=== PATIENT | female | born 1960 | race Caucasian/White ===

== ENCOUNTER → 2024-11-20 13:41 | Outpatient (BNVA) | payer OTHER, SELFPAY | PROVIDERS: Visit Provider Physician Assistant Medical | DX: S60.212A Contusion of left wrist, initial encounter (principal); S70.02XA Contusion of left hip, initial encounter; S39.012A Strain of muscle, fascia and tendon of lower back, initial encounter; W00.0XXA Fall on same level due to ice and snow, initial encounter | CPT/HCPCS: 29125; 72100; 73110; 73502; 99203 ==

== ENCOUNTER → 2024-11-27 08:38 | Outpatient (BNVA) | payer OTHER, SELFPAY | PROVIDERS: Visit Provider Physician Assistant Medical | DX: S60.212A Contusion of left wrist, initial encounter (principal); S70.02XA Contusion of left hip, initial encounter; S76.011A Strain of muscle, fascia and tendon of right hip, initial encounter; S39.012A Strain of muscle, fascia and tendon of lower back, initial encounter; W00.0XXA Fall on same level due to ice and snow, initial encounter | CPT/HCPCS: 99213 ==

== ENCOUNTER → 2024-12-05 07:59 | Outpatient (BNVA) | payer OTHER, SELFPAY | PROVIDERS: PCP Physician Assistant Medical; Visit Provider Physician Assistant Medical | DX: S60.212A Contusion of left wrist, initial encounter (principal); S70.02XA Contusion of left hip, initial encounter; S76.011A Strain of muscle, fascia and tendon of right hip, initial encounter; S39.012A Strain of muscle, fascia and tendon of lower back, initial encounter; W00.0XXA Fall on same level due to ice and snow, initial encounter | CPT/HCPCS: 99213 ==

== ENCOUNTER → 2024-12-19 13:00 | Outpatient (BNVA) | payer OTHER, SELFPAY | PROVIDERS: PCP Physician Assistant Medical; Visit Provider Physician Assistant Medical | DX: S60.212D Contusion of left wrist, subsequent encounter (principal); S63.502D Unspecified sprain of left wrist, subsequent encounter; S70.02XD Contusion of left hip, subsequent encounter; S76.012D Strain of muscle, fascia and tendon of left hip, subsequent encounter; S39.012D Strain of muscle, fascia and tendon of lower back, subsequent encounter; W00.0XXD Fall on same level due to ice and snow, subsequent encounter | CPT/HCPCS: 99213 ==

== ENCOUNTER 2024-12-22 16:07 | Outpatient (REF) | payer OTHER, SELFPAY ==
--- NOTE | ~2024-12-22 | MR_ITS ---
EXAMINATION: MR LUMBAR SPINE WITHOUT CONTRAST CLINICAL INFORMATION: Status post fall on ice at work. Radiculopathy. COMPARISON: Correlated to x-ray dated November 20, 2024. TECHNIQUE: MRI of the lumbar spine was obtained using routine sequences without contrast. FINDINGS: Last rib-bearing vertebra labeled T12. There is a subtle bone marrow STIR signal in the inferior endplate of L2 and superior endplate of L3. Subtle bone marrow STIR signal within the posterior elements of L5 and to a lesser extent L4 and L1-L2 levels. Marginal osteophyte formation, decreased intervertebral disc height at L2-3, L1 to, L3-4, T11-12 and T12-L1. There is a subtle 1 mm anterolisthesis L2-3. Conus medullaris ends at pedicle of L1 with normal signal. Bone marrow inhomogeneity. T12-L1: Broad-based disc bulging. No central spinal canal or neuroforamina stenosis. L1-2: Small central disc herniation resulting in ventral deformity of the thecal sac. No central spinal canal or neuroforamina stenosis. L2-3: Broad-based disc bulging. Facet joint and ligamentum flavum hypertrophy. Reduced in diameter of the thecal sac and the neural foramina. No compression upon neural elements.. L3-4: Broad-based disc bulging. Facet joint and ligamentum flavum hypertrophy. Reduced AP diameter of the thecal sac and neuroforamina. No compression upon neural elements. L4-5: Broad-based disc bulging. Facet joint and ligamentum flavum hypertrophy. Reduced AP diameter of the thecal sac and the neural foramina. No compression upon neural elements. L5-S1: Broad-based disc bulging. Facet joint hypertrophy. No compression upon neural elements. No prevertebral compartment hematoma, mass or fluid collection. Multifocal different sizes round hyperintense T2 and hypointense T1 lesions throughout the kidneys more numerous on the right kidney and the largest measures 3 cm. MR/MR lumbar spine wo con IMPRESSION: Multilevel spondylosis more conspicuous at L2-3 resulting in subtle grade 1 anterolisthesis. Endplate subacute inflammatory degenerative changes at L2-3 and posterior elements L4-5 and L1-2. Bilateral renal cysts. Electronically signed by: Marco Shah MD 12/26/2024 07:13 AM EDT
--- OUTSIDE RECORDS SUMMARY | 2024-12-22 17:26 | XMS_ITS | Data Portability ---
Author Organization [facility], , [facility] Address [address] [place] [address] Care Team Providers Care Fire Sprinkler Service Technician Name Role Phone JANINE CARIAS Primary Care Provider ZULLY ROSSI Shellacker Assessment Encounter Date Assessment Date Assessment LastModified by Organization Details LastModified Time 09/01/2024 09/01/2024 Enhanced Provider time spent performing enhanced activities which may include, but are not limited to: reviewing tests, obtaining and/or reviewing patient history; ordering medications, test or procedures; EMR documentation; communication with patient, family, caregiver(s), VNA; pre-visit prep time communication with specialists, ER staff. Time spent: ___45 (minutes) [email or web address] Not available 09/01/2024 14:56:57 Plan of Treatment Reminders Order Date Submit Date Provider Last Modified By Organization Details Last Modified Time Details Appointments None recorded. Lab amylase, serum or plasma 2023 [facility], [address] [place] [address], [address], 4 12:09:26 CBC 2023 [facility], [address] [place] [address], [address], 4 15:26:30 lipase, serum or plasma 2023 [facility], [address] [place] [address], [address], 4 12:09:27 hepatic function panel, serum 2023 [facility], [address] [place] [address], [address], 4 12:09:25 BMP, serum or plasma 2023 [facility], [address] [place] [address], [address], 4 12:22:44 rapid strep group A, throat [address] [facility], [address] [place] [address], [address], 4 16:16:00 influenza virus A + B + SARS-CoV-2 (COVID19) Ag panel, rapid IA, upper respiratory specimen [address] [facility], [address] [place] [address], [address], 4 16:16:00 Referral None recorded. Procedures None recorded. Surgeries None recorded. Imaging XR, lumbar spine - acute back pain x3-4 days, hx breast cancer, melanoma. 2023 [facility] (Imaging), [address], [place], [place], [address], 4 20:39:26 XR, chest - 64 yo f w cough worsening and low grade temps [facility] [facility] [address], [place], [address], 4 16:30:37 Medication Orders prednisone 20 mg tablet 2023 024 [facility], [address] [place], [address], 4 11:43:50 cyclobenzap rine 5 mg tablet [address] [facility], [address] [place], [address], 4 15:40:19 nitrofurant oin monohydrate /macrocryst als 100 mg capsule 2023 [facility], [address] [place], [address], 4 13:31:04 prednisone 20 mg tablet 2023 [facility], [address] [place], [address], 4 13:26:16 albuterol sulfate HFA 90 mcg/actuati on aerosol inhaler 2023 [facility], [address] [place], [address], 4 11:41:07 Mucinex Fast-Max DM Max 5 mg-100 mg/5 mL oral liquid 2023 [facility], [address] [place], [address], 4 11:38:45 Patient TargetsNo targets recorded. Patient Instructions Encounter Date Encounter Id Patient Instructions Last Modified By Organization Details Last Modified Time 09/01/2024 [id number] Saline nasal rin se 3-6 times a day (Neti-pot or hand held easy use) is a VERY good treatment option. Use a cool mist humidifier, take a hot shower, or use a warm compress to help relieve symptoms. Sudafed (pseudoephedrine) decongestant if no high blood pressure, or Mucinex-DM Sore throat relief- Zarbees or manuka honey, throat lozenges, tea Ibuprofen or Tylenol OTC as directed for pain relief. Add an allergy pill: either Loratadine or Zyrtec daily, or flonase to dry up the post nasal drip Lots of fluids, healthy diet and rest as needed Not available 09/01/2024 13:50:47 09/07/2024 [id number] I am aware of [facility] inpatient facility discharge medications, the medication list above has been reconciled with those medications and reflects my understanding of an up to date medication list for this patient. [email or web address] Not available 09/07/2024 13:25:22 Reason for Referral None Reported. Results Created Date Observation Date Name Description Value Unit Range Abnormal Flag Note LastModifiedBy Organization Detail LastModifiedTime 09/01/20 24 09/01/2024 POCST REP strep A POC NEGATI VE Not Available [facility] [address] [place] [address], [address], 09/01/2024 14:16:09 09/01/20 24 09/01/2024 POC FLU/S ARS flu A POC NEGATI VE Not Available [facility] [address] [place] [address], [address], 09/01/2024 14:23:10 09/01/20 24 09/01/2024 POC FLU/S ARS flu B POC NEGATI VE Not Available [facility] [address] [place] [address], [address], 09/01/2024 14:23:10 09/01/20 24 09/01/2024 POC FLU/S ARS sars POC NEGATI VE Not Available [facility] [address] [place] [address], [address], 09/01/2024 14:23:10 09/07/20 24 09/07/2024 CBC WBC 9.43 K/? ? ?L 3.98-1 0.04 Not Available [address], [address], 09/07/2024 15:26:30 09/07/20 24 09/07/2024 CBC RBC 4.33 M/? ? ?L 3.93-5 .22 Not Available [address], [address], 09/07/2024 15:26:30 09/07/20 24 09/07/2024 CBC HGB 13.4 g/dL 11.2-1 5.7 Not Available [address], [address], 09/07/2024 15:26:30 09/07/20 24 09/07/2024 CBC HCT 41.0 % 34.1-4 4.9 Not Available [address], [address], 09/07/2024 15:26:30 09/07/20 24 09/07/2024 CBC MCV 94.7 fL 79.4-9 4.8 Not Available [address], [address], 09/07/2024 15:26:30 09/07/20 24 09/07/2024 CBC MCH 30.9 pg 25.6-3 2.2 Not Available [address], [address], 09/07/2024 15:26:30 09/07/20 24 09/07/2024 CBC MCHC 32.7 g/dL 32.2-3 5.5 Not Available [address], [address], 09/07/2024 15:26:30 09/07/20 24 09/07/2024 CBC plt 402 K/? ? ?L 182-36 9 high Not Available [address], [address], 09/07/2024 15:26:30 09/07/20 24 09/07/2024 CBC MPV 10.9 fL 9.4-12 .3 Not Available [address], [address], 09/07/2024 15:26:30 09/07/20 24 09/07/2024 CBC neut% 47.6 % 34.0-7 1.1 Not Available [address], [address], 09/07/2024 15:26:30 09/07/20 24 09/07/2024 CBC neut# 4.48 1.56-6 .13 Not Available [address], [address], 09/07/2024 15:26:30 09/07/20 24 09/07/2024 CBC lymph % 39.2 % 19.3-5 1.7 Not Available [address], [address], 09/07/2024 15:26:30 09/07/20 24 09/07/2024 CBC lymph # 3.70 K/? ? ?L 1.18-3 .74 Not Available [address], [address], 09/07/2024 15:26:30 09/07/20 24 09/07/2024 CBC mono% 8.8 % 4.7-12 .5 Not Available [address], [address], 09/07/2024 15:26:30 09/07/20 24 09/07/2024 CBC mono# 0.83 0.24-0 .56 high Not Available [address], [address], 09/07/2024 15:26:30 09/07/20 24 09/07/2024 CBC eo% 3.4 % 0.7-5. 8 Not Available [address], [address], 09/07/2024 15:26:30 09/07/20 24 09/07/2024 CBC eo# 0.32 0.04-0 .36 Not Available [address], [address], 09/07/2024 15:26:30 09/07/20 24 09/07/2024 CBC baso% 0.8 % 0.1-1. 2 Not Available [address], [address], 09/07/2024 15:26:30 09/07/20 24 09/07/2024 CBC baso# 0.08 0.00-0 .08 Not Available [address], [address], 09/07/2024 15:26:30 09/07/20 24 09/07/2024 CBC RDW-CV 14.0 % 11.7-1 4.4 Not Available [address], [address], 09/07/2024 15:26:30 09/07/20 24 09/07/2024 CBC Ig% 0.200 % 0.000- 1.500 Ig % >0.5 Indic ates possi ble Left Shift Not Available [address], [address], 09/07/2024 15:26:30 09/07/20 24 09/07/2024 CBC Ig# 0.020 0.000- 0.093 Not Available [address], [address], 09/07/2024 15:26:30 09/07/20 24 09/07/2024 CBC NRBC% 0.0 % 0.0-0. 2 Not Available [address], [address], 09/07/2024 15:26:30 09/07/20 24 09/07/2024 CBC NRBC# 0.000 0.000- 0.012 Not Available [address], [address], 09/07/2024 15:26:30 09/07/20 24 09/07/2024 HGB A1C hemoglobin A1C 6.8 % 4.8-6. 0 high Goal: <7% in Patie nts with Diabe renny An A1c betwe en 5.7-6 .4% is ident ified as pre-d iabet es and sugge sts risk for progr essio n to diabe renny Two a1c value s of 6.5% or highe r is consi stent with a diagn osis of diabe renny but may need furth er confi rmati on Not Available [address], [address], 09/07/2024 15:37:26 09/07/20 24 09/07/2024 HGB A1C estimated average glucose 148.5 mg/dL Not Available [address], [address], 09/07/2024 15:37:26 09/07/20 24 09/12/2024 HEPAT IC FUNCT ION PANEL total protein 6.6 g/dL 6.4-8. 2 Not Available [address], [address], 09/12/2024 12:09:25 09/07/20 24 09/12/2024 HEPAT IC FUNCT ION PANEL albumin 3.3 g/dL 3.4-5. 0 low Not Available [address], [address], 09/12/2024 12:09:25 09/07/20 24 09/12/2024 HEPAT IC FUNCT ION PANEL globulin 3.3 g/dL Not Available [address], [address], 09/12/2024 12:09:25 09/07/20 24 09/12/2024 HEPAT IC FUNCT ION PANEL A/G 1.0 ratio 0.8-2. 0 Not Available [address], [address], 09/12/2024 12:09:25 09/07/20 24 09/12/2024 HEPAT IC FUNCT ION PANEL total bilirubin 0.20 mg/dL 0.00-1 .00 Not Available [address], [address], 09/12/2024 12:09:25 09/07/20 24 09/12/2024 HEPAT IC FUNCT ION PANEL direct bilirubin 0.10 mg/dL 0.00-0 .30 Not Available [address], [address], 09/12/2024 12:09:25 09/07/20 24 09/12/2024 HEPAT IC FUNCT ION PANEL AST 19 U/L 0-37 Not Available [address], [address], 09/12/2024 12:09:25 09/07/20 24 09/12/2024 HEPAT IC FUNCT ION PANEL ALT 57 U/L 6-63 Not Available [address], [address], 09/12/2024 12:09:25 09/07/20 24 09/12/2024 HEPAT IC FUNCT ION PANEL alk. phos. 99 U/L 50-136 Not Available [address], [address], 09/12/2024 12:09:25 09/07/20 24 09/12/2024 AMYLA SE amylase 67 U/L 25-115 Not Available [address], [address], 09/12/2024 12:09:26 09/07/20 24 09/12/2024 LIPAS E lipase 101 U/L 16-77 high Not Available [address], [address], 09/12/2024 12:09:27 09/07/20 24 09/12/2024 BASIC METAB OLIC PANEL glucose 125 mg/dL 70-100 high Not Available [address], [address], 09/12/2024 12:22:44 09/07/20 24 09/12/2024 BASIC METAB OLIC PANEL BUN 18 mg/dL 7-18 Not Available [address], [address], 09/12/2024 12:22:44 09/07/20 24 09/12/2024 BASIC METAB OLIC PANEL creatinine 0.9 mg/dL 0.8-1. 3 Not Available [address], [address], 09/12/2024 12:22:44 09/07/2009/12/2024 BASIC METAB OLIC PANEL B/C 20.0 ratio Not Available [address], [address], 09/12/2024 12:22:44 09/07/2009/12/2024 BASIC METAB OLIC PANEL GFR >=60ML /MIN mL/mi n normal >=60m L/min - Allison l or midly reduc ed <60mL /min- Decre ased kidne y funct ion <15mL /min - Kidne y failu re [facility] calcu lates estim ated Glome rular Filtr ation Rate (eGFR ) using the Chron ic Kidne y Disea se Epide miolo gy Colla borat ion (CKD- EPI) Equat ion (Savita r et. al 2020) as recom adolfo d by the Natio nal Kidne y Found ation . eGFR is based on age, serum creat inine , and sex. CKD-E PI does not calcu late eGFR by race, does not apply to child linh (age <18 years ), and shoul d not be used in pregn enrique. Not Available [address], [address], 09/12/2024 12:22:44 09/07/2009/12/2024 BASIC METAB OLIC PANEL sodium 147 mmol/ L 136-14 5 high Not Available [address], [address], 09/12/2024 12:22:44 09/07/2009/12/2024 BASIC METAB OLIC PANEL potassium 4.8 mmol/ L 3.5-5. 1 Not Available [address], [address], 09/12/2024 12:22:44 09/07/2009/12/2024 BASIC METAB OLIC PANEL chloride 107 mmol/ L 96-107 Not Available [address], [address], 09/12/2024 12:22:44 09/07/20 24 09/12/2024 BASIC METAB OLIC PANEL anion gap 8.7 5.0-15 .0 Not Available [address], [address], 09/12/2024 12:22:44 09/07/2009/12/2024 BASIC METAB OLIC PANEL CO2 31 mmol/ L 21-32 Not Available [address], [address], 09/12/2024 12:22:44 09/07/2009/12/2024 BASIC METAB OLIC PANEL calcium 9.2 mg/dL 8.5-10 .3 Not Available [address], [address], 09/12/2024 12:22:44 05/08/20 24 05/08/2024 XR, knee, weigh tbear ing CLINIC AL HISTOR Y: Left knee pain and swelli ng. TECHNI QUE: AP, obliqu e and latera l views of the left knee obtain ed. COMPAR AYANA: None. FINDIN GS: There is no fractu re, sublux ation or disloc ation. The joint spaces are mainta ined. IMPRES MARIS: No acute bone abnorm ality. Readrohit g Physic jailene: Orquidea Garcia ms [facility] (Imaging) [address], [place], [address], 05/08/2024 12:35:59 05/08/20 24 05/08/2024 XR, lumba r spine CLINIC AL HISTOR Y: Low back pain radiat ing to the right. TECHNI QUE: AP, Latera l and latera l spot views of the lumbar spine obtain ed. Bilate ral obliqu e views added. COMPAR AYANA: None. FINDIN GS: Verteb ral body alignm ent is within physio logic limits . There is mild endpla te spurri ng at L1-2. There is modera te endpla te spurri ng at L2-3. There is no fractu re. The sacroi liac joints are unrema rkable . IMPRES MARIS: 1. Degene rative disc diseas e at L1-2 and L2-3 as above. 2. No acute bony abnorm ality. Readin clarissa Physic jailene: Orquidea Garcia [facility] (Imaging) [address] [place], [address], 05/09/2024 14:18:41 05/15/20 24 05/15/2024 XR, shoul salome CLINIC AL HISTOR Y: Right should er pain for 8 months . TECHNI QUE: 3 views of the right should er were obtain ed. COMPAR AYANA: 10/25/19 15 FINDIN GS: There is no fractu re or disloc ation. The acromi oclavi cular joint space is preser margarita. The glenoh umeral joint space is preser margarita. IMPRES MARIS: No acute bone abnorm ality. There is no signif icant degene rative change . Readin g Physic jailene: Orquidea Garcia [facility] (Imaging) [address] [place], [address], 05/15/2024 15:32:27 09/07/20 24 09/07/2024 XR, chest CLINIC AL HISTOR Y: Cough. TECHNI QUE: Fronta l view and latera l view of the chest obtain ed. COMPAR AYANA: Februa ry 2023 FINDIN GS: The heart is normal in size and config uratio n.Ther e is no hilar or medias tinal enlarg ement. There is no focal lung consol idatio n or infilt rate. The bony thorax is intact . the patien t is status post anteri or interb hien fusion lower cervic al spine. . IMPRES MARIS: No acute diseas e. Readin g Physic jailene: Ayaz Loyd [address] (Imaging) [address] [place], [address], 09/07/2024 16:58:36 10/09/20 24 10/09/2024 XR, lumba r spine CLINIC AL HISTOR Y: Low back pain. TECHNI QUE: AP, latera l and latera l spot views of the lumbar spine obtain ed. COMPAR AYANA: 024 FINDIN GS: Verteb ral body alignm ent is within physio logic limits . There is mild endpla te spurri ng at L1-2. There is modera te endpla te spurri ng and sclero sis at L2-3. There is no compre ssion fractu re. The sacroi liac joints are unrema rkable . IMPRES MARIS: 1. Mild degene rative disc diseas e at L1-2. Modera te degene rative disc diseas e at L2-3. 2. No acute bone abnorm ality. Readin g Physic jailene: Orquidea Garcia ms [facility] (Imaging) [address], [place], [address], 10/10/2024 13:22:28 Result Notes None recorded. Problems Name Problem SNOMED Code Status Onset Date Resolution Date Notes Provider Name and Address Organization Details Recorded Time Mixed hyperlip idemia 069582527 Active [place], [address], [facility] 09:46:58 Major depressi on, melancho lic type 601662621 Completed 03/07/2014 pt states she is not depressed 02/2014 [place], [address], [facility] 09:46:58 Gastroes ophageal reflux disease 042755797 Completed 05/02/2014 VALERI [place], [address], [facility] 09:46:58 Kidney stone 49850956 Completed 12/22/2016 VALERI [place], [address], [facility] 09:33:13 Right upper quadrant pain 683413015 Completed 09/06/2013 Janine Carias PA-C [address] [place] [address] [place], [address], [facility] 09:46:58 Shoulder pain 92832214 Completed 09/06/2013 Janine Carias PA-C [address] [place] [address] [place], [address], [facility] 09:46:58 Type 2 diabetes mellitus without complica tion 128170039 Active Janine Carias PA-C [address] [place] [address] [place], [address], [facility] 6 09:46:58 Benign essentia l hyperten maris 0679031 Completed 01/04/2012 Janine Carias PA-C [address] [place] [address] [place], [address], [facility] 6 09:46:58 Neck pain 07864512 Completed 09/06/2013 Janine Carias PA-C [address] [place] [address] [place], [address], [facility] 3 10:06:56 Urolith Completed 03/07/2014 Janine Carias PA-C [address] [place] [address] [place], [address], [facility] 09:46:58 Headache 05428530 Completed 03/07/2014 Janine Carias PA-C [address] [place] [address] [place], [address], [facility] 6 09:46:58 Obesity 565846918 Active Janine Carias PA-C [address] [place] [address] [place], [address], [facility] 6 09:46:58 Steatohe patitis 824972948 Active Janine Carias PA-C [address] [place] [address] [place], [address], [facility] 09:46:58 Hearing loss 27716100 Active Janine Carias PA-C [address] [place], [place] [address], [address], [facility] 09:46:58 Hyperkal emia 73699775 Completed 02/02/2018 Janine Carias PA-C [address] [place], [place] [address], [address], [facility] 11:14:48 Degenera tion of cervical interver tebral disc 11730270 Active 2017 Janine Carias PA-C [address] [place], [place] [address], [address], [facility] 11:15:58 Multiple nodules of lung 777014549 Active 2018 Janine Carias PA-C [address] [place], [place] [address], [address], [facility] 15:28:45 Oral herpes simplex infectio n 284659844 Active 2018 Janine Carias PA-C [address] [place], [place] [address], [address], [facility] 10:40:25 Kidney stone 17587777 Active 2018 Janine Carias PA-C [address] [place], [place] [address], [address], [facility] 09:33:13 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 Janine Carias PA-C [address] [place], [place] [address], [address], [facility] 08:02:51 Atrophy of pancreas 43577475 Active 2018 Janine Carias PA-C [address] [place], [place] [address], [address], [facility] 11:06:47 Osteoart hrosis of the carpomet acarpal joint of the thumb 06799584 Active 2018 Bilateral , hand ortho Janine Carias PA-C [address] [place] [address], [place], [address], [facility] 10:05:41 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 2018 Janine Carias PA-C [address] [place] [address], [place], [address], [facility] 12:24:31 Essentia l hyperten maris 50683191 Active 2022 Janine Carias PA-C [address] [place] [address], [place], [address], [facility] 09:48:50 Cervical radiculo opal 03919224 Active 2022 Janine Carias PA-C [address] [place] [address], [place], [address], [facility] 10:06:34 Chronic cerebral ischemia 631065923 Active 2022 MRI 2020 Janine Carias PA-C [address] [place] [address], [place], [address], [facility] 10:08:00 Atherosc lerosis of aorta 82113769 Active 2022 Janine Carias PA-C [address] [place] [address], [place], [address], [facility] 10:08:41 History of cerebrov ascular accident 111844870 Active 2022 Right MCA, resolved s/p TPA, 10/2020 Echo 2019 normal EF 60-65%; event monitor normal Janine Carias PA-C [address] [place] [address], [place], [address], [facility] 09:53:20 History of malignan t neoplasm of breast 967115519 Active 2022 Right, intoleran t to tamoxifen Janine Carias PA-C [address] [facility], [place], [address], [facility] 15:28:29 Degenera tion of lumbar interver tebral disc 81053366 Active 2023 Janine Carias PA-C [address] [place] [address] [place], [address], [facility] 13:02:09 Notes:[place] 2020 hyperplastic , repeat 5 years Add G72.0 for statin side effect Problem Notes None recorded. Procedures Surgical History Date Name Laterality Status Provider Name and Address Organization Details Recorded Time 09/07/20 24 Post hospital/SNF follow-up/Transi tional Care completed Afsaneh Lopez CMA [facility] 09/07/2024 13:25:22 09/01/20 24 Nebulizer Tx completed Maribeth Welsh RN [facility] 09/01/2024 14:32:42 05/05/20 24 Medicare Wellness Visit completed Kelly Ring Fili [facility] 05/04/2024 13:55:54 05/05/20 24 Cerumen Removal - Irrigation/Lavag e completed Lory Fuchs MA [facility] 05/05/2024 17:01:33 05/05/20 24 Advanced Care Planning completed Kelly Ring [facility] 05/04/2024 13:56:25 02/16/20 19 Post hospital/SNF follow-up/Transi tional Care completed Kalee Baron MA [facility] 02/15/2019 07:58:59 02/01/20 19 Post hospital/SNF follow-up/Transi tional Care completed Kelly Ocampo RN [facility] 01/31/2019 09:18:02 12/31/19 19 POC Strep Testing completed Carol Meza [facility] 12/30/2018 15:51:54 11/30/19 18 Cerumen Removal - Irrigation/Lavag e completed Afsaneh Lopez CMA [facility] 11/30/2017 17:39:50 10/02/20 14 PHQ-9 -Nine Symptom Checklist completed Kelly Yousif M.D. [address] [place] [address], [address], [facility] 10/02/2014 12:03:53 07/11/20 14 PHQ-9 -Nine Symptom Checklist completed Kelly Northfield M.D. [address] [place], [address], [facility] 07/11/2014 08:43:31 01/13/20 12 Other (specify) completed Janine Carias PA-C [address] [place] [address], [address], [facility] 01/20/2023 10:17:02 10/15/20 10 Cerumen Removal completed Aimee Hung NP [address] [place] [address], [address], [facility] 10/15/2010 16:58:02 10/18/19 08 Total Hysterectomy completed Kelly Nica M.D. [address] [place] [address], [address], [facility] 04/16/2014 15:16:03 10/18/18 77 Appendectomy completed Kelly Nica M.D. [address] [place] [address], [address], [facility] 06/27/2014 10:51:52 10/18/18 76 Splenectomy completed Kelly Nica M.D. [address] [place] [address], [address], [facility] 06/27/2014 10:51:52 Imaging Results Imaging Date Name Status LastModified by Organization Details LastModified Time 05/08/2024 XR, knee, weightbearing completed [facility] (Imaging) [address] [place], [address], 05/08/2024 12:35:59 05/08/2024 XR, lumbar spine completed [facility] [address] [place], [address], 05/09/2024 14:18:41 05/15/2024 XR, shoulder completed [facility] ([facility]) [address] [place], [address], 05/15/2024 15:32:27 09/07/2024 XR, chest completed [address] [facility] (Imaging) [address] [place], [address], 09/07/2024 16:58:36 10/09/2024 XR, lumbar spine completed [facility] (Imaging) [address], [place], [address], 10/10/2024 13:22:28 Procedure Notes None recorded. Medical Equipment None Reported. Allergies Allergen ID Allergen Name Allergen Category Reaction Reaction Severity Criticality Documentation Date Start Date Code Code System Note Provider Name and Address Organization Details Recorded Time tamoxifen medicatio n Not available Not available Not available 12/22/2016 35154 RxNorm hot flash es sever e Janine Carias PA-C [address] [place] [address], [place], [address], [facility] 7 16:31:03 [id number] raloxifen e medicatio n Not available Not available Not available 12/22/2016 45913 RxNorm sever e hot flash es Janine Carias PA-C [address] [place] [address], [place], [address], [facility] [place] 7 16:31:17 [id number] Substance with sulfonami de structure and antibacte rial mechanism of action (substanc e) medicatio n rash Not available Not available 02/25/2010 [id number] 8003 SNOMED Not Available [facility] 1 06:05:41 [id number] losartan medicatio n cough Not available [facility] 01/20/2023 [id number] RxNorm Janine Carias PA-C [address] [place] [address], [place], [phone], [facility] [place] 3 09:48:21 [id number] fenofibra te medicatio n cough Not available Not available 12/07/2023 8703 RxNorm Xi Steward LPN null, [facility] 4 16:03:03 [id number] rosuvasta tin medicatio n myalgias (muscle pain) Not available Not available 12/13/2023 [id number] 2 RxNorm Soila Brito CMA null, [facility] 4 14:42:42 [id number] atorvasta tin medicatio n myalgias (muscle pain) Not available Not available 12/13/2023 17286 RxNorm Soila Brito CMA null, [facility] 4 14:42:50 [id number] pravastat in medicatio n cough Not available Not available 12/13/2023 54005 RxNorm Soila Brito CMA null, [facility] 4 14:43:05 [id number] Macrobid medicatio n rash Not available Not available 09/01/20242023 30093 1 RxNorm Jess Mccain RN null, [facility] 4 17:23:05 [id number] chlorthal idone medicatio n Not available Not available [facility] 09/10/2024 2409 RxNorm PANCR EATIT IS 09/10 Kelly Greenberg NP [address] [place] [address], [place], [phone] , [facility] [place] 4 19:41:42 [id number] hydrocodo ne Not available vomiting Not available Not available 08/20/2010 5489 RxNorm Not Available [facility] 1 06:05:41 Medications Name Sig Start Date Stop Date Status Note LastModified by Organization Details LastModified Time metformin tab 500mg take 1.00 tab in am and 2.00 tabs in pm active Not Available Not Available No t Available gabapenti n cap 300mg 300mg at bedtime active Not Available Not Available No t Available pravastat in tab 40mg active Not Available Not Available Not Available atorvasta tin calcium 80 mg tabs active Not Available Not Available Not Available ranitidin e hcl 150 mg tabs active Not Available Not Available Not Available freestyle mis lite active Not Available Not Available Not Available oxycodone hcl 5 mg tabs 10/28 completed Not Available Not Available Not Available cyclobenz aprine hcl 10 mg tabs active Not Available Not Available Not Available sodium polystyre ne sulfonate powd active Not Available Not Available Not Available pravastat in tab 80mg active Not Available Not Available Not Available cyclobenz aprine hcl 5 mg tabs active Not Available Not Available Not Available oxycodone /acetamin ophen 5-325 mg tabs active Not Available Not Available Not Available aspirin 81 mg tbec active Not Available Not Available Not Available oxycod/ap ap tab 5-325mg active Not Available Not Available Not Available gabapenti n cap 100mg active Not Available Not Available Not Available methylpre d reese 4mg active Not Available Not Available No t Available hyoscyami ne sulfate 0.125 mg subl active Not Available Not Available Not Available sure comfort mis lancets active Not Available Not Available Not Available cyclobenz apr tab 10mg active Not Available Not Available Not Available naproxen tab 500mg active Not Available Not Available No t Available oxycontin tab 10mg cr active Not Available Not Available Not Available atorvasta tin tab 80mg active Not Available Not Available Not Available metformin hcl 1000 mg tabs active Not Available Not Available Not Available morphine sul tab 15mg er active Not Available Not Available Not Available cephalexi n 500 mg caps active Not Available Not Available Not Available Prescript ion - Clarifica tion 12/22 completed Not Available Not Available Not Available naproxen 500 mg tabs active Not Available Not Available Not Available valacyclo vir tab 500mg as needed active Not Available Not Available No t Available 2 1 [facility] oint/2%li doca APPLY TO AFFECTED AREA EVERY 4 TO 6 HOURS NEEDED FOR PAIN RELIEF 12/22 completed Not Available Not Available Not Available ciproflox acn tab 500mg active Not Available Not Available Not Available gabapenti n 300 mg caps active Not Available Not Available Not Available omeprazol e cap 20mg active Not Available Not Available Not Available amoxicill in cap 500mg active Not Available Not Available Not Available freestyle renny lite active Not Available Not Available Not Available venlafaxi ne hcl er 150 mg cp24 active Not Available Not Available Not Available gabapenti n 600 mg tabs active Not Available Not Available Not Available cyclobenz aprine 10 mg tablet TAKE 1 TABLET 3 TIMES A DAY NEEDED 10/22 completed not taking 10/21/18-a h Not Available Not Available Not Available amoxicill in 500 mg capsule TAKE 1 CAPSULE THREE TIMES A DAY 01/20 completed Not Available Not Available Not Available Miralax 17 gram/dose oral powder Take 17 grams powder mixed with 8 oz. water, juice, soda, coffee, or tea by oral route once daily. 2010 active Not Available Not Available Not Avai lable metformin 500 mg tablet Take 2 tablets twice a day by oral route. 04/13 completed Not Available Not Available Not Available atorvasta tin 80 mg tablet TAKE 1 TABLET BY MOUTH EVERY DAY 09/20 completed Not Available Not Available Not Available prednison e 10 mg tablet Take 3 tablets x 2 days, 2 tabs x 2 days, 1 tab x 2 days 02/07 completed Not Available Not Available Not Available venlafaxi ne ER 75 mg capsule,e xtended release 24 hr Take 1 capsule every day by oral route for 14 days. 07/27 completed Not Available Not Available Not Available gabapenti n 600 mg tablet TAKE 1 TABLET BEFORE BED NIGHTLY 08/03 completed Not Available Not Available Not Available doxycycli ne hyclate 100 mg capsule Take 1 capsule twice a day by oral route for 7 days. 01/20 completed Not Available Not Available Not Available trazodone 50 mg tablet TAKE 1-2 TABLETS BEFORE BED NEEDED FOR TROUBLE STAYING ASLEEP active Not Available Not Available No t Available polyethyl mayi glycol 3350 17 gram oral powder packet Take 1 packet twice a day by oral route as directed . 04/12 completed Stopped 03/10/19 DO Not Available Not Available Not Available pravastat in 40 mg tablet Take 1 tablet every day by oral route in the evening. 05/23 completed dose increase d Not Available Not Available Not Available valacyclo vir 1 gram tablet Take 1 tablet every 12 hours by oral route for 1 day. 01/09 completed not taking 12/30/18- JV Not Available Not Available Not Available ranitidin e 300 mg tablet TAKE 1/2 TABLET BY MOUTH TWICE DAILY 04/12 completed no longer taking 04/12/19- ah Not Available Not Available Not Available sumatript an 100 mg tablet Take 1 tablet at onset of migraine , max dose in 24hours 200mg 05/05 completed no longer taking 05/05/24 Not Available Not Available Not Available meloxicam 15 mg tablet TAKE 1 TABLET BY MOUTH EVERY DAY NEEDED 01/31 completed No longer taking 01/24/19-a h Not Available Not Available Not Available sucralfat e 1 gram tablet TAKE 1 TABLET ON AN EMPTY STOMACH AT BEDTIME active Not Available Not Available No t Available FreeStyle Lancets 28 gauge USE 2-3 TIMES A DAY OR DIRECTED 02/02 completed Doesn't test due to out of pocket expense Not Available Not Available Not Available prednison e 20 mg tablet Take 2 tablets every day by oral route for 5 days. active Not Available Not Available No t Available Zithromax Z-Reese 250 mg tablet Take 2 tablets (500 mg) by oral route once daily for 1 day then 1 tablet (250 mg) by oral route once daily for 4 days 2009 active Not Available Not Available Not Avai lable venlafaxi ne ER 150 mg capsule,e xtended release 24 hr TAKE ONE CAPSULE BY MOUTH EVERY DAY active Not Available Not Available No t Available topiramat e 25 mg tablet Take 1 tablet daily for 14 days, increase to two tablets daily at bedtime 05/05 completed no longer taking 05/05/24 Not Available Not Available Not Available acetamino phen 300 mg-codein e 30 mg tablet 08/03 completed No longer taking 08/03-ah Not Available Not Available Not Available clopidogr el 75 mg tablet TAKE ONE TABLET BY MOUTH EVERY DAY active Not Available Not Available No t Available chlorthal idone 25 mg tablet TAKE ONE TABLET BY MOUTH EVERY DAY 09/07 completed not taking-d /c at [facility] in ER- 09/01/24 MG Not Available Not Available Not Available valacyclo vir 500 mg tablet 1 tablet twice a day for 3 days as needed. 2022 active PRN Not Available Not Available Not Avai lable ciproflox acin 500 mg tablet TAKE 1 TABLET BY MOUTH EVERY 12 HOURS FOR 7 DAYS 01/20 completed Not Available Not Available Not Available aspirin 81 mg tablet,de layed release TAKE 1 TAB EVERY DAY BY ORAL ROUTE 01/20 completed Not Available Not Available Not Available tramadol 50 mg tablet Take 1 tablet 3 times a day by oral route as needed for 10 days. 05/31 completed causes vomiting 05/31/24 Not Available Not Available Not Available MS Contin 15 mg tablet,ex tended release Take 1 tablet every 12 hours by oral route for 28 days. 12/13 completed Not Available Not Available Not Available oxycodone -acetamin ophen 5 mg-325 mg tablet TAKE 1 TABLET BY MOUTH EVERY 6 HOURS NEEDED FOR PAIN FOR 4 DAYS 01/09 completed no longer taking 10/21/18-a h Not Available Not Available Not Available Tessalon Perles 100 mg capsule Take 1 capsule 3 times a day by oral route as needed for 10 days. 09/17 completed Not Available Not Available Not Available pravastat in 80 mg tablet Take 1 tablet every day by oral route at bedtime for 30 days. 09/25 completed changed to Atorvast atin Not Available Not Available Not Available tamsulosi n 0.4 mg capsule TAKE ONE CAPSULE BY MOUTH EVERY DAY FOR 5 DAYS 01/31 completed no longer taking 01/31/19 TS Not Available Not Available Not Available tamoxifen 10 mg tablet 12/22 completed Not Available Not Available Not Available amitripty line 10 mg tablet Take 1 tablet at bedtime once daily 02/20 completed Not Available Not Available Not Available baclofen 10 mg tablet TAKE 1 TABLET AT BEDTIME 02/02 completed Not Available Not Available Not Available cephalexi n 500 mg capsule TAKE ONE CAPSULE BY MOUTH 4 TIMES A DAY DIRECTED 03/17 completed Not Available Not Available Not Available cyanocoba yady (vit B-12) 1,000 mcg/mL injection solution Inject 1 ML daily for 4 days, then Inject 1ML weekly for 5 weeks, then Inject 1ML Monthly 01/20 completed Not Available Not Available Not Available metformin 1,000 mg tablet TAKE 1 TAB TWICE A DAY BY ORAL ROUTE 01/20 completed Not Available Not Available Not Available ranitidin e 150 mg tablet TAKE 1 TABLET BY MOUTH TWICE A DAY 05/04 completed Not Available Not Available Not Available hyoscyami ne 0.125 mg sublingua l tablet PLACE 1 TABLET UNDER THE TONGUE BEFORE MEALS 3 TIMES A DAY NEEDED active Not Available Not Available No t Available lidocaine 5 % topical patch APPLY 1 PATCH BY TRANSDER MAL ROUTE ONCE DAILY (MAY WEAR UP TO 12HOURS. ) 04/12 completed no [email or web address] using 04/12/19- ah Not Available Not Available Not Available metoprolo l tartrate 50 mg tablet Take 1 tablet twice a day by oral route for 90 days. active Takes with the 25mg Not Available Not Available Not Available BD Luer-Mimi Syringe 3 mL 25 gauge x 1 01/20 completed Not Available Not Available Not Available gabapenti n 300 mg capsule TAKE 1 CAPSULE IN THE MORNING AND 3 AT BEDTIME 04/12 completed no longer taking 04/12/19- ah Not Available Not Available Not Available omeprazol e 20 mg capsule,d elayed release TAKE ONE CAPSULE BY MOUTH EVERY DAY 12/22 completed Pt stopped on own. Not Available Not Available Not Available raloxifen e 60 mg tablet TAKE 1 TABLET BY MOUTH EVERY DAY 12/22 completed No longer taking Not Available Not Available Not Available codeine 10 mg-guaife nesin 100 mg/5 mL oral liquid 10 ml at hs prn, REPEAT IN 4 HOURS NEEDED 10/13 completed PT not taking 10/13/24 Mw Not Available Not Available Not Available pravastat in 20 mg tablet Take 1 tablet every day by oral route. 10/25 completed Not taking Not Available Not Available Not Available gabapenti n 100 mg capsule TAKE ONE CAPSULE 3 TIMES A DAY CAN INCREASE TO 1 IN AM, 1 IN AFTERNOO N AND 2 AT BED AFTER 5 DAYS active Not Available Not Available No t Available diazepam 10 mg tablet TAKE 1 TABLET BY MOUTH 1 HOUR PRIOR TO DENTIST APPOINTM ENT 08/03 completed Not Available Not Available Not Available ibuprofen 600 mg tablet TAKE 1 TABLET BY MOUTH EVERY 6 HOURS NEEDED FOR PAIN 04/05 completed Stopped 03/10/19 DO Not Available Not Available Not Available cefuroxim e axetil 500 mg tablet Take 1 tablet every 12 hours by oral route as directed for 5 days. 03/17 completed Took last tab this morning 02/15/19-a h. Stopped 03/10/19 DO Not Available Not Available Not Available methylpre dnisolone 4 mg tablets in a dose pack TAKE 6 TABLETS ON DAY 1 DIRECTED ON PACKAGE AND DECREASE BY 1 TAB EACH DAY FOR A TOTAL OF 6 DAYS 01/20 completed Not Available Not Available Not Available albuterol sulfate HFA 90 mcg/actua tion aerosol inhaler Inhale 2 puffs every 4 hours by inhalati on route as needed. 10/13 completed PT not taking 10/13/24 Mw Not Available Not Available Not Available sodium polystyre ne sulfonate oral powder TAKE 15 GRAMS BY MOUTH ONCE FOR HYPERKAL EMIA active Not Available Not Available No t Available ketorolac 60 mg/2 mL intramusc ular solution Inject 2 mL every 6 hours by intramus cular route. 01/31 completed Not Available Not Available Not Available morphine 15 mg immediate release tablet PLEASE SEE ATTACHED FOR DETAILED DIRECTIO NS 10/13 completed PT not taking 1227.24 Mw Not Available Not Available Not Available Lactobaci llus rhamnosus GG 10 billion cell capsule Take 1 capsule twice a day by oral route as directed . 2018 active per [facility] d/c summary Not Available Not Available Not Available ondansetr on 4 mg disintegr ating tablet TAKE 1 TABLET BY MOUTH EVERY 6 HOURS NEEDED FOR NAUSEA 02/10 completed Not Available Not Available Not Available dicyclomi ne 10 mg capsule TAKE ONE CAPSULE BY MOUTH TWICE A DAY active Not Available Not Available No t Available tamoxifen 20 mg tablet TAKE 1 TABLET BY MOUTH EVERY DAY 12/22 completed No longer taking Not Available Not Available Not Available naproxen 500 mg tablet TAKE 1 TABLET BY MOUTH TWICE A DAY NEEDED FOR PAIN. TAKE WITH FOOD 10/22 completed Not Available Not Available Not Available amoxicill in 875 mg-potass ium clavulana te 125 mg tablet Take 1 tablet every 12 hours by oral route for 5 days. 09/07 completed Not Available Not Available Not Available oxycodone 5 mg tablet TAKE 1 TO 2 TABLETS BY MOUTH EVERY 4 TO 6 HOURS NEEDED FOR PAIN 04/05 completed no longer taking 5-a h Not Available Not Available Not Available Blood Glucose Test strips TEST BLOOD SUGARS 3 TIMES DAILY 02/02 completed Doesn't test due to out of pocket cost Not Available Not Available Not Available cyclobenz aprine 5 mg tablet take 1-2 tablets up to 3x daily as needed for back pain. active Not Available Not Available No t Available rosuvasta tin 20 mg tablet TAKE 1 TABLET BY MOUTH EVERY DAY 07/27 completed Not Available Not Available Not Available miconazol e nitrate 200 mg-2 % (9 gram) vaginal kit Place vaginall y nightly at bedtime for 2 doses 04/12 completed per [facility] d/c summary, no longer taking 02/15/19-a h Not Available Not Available Not Available metoprolo l tartrate 25 mg tablet TAKE ONE TABLET BY MOUTH TWICE A DAY active takes with the 50mg; Taking 75 mg BID Not Available Not Available Not Available nitrofura ntoin monohydra te/macroc rystals 100 mg capsule Take 1 capsule every 12 hours by oral route for 5 days. 09/07 completed Not Available Not Available Not Available duloxetin e 60 mg capsule,d elayed release TAKE 2 CAPSULES BY MOUTH EVERY DAY 03/17 completed Not taking, it made her vomit 03/17/19- ah Not Available Not Available Not Available OneTouch UltraSoft Lancets Test blood sugar 1-2 times daily as directed . 2010 active Not Available Not Available Not Avai lable Flovent HFA 110 mcg/actua tion aerosol inhaler Inhale 2 puffs twice a day by inhalati on route. 09/08 completed Not Available Not Available Not Available Percocet 1-2 tabs q 4 hrs as needed for pain active Not Available Not Available No t Available multivita min Once a day vitamin B-12 active Not Available Not Available No t Available red yeast rice 600 mg capsule Take 1 capsule twice a day by oral route. 01/20 completed Not Available Not Available Not Available metformin ER 500 mg 24 hr tablet,ex tended release (gastric retention ) Take 1 tablet twice a day by oral route for 90 days. 09/17 completed Not Available Not Available Not Available fenofibra te nanocryst allized 145 mg tablet Take 1 tablet every day by oral route with meal(s) for 90 days. 12/07 completed Cough Not Available Not Available Not Available Pulmicort Flexhaler 180 mcg/actua tion breath activated 10/13 completed PT not taking 10/13/24 Mw Not Available Not Available Not Available FreeStyle Lite Strips USE 2-3 TIMES A DAY OR DIRECTED active Not Available Not Available No t Available omeprazol e 20 mg tablet,de layed release Take by oral route 1 tab daily 2013 active no GERD symptoms Not Available Not Available Not Available venlafaxi ne ER 75 mg tablet,ex tended release 24 hr TAKE 1 TABLET BY MOUTH EVERY DAY FOR 1 TO 2 WEEKS THEN MAY INCREASE TO 12/22 completed No longer taking Not Available Not Available Not Available GaviLyte- G 236 gram-22.7 4 gram-6.74 gram-5.86 gram oral solution 08/03 completed No longer taking 08/03-ah Not Available Not Available Not Available Mucinex Fast-Max DM Max 5 mg-100 mg/5 mL oral liquid Take 20 mL every 4-6 hours by oral route as needed. 10/13 completed PT not taking 10.13.24 Mw Not Available Not Available Not Available Trulicity 0.75 mg/0.5 mL subcutane ous pen injector active Not Available Not Available Not Available Praluent Pen 75 mg/mL subcutane ous pen injector INJECT 1ML SUBCUTAN EOUSLY EVERY 2 WEEKS 2024 active Not Available Not Available Not Avai lable Flucelvax Quad 8667-5914 (PF) 60 mcg (15 mcg x 4)/0.5 mL IM syringe TO BE ADMINIST ERED BY THE PHARMACI ST 11/30 completed Not Available Not Available Not Available Qvar RediHaler 40 mcg/actua tion HFA breath activated aerosol Inhale 2 puffs twice a day by inhalati on route. 10/13 completed PT not taking 10/13.24 MW Not Available Not Available Not Available baclofen 5 mg tablet TAKE 1 TABLET BY MOUTH THREE TIMES A DAY 01/31 completed No longer taking 01/24/19-a h Not Available Not Available Not Available Mounjaro 2.5 mg/0.5 mL subcutane ous pen injector Inject 2.5 mg every week by subcutan eous route for 28 days. 09/29 completed Not Available Not Available Not Available Lagevrio 200 mg capsule (EUA) TAKE 4 CAPSULES BY MOUTH EVERY 12 HOURS FOR 5 DAYS WITH OR WITHOUT FOOD 07/14 completed Not Available Not Available Not Available Vitals Date Recorded Body height Body mass index (BMI) Body weight Heart rate Systolic blood pressure Diastolic blood pressure Provider Name and Address Organization Details Last Updated DateTime 4 158.75 cm 29.9 kg/m2 99881.3 3 g 68 /min 116 mm[Hg] 68 mm[Hg] Kelly TelmaGlenys schwartz, CORDELIA [facility] 4 15:36:44 Date Recorded Body height Body mass index (BMI) Body weight Body temperature Oxygen saturation Oxygen saturation in Arterial blood by Pulse oximetry Heart rate Systolic blood pressure Diastolic blood pressure Provider Name and Address Organization Details Last Updated DateTime 4 158.75 cm 29.2 kg/m2 93219.9 6 g 98.4 [degF] 100 % 100 % 75 /min 110 mm[Hg] 72 mm[Hg] [facility] 4 13:58:44 Date Recorded Body height Body mass index (BMI) Body weight Heart rate Oxygen saturation Oxygen saturation in Arterial blood by Pulse oximetry Systolic blood pressure Diastolic blood pressure Provider Name and Address Organization Details Last Updated DateTime 4 158.75 cm 30.1 kg/m2 46044.9 3 g 76 /min 98 % 98 % 112 mm[Hg] 68 mm[Hg] Afsaneh Lopez [facility] 4 13:32:27 Date Recorded Body height Heart rate Systolic blood pressure Diastolic blood pressure Provider Name and Address Organization Details Last Updated DateTime 10/09/2024 158.75 cm 76 /min 116 mm[Hg] 64 mm[Hg] [facility] 10/09/2024 15:17:21 Date Recorded Body height Body mass index (BMI) Body weight Heart rate Systolic blood pressure Diastolic blood pressure Provider Name and Address Organization Details Last Updated DateTime 4 158.75 cm 29.4 kg/m2 15533.3 6 g 72 /min 118 mm[Hg] 70 mm[Hg] [facility] 4 11:33:07 Social History Question Answer Notes LastModified by Organizat ion Details LastModified Time Tobacco Smoking Status Former Smoker quit 11/11/97 less than 1ppd (quit for her 38th bday) Not Available [facility] 03/12/2011 02:08:48 What Is Your Level Of Alcohol Consumption? Occasional Glass Of Wine, Maybe Once A Month Information not available 08/28/2015 Do You Wear A Helmet When Biking? No N/A Information not available 05/05/2024 What Is Your Level Of Caffeine Consumption? Moderate 1 Cup/day Information not available 08/28/2015 How Much Tobacco Do You Chew? None Information not available 08/28/2015 Are You Currently Employed? No Information not available 04/16/2023 What Type Of Diet Are You Following? REGULAR Avoids Processed Foods Information not available 05/05/2024 Which Illicit Or Recreational Drugs Have You Used? 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 No [email or web address] Information not available 04/16/2023 When Did You Quit Smoking? 16+yearssince arleen oconnell Information not available 04/13/2023 How Many Days In The Past Year Have You Had A Heavy Drinking Consumption (4+ Female, 5+ Male)? 0 Information not available 08/28/2015 Are There Any Guns Present In Your Home? No Information not available 06/27/2014 Live Alone Or With Others? With Others , 2 Cats [email or web address] Information not available 02/25/2010 CSRP - Narcotics No 12/07/11-on Hold Per CV 10/20/13; As Of 02/2014 OFF CSRP TD [email or web address] Information not available 10/20/2013 CSRP Contract Signed And Discussed Yes 07/30/11-ka; As Of 02/2014 OFF CSRP TD [email or web address] Information not available 12/03/2011 Patient Has Health Care Proxy Signed And In Chart Yes , 2007 [email or web address] Information not available 04/19/2023 MOLST Form Signed And In Chart 05/05/2024 [email or web address] Information not available 05/08/2024 Marital Status Carlos Isaacs Informa tion not available 02/19/2014 Mosquito Repellent Used Routinely Yes Lyme Prevention Discussed Information not available 06/27/2014 What Was The Date Of Your Most Recent Tobacco Screening? 10/13/2024 [email or web address] Information not available 10/13/2024 How Many Children Do You Have? 2 2abortion: 1982 Mary, 1991 Trent Information not available 02/19/2014 Are There Any Occupational Health Risks Where You Work? None Information not available 08/28/2015 What Is Your Current Pack Years? 10-19packyear s 13 12/13/23 SD [email or web address] Information not available 12/13/2023 What Is Your Relationship Status? [email or web address] Information not available 04/16/2023 Do You Use Your Seat Belt Or Car Seat Routinely? Yes [email or web address] Information not available 04/16/2023 Seat Belts Used Routinely Yes Information not available 09/03/2011 Are You Sexually Active? No Information not available 09/03/2011 Smoke Alarm In Home Yes Information not available 06/27/2014 How Much Tobacco Do You Smoke? 0.5 PPD [email or web address] Information not available 12/13/2023 What Types Of Sporting Activities Do You Participate In? None Information not available 08/28/2015 General Stress Level High Financial And Marital Stress Information not available 07/11/2014 Do You Use Any Illicit Or Recreational Drugs? No Information not available 04/16/2023 Do You Use Sunscreen Routinely? Yes Information not available 06/27/2014 Do You Or Have You Ever Used Any Other Forms Of Tobacco Or Nicotine? No [email or web address] Information not available 04/16/2023 Sex: Female Functional Status Question Answer Note LastModified by Organization D etails LastModified Time What is your exercise level? None Information not available 05/05/2024 Mental Status None recorded. Family History Relationship Description Onset Age of this Age Resolved Age Notes LastModified by Organization Details LastModified Time Mother Hypertensive disorder [email or web address] Not available 2015 07:21:59 Mother Cerebrovascu lar accident 66 66 [email or web address] Not available 21:21:12 Mother Diabetes mellitus [email or web address] Not available 2015 07:21:59 Mother Major depressive disorder [email or web address] Not available 2015 07:21:59 Mother Keila is had partia l lung remova l [email or web address] Not available 10/21/2018 16:45:05 Father Chronic obstructive pulmonary disease 80 tobacc o Not available 10/29/2015 07:21:59 Father Metastatic malignant neoplasm to lung [email or web address] Not available 2015 07:21:59 Maternal Grandmother Diabetes mellitus bilat AKA, insuli n Not available 10/29/2015 07:21:59 Brother Bipolar disorder [email or web address] Not available 2015 07:21:59 Brother Cerebrovascu lar accident [email or web address] Not available 04/2023 09:54:18 Sister Coronary arterioscler osis [email or web address] Not available 2022 10:06:10 Notes:thinks mother and maun t had gallbladder disease no breast or colon cancer Medical History Condition Response Skin Cancer Y Diabetes Type II Y Hyperlipidemia Y Kidney Stones Y GASTROINTESTINAL Y Breast Cancer Y Gynecological History Statement/Question Response Date of LMP Menses Monthly Hysterectomy Y History of Abnormal Pap Y Age at Menarche 10 LMP Obstetrics History GPAL:G 0 P 0 0 0 0 Immunizations Vaccine Type Date Status Note Provider Nam e and Address Organization Details Recorded Time Tdap 1 completed Not Available [facility] 11/04/2019 02:29:54 Influenza, split virus, trivalent, preservative 1 completed Not Available [facility] 11/04/2019 02:39:39 Influenza, split virus, trivalent, preservative 3 completed Not Available [facility] 11/04/2019 02:29:18 Hep A, adult 4 completed Not Available [facility] 11/04/2019 02:32:25 Hep B, adult 4 completed Not Available [facility] 11/04/2019 02:25:38 Hep A, ped/adol, 2 dose 4 completed Not Available [facility] 11/04/2019 02:31:43 Hep B, adult 4 completed Not Available [facility] 11/04/2019 02:32:59 pneumococcal polysaccharide PPV23 5 completed Not Available [facility] 11/04/2019 02:29:49 influenza, unspecified formulation 3 completed Raissa Anjali null, [facility] 09/25/2013 08:07:06 influenza nasal, unspecified formulation 4 completed Kellyfili Yousif M.DYessica [address] [place] [address], [phone], [facility] 10/02/2014 12:20:40 pneumococcal, unspecified formulation 0 completed Kellyfili Yousif M.Ele [address] [place] [address], [phone], [facility] 04/09/2015 08:46:00 influenza, unspecified formulation 5 completed Kelly Nica M.DYessica [address] [place] [address], [phone],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 suggested she change the ranitidine to omeprazole . If she is not seeing improvemen t with the above measures after 3-4 weeks or if symptoms get worse, local injection is a possibilit y, though I did warn her that this problem can be recurrent. Bursitis of shoulder 239 922367 M75.51 Findings today of some mild right shoulder bursitis, slight limitation . I instructed her in some range of motion exercise. Naproxen will probably be helpful. I do not think that local injection is currently indicated, but if her symptoms persist or worsen she could return for this. [id number] Janine Carias PA-C , [facility], OFFICE [address] [place] [address] 12/18/2015 08:17:54 12/18/2015 09:12:57 Benign essential hypertension 0657601 I10 continue to work on diet, exercise, and lowering salt intake as discussed Mixed hyperlipidemia 267 456759 E78.2 continue to work on diet and exercise as discussed Type 2 celeste betes mellitus without complication 648896998 E11.9 Carcinoma in situ of breast 538504170 D05.11 [id number] Janine Carias PA-C , [facility], OFFICE [address] [place] [address] 01/24/2016 09:25:06 01/24/2016 09:59:05 Upper respiratory infection 73259266 J06.9 Gastroesop hageal reflux disease 909354450 K21.9 [id number] Janine Carias PA-C , [facility], OFFICE [address] [place] [address] 12/22/2016 15:35:28 12/22/2016 16:40:35 Adult health examination 131505656 Z00.00 see Risk Assessment and Lifestyle Change Counseling section above Counseling 628019963 Z71 .9 Mixed hyperlipidemia 267 166836 E78.2 - Well controlled - Continue current medication s Benign ess ential hypertension 6374986 I10 - Blood pressure at goal- Continue current medication s Tachycardia 3372460 R00. 0 - Holter monitor scheduled for tomorrow- Please do lab work- Follow up scheduled Medial epicondylitis 532 61741 M77.01 - Recommend icing elbows- Stretches to be done daily Cervical spondylosis 387 922608 M47.812 - Please schedule an appointmen t with Dr. Stephens for follow up- Will stop cyclobenza mary lou- Start baclofen at bedtime to see if more helpful- DO NOT take the muscle relaxers together Type 2 celeste betes mellitus 56766129 E11.9 - Well controlled - Continue metformin twice daily- We will call for your exam report [id number] Ashanti Phillip , [facility], OFFICE [address] [place] [address] 12/28/2016 08:54:31 12/28/2016 10:10:09 Tachycardia 9669628 R00.0 [id number] Criselda Limon RN BSN , [facility], OFFICE [address] [place] [address] 12/30/2016 09:37:59 12/30/2016 11:33:18 Palpitations 20508999 R00.2 [id number] Janine Carias PA-C , [facility], OFFICE [address] [place] [address] 05/04/2017 16:05:26 05/04/2017 16:27:12 Type 2 diabetes mellitus without complication 640147247 E11.9 Foot pain 98624657 M79.6 71 - will do xray for further evaluation of toes- mass on foot is likely lipoma versus cyst, would not intervene unless causing symptoms- referral to podiatry [id number] Zully Pederson DPM Podiatry, [address] [address] 06/01/2017 14:55:11 06/01/2017 15:44:48 Type 2 diabetes mellitus without complication 005069034 E11.9 Metatarsalgia 87104821 M 77.41 Ganglion of foot 2750667 01 M67.913 [id number] Rikki Godwin MD , [facility], OFFICE [address] [place] [address] 11/30/2017 16:17:34 11/30/2017 19:31:24 Acute upper respiratory infection 15109264 J06.9 Impacted c erumen in right ear 1857939429 874407 H61.21 Hearing loss 67850360 H9 1.93 Cough 34771122 R05 [id number] Alayna Manuel MD , [facility], OFFICE [address] [place] [address] 02/02/2018 11:09:02 02/02/2018 11:50:44 Adult health examination 040870172 Z00.00 see Risk Assessment and Lifestyle Change Counseling section above Depression screening 171 063279 Z13.89 - depression screening tool administer ed, entered into emr, scored and discussed, time greater than 7.5 minutes- negative screening Counseling 300942871 Z71 .9 Mixed hyperlipidemia 267 565649 E78.2 - Cholestero l is not at goal but stopped statin due to muscle aches- Continue to work on diet and exercise as discussed- will start alternativ e statin to lower cholestero l and for prevention /risk reduction Degenerati on of cervical intervertebral disc 20136867 M50.30 - increase gabapentin Hearing loss 90277160 H9 1.91 - schedule follow up with audiology Type 2 celeste betes mellitus without complication 331815288 E11.9 - A1c at goal of less than 7%- continue current medication s- please schedule eye exam [id number] Marielena Zavala , [facility], OFFICE [address] [place] [address] 08/03/2018 07:54:41 08/03/2018 08:38:02 Mixed hyperlipidemia 449247439 E78.2 - continue to work on diet and exercise as discussed- LDL NOT at goal of less than 100- allergies to statins- will consider alternativ e medication s at next appt Active or passive immunization 861696576 Z23 Bilateral thumb pain 809 7308844 7571809 M79.644 - will start with xrays to assess for arthritis- can consider ortho referral- can use tylenol for pain- wear braces at bedtime (pt cannot wear them at work) Shoulder joint pain 2679 85934 M25.519 - xray to start- pt wants to wait to see results before starting PT Neck pain 80478712 M54.2 - muscle strain on left, contributi ng to shoulder pain or vice versa- recommend stretching and heat to the area [id number] Andrea Sommers MD Sports Medicine, [address] [address] 08/17/2018 14:23:03 08/17/2018 15:22:24 Shoulder pain 06104691 M25.512 Kelly is a 58-year-ol d female with left shoulder pain which I believe is related to rotator cuff tendinosis and impingemen t syndrome. She has excellent strength today in the office and no evidence of a larger or full-thick ness rotator cuff tear. I reviewed this diagnosis with her today as well as discussing treatment options. We discussed physical therapy, use of NSAIDs, and the potential for injection therapy or surgical interventi on. I did offer her a referral to physical therapy which she declined due to financial constraint s. We have decided to trial a course of scheduled NSAIDs and she was given a prescripti on for naproxen. She will plan to take this twice daily for the next week and then on an as-needed basis. We discussed the potential GI, renal, and cardiovasc ular side effects. She will plan a follow-up with me in 8 weeks reevaluati on if she is having any persistent pain or discomfort . Osteoarthr osis of the carpometacarpal joint of the thumb 95626128 M18.0 Kelly' s bilateral thumb pain is secondary to first carpometac arpal osteoarthr itis. I reviewed this diagnosis with her today in the office as well as discussing possible treatment options including the use of NSAIDs, activity modificati on, splinting, corticoste roid injections , and surgical interventi on. At this point she already has custom thumb spica splints she herself created. She will continue to use these as needed and use NSAID medication . She will plan a follow-up with me as needed for further care. I am happy to see her back for considerat ion of a first CMC joint corticoste roid injection in the future if needed. [id number] Jad Carrillo MD , [facility], OFFICE [address] [place] [address] 10/04/2018 10:25:13 10/04/2018 10:44:34 Pain of left shoulder joint 4749828658 8371421 M25.512 -X RAY OF SHOULDER - NO FRACTURE.- STOP THE NAPROXEN AND SCHED APPT W/ DR SOMMERS FOR 1 WEEK IF NOT FEELING BETTER. [id number] Jad Carrillo MD , [facility], OFFICE [address] [place] [address] 10/21/2018 16:16:04 10/21/2018 16:53:08 Multiple nodules of lung 998915699 R91.8 - follow up CT scan in six months due to hx breast cancer Pain of le ft shoulder joint 6797944328 0613893 M25.512 - pt will schedule follow up with Dr. Sommers- unable to complete PT due to cost- will try home exercises three times per day- ice 3 times per day- will trial baclofen as cyclobenza mary lou was not helping- naproxen caused upset stomach, will continue meloxicam Thoracic back pain 25574 8004 M54.6 - improving slowly, will try stretching [id number] Alayna Manuel MD , [facility], OFFICE [address] [place] [address] 12/30/2018 15:22:00 01/02/2019 12:51:24 Acute upper respiratory infection 92799450 J06.9 Drink plenty of fluids. Eat healthy foods, lots of fruits and vegetables . Rest when you can. Take ibuprofen 400 mg or acetaminop hen 650 mg every 6 hours as needed for aches or headache and for fever. You can use a Neti pot for nasal congestion or sinus pain/press ure. Elderberry extract and Umcka are herbal remedies that have been shown to reduce length of flu-like symptoms. Gargling with salt water can help your immune system fight off the sore throat. Mix 1/2 teaspoon of salt with 8 oz warm water, gargle for 20-30 secs, and spit out the liquid. Repeat twice daily. Use Sugar free lozenges can help with a sore throat. Wash your hands frequently . Symptoms may worsen for the first 7-10 days before they improve For high fever (>101) for more than 3 days, worsening shortness of breath, cough productive of rust-color ed mucus (not dark yellow), or symptoms unchanged at two weeks, come back in for reassessme nt (urgent care available in [place] office Sat 06-21 and Wednesday- by appointmen t - call after 8AM for appt.) Dry cough can last for up to six weeks. Pain of right wrist 3169 912407 15543 [address]25[address] Knowles. no obvious fracture. will wear wrist brace over the weekend to immobilize . will get back to her with the radiologis t reading of her xray next week Cough 59787460 R05 albuterol as needed for cough and shortness of breath. follow up if worsening shortness of breath or fevers [id number] Marielena GILLESPIE, [facility], OFFICE [address] [place] [address] 01/09/2019 08:03:26 01/09/2019 08:40:01 Mixed hyperlipidemia 718729303 E78.2 - continue to work on diet and exercise as discussed- LDL NOT at goal of less than 100- myalgias with multiple statins- improved with red yeast rice twice daily Degenerati on of cervical intervertebral disc 89407559 M50.30 - continues to have pain with current gabapentin dose Type 2 celeste betes mellitus without complication 344310013 E11.9 - A1c at goal of less than 7%- continue current medication s Ganglion of foot 8150964 01 M67.479 - referral to Dr. Rose to discuss removal Cough 02782841 R05 - appears to be URI today, could consider xray if not improving given the significan t fatigue Gastroesop hageal reflux disease 122962021 K21.9 - Take ranitidine twice daily- Avoid triggers such as tobacco, alcohol, caffeine, spicy foods, etc- Do not lie down for at least two hours after eating- Avoid over eating- will stop meloxicam for now to see if related to abdominal pain, return to office if does not improve [id number] Marielena GILLESPIE, [facility], OFFICE [address] [place] [address] 01/24/2019 11:43:36 01/24/2019 14:10:29 Left lower quadrant pain 463139649 R10.32 - given amount of pain, agree to send patient to ER for CT scan- discussed differenti al including diverticul itis or a kidney stone- pt called her who came to the office to bring her to the ER- follow up in office afterwards - expect form faxed to [facility] [id number] Marielena GILLESPIE, [facility], OFFICE [address] [place] [address] 01/31/2019 09:12:44 01/31/2019 11:20:28 Acute pyelonephritis 53007344 N10 - currently taking cipro twice daily- has follow up with urology end of January- continues to have elevated temps around 100 degrees only at night- please call Dr. Guerrero's office and let them know of the persistent pain and temps, although improving; only has three days left of antibiotic s Calculus o f kidney and ureter 993407842 N20.2 - with stent placed and will have replacemen t in three weeks [id number] Marielena GILLESPIE, [facility], OFFICE [address] [place] [address] 02/15/2019 07:50:44 02/15/2019 09:45:50 Acute pyelonephritis 64808743 N10 - completed antibiotic s today- had obstructin g stone leading to infection, s/p stent placement - has follow up with urology scheduled- labs in two days for monitoring EUGENE Diarrhea 02297057 R19.7 - may be response to antibiotic s but will test for C Diff given frequency of diarrhea- call with any worsening symptoms or abdominal pain [id number] MD VERNA Woo, [facility], OFFICE [address] [place] [address] 03/10/2019 15:35:47 03/10/2019 16:25:02 Pain of left shoulder joint 4622652409 5825146 M25.512 Date of visit: 03/10/2019 : - Patient has extensive history of chronic pain associated with shoulder, elbow, bilateral metacarpal region of the thumbs. Referral history is quite extensive varying from rheumatolo gy, to sports medicine in which she was diagnosed with a potential rotator cuff tendinosis and impingemen t syndrome. Physical therapy was recommende d but cost was an issue, cortisone injections were recommende d. Osteoarthr osis of the carpal metacarpal joint of the thumb was also diagnosed bilaterall y. Cortisone injections were also discussed. Patient adhered to using NSAIDs and splinting due to fear of side effects of cortisone. Explained how options were very limited.- Per discussion today we decided on a referral to a personal physiatris t the patient preferred. She also was contemplat ing on tapering off of her gabapentin because she felt as its worsened her symptoms she feels more physical pressure/s tab pain than a neuropathi c type like one. I informed her to have this discussion with her PCP if she thinks this is a good idea or another medication could be considered . Tramadol and lido patches was started to help with acute pain and sleep until appointmen t. Case discussed with Isaac Godwin. [id number] Jad Carrillo MD , [facility], OFFICE [address] [place] [address] 03/17/2019 13:39:58 03/20/2019 12:49:07 Osteoarthrosis of the carpometacarpal joint of the thumb 89329568 M18.9 - referral back to sports medicine to discuss injections - could consider OT but patient declines due to copays- recommend ice Shoulder pain 30832256 M 25.512 - pain worsening despite NSAIDs, tramadol and lidocaine- she will make an appt with sports medicine to discuss injections - has not completed PT due to cost of copays but again discussed the purpose and clear benefit if able to plan for it financiall y in the future Depression screening 171 724957 Z13.89 - depression screening tool administer ed, entered into emr, scored and discussed, time greater than 7.5 minutes- negative screening [id number] Jaylene Caldera LPN , [facility], OFF[address] [place] [address] 03/29/2019 15:31:22 03/29/2019 16:44:58 Cobalamin deficiency 806408360 E53.8 [id number] Marielena Zavala , [facility], OFF[address] [place] [address] 04/12/2019 15:17:07 04/14/2019 12:51:32 Injury of tendon of the rotator cuff of shoulder 499194659 S46.002A - ordering MRI- recommend considerin g PT (too expensive currently) or injections but declines currently Osteoarthr osis of the carpometacarpal joint of the thumb 93874926 M18.9 - referral back to sports medicine to discuss injections - could consider OT but patient declines due to copays- recommend ice Cobalamin deficiency 190 528035 E53.8 - doing B12 injections Lyme disease 35875843 A6 9.20 - finish entire course of doxycyclin e [id number] VALERI Sequeira, [facility], OFF[address] [place] [address] 01/20/2023 09:14:53 01/21/2023 09:46:26 Active or passive immunization 038117346 Z23 Td, shingles- staff to check MIIS Essential hypertension 28790078 I10 - with recent change to chlorthali done and stopped losartanco ugh has resolved, and BP well controlled and at goal of less than 130/80- will check labs since medication change Screening mammography 24 498674 Z12.31 Type 2 celeste betes mellitus without complication 033938587 E11.9 - A1c at goal of less than 7%, overdue for labs- continue current medication s Cervical radiculopathy 04269303 M54.12 - s/p surgery with Dr Stephens, on disability due to persistent weakness/n umbness in hands Mild recur rent major depression 03332298 F33.0 - relating to being on disability , isolated; trying to participat e more in activities she enjoys- declines medication s or [facility] at this time, will call with any worsening- encouraged getting out of the house more often, more frequent walks [id number] VALERI Sequeira, [facility], OFF[address] [place] [address] 04/16/2023 15:14:37 04/16/2023 15:45:47 Adult health examination 304655660 Z00.00 Depression screening 171 279292 Z13.31 depression screening tool administer ed Screening for alcohol abuse 989045388 Z13.39 Alcohol use screening tool administer ed Type 2 celeste betes mellitus without complication 297231590 E11.9 - A1c at goal of less than 7%- diarrhea improved with lower dose of metformin- continue current medication s Cervical radiculopathy 89302891 M54.12 - s/p surgery with Dr Stephens, on disability due to persistent weakness/n umbness in hands Active or passive immunization 273282716 Z23 Td, shingles- staff to check MIIS Essential hypertension 91038287 I10 - blood pressure well controlled and at goal of less than 130/80- continue current medication s Mild recur rent major depression 60409227 F33.0 - relating to being on disability , isolated; trying to participat e more in activities she enjoys- declines medication s or [facility] at this time, will call with any worsening- encouraged getting out of the house more often, more frequent walks History of cerebrovascular accident 455534807 Z86.73 - stable on current medication s Pain in right foot 02376 07993 02891 M79.671 - referral to podiatry Trochanter ic bursitis of right hip 4310345126 88937 M70.61 - consistent with bursitis, ongoing for a year, cannot take NSAIDs- declines PT or referral for injections Hypokalemia 81368630 E87 .6 - on recent labs, re-check today and would consider medication adjustment if persistent Chronic ce rebral ischemia 490592647 I67.82 - stable and on statin [id number] Janine Carias PA-C FP, [facility], [address] [place] [address] 04/13/2023 15:02:00 04/13/2023 15:36:41 Type 2 diabetes mellitus without complication 324673371 E11.9 - will check A1c - then consider decreasing or removing metformin- would start another medication based on control Easy bruising 114938658 R58 - on plavix and this may be the source- will check labs first- continue plavix due to hx of CVA Active or passive immunization 516387535 Z23 Td, shingles- staff to check MIIS Diarrhea 46278921 R19.7 - lab tests have been negative, could be metformin and will plan on lowering dose or stopping it altogether based on lab results [id number] Carlos Rose DPM Podiatry, [address] [address] 05/11/2023 08:10:06 05/13/2023 14:20:49 Mass of soft tissue [id number] R22.9 Imaging studies ordered to formerly characteri ze this soft tissue mass. Based on clinical findings area appears firm and non mobile so will not be able to aspirate. Treatment will likely need to be surgical excision. This has been explained to patient. She will return to clinic when imaging studies are completed. All questions have been answered. Soft tissue injury 25350 6002 T14.90XA C/o pain to right 2nd toe. Clinically correlates to planter plate injury. Separation of toes when weightbear ing. Reviewed need for surgical procedure to address this. Reviewed surgery with patient in detail, including possible complicati ons. Informed patient that she will be non weightbear ing for 6 weeks. All questions have been answered. Complicati ons:- Recurrence of symptoms: This may be due to incorrect diagnosis, incomplete repair of the plantar plate, or true incorrect alignment of the metatarsal parabola.- Painful prominent hardware can occur after fixation of the jacque osteotomy. - Dorsal hematoma formation and healing skin problem.- Scaring and retraction of the surgical incisions. - Persisting edema- Elevated and insufficie nt toes. Foot pain 24517606 M79.6 71 M79.927 [id number] Janine Carias PA-C , [facility], OFFICE [address] [place] [address] 07/14/2023 11:00:54 2023 07:31:39 Active or passive immunization [id number] Z23 Shingles- reminded at pharmacyfl u: had COVID, has to wait for flu, will get at pharmacy Leukocytosis 552493747 D 72.829 - with persistent fatigue, lack of appetite the last few days- no fever or flank pain, no urinary symptoms- will re-check blood counts, and monitor symptoms- call if not improving in the next few days Type 2 celeste betes mellitus without complication [id number] E11.9 - declines retinal exam today Abdominal pain 77363689 R10.9 - resolved - no abdominal pain or flank pain, and CT scan neg for stone [id number] Janine Carias PA-C , [facility], OFFICE [address] [place] [address] 09/17/2023 15:15:24 09/17/2023 15:51:06 Active or passive immunization 456769393 Z23 Shingles-U TDflu-UTDp neumo-valerie nded Hyperlipidemia 97714954 E78.5 Hyperlipid emia controlled .LDL Goal <70, not quite at goal and can discuss increasing pravastati n at next visitPleas e continue taking your current medication (s).Contin ue to try to eat a diet low in saturated fats (butter, cheese, processed foods, ice cream).Con jeniffer working on participat ing in daily activity to improve your heart health. Type 2 celeste betes mellitus without complication [id number] E11.9 You have been prescribed a new medication called Mounjaro. It is a once weekly injection which has been shown to reduce blood sugars effectivel y, and allow some weight loss in most patients. - Start by turning the pen to 2.5 mg weekly for four weeks. This is often just a starting dose to get used to the medication , and most patients will need to increase the dose to lower blood sugars to goal. The pen is single use. - Try to take the medication on the same day each week, but you can change the day of the dose as long as it has been at least two days since your last dose. - If you miss a dose, take the missed dose as soon as possible within 5 days of the due date. If it has been more than five days, skip the missed dose and take your next dose on schedule in two days. - If not at goal in four weeks, your provider will increase the dose to 5 mg weekly. This will be a separate pen dose. Injection: - Store the pens you are not using in the refrigerat or. On the day of your injection, take one pen out to allow the medication to come to room temperatur e. - You can inject the medication in either the abdominal fat, upper arm or the outer thigh. Wipe the area you choose with an alcohol wipe before injection. Rotate the injection site each week. - Remove the cap from the pen. Remove the paper tab from the needle, push and turn the needle on the pen until it is tight. Then pull off the needle cap. - Check that the dose setting is correct. - Angle the pen to 90 degrees from the injection site and insert the needle. - Press the button at the top of the pen, wait for the dose counter to go to 0, and hold for another 6 seconds. - Remove the needle from the pen and place this into a certified sharps container. Place the cap back on the pen for storage until your next dose. You can receive sharps containers from your insurance company or most [facility] have them available for free. Side effects/Co ntraindica tions: - Common initial side effects are abdominal upset with nausea, diarrhea, or constipati on. These often improve with each injection as your body adjusts to the medication . Eat small meals, stick to bland foods, and avoid greasy or sweet foods while the symptoms last. If the symptoms are severe or not improving, contact your provider. - Please tell your provider if you or a family member have a history of medullary thyroid cancer, MEN2, or if you have a history of diabetic retinopath y, gastropare sis or pancreatit is. - Mounjaro is not for use in children under 18, or in . - stop metformin- declines diabetic eye exam- follow up 4-5 weeks [id number] Janine Carias PA-C , [facility], OFFICE [address] [place] [address] 10/25/2023 07:58:52 10/25/2023 08:30:37 Essential hypertension 13145050 I10 - blood pressure at goal of less than 130/80- continue current medication s Mixed hyperlipidemia 267 119760 E78.2 - continue to work on diet and exercise as discussed- LDL NOT at goal of less than 100- myalgias with multiple statins- will trial fenofibrat e- recheck labs in six months Type 2 celeste betes mellitus without complication 242680076 E11.9 - insurance not covering Mounjaro or Ozempic- diarrhea with metformin- continue Trulicity at current dose once weekly- A1c at goal- follow up six months- please schedule diabetic eye exam, declines our clinic referral [id number] Jad Carrillo MD , [facility], OFF[address] [place] [address] 11/19/2023 13:51:19 11/22/2023 12:00:50 Cough 72442659 R05.9 Patient presents with cough. Likely secondary to: Discussed supportive measures. Follow up if not improving or with worsening symptoms. Active or passive immunization 714821849 Z23 Pneumo: Type 2 celeste betes mellitus without complication 193082863 E11.9 [id number] Carlos Rose DPM Podiatry, [facility] [address] [place] [address] 12/07/2023 15:39:53 12/20/2023 15:05:54 Mass of soft tissue 220109079 R22.9 Imaging studies ordered per recommenda tions of radiologis t to further characteri ze soft tissue mass. Based on clinical findings area appears firm and non mobile so will not be able to aspirate. Treatment will likely need to be surgical excision. This has been explained to patient. She will return to clinic when imaging studies are completed. All questions have been answered.I spent > 25 mins face to face with patient, more 50% spent in counseling and coordinati on of care. Soft tissue injury 00335 6002 T14.90XA C/o pain to right 2nd toe. Clinically correlates to planter plate injury. Separation of toes when weightbear ing. Reviewed need for surgical procedure to address this. Reviewed surgery with patient in detail, including possible complicati ons. Informed patient that she will be non weightbear ing for 6 weeks. I have also discussed need to correct bunion simultaneo usly. All questions have been answered. Complicati ons:- Recurrence of symptoms: This may be due to incorrect diagnosis, incomplete repair of the plantar plate, or true incorrect alignment of the metatarsal parabola.- Painful prominent hardware can occur after fixation of the jacque osteotomy. - Dorsal hematoma formation and healing skin problem.- Scaring and retraction of the surgical incisions. - Persisting edema- Elevated and insufficie nt toes. Foot pain 21530181 M79.6 71 M79.672 Acquired h allux valgus 52024995 M20.11 Reviewed proposed procedure with patient which will involve a fusion at the 1st metatarsal cuneiform joint. Patient will have retained hardware in her foot to maintain the deformity correction . Anticipate using lapiplasty plating system. Reviewed post op bunion care. Prolonged (2 weeks) post op period of non weightbear ing, then transition into a weightbear ing boot at 2 weeks for a total of 8 weeks. Bone typically takes 6-8 weeks to heal. Non union and pseudoarth rosis are most common complicati ons, along with risks of infection, damage to surroundin g tissue during dissection process, wound healing delays, and increased pain. All questions were answered. We will perform prior authorizat ion for her insurance approval to have surgery at [facility]. Patient informed to make arrangemen ts for family/ friends support post operativel y, including use of offloading devices (crutches, walker, IWALK 2.0, knee scooter) to attain non weightbear ing status, and measures to keep her foot dressing dry while restrictio ns for not getting her foot wet remain. All questions have been answered. Patient to contact us if she has any further questions. [id number] Janine Carias PA-C , [facility], OFFICE [address] [place] [address] 12/13/2023 14:32:43 12/13/2023 15:25:51 Temporal headache 58027535 R51.9 - left temporal to occipital pain a few times per week- could be migraine versus tension- ESR given the location of pain- recommend neck stretching and heat- follow up if not improving in 1-2 weeks- can use tylenol Hyperlipidemia 52775057 E78.5 Hyperlipid emia not controlled , side effects to statin and fenofibrat eContinue to try to eat a diet low in saturated fats (butter, cheese, processed foods, ice cream).Con jeniffer working on participat ing in daily activity to improve your heart health.LDL goal less than 70 and not at goalWill trial Praluent Essential hypertension 64033588 I10 - blood pressure at goal of less than 130/80- continue current medication s [id number] Janine Carias PA-C , [facility], OFFICE [address] [place] [address] 01/12/2024 10:39:54 01/12/2024 11:32:24 Active or passive immunization 027062713 Z23 Shingles-U TDflu-UTDp neumo-valerie nded 01/12/24 SD Temporal headache 931655 06 R51.9 Worsened since last visitESR mildly elevated at last visit, will recheck today and refer for biopsy if increasing Could be migraine but is in temporal area Mixed hyperlipidemia 267 309384 E78.2 - continue to work on diet and exercise as discussed- LDL NOT at goal of less than 100- myalgias with multiple statins- trialed fenofibrat e, unsuccessf ul- now on PCSK inhibitor, reports no side effects- will recheck labs in six months Migraine 90138059 G43.90 9 Worsening since last visitStart amitriptyl ine daily for prophylaxi sStart sumatripta n as needed with migraine aura [id number] VALERI Sequeira, [facility], [address] [place] [address] 02/21/2024 15:29:28 02/22/2024 11:07:16 Headache 20309719 R51.9 - side effects to amitriptyl ine and gabapentin - temporal artery biopsy negative- will trial topiramate at bedtime- side effects discussed- follow up 1 month [id number] Janine Carias PA-C , [facility], [address] [place] [address] 05/05/2024 15:33:24 05/05/2024 17:03:12 Adult health examination 746969620 Z00.00 Depression screening 171 181614 Z13.31 depression screening tool administer ed Screening for alcohol abuse 677311929 Z13.39 Alcohol use screening tool administer ed Type 2 celetse betes mellitus 45356423 E11.9 - Well controlled - Continue metformin twice daily-[place] rodolfo due Active or passive immunization 224076075 Z23 pneumo-rem inded available at pharmacy Mixed hyperlipidemia 267 332449 E78.2 - much improved with Praluent (intoleran t to statins), nearly 50% reduction- continue current medication s Essential hypertension 98891235 I10 - blood pressure at goal of less than 130/80- continue current medication s Chronic low back pain 27 0567622 M54.50 - persistent and radiating onto right side, will check xray Pain of le ft knee joint 6996285491 88397 M25.562 - limiting exercise, will check xray for OA- can use ice and tylenol Impacted c erumen of bilateral ears 0915177774 634889 H61.23 - Recommend using Debrox Drops (over the counter) to both ears to soften the wax- Follow up if you develop ear pain or decreased hearing Pain of [facility] shoulder joint 4232602887 6172954 M25.511 - recommend PT but she declines due to the cost [id number] Kelly Greenberg NP , [facility], [address] [place] [address] 05/11/2024 17:16:07 05/12/2024 15:44:02 Active or passive immunization 675911434 Z23 Pneumo: aware at pharmacy Pain of [facility] shoulder joint 1647892831 9185536 M25.511 -Check shoulder x-ray-Take about milligrams of Tylenol every 8 hours, with the tramadol-I ce shoulder and back several times a day-start PT and see Dr Sommers Reviewed Red Flags & when to seek Urgent Care/Emerg ency Department care. And when to Return To Office. Patient states understand ing & is in agreement with the plan. Low back pain 500148116 M54.50 New medication was discussed today with patient including risks, benefits ,possible and expected side effects. Patient understand s and is willing to begin medication as prescribed . After a discussion of treatment and medication options, which included considerat ion of the best practices in medicine, a medical plan was provided. The patient's opinions and concerns were included in this treatment plan and goal. -Number to [facility] given and patient instructed to schedule the appointmen t. Referral completed. -If this specialty office requires [facility] to schedule the appointmen t the patient will call our office back and we will have the referrals department schedule it. -Follow-up with PCP in the next 2 weeks -Will call with any new concerns or worsening symptoms. [id number] Janine Carias PA-C , [facility], OFFICE [address] [place] [address] 05/31/2024 15:24:58 06/03/2024 20:17:29 Active or passive immunization 616913805 Z23 pneumo-rem inded available at pharmacy Pain of ri ght shoulder joint 4507843801 2948381 M25.511 - recommend PT but she declines due to the cost as well as sports medicine- tylenol, tramadol, duloxetine , gabapentin , lidocaine all not helping or had side effects- has not taken NSAIDs since hx of CVA and on plavix, but feels quality of life currently is not bearable- will stop plavix and take ibuprofen for the next 1-2 weeks to see if symptoms improve History of cerebrovascular accident 730215274 Z86.73 - as above, stopping plavix, understand s the risks and will monitor BP [id number] MAUREEN SANTO FP, [facility], [address] [place] [address] 09/01/2024 13:37:48 09/01/2024 15:06:31 Active or passive immunization 389109971 Z23 pneumo- pt aware 09/01/24 MGflu- will update from [facility] 09/01/24 MG Upper resp iratory infection 26621961 J06.9 see above Cough 08548971 R05.9 Pt w/ cough, congestion , trouble breathing w/ cough x approx 3 days, started while admitted inpt but not evaluated. former smoker. Afebrile, VSS in office. Able to tolerate PO intake, no signs of volume depletion. Covid, strep, flu neg. LS + exp wheezing, tight. Suspect viral illness w/ reactive airway disease component. duo neb admin x 1 w/ partial effect. Rx prednisone , albuterol pron. Cold self care measures reviewed and encouraged (fluids, steam inhalation , adequate rest). Recommend mucinex-DM , tylenol prn. F/U if symptoms worsen or aren't resolving in next 1-2 days. Sore throat 399970605 J0 2.9 see above Urinary tr act infectious disease 33553503 N39.0 pt reports new urinary symptoms, + urine culture in hospital, not offered treatment. Cutlure reviewed- sensitive to nitrofuran toin- no allergies- treatment as below. enc hydration. [id number] Kelly Greenberg, URIEL FP, [facility], [address] [place] [address] 09/07/2024 13:21:38 09/07/2024 16:30:37 Cough 46297709 R05.9 - xray today- continue w inhalers-c all w any worsening symptoms Acute pancreatitis 96717 6007 K85.90 - check labs today Essential hypertension 17529361 I10 After a discussion of treatment and medication options, which included considerat ion of the best practices in medicine, a medical plan was provided. The patient's opinions and concerns were included in this treatment plan and goal. 1. Discussed Blood Pressure goals.2. BP GOAL is under 130/80. Patient IS AT GOAL.Hoao w up in 6 months w pcp [id number] BHARGAV DEE PA-C , [facility], [address] [place] [address] 10/09/2024 15:06:51 10/09/2024 16:28:52 Essential hypertension 04356227 I10 at goal today, continue current regimen Low back pain 852061994 M54.50 acute x3-4 days without known trauma/inj uryhistory of melanoma, breast cancer, hyperplast ic cervixwill obtain xrays to started, consider MRI pending results and pain level in a few daysrec continued rest, ice/heat as toleratedm uscle relaxant 5-10mg up to 3x daily, okay to take just at bedtime to help sleep. Do not drive operate heavy machinery while using. Continue tylenol as neededto ER with any bowel/blad salome changes or worsening paincall in later this week to check in [id number] Janien Carias PA-C , [facility], OFFICE [address] [place] [address] 10/13/2024 11:21:56 10/13/2024 14:48:56 Active or passive immunization 743926220 Z23 Pneumo: Reminded at pharmacy 10/13/24 MW Low back pain 491205950 M54.50 Severe pain for 1 week without radicular symptoms or weakness. X-ray showed mild lumbar disc degenerati on. Pain worsened despite muscle relaxant and morphine (which caused vomiting). -Start Prednisone for its strong anti-infla mmatory effect.- cannot take NSAIDs-Con tinue heat applicatio n.-Encoura ge gentle stretching every couple of hours.-Add Tylenol extra strength, 2 tablets twice daily.-Ref er to [facility] for further evaluation .-If no significan t improvemen t by Wednesday, consider ordering an MRI. Health Concerns Section Related Observation LastModified by Organization Detai ls LastModified Time None Recorded Concern Status LastModified by Organization Details LastModified Time None Recorded Advance Directives Directive None Recorded Payers Encounter Date Sequence Insurance Name Policy Number Policy Schaffer Covered Member ID Schaffer Member ID Guarantor Name 05/31/2024 1 [employer] PLAN (MEDICARE REPLACEMENT HMO) [id number] Kelly S S Cocco [id number] Kelly S Cocco 09/01/2024 1 [employer]AGE PLAN (MEDICARE REPLACEMENT HMO) [id number] Kelly S S Cocco [id number] Kelly S Cocco 09/07/2024 1 [employer]AGE PLAN (MEDICARE REPLACEMENT HMO) [id number] Kelly S S Cocco [id number] Kelly S Cocco 10/09/2024 1 [employer]AN (MEDICARE REPLACEMENT HMO) [id number] Kelly S S Cocco [id number] Kelly S Cocco 10/13/2024 1 [employer] (MEDICARE REPLACEMENT HMO) [id number] Kelly S S Cocco [id number] Kelly S Cocco Notes Date Note Type Note Provider Name and Address Organization Details Recorded Time 05/31/2024 text/html 05/11/2024 juan nued right shoulder pain and lower back pain- right shoulder pain persistent, leading to tears today due to the persistence of pain and difficulty sleeping- vomiting with tramadol, could not tolerate it- mild decrease in ROM- xray was normal- has tried gabapentin and duloxetine but had side effects- on plavix so has not taken NSAIDs- was referred to PT and sports med but reports cannot afford the copays Janine Carias PA-C [address] [place] [address], [place], [phone], [facility] 06/02/2024 14:09:14 09/01/2024 text/html case today 09/01- pt was in [place] for pancreatitis and had dry cough while in hospital, but now is getting worse, has bad cough, congestion, high BP. spoke to pt who stated she was at [facility] from Wednesday-Wednesday. pt stated her sx started getting worse yesterday. chest congestion and a very tight cough with some wheezingsunday- started getting pain in belly, getting worse. went to ED. lipase very elevated, admitted to obs, came home wednesday. had little cough in hospital, came home and coughed all night, getting worsedidnt get evaluated in hospitalhas trouble breathing- hard to catch breath w/ coughno hx of asthma or lung diseasenon smoker- quit 1997had fever in hospital off and own+ chills, no body achesno pain w/ breathingno known sick contacts also states urine is cloudy and odorousurine culture in hospital- collected on 08/27- resulted on wednesday- they didnt say anything+ 100,000 K pneumo on culture MAUREEN SANTO [address] [place], [address], [facility] 09/01/2024 14:57:09 09/07/2024 text/html 09/07/24 follow up for cough/HOSP STAY Cough started in hosp 08/27/24admitted to [facility] on 08/27/2024 D/C 08/28/2024. Dx- Pancreatitis. Elevated Lipsae greater then 3,000, Ct scan abd/pelvis-unremarkab le. U/S: mild dilation common bile duct. pt admitted for monitoring, bowel rest and gentle fluids. Trulicity and chlorthalidone was held. Due to good BP in hospital, chlorthalidone w/ held on discharge, but pt did restart trulicity HTN- bp is fine off chlorithalidone Was tx w pred and albuterol LAST week for cough, did not help, no fevers. cough not better. occ wheezingtreated for UTI- urine is better. PancreatitisNo further abd paineating fine,no diarrhea Kelly Greenberg, URIEL [address] [place], [address], [facility] 09/10/2024 19:45:27 10/09/2024 text/html 10/09/24- back painc/o low back pain x3-4 daysgot back and felt back was stiff, now stabbing and constantworse when position changesnot sleeping wellunable to find comfortable positionno urinary or bowel changeshas never happened beforeno known trauma/injury, has been sewing and making memory bears3 tylenol extra strength without relief, cant take NSAIDshx melanoma to nose, R breast cancer s/p radiation finished 2015, hyperplastic cervix s/p hysterectomy age 49 BHARGAV DEE PA-C [address] [place] [address], [phone], [facility] 10/09/2024 15:57:04 10/13/2024 text/html 10/13/24 The patient, a 64-year-old with mild lumbar disc degeneration, presents for follow-up of low back pain. The pain began approximately a week ago without any known trauma or precipitating event. Despite treatment with a muscle relaxant, the pain worsened, prompting a visit to the emergency room. X-rays at both the office and the emergency room showed only mild degenerative changes. The patient was prescribed morphine in the emergency room, but she experienced vomiting and could not tolerate it. The pain is described as excruciating, particularly upon standing or moving in certain ways, and is localized to the middle of the back. There is no radiation of pain, weakness, or numbness in the legs. The patient has never experienced back pain of this severity before. Janine Carias PA-C [address] [place] [address], [phone], [facility] 10/13/2024 12:29:42 OBGyn Episode No OBEpisode recorded.
== END 2024-12-22 16:08 | disposition home or self-care (01) ==
LOC: HO.MRI 16:07
PROVIDERS: PCP Physician Assistant Medical; Visit Provider Internal Medicine
DX: M54.16 Radiculopathy, lumbar region (principal)
CPT/HCPCS: 72148

== ENCOUNTER → 2024-12-22 16:20 | Outpatient (BNV) | payer OTHER, SELFPAY | PROVIDERS: PCP Physician Assistant Medical; Visit Provider Radiology Diagnostic Radiology | DX: M47.816 Spondylosis without myelopathy or radiculopathy, lumbar region (principal); N28.1 Cyst of kidney, acquired | CPT/HCPCS: 72148 ==

== ENCOUNTER → 2024-12-26 10:44 | Outpatient (BNVA) | payer OTHER, SELFPAY | PROVIDERS: PCP Physician Assistant Medical; Visit Provider Physician Assistant Medical | DX: S60.212D Contusion of left wrist, subsequent encounter (principal); S63.502D Unspecified sprain of left wrist, subsequent encounter; S70.02XD Contusion of left hip, subsequent encounter; S76.012D Strain of muscle, fascia and tendon of left hip, subsequent encounter; S39.012D Strain of muscle, fascia and tendon of lower back, subsequent encounter; M47.816 Spondylosis without myelopathy or radiculopathy, lumbar region; W00.0XXD Fall on same level due to ice and snow, subsequent encounter | CPT/HCPCS: 99213 ==

== ENCOUNTER 2025-01-11 07:54 | Outpatient (AMB) | payer OTHER, SELFPAY ==
--- NOTE | 2025-01-11 08:11 | A.OFFVIS_ITS ---
Intake Visit Reasons: [employer] wrist contusion DOI: 11/20/24 Intake Note: Kelly is a 64 year old hand dominant female who presents today as a new patient with complaints of Left Wrist & Thumb Pain. While at work on 11/20/2024 she fell on ice landing on the left arm. Patient was evaluated by the work connection on 11/23/24 where they documented that she has snuffbox tenderness and pain along 1st Metacarpal . She was provided with a thumb spica velcro brace. She was discontinued from wearing the brace. She complaints of pain at the base of the left thumb, she has pain at night that wakes her up. She has lifted ROM of the DIP of her tumb, she has been working with occupational therapy. Denies numbness and tingling. She is currently out of work due to her hand and her back, she will be seeing pain management for her back. Allergies hydrocodone Allergy (Verified 01/11/25 08:15) Rash Sulfa (Sulfonamide Antibiotics) Allergy (Verified 01/11/25 08:15) Rash tamoxifen Adverse Reaction (Verified 01/11/25 08:16) hot flashes HPI HPI [employer] wrist contusion DOI: 11/20/24: Details: Kelly is a 64 year old -- hand dominant female who presents today as a new patient with complaints of Left Wrist & Thumb Pain. While at work on 11/20/2024 she fell on ice landing on the left arm. Patient was evaluated by the work connection on 11/23/24 where they documented that she has snuffbox tenderness and pain along 1st Metacarpal . She was provided with a thumb spica velcro brace. Of note, the patient was also complaining of numbness and tingling of the thumb and index finger of the left hand since this time, with symptoms being intermittent, daily, and worse at night. left Wrist CT Scan 11/23/24: IMPRESSION: 1. No definite fracture, or dislocation of the wrist/carpal rows or metacarpals. No malalignment. 2. Subtle cortical irregularity of the posterior medial hamate bone, doubtful for fracture given appearance. 3. Osteoarthritis first CMC joint, with lesser changes STT joints 4. Should there be further clinical concern, MRI suggested if it would alter clinical management. 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 Neuro: Normal sensation of the tips of all digits of the left hand at this time Vascular: Cap refill brisk Pain: Tenderness to palpation over APL and EPB of the left thumb and wrist Mildly positive CMC grind Positive Leandro on the left ROM: Patient is able to make a closed fist and extend all digits of the left hand fully Skin: No lacerations or abrasions. General: No ecchymosis, erythema, or evidence of infection. Psych: Appears grossly normal Affect normal Attitude cooperative Results Reviewed Results Reviewed: X-rays and CT scan obtained in work connection and independently reviewed by me, Martinez Chin PA-C, demonstrate no fracture or acute bony abnormality of the left wrist, however there is moderate basal joint arthritis. Assessment & Plan Assessment & Plan (1) De Quervain's tenosynovitis, left: Code(s): M65.4 - Radial styloid tenosynovitis [de Quervain] Category: Medical (2) Numbness and tingling of left hand: Code(s): R20.0 - Anesthesia of skin; R20.2 - Paresthesia of skin Category: Medical Plan 1. De Quervain tenosynovitis, left Patient is educated about this condition Patient was educated about the typical recovery course and the treatment options available At this time, patient states she would like to hold off on any steroid injection, and would like to continue with occupational therapy Patient was also provided with a comfort cool brace to wear with daytime activities and when her left wrist is particularly bothering her Patient is educated that if approximately 6 weeks from now she is still experiencing significant pain and OT has not given her relief, she should call us for another appointment and discussion of steroid injection Patient was amenable to this plan 2. Numbness and tingling of left hand Symptoms intermittent, daily, worse at night At this time, patient was referred for EMG and nerve conduction study to assess the health of the nerves of the left upper extremity Patient will follow-up with us after EMG and nerve conduction study for results review and discussion of further treatment options if indicated Patient was amenable to this plan Orders: Orders NE electromyogram (EMG) Today R20.0 - Anesthesia of skin, R20.2 - Paresthesia of skin NE nerve conduction velocity Today R20.0 - Anesthesia of skin, R20.2 - Paresthesia of skin Coding Level of Care Code New Pt Level 3 (08325) Diagnoses De Quervain's tenosynovitis, left M65.4 Numbness and tingling of left hand R20.0; R20.2
== END 2025-01-11 08:39 | disposition home or self-care (01) ==
LOC: HO.HOS 07:55
PROVIDERS: PCP Physician Assistant Medical
DX: M65.4 Radial styloid tenosynovitis [de Quervain] (principal); R20.0 Anesthesia of skin; R20.2 Paresthesia of skin; Z04.2 Encounter for examination and observation following work accident
CPT/HCPCS: 99203

== ENCOUNTER → 2025-01-11 07:54 | Outpatient (BNVA) | payer OTHER, SELFPAY | PROVIDERS: PCP Physician Assistant Medical | DX: M65.4 Radial styloid tenosynovitis [de Quervain] (principal); R20.0 Anesthesia of skin; R20.2 Paresthesia of skin | CPT/HCPCS: 99202 ==

== ENCOUNTER 2025-01-12 10:19 | Outpatient (AMB) | payer OTHER, SELFPAY ==
--- NOTE | 2025-01-12 10:29 | A.OFFVIS_ITS ---
Vital Signs 01/12/25 10:34 Height 5 ft 2 in Weight 168 lb BMI 30.7 BP 131/62 Blood Pressure Location Lt brachial Position Sitting Pulse 76 Pulse Source Pulse Oximeter Pulse Oximetry (%) 99 Oxygen Delivery Method Room Air Intake Visit Reasons: WC Lumbar strain spondylosis Intake Note: Pain today 03/27 Manager Endoscopy Required: No Accompanied by: Self / Same As Patient Allergies hydrocodone Allergy (Verified 01/12/25 10:35) Rash Sulfa (Sulfonamide Antibiotics) Allergy (Verified 01/12/25 10:35) Rash tamoxifen Adverse Reaction (Verified 01/12/25 10:35) hot flashes HPI HPI WC Lumbar strain spondylosis: Details: The patient is a pleasant 64-year-old female presenting with low back and bilateral hip pain that initiated following a fall on a snowcovered ice on 11/20/24. This is a Worker's Comp case #[id number]. The pain localizes in the lower back, buttocks and both hips, without extending past the knee. Post-fall symptoms have led to significant restrictions in daily activities and reduced sl eep quality due to unresolved discomfort despite using an adjustable bed. Physical therapy led to minor improvements, but pain remains prevalent, particularly while transitioning from sitting to standing. Denies any fever or chills, abdominal or groin pain, weakness, foot drop, bladder or bowel dysfunction or saddle anesthesia. Imaging findings indicate multilevel spondylosis more conspicuous at L2-3 resulting in subtle grade 1 anterolisthesis. Endplate subacute inflammatory degenerative changes at L2-3 and posterior elements L4-5 and L1-2. She also has sclerosis and the sacroiliac joints more conspicuous on the right side, consistent with today's exam for positive sacroiliac joint pain with positive provocative testing. - Onset and Timing: Pain began following a fall on 11/20/24. - Quality and Character: Described as severe and sharp, stabbing, throbbing, hurting, heavy, flaring during specific movements. - Primary Location: Lower back and hips. - Radiation: Predominantly to the sides of the hips, not extending below knee level. - Exacerbating Factors: Walking, standing, bending, sitting, and transitioning from sitting to standing. Weather changes. - Relieving Factors: None reported as fully effective; slight improvement noted with physical therapy. - Interference: Prevents sweeping, mopping, and personal hygiene care. Disrupts sleep. - Affect: Poor sleep quality due to pain; impacts daily mood and comfort. - Analgesia: No current pain medications used; muscle relaxer previously administered. - Adverse Effects: Not applicable as current pain medications are not utilized. - Activities of Daily Living: Pain interferes with ADLs and restricts ability to sweep floors and provide personal hygiene care. - Aberrant Drug Related Behaviors: None reported; compliant with medical and therapeutic guidance. 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 - Musculoskeletal: Reports inability to sweep and mop due to back spasms. - Sleep: Reports poor sleep quality. All systems reviewed & are unremarkable except as noted in HPI and below Physical Exam Vital Signs: Last Vital Signs Pulse 76 01/12/25 10:34 BP 131/62 01/12/25 10:34 Pulse Ox 99 01/12/25 10:34 Oxygen Delivery Method Room Air 01/12/25 10:34 BMI result Body Mass Index 30.7 General: Appears afebrile. Alert and oriented. Mood and affect appropriate. Follows and participates in conversation appropriately. Respiratory effort is unlabored. No cough. Able to transition from sit to stand unassisted. Ambulates with bilaterally normal heel strike and toe off. General: Yes no CVA tenderness Back/Spine/Pelvis Other: Limited lumbar ROM due to pain. Antalgic gait with limping. Can flex forward to 60-65 degrees and extend to 5-10 degrees before experiencing lumbar pain. Demonstrates 5/5 left and 4/5 right strength of quadriceps bilaterally as well as flexion/dorsiflexion of bilateral feet against resistance. 2+ pedal pulses bilaterally. Straight leg rise with dorsiflexion negative bilaterally. +2 patellar and achilles reflexes bilaterally. Facet loading test positive bilaterally. Polina sign, Humberto?s, Gaenslen, Pelvic compression and Stinchfield tests are positive bilaterally, right>left. No groin pain with I/E hip rotations. Valsalva maneuver is negative. Mild leg discrepancy noted, right slightly shorter than left leg. Back: no CVA tenderness Cervical Spine: cervical ROM normal, cervical muscular tenderness, Cervical spine scars present and No Cervical spine tenderness Thoracic/Lumbar Spine: thoracic and lumbar spine normal to inspection, No Thoracic/lumbar spine scar(s), Lasegue's sign negative, straight leg raise negative bilaterally, pain with thoraco-lumbar ROM, paraspinal muscle tenderness, thoraco-lumbar ROM limited, No thoracic spinal tenderness and lumbar spinal tenderness (L4-S1) Pelvis: buttock tenderness (upper ) bilaterally Sacroiliac joints: bilaterally tender to palpation Results Reviewed Results Reviewed: MR LUMBAR SPINE WITHOUT CONTRAST 12/22/24 CLINICAL INFORMATION: Status post fall on ice at work. Radiculopathy. COMPARISON: Correlated to x-ray dated November 20, 2024. FINDINGS: Last rib-bearing vertebra labeled T12. There is a subtle bone marrow STIR signal in the inferior endplate of L2 and superior endplate of L3. Subtle bone marrow STIR signal within the posterior elements of L5 and to a lesser extent L4 and L1-L2 levels. Marginal osteophyte formation, decreased intervertebral disc height at L2-3, L1 to, L3-4, T11-12 and T12-L1. There is a subtle 1 mm anterolisthesis L2-3. Conus medullaris ends at pedicle of L1 with normal signal. Bone marrow inhomogeneity. T12-L1: Broad-based disc bulging. No central spinal canal or neuroforamina stenosis. L1-2: Small central disc herniation resulting in ventral deformity of the thecal sac. No central spinal canal or neuroforamina stenosis. L2-3: Broad-based disc bulging. Facet joint and ligamentum flavum hypertrophy. Reduced in diameter of the thecal sac and the neural foramina. No compression upon neural elements.. L3-4: Broad-based disc bulging. Facet joint and ligamentum flavum hypertrophy. Reduced AP diameter of the thecal sac and neuroforamina. No compression upon neural elements. L4-5: Broad-based disc bulging. Facet joint and ligamentum flavum hypertrophy. Reduced AP diameter of the thecal sac and the neural foramina. No compression upon neural elements. L5-S1: Broad-based disc bulging. Facet joint hypertrophy. No compression upon neural elements. No prevertebral compartment hematoma, mass or fluid collection. Multifocal different sizes round hyperintense T2 and hypointense T1 lesions throughout the kidneys more numerous on the right kidney and the largest measures 3 cm. IMPRESSION: Multilevel spondylosis more conspicuous at L2-3 resulting in subtle grade 1 anterolisthesis. Endplate subacute inflammatory degenerative changes at L2-3 and posterior elements L4-5 and L1-2. Bilateral renal cysts. XR LUMBOSACRAL SPINE 11/20/24 CLINICAL INFORMATION: strain muscle FINDINGS: Rudimentary ribs at T12. Endplate sclerosis and decreased intervertebral disc height with marginal osteophyte formation at L2-3 and to a lesser extent L1-2. No lytic or blastic lesions. No gross malalignment. Vascular calcifications, likely aorta. IMPRESSION: Spondylosis L2-3 and to a lesser extent L1-2. XR HIP, LEFT 11/20/24 CLINICAL INFORMATION: Contusion of left hip FINDINGS: No acute cortical disruption or malalignment left coxofemoral joint. The bony pelvis is intact. Sclerosis and the sacroiliac joints more conspicuous on the right side. The right hip is intact. Degenerative changes in the symphysis pubis. IMPRESSION: No acute fracture or dislocation. Assessment & Plan Assessment & Plan (1) Sacroiliac joint pain: Code(s): M53.3 - Sacrococcygeal disorders, not elsewhere classified Category: Medical (2) Low back pain: Code(s): M54.50 - Low back pain, unspecified Category: Medical (3) Lumbosacral spondylosis: Code(s): M47.817 - Spondylosis without myelopathy or radiculopathy, lumbosacral region Category: Medical (4) Work related injury: Code(s): Y99.0 - Civilian activity done for income or pay Category: Medical Plan The patient will receive bilateral therapeutic sacroiliac joint injections with local anesthesia, oral Ativan and fluoroscopy, addressing SI joint dysfunction and pain, noted on imaging-confirmed degenerative findings, worse on the right side. Insurance authorization for the procedure will be pursued; temporary cessation of Plavix is advised to minimize bleeding risks, will obtain clearance with prescribing physician. Script provided for SI joint belt for pain and support. Patient was informed and verbally consented to the use of an ambient scribe for clinic note documentation during this visit. Medications: New sacroiliac belt As directed 1 ea 0RF SIJ stability and pain M47.817 - Spondylosis without myelopathy or radiculopathy, lumbosacral region, M53.3 - Sacrococcygeal disorders, not elsewhere classified, M54.50 - Low back pain, unspecified Patient Instructions: I discussed with the patient that her lumbar spondylosis and sacroiliac joint dysfunction were contributing to her pain. I recommended bilateral sacroiliac joint injections using an x-ray guided approach. I explained the minimally invasive nature of the procedure, potential discomfort, and the likelihood of achieving significant pain relief for approximately 3-6 months. We discussed withholding Plavix before the procedure under the guidance of her PCP or Teaching Assistant ([facility] [place]) to reduce bleeding risks. The option of using Ativan for procedural anxiety management was also covered. She consented to the plan, understanding associated benefits and risks. Coordination with insurance for procedure approval was explained, and the importance of a support person post-procedure was emphasized. - Temporarily stop Plavix for 7 days before your injections. - Arrange for someone to accompany you to and from the procedure. - Expect potential discomfort during injections but anticipate improved functionality and reduced pain post-procedure. - Contact our office if you experience any unexpected symptoms or if you have questions prior to the procedure. Coding Level of Care Code New Pt Level 4 (79161) Complex EM visit Add On G2211 Diagnoses Sacroiliac joint pain M53.3 Low back pain M54.50 Lumbosacral spondylosis M47.817 Work related injury Y99.0
[2025-01-12 10:34] VITALS: BP 131/62; PULSE 76; O2SAT 99; BMI 30.7
== END 2025-01-12 11:11 | disposition home or self-care (01) ==
LOC: HO.PMC 10:19
PROVIDERS: PCP Physician Assistant Medical; Visit Provider Nurse Practitioner Family
DX: M53.3 Sacrococcygeal disorders, not elsewhere classified (principal); M54.50 Low back pain, unspecified; M47.817 Spondylosis without myelopathy or radiculopathy, lumbosacral region; Y99.0 Civilian activity done for income or pay
CPT/HCPCS: 99204; G2211

== ENCOUNTER → 2025-01-12 10:19 | Outpatient (BNVA) | payer OTHER, SELFPAY | PROVIDERS: PCP Physician Assistant Medical; Visit Provider Nurse Practitioner Family | DX: M53.3 Sacrococcygeal disorders, not elsewhere classified (principal); M47.817 Spondylosis without myelopathy or radiculopathy, lumbosacral region | CPT/HCPCS: 99202 ==

== ENCOUNTER → 2025-01-22 09:42 | Outpatient (BNVA) | payer OTHER, SELFPAY | PROVIDERS: PCP Physician Assistant Medical; Visit Provider Physician Assistant Medical | DX: S60.212D Contusion of left wrist, subsequent encounter (principal); S70.02XD Contusion of left hip, subsequent encounter; S73.101D Unspecified sprain of right hip, subsequent encounter; S39.012D Strain of muscle, fascia and tendon of lower back, subsequent encounter; W00.0XXD Fall on same level due to ice and snow, subsequent encounter; M65.4 Radial styloid tenosynovitis [de Quervain] | CPT/HCPCS: 99213 ==

== ENCOUNTER 2025-01-25 07:47 | Outpatient (RCR) | payer OTHER, SELFPAY ==
[2024-12-18 07:57] VITALS: BP 136/65; PULSE 74; O2SAT 96
--- NOTE | 2024-12-18 09:35 | MHC.PT.EP ---
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 OBJECTIVELY, SHE HAS LIMITED TRUNK AND HIP MOBILITY, ALTERED GAIT, GUARDED TRANSITIONAL MVMTS, (+)ROMANA Lt, (+) LUMBOPELVIC ASYM, DECR STRENGTH IN CORE/ PROX LEs, DECR FLEXIB, AND (+) TTP/PAIN JARET LUMB PS MM AND Lt HIP Jt (DENIES RADIC SXS). 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 SHE AGRESS W PT POC AND IS MOTIVATED TO RETURN TO HER REG ADLs. Frequency and Duration: The patient will be seen 2 x WK x 5 WKS Short Term Goals: DECR Lt HIP/ LS PAIN TO 2-3/10 INITIATE HEP Pt INDEP SELF POSTURAL CORRECTION-> WFL FUNCTIONAL SQUAT MECH INCREASE HIP[ / TRUNK FLEXIB Junior Recruiter Goals: Pt INDEP W HEP AND SELF SX MGMT TECHN Pt RESUME REG ADLs/ RTW, EVIDENT W IMPROVED OSWESTRY SCORE (AT EVAL 31/50) Pt DEMON EFFICIENT GAIT/ MECHANICS W 3:3 SIMUL ADLs/WORK TASKS IMPROVED Lt LE STRENGTH BY 1/2-1 GRADE Treatment Plan: Modalities to reduce pain, spasms and effusion. Manual therapy to restore motion and function. Therapeutic exercise to improve strength and flexibility. Neuromuscular re-education for posture and balance. Therapeutic activities to return to functional activities of daily living. Electronically signed by: JEANNETTE SLOAN,PT Please sign and return to therapist. Thank you for your referral.
--- NOTE | 2025-01-26 11:12 | MHC.PT.DC ---
[facility] [place] Office [place] Office [place] Office [address] Sakshi Ruiz [address] [phone] F: [phone] F: [phone] F: [phone] F: [phone] Physical Therapy Discharge Report Diagnosis: LUMBAR STRAIN/SPASM, BILATERAL HIPS Date of Surgery: Date of Evaluation: 12/18/24 Date of Discharge: 01/26/25 Treatments to Date: 12 Cancellations to Date: 2 No Shows to Date: Discharge Status: Achieved Goals Improved Function Independent with HEP Discharge Summary: DANUTA HAS PROGRESSED NICELY IN PT - WE HAVE EDUC AND SIMULATED BODY MECH W ADLs AND WORK SIMUL TO REDUCE LS STRESS. SHE IS INDEP AND COMPLIANT W HER HEP, HER LS PAIN CONT TO DECR HER STRENGTH AND LS STABILIZATION IMPROVES-> RATED AT 4/10 AT DISCHARGE TODAY. SHE NOTED SHE IS SCHEDULED FOR SI Jt INJECTIONS Electronically signed by: JEANNETTE SLOAN,PT Please sign and return to therapist. Thank you for your referral.
== END 2025-01-26 11:13 | disposition home or self-care (01) ==
LOC: HO.PT 07:47
PROVIDERS: PCP Physician Assistant Medical; Visit Provider Physician Assistant Medical
DX: S70.02XD Contusion of left hip, subsequent encounter (principal); S76.011D Strain of muscle, fascia and tendon of right hip, subsequent encounter
CPT/HCPCS: 97110; 97140; 97162; 97164

== ENCOUNTER 2025-02-14 14:50 | Outpatient (REF) | payer OTHER, SELFPAY ==
--- NOTE | 2025-02-14 14:53 | EMG_ITS ---
Chief complaint: Patient fell on ice 11/20/2024. Sustaining right-sided neck pain. Left-sided numbness affecting digits 1-3. Previous cervical surgeries x2. Reason for referral: Evaluate for Carpal Tunnel Syndrome Referred by: Martinez HART Procedure done: Left upper extremity NCS/EMG Precautions and/or limitations: Previous cervical surgeries The limb temperature was monitored continuously and remained between 32-36 degrees C during the performance of the NCS. Nerve Conduction Studies Anti Sensory Summary Table ?Stim Site NR Onset (ms) Norm Onset (ms) Peak (ms) Norm Peak (ms) O-P Amp (?V) Norm O-P Amp Site1 Site2 Delta-0 (ms) Dist (cm) Sonny (m/s) Norm Sonny (m/s) Left Median Anti Sensory (2nd Digit) Wrist ? 3.2 4.2 <3.6 10.6 >10 Wrist 2nd Digit 3.2 14.0 44 Left Ulnar Anti Sensory (5th Digit) Wrist ? 2.1 3.1 <3.7 19.4 >15.0 Wrist 5th Digit 2.1 14.0 67 Motor Summary Table ?Stim Site NR Onset (ms) Norm Onset (ms) O-P Amp (mV) Norm O-P Amp iAmp (mV) Amp (1st) (%) Site1 Site2 Delta-0 (ms) Dist (cm) Sonny (m/s) Norm Sonny (m/s) Left Median Motor (Abd Poll Brev) Wrist ? 4.7 <3.9 8.5 >4.5 11.2 100.0 Elbow Wrist 3.7 18.0 49 >45 Elbow ? 8.4 7.2 9.2 84.7 Left Ulnar Motor (Abd Dig Minimi) Wrist ? 2.9 <3.0 8.0 >5 9.6 100.0 B Elbow Wrist 2.9 16.0 55 >45 B Elbow ? 5.8 7.9 9.4 98.8 A Elbow B Elbow 1.6 10.0 62 >45 A Elbow ? 7.4 7.6 9.2 95.0 Comparison Summary Table ?Stim Site NR Peak (ms) Norm Peak (ms) P-T Amp (?V) Site1 Site2 Delta-P (ms) Norm Delta (ms) Left Median/Radial Dig I Comparison (Digit 1 - 10cm) Median ? 2.2 <2.9 20.6 EMG ?Side Muscle Nerve Root Ins Act Fibs Psw Amp Dur Poly Recrt Int Pat Comment Left 1stDorInt Ulnar C8-T1 Nml Nml Nml Nml Nml 0 Nml Complete Left FlexCarRad Median C6-7 Nml Nml Nml Nml Nml 0 Nml Complete Left Biceps Musculocut C5-6 Nml Nml Nml Nml Nml 0 Nml Complete Left Triceps Radial C6-7-8 Nml Nml Nml Nml Nml 0 Nml Complete Left Deltoid Axillary C5-6 Nml Nml Nml Nml Nml 0 Nml Complete FINDINGS: Left median motor nerve showed prolonged distal latency, normal amplitude and normal conduction velocity. Left median sensory nerve showed prolonged peak latency. All other nerves tested were within normal. Concentric needle EMG was performed in selected muscles of the left upper extremity. Study did not reveal signs of electric abnormalities as shown in the table above. IMPRESSION: 1. This is an abnormal study. 2. There is electrodiagnostic evidence for left moderate-severe median neuropathy at the wrist, consistent with carpal tunnel syndrome. 3. There is no electrodiagnostic evidence for ulnar neuropathy, brachial plexopathy, or cervical radiculopathy. Thank you for your kind referral. Lori Gonzales MD, WILFRID Board Certified, [place] Board of Physical Medicine and Rehabilitation (ABPMR) Board Certified, [place] Board of Electrodiagnostic Medicine (ABEM) CODIN [id number] [facility]
== END 2025-02-14 14:51 | disposition home or self-care (01) ==
LOC: HO.NEURO 14:50
PROVIDERS: PCP Physician Assistant Medical
DX: R20.0 Anesthesia of skin (principal); R20.2 Paresthesia of skin; R94.131 Abnormal electromyogram [EMG]
CPT/HCPCS: 95886; 95909

== ENCOUNTER → 2025-02-14 14:53 | Outpatient (BNV) | payer OTHER, SELFPAY | PROVIDERS: PCP Physician Assistant Medical; Visit Provider Physical Medicine & Rehabilitation | DX: G56.02 Carpal tunnel syndrome, left upper limb (principal) | CPT/HCPCS: 95886; 95909 ==

== ENCOUNTER 2025-02-22 07:43 | Outpatient (RCR) | payer OTHER, MEDICARE, SELFPAY ==
--- NOTE | 2024-12-21 16:20 | MHC.OT.OEV ---
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 Patient reports 4/10 that is constant and will cause her to wake up during the night. She reports pain can increase to an 8/10 that is shooting. She has numbness/tingling. 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 She reports her PLOF as (I)ADLs/IADLs and lives with her and 2 cats. She enjoys knitting, quilting and crocheting. 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 Living Situation, Family and/or Social Support: 2 cats Current Level of Function and Occupation Self Care, Employment, Leisure: works multimedia producer does not perform needle work at this time Sleep: Wakes due to pain Driving: (I) Vision: Balance: Pain Assessment Pain Score: 8 Pain Scale Used: Numeric (0 - 10) Pain Location and Description: 4/10 at rest 8/10 during movement reports sharp pain Aggravating Factors: Alleviating Factors: Tylenol Skin and Soft Tissue Assessment Skin and Soft Tissue: Comments: Skin intact, no brusing present, no edema present Nerve assessment Ulnar Nerve: Median Nerve: Radial Nerve: Comments: Sensory Assessment Temperature: Light Touch: Proprioception: Vibration: Comments: Edema Assessment Upper Extremity: Lower Extremity: Comments: Dexterity Assessment Dexterity: Comments: WFL Special Tests Comments: AROM(PROM) Strength Cervical Cervical Flexion: Cervical Extension: Cervical Lateral Flexion: Cervical Rotation: Comments: Shoulder Flexion: Extension: Abduction: Internal Rotation: External Rotation: Comments: WFL- painful with movement (6/10 pain) Flexion: Extension: Abduction: Internal Rotation: External Rotation: Comments: Elbow Flexion: Extension: Pronation: Supination: Comments: WFL Flexion: Extension: Pronation: Supination: Comments: Wrist Flexion: 79* Extension: 47* Ulnar Deviation: 20* Radial Deviation: 4* Comments: Flexion: Extension: Ulnar Deviation: Radial Deviation: Comments: Thumb Thumb CMC Flexion: Thumb MCP Flexion: 30* Thumb IP Flexion: 40/58* Radial Abduction: 40* Palmar Abduction: [place] (K[place] 0-10): Comments: Painful Digits Index MCP: PIP: DIP: Long MCP: PIP: DIP: Ring MCP: PIP: DIP: Small MCP: PIP: DIP: Comments: WFL - can make composite fist Gross Grasp: (L)20; (R)40lbs. Lateral Pinch: (L)4lbs. Two-Point Pinch: (L)1.5lbs. Three-Jaw Donny: (L)1 lbs. Comments: painful when performing tasks Patient Education Primary Language: Estonian Tobacco Checkout Clerk Required: No Current Knowledge: Understands information with skills for self-management Teaching Method: Verbal Education Needs Identified on Evaluation: ADL's How did patient/family demonstrate learning? Patient demonstrates Patient verbalizes Barriers to Learning: None Readiness for Learning: Accepting Who was educated? Patient Comments: Plan of Care Assessment: Based on initial OT evaluation patient presents with impaired ROM, impaired strength, pain and impaired performance during self care tasks. Quick DASH score= 56.8% indicating patient's perceived UE impairment during self care tasks. Due to the documented impairments patient will benefit from skilled OT intervention in order to achieve her PLOF of (I) and return to her leisure activities. Thank you for your referral. 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 to 25lbs. Patient will increase wrist extension by 10* Patient will be (I) in joint protection techniques Patient will be (I) with orthosis wear schedule PRN LTG Duration: 4 weeks Binder Roller Goals: Patient will be (I) with HEP Patient will report 0/10 pain Patient will decrease Quick DASH score by 20% indicating over all UE improvement during self care tasks. Frequency and Duration: The patient will be seen 2x a week for 4 weeks Treatment Plan: Therapeutic Exercise Therapeutic Activity Home Exercise Program Splinting Patient Education Edema Control ADL Training Ultrasound NMES Iontophoresis Paraffin Fluidotherapy MHP Cold Packs Joint Mobilization Soft Tissue Mobilization Kinesiotaping Other (see comments) SKilled OT eval and treat Electronically Signed By: Rosario Espinoza OTR/L, CLT Reviewed/agree with student documentation: Therapist: Please sign and return to therapist, Thank you for your referral.
--- NOTE | 2025-02-22 09:24 | MHC.OT.DC ---
[address] [phone] F: [phone] Occupational Therapy Discharge Note Patient Name: Kelly Isaacs Provider: Alondra Christine Diagnosis: (L) 1st MC contusion Date of Surgery: Date of Evaluation: 12/19/24 Date of Discharge: Treatments to Date: 14 Cancellations to Date: No Shows to Date: Discharge Status: Independent with HEP Insurance Declined Tx Patient Elected to Stop Discharge Summary: Patient is discharged as she has achieved her maximal potential during therapy. At this time patient is (I) with her joint protection techniques, is wearing her orthosis and is (I) with HEP. However patient's pain level, ROM and strength will fluctuate depending on the amount of quilting she is doing. Although patient has not achieved her goals she stated she will use the tools that were provided to address pain and weakness during her daily activities. She also will f/u with Ortho to address her carpal tunnel and further diagnostic assessment. Thank you for your referral. Electronically Signed By: CHARAN Johnson/Tari, CHAD Reviewed/agree with student documentation: Therapist: Please Sign and return to therapist, thank you for your referral.
== END 2025-02-22 09:25 | disposition home or self-care (01) ==
LOC: HO.OT 07:43
PROVIDERS: PCP Physician Assistant Medical; Visit Provider Physician Assistant Medical
DX: M25.532 Pain in left wrist (principal); M25.542 Pain in joints of left hand; Z91.81 History of falling
CPT/HCPCS: 29130; 97110; 97140; 97165; 97535; 97760

== ENCOUNTER 2025-02-27 06:24 | Outpatient (REF) | payer OTHER, SELFPAY ==
--- NOTE | ~2025-02-27 | FL_ITS ---
EXAMINATION: FL GUIDANCE ONLY HISTORY: M53.3 - Sacrococcygeal disorders, not elsewhere classified COMPARISON: None available. TECHNIQUE: Fluoroscopy time: 0.2 minutes. Cumulative Dose: 2.70 mGy. DAP: 0.0469 mGym2 Images: 2. FINDINGS: Fluoroscopic spot films of the pelvis demonstrate needles and contrast material in the regions of the bilateral sacroiliac joints. FL/FL guidance in treatment room IMPRESSION: Fluoroscopy during procedure. Please see procedure report for additional information. Electronically signed by: Nilay Orlando MD 02/27/2025 03:46 PM EDT
== END 2025-02-27 06:25 | disposition home or self-care (01) ==
LOC: CF 06:24
PROVIDERS: Visit Provider Anesthesiology
DX: M53.3 Sacrococcygeal disorders, not elsewhere classified (principal); M47.817 Spondylosis without myelopathy or radiculopathy, lumbosacral region; M54.50 Low back pain, unspecified
CPT/HCPCS: 27096; J2003; J2795; J3301; Q9967

== ENCOUNTER 2025-02-27 14:27 | Outpatient (AMB) | payer OTHER, SELFPAY ==
[2025-02-27 14:34] VITALS: BP 110/68; PULSE 88; RESP 16; O2SAT 95
--- NOTE | 2025-02-27 14:34 | A.OFFVIS_ITS ---
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: No Allergies hydrocodone Allergy (Verified 02/27/25 14:35) Rash Sulfa (Sulfonamide Antibiotics) Allergy (Verified 02/27/25 14:35) Rash tamoxifen Adverse Reaction (Verified 02/27/25 14:35) hot flashes Medication List - Last Reconciled 02/27/25 by Radha Werner LPN alirocumab (Praluent Pen) mg subcut clopidogrel mg PO DAILY dulaglutide (Trulicity) mg subcut lorazepam (Ativan) 1 mg PO ONCE metoprolol tartrate mg PO metoprolol tartrate mg PO sacroiliac belt As directed [facility] Medical History (Updated 01/12/25 @ 16:14 by MAUREEN Ugarte) Pancreatitis Diabetes Kidney stones HTN (hypertension) CVA (cerebral vascular accident) Surgical History Fusion of spine, cervical region History of hysterectomy History of splenectomy Hx of appendectomy Social History Current occupational status: employed 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 All questions about benefits and risks for the procedure were answered. Patient came to the operating room and was positioned prone on the operating table with the pillow under the abdomen.? The lower back and buttocks of the patient were prepped with ChloraPrep prepped and draped with sterile utility towels.? Sterilely draped C-arm was brought over the operating field and sq picture of patient's pelvis was demonstrated on the screen.? For each joint tilting C-arm contralateral to the site of the joint the most posterior portion of the joints was superimposed with anterior silhouette of the joint.? Skin was injected in the projection of the joint slightly medial to the location of the joint with 25 gauge 1/2 inch needle using local lidocaine 2% . After that 22 gauge 3 and 1/2 inch needle was driven to the right and left joint in tunnel vision fashion.? When needle entered the joint capsule injection of the contrast was performed demonstrating intra-articular and minimally peria rticular spread of the contrast.? After that 4 cc. of ropivacaine 0.5% mixed with Kenalog 20 mg was injected into each joint. (the patient is diabetic and does not have blood sugar machine at home.)? Upon completion of the injections the needles were removed, Band-Aids were applied.? Upon completion of the injection patient was taken outside of the operating room to the recovery room where recovered uneventfully. (2) Low back pain: Code(s): M54.50 - Low back pain, unspecified Category: Medical (3) Lumbosacral spondylosis: Code(s): M47.817 - Spondylosis without myelopathy or radiculopathy, lumbosacral region Category: Medical (4) Work related injury: Code(s): Y99.0 - Civilian activity done for income or pay Category: Medical Plan as above Orders: Orders FL guidance in treatment room 02/27/25 M53.3 - Sacrococcygeal disorders, not elsewhere classified Medications: New lorazepam (Ativan) Take 30 minutes prior to arrival to procedure 1 mg PO ONCE 1 tab 0RF anxiety Coding Level of Care Code Procedure Only Diagnoses Sacroiliac joint pain M53.3 Low back pain M54.50 Lumbosacral spondylosis M47.817 Work related injury Y99.0
[2025-02-27 14:59] VITALS: BP 128/76; PULSE 73; RESP 16; O2SAT 99
== END 2025-02-27 15:00 | disposition home or self-care (01) ==
LOC: HO.PMCPRC 14:27
PROVIDERS: PCP Physician Assistant Medical; Visit Provider Anesthesiology
DX: M53.3 Sacrococcygeal disorders, not elsewhere classified (principal); M54.50 Low back pain, unspecified; M47.817 Spondylosis without myelopathy or radiculopathy, lumbosacral region; Y99.0 Civilian activity done for income or pay
CPT/HCPCS: 27096

== ENCOUNTER → 2025-03-06 09:44 | Outpatient (BNVA) | payer OTHER, SELFPAY | PROVIDERS: PCP Physician Assistant Medical; Visit Provider Physician Assistant Medical | DX: S60.212D Contusion of left wrist, subsequent encounter (principal); M65.4 Radial styloid tenosynovitis [de Quervain]; S70.02XD Contusion of left hip, subsequent encounter; S73.101D Unspecified sprain of right hip, subsequent encounter; S39.012D Strain of muscle, fascia and tendon of lower back, subsequent encounter; M46.1 Sacroiliitis, not elsewhere classified; W00.0XXD Fall on same level due to ice and snow, subsequent encounter | CPT/HCPCS: 99213 ==

== ENCOUNTER 2025-03-09 07:51 | Outpatient (AMB) | payer OTHER, SELFPAY ==
--- NOTE | 2025-03-09 08:04 | A.OFFVIS_ITS ---
Intake Visit Reasons: OV- Left UE EMG review Intake Note: Kelly is a 64 year old right hand dominant female who presents today for an EMG review of the left hand. While at work on 11/20/2024 she fell on ice landing on the left arm. This is a W/C injury. Patient complains today of daily, sporadic, left hand numbness and tingling. She reports it wakes her at night and makes it difficult to open and close lids. Patient states she has been using a tool to help her open containers. Patient has been taking a muscle relaxer at night without relief. Patint also complains of pain along the radial aspect of the left hand, over the radial styloid. Allergies hydrocodone Allergy (Verified 03/09/25 08:12) Rash Sulfa (Sulfonamide Antibiotics) Allergy (Verified 03/09/25 08:12) Rash tamoxifen Adverse Reaction (Verified 03/09/25 08:12) hot flashes HPI HPI OV- Left UE EMG review: Details: Kelly is a 64 year old right hand dominant female who presents today for an EMG review of the left hand. While at work on 11/20/2024 she fell on ice landing on the left arm. This is a W/C injury. Patient complains today of daily, sporadic, left hand numbness and tingling. She reports it wakes her at night and makes it difficult to open and close lids. Patient states she has been using a tool to help her open containers. Patient has been taking a muscle relaxer at night without relief. Patint also complains of pain along the radial aspect of the left hand, over the styloid. 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 Neuro: Normal sensation of the tips of all digits of the left hand at this time Vascular: Cap refill brisk Pain: Tenderness to palpation over APL and EPB of the left thumb and wrist Mildly positive CMC grind Positive Leandro on the left ROM: Patient is able to make a closed fist and extend all digits of the left hand fully Skin: No lacerations or abrasions. General: No ecchymosis, erythema, or evidence of infection. Psych: Appears grossly normal Affect normal Attitude cooperative Results Reviewed Results Reviewed: IMPRESSION: 1. This is an abnormal study. 2. There is electrodiagnostic evidence for left moderate-severe median neuropathy at the wrist, consistent with carpal tunnel syndrome. 3. There is no electrodiagnostic evidence for ulnar neuropathy, brachial plexopathy, or cervical radiculopathy. Thank you for your kind referral. Lori Gonzales MD, WILFRID Assessment & Plan Assessment & Plan (1) De Quervain's tenosynovitis, left: Code(s): M65.4 - Radial styloid tenosynovitis [de Quervain] Category: Medical (2) Left carpal tunnel syndrome: Code(s): G56.02 - Carpal tunnel syndrome, left upper limb Category: Medical Plan 1. Left carpal tunnel syndrome 2. Left de Quervain tenosynovitis I educated the patient about the condition. I discussed both operative and nonoperative treatment options. The patient states that she would likely proceed with surgery, but she will need to discuss this with her family to make sure that logistically it makes sense for her and the rest of them at this time The risks and benefits of operative treatment were discussed. These risks include, but are not limited to, risk of damage to blood vessels, nerves, tendons, infection, recurrence, incomplete relief of preoperative symptoms, persistent pain, possible need for further surgery, and the risks associated with regional blocks and/or anesthesia. The entire pre and postoperative period was also discussed with the patient. Follow-up in 4 weeks for reassessment and discussion of surgical intervention, sooner with any acute concerns Coding Level of Care Code Est Pt Level 3 (44806) Complex EM visit Add On G2211 Diagnoses De Quervain's tenosynovitis, left M65.4 Left carpal tunnel syndrome G56.02
== END 2025-03-09 08:22 | disposition home or self-care (01) ==
LOC: HO.HOS 07:51
PROVIDERS: PCP Physician Assistant Medical
DX: M65.4 Radial styloid tenosynovitis [de Quervain] (principal); G56.02 Carpal tunnel syndrome, left upper limb
CPT/HCPCS: 99213; G2211

== ENCOUNTER → 2025-03-09 07:51 | Outpatient (BNVA) | payer OTHER, SELFPAY | PROVIDERS: PCP Physician Assistant Medical | DX: M65.4 Radial styloid tenosynovitis [de Quervain] (principal); G56.02 Carpal tunnel syndrome, left upper limb | CPT/HCPCS: 99212 ==

== ENCOUNTER 2025-03-27 09:37 | Outpatient (AMB) | payer OTHER, SELFPAY ==
--- NOTE | 2025-03-27 09:46 | A.OFFVIS_ITS ---
Vital Signs 03/27/25 09:49 Height 5 ft 2 in Weight 165 lb BMI 30.2 BP 131/64 Blood Pressure Location Lt brachial Position Sitting Pulse 78 Pulse Source Pulse Oximeter Pulse Oximetry (%) 98 Oxygen Delivery Method Room Air Intake Visit Reasons: BILATERAL THERAPEUTIC SIJ INJECTIONS Intake Note: Pain today 04/26 Clinic Receptionist Required: No Accompanied by: Self / Same As Patient Allergies hydrocodone Allergy (Verified 03/27/25 09:50) Rash Sulfa (Sulfonamide Antibiotics) Allergy (Verified 03/27/25 09:50) Rash tamoxifen Adverse Reaction (Verified 03/27/25 09:50) hot flashes HPI Comments Details: Patient presents today to assess response to Bilateral Therapeutic SI joint injections on 02/27/[address] Jain. Patient reports minimal pain relief since procedure without significant improvement in her daily activities, mobility or sleep. She reports post procedural bruising in her lower spine has healed and noted that she did not held Plavix prior to procedure. Patient reports ongoing low back pain with radiation into her left buttock and hip area with radiation into her left groin and anterior thigh with associated intermittent numbness and tingling. She has been utilizing muscle relaxant and melatonin at bedtime for sleep but continues with disrupted sleep due to pain. Walking, bending, prolonged sitting and changing positions increase her pain. Denies any recent cough, cold, infection, fever or any significant changes in medical history since last office visit. Past Procedures: 02/27/25: Bilateral Therapeutic SI joint injections-10% ongoing pain relief PRIOR: The patient is a pleasant 64-year-old female presenting with low back and bilateral hip pain that initiated following a fall on a snowcovered ice on 11/20/24. This is a Worker's Comp case #[id number]. The pain localizes in the lower back, buttocks and both hips, without extending past the knee. Post-fall symptoms have led to significant restrictions in daily activities and reduced sleep quality due to unresolved discomfort despite using an adjustable bed. Physical therapy led to minor improvements, but pain remains prevalent, particularly while transitioning from sitting to standing. Denies any fever or chills, abdominal or groin pain, weakness, foot drop, bladder or bowel dysfunction or saddle anesthesia. Imaging findings indicate multilevel spondylosis more conspicuous at L2-3 resulting in subtle grade 1 anterolisthesis. Endplate subacute inflammatory degenerative changes at L2-3 and posterior elements L4-5 and L1-2. She also has sclerosis and the sacroiliac joints more conspicuous on the right side, consistent with today's exam for positive sacroiliac joint pain with positive provocative testing. - Onset and Timing: Pain began following a fall on 11/20/24. - Quality and Character: Described as severe and sharp, stabbing, throbbing, hurting, heavy, flaring during specific movements. - Primary Location: Lower back and hips. - Radiation: Predominantly to the sides of the hips, not extending below knee level. - Exacerbating Factors: Walking, standing, bending, sitting, and transitioning from sitting to standing. Weather changes. - Relieving Factors: None reported as fully effective; slight improvement noted with physical therapy. - Interference: Prevents sweeping, mopping, and personal hygiene care. Disrupts sleep. - Affect: Poor sleep quality due to pain; impacts daily mood and comfort. - Analgesia: No current pain medications used; muscle relaxer previously administered. - Adverse Effects: Not applicable as current pain medications are not utilized. - Activities of Daily Living: Pain interferes with ADLs and restricts ability to sweep floors and provide personal hygiene care. - Aberrant Drug Related Behaviors: None reported; compliant with medical and therapeutic guidance. 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 Moderate distress due to pain. Alert and oriented. Mood and affect appropriate. Follows and participates in conversation appropriately. Respiratory effort is unlabored. No cough. Able to transition from sit to stand unassisted. Ambulates with bilaterally normal heel strike and toe off. General: Yes no CVA tenderness Back/Spine/Pelvis Other: Limited lumbar ROM due to pain. Antalgic gait with limping. Can flex forward to 60-65 degrees and extend to 5-10 degrees before experiencing lumbar pain. Demonstrates 4/5 left and 5/5 right strength of quadriceps bilaterally as well as flexion/dorsiflexion of bilateral feet against resistance. 2+ pedal pulses bilaterally. Straight leg rise with dorsiflexion positive on the left. +2 patellar and achilles reflexes bilaterally. Facet loading test positive bilaterally. Polina sign, Humberto?s, Gaenslen, Pelvic compression and Stinchfield tests are positive bilaterally, right>left. No groin pain with I/E hip rotations. Valsalva maneuver is negative. Mild leg discrepancy noted, right slightly shorter than left leg. Back: no CVA tenderness Cervical Spine: cervical ROM normal, cervical muscular tenderness, Cervical spine scars present and No Cervical spine tenderness Thoracic/Lumbar Spine: thoracic and lumbar spine normal to inspection, No Thoracic/lumbar spine scar(s), Lasegue's sign positive on the left and diffuse, pain with thoraco-lumbar ROM, paraspinal muscle tenderness, thoraco-lumbar ROM limited, No thoracic spinal tenderness and lumbar spinal tenderness (L4-S1) Pelvis: no buttock tenderness Sacroiliac joints: bilaterally tender to palpation Extrem General: Yes capillary refill normal, Yes no clubbing, cyanosis or edema and Yes no calf tenderness Results Reviewed Results Reviewed: MR LUMBAR SPINE WITHOUT CONTRAST 12/22/24 CLINICAL INFORMATION: Status post fall on ice at work. Radiculopathy. COMPARISON: Correlated to x-ray dated November 20, 2024. FINDINGS: Last rib-bearing vertebra labeled T12. There is a subtle bone marrow STIR signal in the inferior endplate of L2 and superior endplate of L3. Subtle bone marrow STIR signal within the posterior elements of L5 and to a lesser extent L4 and L1-L2 levels. Marginal osteophyte formation, decreased intervertebral disc height at L2-3, L1 to, L3-4, T11-12 and T12-L1. There is a subtle 1 mm anterolisthesis L2-3. Conus medullaris ends at pedicle of L1 with normal signal. Bone marrow inhomogeneity. T12-L1: Broad-based disc bulging. No central spinal canal or neuroforamina stenosis. L1-2: Small central disc herniation resulting in ventral deformity of the thecal sac. No central spinal canal or neuroforamina stenosis. L2-3: Broad-based disc bulging. Facet joint and ligamentum flavum hypertrophy. Reduced in diameter of the thecal sac and the neural foramina. No compression upon neural elements.. L3-4: Broad-based disc bulging. Facet joint and ligamentum flavum hypertrophy. Reduced AP diameter of the thecal sac and neuroforamina. No compression upon neural elements. L4-5: Broad-based disc bulging. Facet joint and ligamentum flavum hypertrophy. Reduced AP diameter of the thecal sac and the neural foramina. No compression upon neural elements. L5-S1: Broad-based disc bulging. Facet joint hypertrophy. No compression upon neural elements. No prevertebral compartment hematoma, mass or fluid collection. Multifocal different sizes round hyperintense T2 and hypointense T1 lesions throughout the kidneys more numerous on the right kidney and the largest measures 3 cm. IMPRESSION: Multilevel spondylosis more conspicuous at L2-3 resulting in subtle grade 1 anterolisthesis. Endplate subacute inflammatory degenerative changes at L2-3 and posterior elements L4-5 and L1-2. Bilateral renal cysts. XR LUMBOSACRAL SPINE 11/20/24 CLINICAL INFORMATION: strain muscle FINDINGS: Rudimentary ribs at T12. Endplate sclerosis and decreased intervertebral disc height with marginal osteophyte formation at L2-3 and to a lesser extent L1-2. No lytic or blastic lesions. No gross malalignment. Vascular calcifications, likely aorta. IMPRESSION: Spondylosis L2-3 and to a lesser extent L1-2. XR HIP, LEFT 11/20/24 CLINICAL INFORMATION: Contusion of left hip FINDINGS: No acute cortical disruption or malalignment left coxofemoral joint. The bony pelvis is intact. Sclerosis and the sacroiliac joints more conspicuous on the right side. The right hip is intact. Degenerative changes in the symphysis pubis. IMPRESSION: No acute fracture or dislocation. Assessment & Plan Assessment & Plan (1) Low back pain: Code(s): M54.50 - Low back pain, unspecified Category: Medical (2) Lumbosacral spondylosis: Code(s): M47.817 - Spondylosis without myelopathy or radiculopathy, lumbosacral region Category: Medical (3) Left lumbar radiculopathy: Code(s): M54.16 - Radiculopathy, lumbar region Category: Medical (4) Sacroiliac joint pain: Code(s): M53.3 - Sacrococcygeal disorders, not elsewhere classified Category: Medical (5) Work related injury: Code(s): Y99.0 - Civilian activity done for income or pay Category: Medical Plan Patient one month status post bilateral therapeutic SI joint injections with minimal pain relief. We will proceed with addressing her discogenic and radicular symptoms with left L2-L3 parasagittal interlaminar NILTON with local and fluoroscopy. Expectations, risks and benefits were reviewed. Patient is aware she will be contacted to schedule this procedure. Temporary cessation of Plavix is advised to minimize bleeding risks, will obtain clearance with prescribing physician. All questions and concerns have been answered and patient agreed with the treatment plan. Follow-up after injections and sooner as needed. Patient was informed and verbally consented to the use of an ambient scribe for clinic note documentation during this visit. Medications: New tramadol 50 mg PO BID 15 days PRN 30 tabs 0RF pain (scale score 7-10) M47.817 - Spondylosis without myelopathy or radiculopathy, lumbosacral region, M54.16 - Radiculopathy, lumbar region, M54.50 - Low back pain, unspecified naloxone 4 mg/actuation (Narcan) spray 1 dose into ONE nostril; alternate nostrils w each dose until help arrives 4 mg intranasal Q2M PRN 2 ea 0RF opioid overdose Discontinued cyclobenzaprine Discontinued Reason: Patient no longer taking 10 mg PO BEDTIME PRN 10 tabs 0RF muscle spasm Coding Level of Care Code Est Pt Level 4 (91014) Complex EM visit Add On G2211 Diagnoses Low back pain M54.50 Lumbosacral spondylosis M47.817 Left lumbar radiculopathy M54.16 Sacroiliac joint pain M53.3 Work related injury Y99.0
[2025-03-27 09:49] VITALS: BP 131/64; PULSE 78; O2SAT 98; BMI 30.2
== END 2025-03-27 10:17 | disposition home or self-care (01) ==
LOC: HO.PMC 09:37
PROVIDERS: PCP Physician Assistant Medical; Visit Provider Nurse Practitioner Family
DX: M54.50 Low back pain, unspecified (principal); M47.817 Spondylosis without myelopathy or radiculopathy, lumbosacral region; M54.16 Radiculopathy, lumbar region; M53.3 Sacrococcygeal disorders, not elsewhere classified; Y99.0 Civilian activity done for income or pay
CPT/HCPCS: 99214; G2211

== ENCOUNTER → 2025-03-27 09:37 | Outpatient (BNVA) | payer OTHER, SELFPAY | PROVIDERS: PCP Physician Assistant Medical; Visit Provider Nurse Practitioner Family | DX: M54.50 Low back pain, unspecified (principal); M47.817 Spondylosis without myelopathy or radiculopathy, lumbosacral region; M54.16 Radiculopathy, lumbar region; S70.02XD Contusion of left hip, subsequent encounter; W00.0XXD Fall on same level due to ice and snow, subsequent encounter; M53.3 Sacrococcygeal disorders, not elsewhere classified; Z04.2 Encounter for examination and observation following work accident | CPT/HCPCS: 99212 ==

== ENCOUNTER → 2025-04-03 07:45 | Outpatient (BNVA) | payer OTHER, SELFPAY | PROVIDERS: PCP Physician Assistant Medical; Visit Provider Physician Assistant Medical | DX: R10.32 Left lower quadrant pain (principal); S60.212D Contusion of left wrist, subsequent encounter; S70.02XD Contusion of left hip, subsequent encounter; S39.012D Strain of muscle, fascia and tendon of lower back, subsequent encounter; W00.0XXD Fall on same level due to ice and snow, subsequent encounter; M46.1 Sacroiliitis, not elsewhere classified | CPT/HCPCS: 99213 ==

== ENCOUNTER 2025-04-06 07:50 | Outpatient (AMB) | payer OTHER, SELFPAY ==
[2025-04-06 08:07] VITALS: BMI 30.2
--- NOTE | 2025-04-06 08:07 | A.OFFVIS_ITS ---
Vital Signs 04/06/25 08:07 Height 5 ft 2 in Weight 165 lb BMI 30.2 Intake Visit Reasons: Newprob-Discuss LT CTR/L RESIDENTIAL release Intake Note: Kelly is a 64 year old right hand dominant female who presents today to discuss a left carpal tunnel release. States she has CTS daily, comes and goes and worsens are night time. She is also complaining of weakness and mild pain. States she has tried using a brace which provided temporiary relife as well as O.T.. EMG done IMPRESSION: 1. This is an abnormal study. 2. There is electrodiagnostic evidence for left moderate-severe median neuropathy at the wrist, consistent with carpal tunnel syndrome. 3. There is no electrodiagnostic evidence for ulnar neuropathy, brachial plexopathy, or cervical radiculopathy. Allergies hydrocodone Allergy (Verified 03/27/25 09:50) Rash Sulfa (Sulfonamide Antibiotics) Allergy (Verified 03/27/25 09:50) Rash tamoxifen Adverse Reaction (Verified 03/27/25 09:50) hot flashes HPI HPI Newprob-Discuss LT CTR/L RESIDENTIAL release: Details: Kelly is a 64 year old right hand dominant female who presents today to discuss a left carpal tunnel release. States she has CTS daily, comes and goes and worsens are night time. She is also complaining of weakness and mild pain. States she has tried using a brace which provided temporiary relife as well as O.T.. EMG done IMPRESSION: 1. This is an abnormal study. 2. There is electrodiagnostic evidence for left moderate-severe median neuropathy at the wrist, consistent with carpal tunnel syndrome. 3. There is no electrodiagnostic evidence for ulnar neuropathy, brachial plexopathy, or cervical radiculopathy. 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 Neuro: Normal sensation of the tips of all digits of the left hand at this time Vascular: Cap refill brisk Pain: Tenderness to palpation over APL and EPB of the left thumb and wrist Mildly positive CMC grind Positive Leandro on the left ROM: Patient is able to make a closed fist and extend all digits of the left hand fully Skin: No lacerations or abrasions. General: No ecchymosis, erythema, or evidence of infection. Psych: Appears grossly normal Affect normal Attitude cooperative Assessment & Plan Assessment & Plan (1) De Quervain's tenosynovitis, left: Code(s): M65.4 - Radial styloid tenosynovitis [de Quervain] Category: Medical (2) Left carpal tunnel syndrome: Code(s): G56.02 - Carpal tunnel syndrome, left upper limb Category: Medical Plan 1. Left carpal tunnel syndrome 2. Left de Quervain tenosynovitis I educated the patient about the condition. I discussed both operative and nonoperative treatment options. The patient would like to proceed with surgery. The risks and benefits of operative treatment were discussed with the patient and the patient wishes to proceed with surgery. These risks include, but are not limited to, risk of damage to blood vessels, nerves, tendons, infection, recurrence, incomplete relief of preoperative symptoms, persistent pain, possible need for further surgery, and the risks associated with regional blocks and/or anesthesia. Plan is to take the patient to the operating room at some point in the next few weeks for the following procedures: 1. Left carpal tunnel release under local 2. Left 1st dorsal compartment release under local All of the preoperative paperwork including the consent was discussed today. All of the patient's questions were answered in the clinic today. The patient understands that they will be in contact with our salesperson surgical appliances to discuss scheduling their procedure. Patient denies diabetes, blood thinners, asthma, heart issues, lung issues, kidney issues, or current smoking. Coding Level of Care Code Est Pt Level 4 (34206) Diagnoses De Quervain's tenosynovitis, left M65.4 Left carpal tunnel syndrome G56.02
== END 2025-04-06 09:00 | disposition home or self-care (01) ==
LOC: HO.HOS 07:51
PROVIDERS: PCP Physician Assistant Medical
DX: M65.4 Radial styloid tenosynovitis [de Quervain] (principal); G56.02 Carpal tunnel syndrome, left upper limb
CPT/HCPCS: 99214

== ENCOUNTER → 2025-04-06 07:50 | Outpatient (BNVA) | payer OTHER, SELFPAY | PROVIDERS: PCP Physician Assistant Medical | DX: G56.02 Carpal tunnel syndrome, left upper limb (principal); M65.4 Radial styloid tenosynovitis [de Quervain] | CPT/HCPCS: 99212 ==

== ENCOUNTER → 2025-05-15 07:49 | Outpatient (BNVA) | payer OTHER, SELFPAY | PROVIDERS: PCP Physician Assistant Medical; Visit Provider Physician Assistant Medical | DX: S60.212D Contusion of left wrist, subsequent encounter (principal); S70.02XD Contusion of left hip, subsequent encounter; W00.0XXD Fall on same level due to ice and snow, subsequent encounter; M65.4 Radial styloid tenosynovitis [de Quervain] | CPT/HCPCS: 99213 ==

== ENCOUNTER → 2025-05-28 10:08 | Outpatient (BNVA) | payer OTHER, SELFPAY | PROVIDERS: PCP Physician Assistant Medical; Visit Provider Physician Assistant Medical | DX: R10.30 Lower abdominal pain, unspecified (principal); S60.212D Contusion of left wrist, subsequent encounter; M65.4 Radial styloid tenosynovitis [de Quervain]; S70.02XD Contusion of left hip, subsequent encounter; G56.02 Carpal tunnel syndrome, left upper limb; S39.012D Strain of muscle, fascia and tendon of lower back, subsequent encounter; W00.0XXD Fall on same level due to ice and snow, subsequent encounter | CPT/HCPCS: 87086; 87088; 87186; 99213 ==

== ENCOUNTER 2025-06-25 08:10 | Day surgery (SDC) | payer OTHER, SELFPAY ==
[2025-06-25 09:24] VITALS: BP 138/58; PULSE 77; RESP 16; TEMP 36.1; O2SAT 94; BMI 32.6
[2025-06-25 09:39] VITALS: BMI 32.6
--- NOTE | 2025-06-25 09:50 | MHC.SHP ---
Pre-Procedural Eval Section A - 24 Hr Update-Section A only Date of Service: 06/25/25 The patient is an INPATIENT: No Changes since office visit: No Cold of Flu in the past 2 weeks, No New Medical Problems, No Changes in Medication and No Patient answered all questions The patient has been examined within 24 hours of the surgical procedure. The History & Physical has been completed within 30 days and I have reviewed it.: Yes Section B - Complete if H&P > 30 days Chief Complaint: Radial styloid tenosynovitis [de Quervain],carpal Allergies: Allergies Allergy/AdvReac Type Severity Reaction Status Date / Time hydrocodone Allergy Rash Verified 03/27/25 09:50 Sulfa (Sulfonamide Allergy Rash Verified 03/27/25 09:50 Antibiotics) [id number]-PMG-DpI Reductase AdvReac Muscle Pain Verified 06/25/25 09:27 Inhibitor tamoxifen AdvReac hot flashes Verified 03/27/25 09:50 Plan Diagnosis/Plan: Unchanged I have reviewed the history and physical and performed a pertinent physical examination on my patient. No changes have occurred unless specified. Time Spent With Patient Time: Total time managing care of this patient today ____ minutes.
--- NOTE | 2025-06-25 09:51 | P.OP_ITS ---
Operative Note Operative Note Date of Service: 06/25/25 Narrative: Operative Note Preop diagnosis: 1. Left DeQuervain's tenosynovitis 2. Left carpal tunnel syndrome Postop diagnosis: Same Procedure: 1. Left 1st dorsal compartment release 2. Left carpal tunnel release Surgeon: Melissa Basilio MD Collection Administrator: None Anesthesia: local block using 1% lidocaine with epinephrine Findings: Thickened 1st dorsal compartment with constriction of the EPB tendon. EBL: Less than 5 mL Tourniquet time: None Specimens: None Complications: None Disposition: Brought to recovery room in stable condition Plan: Follow-up for 7-10 days for wound check and suture removal Indications: The patient is 64 years old, with left carpal tunnel syndrome and left DeQuervain's tenosynovitis that have been unresponsive to nonoperative management. The risks and benefits of operative treatment including but not limited to risk of damage to blood vessels, nerves, tendons, infection, persistent pain, persistent symptoms, recurrence or possible need for additional surgery were discussed with the patient and the patient wishes to proceed with surgery. Procedure: Once consent was obtained a local block was performed in the preop area using a combination of 1% lidocaine with epinephrine. The patient was then brought back to the operating suite and placed on the operative table in supine position. The left upper extremity was prepped and draped in a standard faina gical fashion. Once assured that we had a good block, a 2.0 cm longitudinal incision was made centered over the left carpal tunnel. The incision was made through the skin to the subcutaneous tissues using a #15 blade. Dissection was made down to the level of the transverse carpal ligament with care being taken to protect the palmar cutaneous nerve. Once the transverse carpal ligament was clearly visualized, a longitudinal incision was made in the transverse carpal ligament 1st using a #15 blade, then using tenotomy scissors under direct visualization. Care was taken to look for and protect the motor branch of the median nerve when seen in this area. Once satisfied with our carpal tunnel release the wound was irrigated with normal saline. Once assured that we had a good block, a 1.5 cm longitudinal incision was made centered over the 1st dorsal compartment as it passed over the radial styloid of the left wrist. The incision was made through the skin to the subcutaneous tissues using a #15 blade. Careful dissection was made down to the level of the 1st dorsal compartment using tenotomy scissors, with care being taken to protect the nearby branches of the superficial radial nerve. Once the 1st dorsal compartment was exposed, A longitudinal incision was made in the 1st dorsal compartment 1st using a #15 blade, then using tenotomy scissors under direct visualization. The 1st dorsal compartment was noted to be thickened for the most part over the EPB tendon. More constriction of the EPB tendon then the APL noted. Following our release, we saw smooth gliding abductor pollicis longus and extensor pollicis brevis tendons. Once satisfied with our 1st dorsal compartment release the wound was copiously irrigated with normal saline and hemostasis was obtained with a brief period of local pressure. The subcutaneous layer was closed with some 4-0 Vicryl suture, and the skin edges were reapproximated with some 5.0 nylon suture material. A sterile dressing was ranulfo lied. The patient appears to have tolerated the procedure well and with no complications. All digits were well vascularized at the conclusion of the case.
== END 2025-06-25 11:30 | disposition home or self-care (01) ==
PROVIDERS: PCP Physician Assistant Medical; Visit Provider Orthopaedic Surgery
PROC: (CPT 64721; principal; 2025-06-25 10:10)
PROC: (CPT 64721; 2025-06-25 10:10)
DX: G56.02 Carpal tunnel syndrome, left upper limb (principal); M65.4 Radial styloid tenosynovitis [de Quervain]; M79.642 Pain in left hand; I10 Essential (primary) hypertension; E11.9 Type 2 diabetes mellitus without complications; K85.90 Acute pancreatitis without necrosis or infection, unspecified; N20.0 Calculus of kidney; Z86.73 Personal history of transient ischemic attack (TIA), and cerebral infarction without residual deficits; Z90.710 Acquired absence of both cervix and uterus; Z90.81 Acquired absence of spleen; Z98.1 Arthrodesis status; Z88.2 Allergy status to sulfonamides; Z88.5 Allergy status to narcotic agent; Z88.8 Allergy status to other drugs, medicaments and biological substances
CPT/HCPCS: 64721; 25000; J0165; J2003

== ENCOUNTER → 2025-06-25 08:10 | Outpatient (BNV) | payer OTHER, SELFPAY | PROVIDERS: PCP Physician Assistant Medical; Visit Provider Orthopaedic Surgery | DX: G56.02 Carpal tunnel syndrome, left upper limb (principal); M65.4 Radial styloid tenosynovitis [de Quervain] | CPT/HCPCS: 25000; 64721 ==

== ENCOUNTER → 2025-07-09 07:52 | Outpatient (BNVA) | payer OTHER, SELFPAY | PROVIDERS: PCP Physician Assistant Medical; Visit Provider Physician Assistant Medical | DX: S60.212D Contusion of left wrist, subsequent encounter (principal); M65.4 Radial styloid tenosynovitis [de Quervain]; G56.02 Carpal tunnel syndrome, left upper limb; S39.012D Strain of muscle, fascia and tendon of lower back, subsequent encounter; S70.02XD Contusion of left hip, subsequent encounter; S73.101D Unspecified sprain of right hip, subsequent encounter; M53.3 Sacrococcygeal disorders, not elsewhere classified; W00.0XXD Fall on same level due to ice and snow, subsequent encounter | CPT/HCPCS: 99212; 99213 ==

== ENCOUNTER 2025-07-09 09:39 | Outpatient (AMB) | payer OTHER, SELFPAY ==
--- OUTSIDE RECORDS SUMMARY | 2020-06-27 13:41 | XMS_ITS | Encounter Summary ---
Author Organization [facility] Address [address] [place] [address] [place] [address] Phone Care Team Providers Care Bag Liner Name Role Phone Ruth Cade MD Unavailable [phone] Aimee Hung NP Unavailable Lidia Treadwell DO Primary Care Provider [phone] Lidia Treadwell DO Unavailable Encounter Details Date Type Department Care Team (Late st Contact Info) Description 06/27/2020 1:41 PM EDT Hospital Encounter [facility] Urgent Care [address] [place] [address] Esha Anne CNP [address] [place] [address] [phone] Social History Tobacco Use Types Packs/Day Years [...] End Date 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 Not on file Not on file 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 Not on file Not on file documented as of this encounter Functional Status * Calculated C-SSRS Risk Score (Lifetime/Recent) Answer Date of Assessment Author No Risk Indicated 10/10/2024 6:08 PM Ute Chacon RN * [place] Suicide Severity Rating Scale (Screener/Recent Self-Report) Question [...] Info) Description 08/13/2025 5:30 PM EDT Appointment [facility] - [facility] [address] [place] [address] Janine Gomez PA [address] [place] [phone] documented as of [...] hemipelvis appear to reflect phleboliths POS - [id number] Narrative 06/27/2020 2:10 PM EDT COMPARISON: 08/20/2019 [...] left hemipelvis appear to reflectphleboliths POS - [id number] us Esha Anne HOT DOG VENDER IMG XR ABDOMEN Final Resul t documented in this encounter Visit Diagnoses Not on filedocumented in this encounter Additional Health Concerns Infection Onset Date Last Indicated Resolved Time CoV-Exposed Comment:Recent close contact documented in the Travel/Symptom Screening Form 07/12/2023 07/14/2023 1:22 AM E DT Assessment Noted Time PHQ-2 Depression Total Score: 0 08/28/20 9:08 PM EST documented as of this encounter Care Teams Bag Liner Relationship Specialty Start Date End Date Lidia Treadwell DO [address] [place] [address] [email or web address] PCP - General Family Medicine 09/04/19 02/20/21 Ruth Cade MD [address] [place] [address] Historical LMR Provider 08/02/17 Aimee Hung NP [address] [place] [phone] Historical LMR Provider 08/02/17 2 Lidia Treadwell DO [address] [place] [address] [email or web address] Insurance Assigned Provider 11/17/19 05/24/21 documented as of this encounter Additional Source Comments The information contained in this document represents components of the legal health record. It is not the complete legal health record.[facility]
--- NOTE | 2025-07-09 09:50 | A.OFFVIS_ITS ---
Vital Signs 07/09/25 10:00 Height 5 ft 2 in Weight 178 lb BMI 32.6 Intake Visit Reasons: PO-Lt CTR/GROUP HOME Release 06/25/25 Intake Note: Kelly is a 64 year old right hand dominant female who presents today who presents today post-operatively status post Left Carpal Tunnel Release & First Dorsal Compartment Release performed by Dr. Basilio on 06/25/25. Patient repots she continues having numbness of the left thumb and finger tips. She is taking Tylenol PRN with relief. Sutures removed and steri strips applied. Allergies hydrocodone Allergy (Verified 07/09/25 10:00) Rash Sulfa (Sulfonamide Antibiotics) Allergy (Verified 07/09/25 10:00) Rash Efdlbom-YFP-TgR Reductase Inhibitor Adverse Reaction (Verified 07/09/25 10:00) Muscle Pain tamoxifen Adverse Reaction (Verified 07/09/25 10:00) hot flashes HPI HPI PO-Lt CTR/GROUP HOME Release 06/25/25: Details: Kelly is a 64 year old right hand dominant female who presents today who presents today post-operatively status post Left Carpal Tunnel Release & First Dorsal Compartment Release performed by Dr. Basilio on 06/25/25. Patient repots she continues having numbness of the left thumb and finger tips. She is taking Tylenol PRN with relief. Sutures removed and steri strips applied. 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 Neuro: Diminished sensation of the tip of the left index finger in the office today Normal sensation of the tips of all of the digits of the left hand at this time Vascular: Cap refill brisk Pain: Tenderness to palpation over APL and EPB of the left thumb and wrist Positive Leandro on the left ROM: Patient is able to make a closed fist and extend all digits of the left hand fully Skin: Well approximated and well healing incision sites noted over the 1st dorsal compartment and carpal tunnel of the left wrist No lacerations or abrasions. General: No ecchymosis, erythema, or evidence of infection. Psych: Appears grossly normal Affect normal Attitude cooperative Assessment & Plan Assessment & Plan (1) De Quervain's tenosynovitis, left: Code(s): M65.4 - Radial styloid tenosynovitis [de Quervain] Category: Medical (2) Left carpal tunnel syndrome: Code(s): G56.02 - Carpal tunnel syndrome, left upper limb Category: Medical Plan 1. Status post left carpal tunnel release 2. Status post left 1st dorsal compartment release DOS 06/25/2025 Patient reports ongoing numbness and tingling, is educated that it can take up to 9 months for normal sensation to return postoperatively Patient is also referred to occupational therapy at this time work on range and strengthening of the left wrist in the setting of de Quervain tenosynovitis status post 1st dorsal compartment release Patient is educated that even after surgery, if can take a few weeks to up to a after surgery for de Quervain tenosynovitis tendon resolved completely 2 lb weight limit reinforced in left hand for a further 2 weeks No under water for one-week Sutures removed, Steri-Strips applied without issue Follow-up in 4 weeks for range of motion and pain check, sooner with any acute concerns Orders: Orders OT Evaluation and Treatment 07/09/25 G56.02 - Carpal tunnel syndrome, left upper limb, M65.4 - Radial styloid tenosynovitis [de Quervain] Coding Level of Care Code Global (91826) Diagnoses De Quervain's tenosynovitis, left M65.4 Left carpal tunnel syndrome G56.02
[2025-07-09 10:00] VITALS: BMI 32.6
--- OUTSIDE RECORDS SUMMARY | 2025-07-09 11:27 | XMS_ITS | Encounter Summary ---
Author Organization [facility] Address [address] [place] [address] Phone Care Team Providers Care Application Development Team Lead Name Role Phone Ruth Cade MD Unavailable [phone] Aimee Hung NP Unavailable [phone] Alayna Gagnon MD Primary Care Prov ider Janine Gomez Primary Care Provider [phone] Alayna Gagnon MD Primary Care Prov ider Pcp, Unknown Primary Care Provider UnavailLidia Mcmanus DO Primary Care Provider + [phone] Lidia Treadwell DO Unavailable [phone] Pcp, Unknown Primary Care Provider UnavailJanine Samuels Primary Care Provider + [phone] Encounter Details Date Type Department Care Team (Late st Contact Info) Description 01/26/2019 Procedure Pass OR Admitting Dept - Virtual Department [address], [place] [id number] Social History Tobacco Use Types Packs/Day Years Used Date Smoking Tobacco: Former Cigarettes Q uit: 11/11/1997 Smokeless Tobacco: Never Alcohol Use Standard Drinks/Week Comments Not Currently 0 (1 standard drink = 0.6 oz pur e alcohol) Comments Unknown Sex and Gender Information Value Date Recorded Sex Assigned at Female 01/24/2019 12:57 PM EDT Legal Sex Female 9:51 PM EDT Gender Identity Female 01/24/2019 12:57 PM EDT Sexual Orientation Straight 01/24/2019 12 :57 PM EDT 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 Not on file Not on file documented as of this encounter Plan of Treatment Upcoming Encounters Date Type Department Care Team (Late st Contact Info) Description 08/13/2025 5:30 PM EDT Appointment [facility], [facility] [address] [place] [address] Janine Gomez PA [address] [place] [address] documented as of this encounter Visit Diagnoses Not on filedocumented in this encounter Additional Health Concerns Infection Onset Date Last Indicated Resolved Time CoV-Exposed Comment:Recent close contact documented in the Travel/Symptom Screening Form 07/12/2023 07/14/2023 1:22 AM E DT CoV-Risk 05/18/2020 05/18/2020 06/01/2020 1:23 AM EDT documented as of this encounter Care Teams Application Development Team Lead Relationship Specialty Start Date End Date Alayna Gagnon MD [address] [place] [phone] [email or web address] PCP - General Family Medicine 01/26/19 03/22/19 Janine Gomez PA [address] [place] [address] [place] [address] PCP - General Allied Health Professional 03/23/19 07/03/19 Alayna Gagnon MD [address] [place] [phone] [email or web address] PCP - General Family Medicine 07/04/19 08/19/19 Pcp, Unknown PCP - General 08/20/19 09/03/19 Lidia Treadwell DO [address] [place] [address] [email or web address] PCP - General Family Medicine 09/04/19 02/20/21 Pcp, Unknown PCP - General 01/13/23 01/13/24 Janine Gomez PA [address] [place] [address] PCP - General Physician Editor At Large 01/14/24 Ruth Cade MD [address] [place] [address] Historical LMR Provider 08/02/17 Aimee Hung NP [address] [place] [phone] Historical LMR Provider 08/02/17 2 Lidia Treadwell DO [address] [place] [address] [email or web address] Insurance Assigned Provider 11/17/19 05/24/21 documented as of this encounter Additional Source Comments The information contained in this document represents components of the legal health record. It is not the complete legal health record.[facility]
--- OUTSIDE RECORDS SUMMARY | 2025-07-09 11:27 | XMS_ITS | Encounter Summary ---
Author Organization [facility] Address [address] [place] [address] [place] [address] Phone Care Team Providers Care Demurrage Man Name Role Phone Ruth Cade MD Unavailable [phone] Aimee Hung NP Unavailable [phone] Alayna Gagnon MD Primary Care Prov ider Janine Gomez Primary Care Provider [phone] Alayna Gagnon MD Primary Care Prov ider Pcp, Unknown Primary Care Provider UnavailLidia Mcmanus DO Primary Care Provider + [phone] Lidia Treadwell DO Unavailable [phone] Pcp, Unknown Primary Care Provider UnavailJanine Samuels Primary Care Provider + [phone] Encounter Details Date Type Department Care Team (Late st Contact Info) Description 02/09/2019 Procedure Pass [facility], [address] [address] Social History Tobacco Use Types Packs/Day Years [...] on file documented as of this encounter Last Filed Vital Signs Vital Sign Reading Time Taken Comments Blood Pressure - - Pulse - - Temperature - - Respiratory Rate - - Oxygen Saturation - - Inhaled Oxygen Concentration - - Weight 80.3 kg (177 lb) 02/09/2019 6:19 PM EDT Height 157.5 cm (5' 2 ) 02/09/2019 6:19 PM EDT Body Mass Index 32.37 02/09/2019 6:19 PM EDT documented in this encounter Plan of Treatment Upcoming Encounters Date Type Department Care Team (Late st Contact Info) Description 08/13/2025 5:30 PM EDT Appointment [facility], [address] [address] Janine Gomez PA [address] [place] [phone] documented as of this encounter Visit Diagnoses Not on filedocumented in this encounter Additional Health Concerns Infection Onset Date Last Indicated Resolved Time CoV-Exposed Comment:Recent close contact documented in the Travel/Symptom Screening Form 07/12/2023 07/14/2023 1:22 AM E DT CoV-Risk 05/18/2020 05/18/2020 06/01/2020 1:23 AM EDT documented as of this encounter Care Teams Demurrage Man Relationship Specialty Start Date End Date Alayna Gagnon MD [address] [place] [phone] [email or web address] PCP - General Family Medicine 01/26/19 03/22/19 Janine Gomez PA [address] [place] [phone] PCP - General Supervisor Forming Department 03/23/19 07/03/19 Alayna Gagnon MD [address] [place] [phone] [email or web address] PCP - General Family Medicine 07/04/19 08/19/19 Pcp, Unknown PCP - General 08/20/19 09/03/19 Lidia Treadwell DO [address] [place] [address] [email or web address] PCP - General Family Medicine 09/04/19 02/20/21 Pcp, Unknown PCP - General 01/13/23 01/13/24 Janine Gomez PA [address] [place] [address] PCP - General Physician Casing Cooker 01/14/24 Ruth Cade MD [address] [place] [address] Historical LMR Provider 08/02/17 Aimee Hung NP [address] [place] [phone] Historical LMR Provider 08/02/17 2 Lidia Treadwell DO [address] [place] [address] [email or web address] Insurance Assigned Provider 11/17/19 05/24/21 documented as of this encounter Additional Source Comments The information contained in this document represents components of the legal health record. It is not the complete legal health record.[facility]
--- OUTSIDE RECORDS SUMMARY | 2025-07-09 11:27 | XMS_ITS | Encounter Summary ---
Author Organization [facility] Address [address] [place] [address] [place] [address] Phone Care Team Providers Care Carton Lettering Machine Operator Name Role Phone Janine Gomez Primary Care Provider [phone] Encounter Details Date Type Department Care Team (Late st Contact Info) Description 08/27/2024 Procedure Pass [facility], [facility] Scan - [address] [address] Social History Tobacco Use Types Packs/Day Years [...] as food, clothing, or medical care? No 08/27/2024 In the past 12 months have y ou been in a relationship with a person who hurts, threatens, or tries to control you? No 08/27/2024 Are you denied basic needs s uch as food, clothing, or medical care? No 08/27/2024 In the past 12 months have y ou been in a relationship with a person who hurts, threatens, or tries to control you? 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 Wish to be (Past 1 Month) No 08/27/2024 5:44 PM Mary Beth Poon RN 2. Non-Specific Active Suicidal Thoughts (Past 1 Month) No 08/27/2024 5:44 PM Mary Beth Poon RN 6. Suicidal Behavior (Lifetime) No 08/27/2024 5:44 PM Mary Beth Poon RN documented as of this encounter Plan of Treatment Upcoming Encounters Date Type Department Care Team (Late st Contact Info) Description 08/13/2025 5:30 PM EDT Appointment [facility], [facility] [address] [place] [address] Janine Gomez PA [address] [place] [phone] documented as of this encounter Visit Diagnoses Not on filedocumented in this encounter Additional Health Concerns Assessment Noted Time PHQ-2 Depression Total Score: 0 11/28/19 21 6:11 PM EST documented as of this encounter Care Teams Carton Lettering Machine Operator Relationship Specialty Start Date End Date Janine Gomez PA [address] [place] [phone] PCP - General Physician Auto Tune Up Mechanic 01/14/24 documented as of this encounter Additional Source Comments The information contained in this document represents components of the legal health record. It is not the complete legal health record.[facility]
--- OUTSIDE RECORDS SUMMARY | 2025-07-09 11:27 | XMS_ITS | Encounter Summary ---
Author Organization [facility] Address [address] [place] [address] [place] [address] Phone Care Team Providers Care Services Delivery Driver Name Role Phone Janine Gomez Primary Care Provider [phone] Encounter Details Date Type Department Care Team (Late st Contact Info) Description 05/12/2024 Transcribe Orders Virtual Department [address] [place] [address] Kelly Greenberg, URIEL [address], [place] [id number] [email or web address] Right shoulder pain, unspecified chronicity (Primary Dx) Social History Tobacco Use Types Packs/Day Years [...] with a working camera? 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 Not on file Not on file Not on file documented as of this encounter Plan of Treatment Upcoming Encounters Date Type Department Care Team (Late st Contact Info) Description 08/13/2025 5:30 PM EDT Appointment [facility], [address] [address] Janine Gomez PA [address] [place] [address] documented as of this encounter Visit Diagnoses Diagnosis Right shoulder pain, unspecified chronicity- Primary documented in this encounter Additional Health Concerns Assessment Noted Time PHQ-2 Depression Total Score: 0 11/28/19 21 6:11 PM EST documented as of this encounter Care Teams Services Delivery Driver Relationship Specialty Start Date End Date Janine Gomez PA [address] [place] [address] PCP - General Physician Certified Coder 01/14/24 documented as of this encounter Additional Source Comments The information contained in this document represents components of the legal health record. It is not the complete legal health record.[facility]
--- OUTSIDE RECORDS SUMMARY | 2025-07-09 11:27 | XMS_ITS | Encounter Summary ---
Author Organization [facility] Address [address] [place] [address] Phone Care Team Providers Care Centerless Grinding Machine Adjuster Name Role Phone Ruth Cade MD Unavailable [phone] Aimee Hung NP Unavailable [phone] Alayna Gagnon MD Primary Care Prov ider Janine Gomez Primary Care Provider [phone] Alayna Gagnon MD Primary Care Prov ider Pcp, Unknown Primary Care Provider UnavailLidia Mcmanus DO Primary Care Provider + [phone] Lidia Treadwell DO Unavailable [phone] Pcp, Unknown Primary Care Provider UnavailJanine Samuels Primary Care Provider + [phone] Encounter Details Date Type Department Care Team (Late st Contact Info) Description 02/27/2019 Procedure Pass OR Admitting Dept - Virtual Department [address] [place], [place] [phone] Social History Tobacco Use Types Packs/Day Years Used Date Smoking Tobacco: Former Cigarettes Q uit: 11/11/1997 Smokeless Tobacco: Never Alcohol Use Standard Drinks/Week Comments Not Currently 0 (1 standard drink = 0.6 oz pur e alcohol) Comments No Sex and Gender Information Value [...] 5:30 PM EDT Appointment [facility], [facility] [address] [place] [address] Janine Gomez PA [address] [place] [address] documented as of this encounter Visit Diagnoses Not on filedocumented in this encounter Additional Health Concerns Infection Onset Date Last Indicated Resolved Time CoV-Exposed Comment:Recent close contact documented in the Travel/Symptom Screening Form 07/12/2023 07/14/2023 1:22 AM E DT CoV-Risk 05/18/2020 05/18/2020 06/01/2020 1:23 AM EDT documented as of this encounter Care Teams Centerless Grinding Machine Adjuster Relationship Specialty Start Date End Date Alayna Gagnon MD [address] [place] [phone] [email or web address] PCP - General Family Medicine 01/26/19 03/22/19 Janine Gomez PA [address] [place] [address] [place] [address] PCP - General Data Integration Architect 03/23/19 07/03/19 Alayna Gagnon MD [address] [place] [phone] [email or web address] PCP - General Family Medicine 07/04/19 08/19/19 Pcp, Unknown PCP - General 08/20/19 09/03/19 Lidia Treadwell DO [address] [place] [address] [email or web address] PCP - General Family Medicine 09/04/19 02/20/21 Pcp, Unknown PCP - General 01/13/23 01/13/24 Janine Gomez PA [address] [place] [address] PCP - General Physician Rugby League Footballer 01/14/24 Ruth Cade MD [address] [place] [address] Historical LMR Provider 08/02/17 Aimee Hung NP [address] [place] [phone] Historical LMR Provider 08/02/17 2 Lidia Treadwell DO [address] [place] [address] [email or web address] Insurance Assigned Provider 11/17/19 05/24/21 documented as of this encounter Additional Source Comments The information contained in this document represents components of the legal health record. It is not the complete legal health record.[facility]
--- OUTSIDE RECORDS SUMMARY | 2025-07-09 11:27 | XMS_ITS | Encounter Summary ---
Author Organization [facility] Address [address] [place] [address] [place] [address] Phone Care Team Providers Care Frame Gate Mortiser Operator Name Role Phone Ruth Cade MD Unavailable [phone] Aimee Hung NP Unavailable [phone] Janine Gomez Primary Care Provider [phone] Alayna Gagnon MD Primary Care Prov ider Pcp, Unknown Primary Care Provider UnavailLidia Mcmanus DO Primary Care Provider [phone] Lidia Treadwell DO Unavailable Pcp, Unknown Primary Care Provider UnavailJanine Samuels Primary Care Provider [phone]- [phone] Encounter Details Date Type Department Care Team (Latest Contact Info) Description 06/16/2019 Transcribe Orders Virtual Department [address] [place] [address] Bernard Guerrero MD [address] [facility] [place] [address] [email or web address] Calculus of kidney (Primary Dx) Social History Tobacco Use Types Packs/Day Years Used Date Smoking Tobacco: Former Cigarettes 0.5 23.3 0 03/18/1975 - 1998 Smokeless Tobacco: Never Alcohol Use Standard Drinks/Week Comments Not Currently 0 (1 standard drink = 0.6 oz pur e alcohol) Education Answer Date Recorded What is the [...] End Date 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 Not on file Not on file Not on file 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 POS - [id number] Narrative 07/04/2019 9:31 AM EDT EXAM: US KIDNEYS ULTRASOUND KIDNEYS HISTORY: Calculus of kidney COMPARISON: Prior ultrasound on February 06, 2019. Prior MRCP on February 09, 2019. FINDINGS: RIGHT KIDNEY: The right kidney is within normal limits for size and measures 12.1 cm in sagittal dimension. Parenchyma is within normal limits. Cortical thickness and echogenicity are within normal limits. No hydronephrosis or shadowing stones demonstrated. Two cysts demonstrated in the upper pole, measuring 2.4 cm and 0.7 cm. LEFT KIDNEY: The left kidney is within normal limits for size and measures 11.9 cm in sagittal dimension. Parenchyma is within normal limits. Cortical thickness and echogenicity are within normal limits. No hydronephrosis, focal lesions, or shadowing stones. Procedure Note Magdaleno Ruiz MD - 07/04/2019 EXAM: US KIDNEYS ULTRASOUND KIDNEYS HISTORY: Calculus of kidney COMPARISON: Prior ultrasound on February 06, 2019. Prior MRCP on January. FINDINGS: RIGHT KIDNEY: The right kidney is within normal limits for size andmeasures 12.1 cm in sagittal dimension. Parenchyma is within normallimits. Cortical thickness and echogenicity are within normal limits. Nohydronephrosis or shadowing stones demonstrated. Two cysts demonstrated inthe upper pole, measuring 2.4 cm and 0.7 cm. LEFT KIDNEY: The left kidney is within normal limits for size and tvofnvhi68.9 cm in sagittal dimension. Parenchyma is within normal limits.Cortical thickness and echogenicity are within normal limits. Nohydronephrosis, focal lesions, or shadowing stones. IMPRESSION: No ultrasound evidence of nephrolithiasis. POS - [id number] us Bernard Guerrero MD [facility] Final Result documented in this encounter Visit Diagnoses Diagnosis Calculus of kidney- Primary Calculus of kidney documented in this encounter Additional Health Concerns Infection Onset Date Last Indicated Resolved Time CoV-Exposed Comment:Recent close contact documented in the Travel/Symptom Screening Form 07/12/2023 07/14/2023 1:22 AM E DT CoV-Risk 05/18/2020 05/18/2020 06/01/2020 1:23 AM EDT documented as of this encounter Care Teams Frame Gate Mortiser Operator Relationship Specialty Start Date End Date Janine Gomez PA [address] [place] [phone] PCP - General Project Financial Analyst 03/23/19 07/03/19 Alayna Gagnon MD [address] [place] [address] [email or web address] PCP - General Family Medicine 07/04/19 08/19/19 Pcp, Unknown PCP - General 08/20/19 09/03/19 Lidia Treadwell DO [address] [place] [address] [email or web address] PCP - General Family Medicine 09/04/19 02/20/21 Pcp, Unknown PCP - General 01/13/23 01/13/24 Janine Gomez PA [address] [place] [address] PCP - General Physician Bioinformatics Assistant 01/14/24 Ruth Cade MD [address] [place] [address] Historical LMR Provider 08/02/17 Aimee Hung NP [address] [place] [phone] Historical LMR Provider 08/02/17 2 Lidia Treadwell DO [address] [place] [address] [email or web address] Insurance Assigned Provider 11/17/19 05/24/21 documented as of this encounter Additional Source Comments The information contained in this document represents components of the legal health record. It is not the complete legal health record.[facility]
--- OUTSIDE RECORDS SUMMARY | 2025-07-09 11:27 | XMS_ITS | Encounter Summary ---
Author Organization [facility] Address [address] [facility] [address] [place] [address] Phone Care Team Providers Care In Mold Coater Name Role Phone Janine Gomez Primary Care Provider [phone]- [phone] Encounter Details Date Type Department Care Team (Latest Contact Info) Description 03/20/2025 Transcribe Orders Virtual Department [address] [place] [address] Janine Gomez PA [address] [place] [phone] Asymptomatic menopausal state (Primary Dx) Social History Tobacco Use Types [...] End Date 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 phedema 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 Not on file Not on file Not on file 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 phedema 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 Not on file Not on file Not on file documented as of this encounter Plan of Treatment Upcoming Encounters Date Type Department Care Team (Late st Contact Info) Description 08/13/2025 5:30 PM EDT Appointment [facility], [facility] - [address] [address] Janine Gomez PA [address] [place] [address] [place] [address] Scheduled Orders Name Type Priority Associated Diagnoses Orde r Schedule DXA Screening Imaging Routine Asymptomatic menopausal state Expected: 04/19/2025, Expires: 03/20/2026 documented as of this encounter Visit Diagnoses Diagnosis Asymptomatic menopausal state- Primary documented in this encounter Additional Health Concerns Assessment Noted Time PHQ-2 Depression Total Score: 0 11/28/19 21 6:11 PM EST documented as of this encounter Care Teams In Mold Coater Relationship Specialty Start Date End Date Janine Gomez PA [address] [place] [address] PCP - General Physician Frit Coater 01/14/24 documented as of this encounter Additional Source Comments The information contained in this document represents components of the legal health record. It is not the complete legal health record.[facility]
--- OUTSIDE RECORDS SUMMARY | 2025-07-09 11:27 | XMS_ITS | Encounter Summary ---
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 Not on file Not on file 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 phedema 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 Not on file Not on file Not on file documented as of this encounter Plan of Treatment Upcoming Encounters Date Type Department Care Team (Late st Contact Info) Description 08/13/2025 5:30 PM EDT Appointment [facility], [facility] [address] [place] [address] Janine Gomez PA [address] [place] [phone] documented as of this encounter Visit Diagnoses Not on filedocumented in this encounter Additional Health Concerns Assessment Noted Time PHQ-2 Depression Total Score: 0 11/28/19 21 6:11 PM EST documented as of this encounter Care Teams Information Technology Security Analyst Relationship Specialty Start Date End Date Pcp, Unknown PCP - General 01/13/23 01/13/24 Janine Gomez PA [address] [place] [address] PCP - General Physician Cold Type Composing Machine Operator 01/14/24 documented as of this encounter Additional Source Comments The information contained in this document represents components of the legal health record. It is not the complete legal health record.[facility]
--- OUTSIDE RECORDS SUMMARY | 2025-07-09 11:27 | XMS_ITS | Encounter Summary ---
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 Not on file Not on file 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 phedema 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 Not on file Not on file Not on file documented as of this encounter Plan of Treatment Upcoming Encounters Date Type Department Care Team (Late st Contact Info) Description 08/13/2025 5:30 PM EDT Appointment [facility], [facility] [address] [place] [address] Janine Gomez PA [address] [place] [address] documented as of this encounter Visit Diagnoses Not on filedocumented in this encounter Additional Health Concerns Assessment Noted Time PHQ-2 Depression Total Score: 0 11/28/19 21 6:11 PM EST documented as of this encounter Care Teams Chief Vendor Quality Relationship Specialty Start Date End Date Janine Gomez PA [address] [place] [address] PCP - General Physician Buckler And Lacer 01/14/24 documented as of this encounter Additional Source Comments The information contained in this document represents components of the legal health record. It is not the complete legal health record.[facility]
--- OUTSIDE RECORDS SUMMARY | 2025-07-09 11:27 | XMS_ITS | Clinical Summary ---
Author Organization [facility] Address [address] [place] [phone] Phone Care Team Providers Care Dieing Out Machine Operator Name Role Phone Janine Gomez Primary Care Provider [phone] Allergies Active Allergy Reactions Criticality Noted Date Comments Atorvastatin Myalgia Medium 01/18/2024 Chlorthalidone High 10/10/2024 Other Reaction(s): Not available Fenofibrate 10/10/2024 Other Reaction(s): cough Nitrofurantoin Rash Medium 12/28/2018 Hydrocodone Hcl Rash Medium 01/24/2019 Losartan 10/10/2024 Other Reaction(s): cough Raloxifene 10/10/2024 Other Reaction(s): Not available Kvjrpoo-Mec-Tss Reductase Inhibitors Cough,Myalgia Medium 01/18/2024 Sulfa (Sulfonamide Antibiotics) Rash Low 10/10/2024 Tamoxifen 10/10/2024 Other Reaction(s): Not available Medications lactobacillus rhamnosus, GG, (CULTURELLE) 10 billion cell capsule Take 1 capsule by mouth 2 (two) times a day. 28 capsule 9 Active clopidogrel (PLAVIX) 75 mg tabletIndications :Cerebrovascular accident (CVA) due to embolism of right middle cerebral artery Take 1 tablet (75 mg total) by mouth daily. 90 tablet 3 1 Active TRULICITY 0.75 mg/0.5 mL subcutaneous injection 4 Active PRALUENT PEN 75 mg/mL PnIj subcutaneous pen injector 4 Active acetaminophen (TYLENOL) 325 mg tablet Take 1-2 tablets (325-650 mg total) by mouth every 6 (six) hours as needed (mild - moderate pain). 4 Active cyanocobalamin, vitamin B-12, 100 MCG tablet Take 100 mcg by mouth daily. Active metoprolol tartrate (LOPRESSOR) 50 MG tabletIndications :Cerebrovascular accident (CVA) due to embolism of right middle cerebral artery Patient states she takes 75 mg twice daily 180 tablet 4 Active morphine (MSIR) 15 MG tablet Take 1 tablet (15 mg total) by mouth every 6 (six) hours as needed for pain (specific location in comments). Can partial fill 12 tablet 4 Active Active Problems Problem Noted Date Diagnosed Date History of stroke 08/28/2024 Assessment & Plan (08/28/2024 12:38 AM EST): Prior history of CVA of the right middle cerebral artery. No residual deficits. -Continue Plavix Pancreatitis 08/27/2024 Assessment & Plan (08/28/2024 12:38 AM EST): Patient presented with sudden onset epigastric pain rating to the back found to have acute pancreatitis with elevated lipase greater than [address] abdomen. Etiology unclear. No evidence of biliary disease, hypertriglyceridemia, or history of excessive alcohol use. Certainly possible for drug-induced as patient is on Tresiba/chlorthalidone -Patient will be observed on MedSurg -Repeat CBC and CMP -Clear liquid diet, advance as tolerated -Continue IV morphine 4 mg every 4 hours as needed for severe pain -Adding IgG4 in a.m. -Will give 1 L IV fluid at 125 cc/h Degenerative disc disease, cervical 01/10/2021 Assessment & Plan (01/10/2021 9:00 AM EDT): Will increase Cymbalta to 30 mg once daily to see if increased dose will decrease neck pain. Primary osteoarthritis of both hands 01/10/2021 Assessment & Plan (01/10/2021 9:01 AM EDT): Will increase Cymbalta to 30 mg once daily to see if increased dose will decrease hand, thumb pain. Physical therapy strengthening exercises for thumbs. Neck pain 12/13/2020 Assessment & Plan (12/13/2020 9:38 AM EST): Trial of Cymbalta 20 mg Take one pill PO daily. Tylenol has not helped. Patient cannot take NSAIDs due patient being on Plavix. X-ray cervical spine. Chronic thumb pain, bilateral 12/13/2020 Assessment & Plan (12/13/2020 9:41 AM EST): Trial of Cymbalta 20 mg Take one pill PO daily. Tylenol ineffective. X-ray hands. Hip pain 12/13/2020 Assessment & Plan (12/13/2020 9:40 AM EST): Trial of Cymbalta 20 mg Take one pill PO daily. Tylenol has not been effective. Cannot take NSAIDs due to being on Plavix medication. Left elbow pain 12/13/2020 Assessment & Plan (01/10/2021 9:02 AM EDT): Will increase Cymbalta 30 mg Take one pill PO daily. Muscle rubs with lidocaine, stretching exercises. Assessment & Plan (12/13/2020 9:39 AM EST): Trial of Cymbalta 20 mg Take one pill PO daily. Gentle stretching, strengthening exercise. Polyarthralgia 05/10/2020 Acute intractable headache 03/15/2020 Assessment & Plan (03/15/2020 6:21 PM EDT): Most likely this is a tension headache. It also could be precipitated by the cerumen impaction she had. Cerumen is been cleared easily. I gave her a prescription for Celebrex and hopefully this will help to resolve her pain. 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 Secondary fibromyalgia 05/08/2019 Chronic fatigue syndrome 05/08/2019 History of Lyme disease 03/23/2019 Osteoarthritis of right thumb 03/18/2019 Overview (07/05/2019): Jaz simmons, possible repetitive motion injury Constipation 02/08/2019 Assessment & Plan (02/09/2019 9:52 AM EDT): -increase senna to bid Elevated liver enzymes 02/04/2019 Assessment & Plan (02/09/2019 9:53 AM EDT): -CT showed dilation of the gallbladder - ultrasound shows nl gallbladder but mildly dilated common bile duct - LFTs remain mildly elevated with normal bilirubin - discussed with GI, recommend MRCP Hydronephrosis with urinary obstruction due to ureteral calculus 01/26/2019 Assessment & Plan (01/28/2019 12:08 PM EDT): Patient presented with abdominal pain, obstructing stone on the left, sepsis. Urology placed stent Patient will continue on antibiotics, she also has pyelonephritis She has improved since stent placed. Sepsis is resolved. LFT elevation due to acute infection. Continue in hospital for now to make sure she remains stable recheck white count tomorrow Type 2 diabetes mellitus Assessment & Plan (08/28/2024 12:38 AM EST): Holding Tresiba Continue with low-dose insulin sign scale with icduv-tc-ldfv testing Assessment & Plan (02/08/2019 11:46 AM EDT): Cont to hold home metformin - cont insulin sliding scale, add scheduled meal insulin (but should hold the meal insulin if not eating) Assessment & Plan (01/28/2019 12:07 PM EDT): Diet started yesterday, eating well. Restart metformin today Hypercholesterolemia Assessment & Plan (08/28/2024 12:38 AM EST): History hypercholesterolemia. Currently on praluent patient does not tolerate statins. Triglyceride was normal. -Fasting lipids in the morning Osteoarthritis Assessment & Plan (01/26/2019 8:24 PM EDT): Continue with gabapentin. GERD (gastroesophageal reflux disease) Assessment & Plan (01/26/2019 8:22 PM EDT): Continue our formulary H2 shaista. Positive Lyme disease serology HTN (hypertension) Assessment & Plan (08/28/2024 12:38 AM EST): Stable. Holding chlorthalidone Continue metoprolol with holding parameters Resolved Problems Problem Noted Date Diagnosed Date Resolved Date Lyme disease 05/08/2019 06/12/2019 Left ureteral stone 02/27/2019 09/04/20 19 EUGENE (acute kidney injury) 02/05/2019 Sepsis due to urinary tract infection 01/26/2019 02/07/2019 Assessment & Plan (01/27/2019 5:24 PM EDT): At admission patient met septic criteria with tachycardia, leukocytosis and tachypnea. Source is the urinary tract infection and related obstructive ureteral stone. Patient's sepsis has resolved with treatment Dehydration 01/26/2019 01/27/2019 Assessment & Plan (01/26/2019 8:25 PM EDT): Clinically dehydrated with dry oral mucosa and I suspect that her headache is related to dehydration as well. We will continue IV fluids. Immunizations Immunization Administration Dates Next Due COVID-19 (Pre-08/09) Pfizer Vaccine, mRNA, PF 11/13/2020 INFLUENZA, SPLIT VIRUS, TRIV ALENT W/ PRESERVATIVE IM 11/11/2012,07/01/2011,09/03/2010 Influenza Quadrivalent MDCK Preservative Free IM 07/28/2017 Influenza Quadrivalent Preservative Free IM 1010/2019 Influenza, Unspecified Formulation 07/29/2019 Tdap 07/01/2011 Family History Medical History Relation Comments Bipolar disorder Brother No Known Problems Daughter Emphysema Father Lung cancer Father Cause of , smoking related Diabetes type II Maternal Grandmother Depression Mother Diabetes type II Mother Hypertension Mother Pneumonia Mother Pulmonary histop lasmosis, s/p lobectomy Stroke Mother Cause of No Known Problems Son Relation Status Comments Brother Alive Daughter Alive Father (Age 80) Maternal Grandmother Mother (Age 66) Son Alive Social History Tobacco Use Types Packs/Day Years [...] End Date 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 phedema bark fitter Not on file Not on file Not on file 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 phedema bark fitter Not on file Not on file Not on file Last Filed Vital Signs Vital Sign Reading Time Taken Comments Blood Pressure 138/70 10/10/2024 6:06 PM EST Pulse 70 10/10/2024 6:06 PM EST Temperature 37.1 C (98.8 F) 10/10/2024 6:06 PM EST Respiratory Rate 18 10/10/2024 6:06 PM EST Oxygen Saturation 98% 10/10/2024 6:06 PM EST Inhaled Oxygen Concentration - - Weight 73.5 kg (162 lb) 10/10/2024 6:06 PM EST Height 157.5 cm (5' 2 ) 10/10/2024 6:06 PM EST Body Mass Index 29.63 10/10/2024 6:06 PM EST Plan of Treatment Upcoming Encounters Date Type Department Care Team (Late st Contact Info) Description 08/13/2025 5:30 PM EDT Appointment [facility] [address] [place] [address] Janine Gomez PA [address] [place] [phone] Health Maintenance Due Date Last Done Comments BLOOD PRESSURE 1960 COLOGUARD 2003 FIT TEST 2003 FOBT 2003 SIGMOIDOSCOPY 2003 VIRTUAL COLONOSCOPY 2003 PNEUMOCOCCAL VACCINES (50+ years) (2 of 2 - PCV) 04/09/2016 04/09/2015 DIABETIC EYE EXAM 01/26/2019 HEMOGLOBIN A1C 11/10/2020 05/10/2020, 04/18, 01/27/2019 MAMMOGRAM 11/08/2021 11/08/2019 URINE MICROALBUMIN/CREATININE RATIO 11/20/2021 11/20/2020 DEPRESSION SCREENING 11/28/2021 11/28/2020 OSTEOPOROSIS SCREENING INITIAL (ONE-TIME) 2023 INFLUENZA VACCINE (#1) 2025 , 08/04/2022, 08/15/2021, Additional history exists COVID-19 VACCINE ( season) 2025 08/08/2023, 08/08/2023, 08/04/2022, Additional history exists LIPID PANEL 08/28/2025 08/28/2024 COLONOSCOPY 10/19/2029 10/19/2019 COLORECTAL CANCER SCREENING 10/19/2029 Adult Td,Tdap Booster 04/13/2033 04/13/2023, 011 HEPATITIS A VACCINES Aged Out 10/08/2014, 04/16/20 14 No longer eligible based on patient's age to complete this topic HEPATITIS C SCREENING Completed 05/10/2020, 020 RSV VACCINE Completed 08/08/2023 ZOSTER VACCINES Completed 10/04/2023, 08/08/2023 SMOKING STATUS SCREENING (Once After 26 Yrs) Completed 10/10/2024 HIB VACCINES Aged Out No longer eligi ble based on patient's age to complete this topic MENINGOCOCCAL VACCINES (ACWY) Aged Out No longer eligible based on patient's age to complete this topic MENINGOCOCCAL VACCINES (B) Aged Out N o longer eligible based on patient's age to complete this topic Medical Devices Implanted Type Area Sales Analytics Manager Device Identifier Shelf Expiration Date Model / Serial / Lot Clip Clip Right: Breast Nodata NODATA Spine Cervical Description:Spine surgery Stent Ureteral 6fr 22 To 30cm Stretch Coated Antelmo - [id number] Implanted:Qty : 1 on 01/26/2019 by Bernard Guerrero MD at [facility] Explanted:12/2018 (Quantity not on file) Left: Ureter [employer] 09/14/2021 [id number] / / [id number] Stent Ureteral 6fr 22 To 30cm Stretch Coated Antelmo - [id number] Implanted:Qty : 1 on 02/27/2019 by Bernard Guerrero MD at [facility] Explanted:12/2018 (Quantity not on file) Left: Ureter [employer] 10/02/2021 [id number] / / Description:Stent with strin gs taped to perineum with mastisol And steri strips Procedures Procedure Name Priority Date/Time Associated Diagnosis Comments LIPID PANEL Routine 08/28/2024 7:58 AM EST HEMOGLOBIN A1C Routine 05/10/2020 5:02 PM EDT Type 2 diabetes mellitus without complication, without long-term current use of insulin HEPATITIS C ANTIBODY, QUALITATIVE Routine 05/10/2020 5:02 PM EDT Polyarthralgia HM MAMMOGRAPHY Routine 11/08/2019 ENDOSCOPY, COLON 10/19/2019 1:24 PM EST from Last 3 Months or Most Recently Relevant to Health Maintenance Results * (ABNORMAL) Lipid panel (08/28/2024 7:58 AM EST) HDL 47 mg/dL [facility] Comment: Interpretation <40 mg/dL: Low HDL cholesterol (major risk factor for CHD) Greater than or equal to 60 mg/dL: High HDL cholesterol ( negative risk factor for CHD) HDL - cholesterol is affected by a number of factors, e.g. smoking, excerise, hormones, sex and age. CHOLESTEROL 163 0 - 240 mg/dL [facility] TRIGLYCERIDES 185(H) 30 - 160 mg/dL [facility] LDL 79 50 - 129 mg/dL [facility] Comment: LDL levels in terms of risk for coronary heart disease: <100 mg/dL: Optimal 100-129 mg/dL: Near or above optimal 130-159 mg/dL: Borderline high 160-189 mg/dL: High >190 mg/dL: Very High CARDIAC RISK RATIO 3.5 3.3 - 4.4 C [facility] [place] 08/28/2024 7:58 AM EST 08/28/2024 8:11 AM EST us Angel Howard MD LAB BLOOD ORDERABLES Final Resu lt [address] [address] * Hepatitis C antibody, qualitative (05/10/2020 5:02 PM EDT) HCV NON-REACTIV E NON-REACTI VE [facility] Blood 05/10/2020 5:02 PM EDT 05/10/2020 5:10 PM EDT us Erlin Christianson MD LAB BLOOD ORDERABLES Final Result Performing Organization Address City/[facility]/ZIP Co de Phone Number [address] [address] * (ABNORMAL) Hemoglobin A1c (05/10/2020 5:02 PM EDT) HEMOGLOBIN A1C 6.2(H) 4.3 - 5.8 % [facility] Blood 05/10/2020 5:02 PM EDT 05/10/2020 5:10 PM EDT Erlin Christianson MD LAB BLOOD ORDERABLES Final Result [address] [address] * HM MAMMOGRAPHY FOR RESULT ENTRY ONLY (11/08/2019) us Historical Provider HEALTH MAINTENANCE Edited Result - Final * ENDOSCOPY, COLON (10/19/2019 1:24 PM EST) Narrative Transcriptions Adam Hassan MD - 10/19/2019 1:24 PM EST Patient Name: Kelly Isaacs Attending MD:: ADAM HASSAN MD Procedure Date: 10/19/2019 1:24 PM Date of : 1960 Age: 59 Admit Type: Outpatient Gender: Female Room: [place] [address] Referring MD: Lidia Treadwell Exam Type: Colonoscopy Indications: Last colonoscopy: December 2009, Abdominal pain in theleft lower quadrant, Personal history of colonic polyps Medications: Propofol per Anesthesia Procedure: Informed consent was obtained from the patient after discussion of the indications, limitations,alternatives, benefits, and risks of the procedure. Risksspecifically discussed include but are not limited to medication reactions, missed lesions, bleeding, perforation, orthe need for emergent surgery. Throughout the procedure, the patient's blood pressure, pulse, end-tidal CO2, and oxygen saturations were monitored continuously. The Olympus adult variable colonoscope [id number] #6 was introduced through the anus and advanced to the cecum, identified by appendiceal orifice and ileocecal valve.The ileocecal valve, appendiceal orifice, and rectum were photographed. The colonoscopy was somewhat difficultdue to significant looping. The patient tolerated the procedure well. The quality of the bowel preparationwas adequate to identify polyps. The bowel preparation used was Miralax via split dose instruction. Complications: No immediate complications. Estimated blood loss:None. Findings: The perianal and digital rectal examinations werenormal. Pertinent negatives include no palpable rectallesions. Internal hemorrhoids were found during retroflexion.The hemorrhoids were small. The colon (entire examined portion) was mildlyredundant. Many medium-mouthed diverticula were found in theentire colon. Two sessile polyps were found in the sigmoid colon and hepatic flexure. The polyps were small in size. These polyps were removed with a cold snare. Resection and retrieval were complete. The exam was otherwise without abnormality. Retroflexion in the right colon was performed. Impression: - Internal hemorrhoids. - Redundant colon. - Diverticulosis in the entire examined colon. - Two small polyps in the sigmoid colon and at thehepatic flexure, removed with a cold snare. Resected andretrieved. - The examination was otherwise normal. Recommendation: - High fiber diet. - Repeat colonoscopy in 5 years for surveillance. ADAM HASSAN MD 10/19/2019 2:11:23 PM This report has been signed electronically. Number of Addenda: 0 Note Initiated On: 10/19/2019 1:24 PM Procedure Code(s): --- Professional --- 60873, Colonoscopy, flexible; with removal of tumor(s), polyp(s), or other lesion(s) by snare technique --- Technical --- 17092, Colonoscopy, flexible; with removal of tumor(s), polyp(s), or other lesion(s) by snare technique Diagnosis Code(s): --- Professional --- K64.8, Other hemorrhoids D12.5, Benign neoplasm of sigmoid colon D12.3, Benign neoplasm of transverse colon (hepatic flexure orsplenic flexure) R10.32, Left lower quadrant pain Z86.010, Personal history of colonic polyps K57.30, Diverticulosis of large intestine without perforation orabscess without bleeding Q43.8, Other specified congenital malformations of intestine --- Technical --- K64.8, Other hemorrhoids D12.5, Benign neoplasm of sigmoid colon D12.3, Benign neoplasm of transverse colon (hepatic flexure orsplenic flexure) R10.32, Left lower quadrant pain Z86.010, Personal history of colonic polyps K57.30, Diverticulosis of large intestine without perforation orabscess without bleeding Q43.8, Other specified congenital malformations of intestine CPT copyright 2018 [employer]. All rights reserved. The codes documented in this report are preliminary and upon chemical engineering technologist reviewmay be revised to meet current compliance requirements. [address] [place] [address] Lidia Treadwell DO GI PROCEDURE ORDERABLES Fi nal Result from Last 3 Months or Most Recently Relevant to Health Maintenance Insurance [employer]PLACEMENT [employer] REPLACEMENT MEDICARE HMO REPLACEMENT MEDICARE HMO REPLACEMENT MEDICARE HMO REPLACEMENT [employer] RE[employer]ACEMENT Advance Directives For more information, please contact: [phone] (9AM - 5PM [place], Wednesday-Wednesday) * Full Code (Latest Code Status on File) Date Activated Date Inactivated Comments 08/28/2024 12:19 AM Question Answer Comments Code Status Confirmed With: Patient Code Status Communicated To: Inpatient Attending * Full Code (Confirmed) Date Activated Date Inactivated Comments 02/04/2019 2:10 AM 02/10/2019 12:51 PM Question Answer Comments Code Status Confirmed With: Patient * Full Code (Presumed) Date Activated Date Inactivated Comments 01/26/2019 10:39 PM 01/29/2019 4:35 PM * Full Code (Confirmed) Date Activated Date Inactivated Comments 01/26/2019 10:39 PM 01/26/2019 10:39 PM Question Answer Comments Code Status Confirmed With: PatientFamily Care Teams Dieing Out Machine Operator Relationship Specialty Start Date End Date Janine Gomez PA [address] [place] [id number] PCP - General Physician Winder Contort Operator 01/14/24 Additional Source Comments The information contained in this document represents components of the legal health record. It is not the complete legal health record.[facility]
--- OUTSIDE RECORDS SUMMARY | 2025-07-09 11:27 | XMS_ITS | Encounter Summary ---
Author Organization [facility] Address [address] [place] [address] Phone Care Team Providers Care Cardiac Rehabilitation Specialist Name Role Phone Pcp, Unknown Primary Care Provider Janine Lema Primary Care Provider [phone] Reason for Referral * MRI/CAT Scan - Closed Specialty Diagnoses / Procedures Referred By Luci tapia Referred To Contact Radiology Diagnoses Localized swelling, mass and lump, unspecified Procedures MRI Foot (Left) CHG MRI, LOWER EXTR, W/O CONTRAST F/U BY CONTRAST Carlos Rose DPM [address] [place] [address] Phone: tel: fax: [email or web address] Referral ID Status Reason Start Date Expiration Date Visits Re quested Visits Authorized [id number] Closed 12/08/2023 02/06/2024 1 1 Encounter Details Date Type Department Care Team (Latest Contact Info) Description 12/08/2023 Transcribe Orders Virtual Department [address] [place] [address] Carlos Rose DPM [address] [place] [address] [email or web address] Localized swelling, mass and lump, unspecified (Primary Dx) Social History Tobacco Use Types [...] End Date 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 phedema artificial limb fitter Not on file Not on file Not on file 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 phedema artificial limb fitter Not on file Not on file Not on file documented as of this encounter Plan of Treatment Upcoming Encounters Date Type Department Care Team (Late st Contact Info) Description 08/13/2025 5:30 PM EDT Appointment [facility], Bone Density [address] [address] Janine Gomez PA [address] [place] [address] [place] [address] documented as of this encounter Results * MRI FOOT WITH AND WITHOUT CONTRAST (LEFT) (01/01/2024 12:19 PM EDT) Anatomical Region Laterality Modality Foot Left Magnetic Resonan ce 01/03/2024 6:12 PM EDT Impressions 01/04/2024 1:54 PM EDT Cystic changes in area of palpable concern with additional juxta-articular midfoot cystic changes imply process is degenerative/arthritic. Clinical follow-up to document stability recommended. Narrative 01/04/2024 1:54 PM EDT MRI FOOT WITH AND WITHOUT CONTRAST (LEFT) Referring clinician's provided indication for this examination in Epic: Outside Radiology Order; mass of soft tissue Additional clinical information: Persistent tender mass affecting dorsal lateral aspect of the left foot. Recent enlargement. TECHNIQUE: Multi-sequence, multi-planar MRI of the foot with and without intravenous contrast. COMPARISON: No prior relevant imaging available. FINDINGS: Soft tissues: Area of concern is marked by a vitamin E capsule. Lobular fluid bright, nonenhancing 3.9 x 5.3 x 8.3 mm cystic focus defined in area of palpable concern, superficial to the fascial surface of muscles within the mid foot laterally, level of the cuboid. Additional localized lobular fluid bright signal present adjacent to the plantar aspect of the cuboid midportion, adjacent to articulation with the lateral cuneiform, between middle and lateral cuneiform and adjacent to the fifth metatarsal base medially. Bone: Normal bone marrow signal. No fracture, evidence of AVN or aggressive focal bony lesion. Joints: Small joint effusion. Normal alignment. No cartilage lesion identifiable. Procedure Note Andrea Schmitt MD - 01/04/2024 MRI FOOT WITH AND WITHOUT CONTRAST (LEFT) Referring clinician's provided indication for this examination in Epic:Outside Radiology Order; mass of soft tissue Additional clinical information: Persistent tender mass affecting dorsallateral aspect of the left foot. Recent enlargement. TECHNIQUE: Multi-sequence, multi-planar MRI of the foot with and withoutintravenous contrast. COMPARISON: No prior relevant imaging available. FINDINGS: Soft tissues: Area of concern is marked by a vitamin E capsule. Lobularfluid bright, nonenhancing 3.9 x 5.3 x 8.3 mm cystic focus defined in areaof palpable concern, superficial to the fascial surface of muscles withinthe mid foot laterally, level of the cuboid. Additional localized lobularfluid bright signal present adjacent to the plantar aspect of the cuboidmidportion, adjacent to articulation with the lateral cuneiform, betweenmiddle and lateral cuneiform and adjacent to the fifth metatarsal basemedially. Bone: Normal bone marrow signal. No fracture, evidence of AVN oraggressive focal bony lesion. Joints: Small joint effusion. Normal alignment. No cartilage lesionidentifiable. IMPRESSION: Cystic changes in area of palpable concern with additional juxta- articularmidfoot cystic changes imply process is degenerative/arthritic. Clinicalfollow-up to document stability recommended. Carlos Rose DPM IMG MR EXTREMITY Final R esult documented in this encounter Visit Diagnoses Diagnosis Localized swelling, mass and lump, unspecified- Primary Localized swelling, mass and lump, unspecified documented in this encounter Additional Health Concerns Assessment Noted Time PHQ-2 Depression Total Score: 0 11/28/19 21 6:11 PM EST documented as of this encounter Care Teams Cardiac Rehabilitation Specialist Relationship Specialty Start Date End Date Pcp, Unknown PCP - General 01/13/23 01/13/24 Janine Gomez PA [address] [place] [address] PCP - General Physician Equipment Processor 01/14/24 documented as of this encounter Additional Source Comments The information contained in this document represents components of the legal health record. It is not the complete legal health record.[facility]
--- OUTSIDE RECORDS SUMMARY | 2025-07-09 11:27 | XMS_ITS | Encounter Summary ---
Author Organization [facility] Address [address] [place] [address] Phone Care Team Providers Care Resin Painter Name Role Phone Ruth Cade MD Unavailable [phone] Aimee Hung NP Unavailable Alayna Gagnon MD Primary Care Prov ider Janine Gomez Primary Care Provider [phone] Alayna Gagnon MD Primary Care Prov ider Pcp, Unknown Primary Care Provider UnavailLidia Mcmanus DO Primary Care Provider Lidia Treadwell DO Unavailable [phone] Pcp, Unknown Primary Care Provider UnavailJanine Samuels Primary Care Provider Encounter Details Date Type Department Care Team (Latest Contact Info) Description 03/16/2019 Transcribe Orders Virtual Department [address] [place] [address] Bernard Guerrero MD [address] [facility], [address] [place] [address] [email or web address] Calculus of kidney (Primary Dx) Social History [...] Info) Description 08/13/2025 5:30 PM EDT Appointment [facility], [address] [address] Janine Gomez PA [address] [place] [address] documented as of this encounter Visit Diagnoses Diagnosis Calculus of kidney- Primary documented in this encounter Additional Health Concerns Infection Onset Date Last Indicated Resolved Time CoV-Exposed Comment:Recent close contact documented in the Travel/Symptom Screening Form 07/12/2023 07/14/2023 1:22 AM E DT CoV-Risk 05/18/2020 05/18/2020 06/01/2020 1:23 AM EDT documented as of this encounter Care Teams Resin Painter Relationship Specialty Start Date End Date Alayna Gagnon MD [address] [place] [phone] [email or web address] PCP - General Family Medicine 01/26/19 03/22/19 [place] [address] PCP - General Field Traffic Investigator 03/23/19 07/03/19 Alayna Gagnon MD [address] [place] [phone] [email or web address] PCP - General Family Medicine 07/04/19 08/19/19 Pcp, Unknown PCP - General 08/20/19 09/03/19 Lidia Treadwell DO [address] [place] [address] [email or web address] PCP - General Family Medicine 09/04/19 02/20/21 Pcp, Unknown PCP - General 01/13/23 01/13/24 Janine Gomez PA [address] [place] [address] PCP - General Physician Wildlife Science Professor 01/14/24 Ruth Cade MD [address] [place] [address] Historical LMR Provider 08/02/17 Aimee Hung NP [address] [place] [phone] Historical LMR Provider 08/02/17 2 Lidia Treadwell DO [address] [place] [address] [email or web address] Insurance Assigned Provider 11/17/19 05/24/21 documented as of this encounter Additional Source Comments The information contained in this document represents components of the legal health record. It is not the complete legal health record.[facility]
--- OUTSIDE RECORDS SUMMARY | 2025-07-09 11:28 | XMS_ITS | Encounter Summary ---
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 Wish to be (Past 1 Month) No 023 5:44 PM EDT Katherine Schuler, CHEO 2. Non-Specific Active Suici kings Thoughts (Past 1 Month) No 01/13/2023 5:44 PM EDT Maida Schuler RN 6. Suicidal Behavior (Lifetime) No 5:44 PM EDT Katherine Schuler, CHEO documented as of this encounter Plan of Treatment Upcoming Encounters Date Type Department Care Team (Late st Contact Info) Description 08/13/2025 5:30 PM EDT Appointment [facility], [address] [address] Janine Gomez PA [address] [place] [address] [place] [phone] documented as of this encounter Visit Diagnoses Not on filedocumented in this encounter Additional Health Concerns Infection Onset Date Last Indicated Resolved Time CoV-Exposed Comment:Recent close contact documented in the Travel/Symptom Screening Form 07/12/2023 07/14/2023 1:22 AM E DT Assessment Noted Time PHQ-2 Depression Total Score: 0 11/28/19 21 6:11 PM EST documented as of this encounter Care Teams Financial Service Rep Relationship Specialty Start Date End Date Pcp, Unknown PCP - General 01/13/23 01/13/24 Janine Gomez PA [address] [place] [address] PCP - General Physician Manager Telemetry 01/14/24 documented as of this encounter Additional Source Comments The information contained in this document represents components of the legal health record. It is not the complete legal health record.[facility]
--- OUTSIDE RECORDS SUMMARY | 2025-07-09 11:28 | XMS_ITS | Encounter Summary ---
Author Organization [facility] Address [address] [place] [address] [place] [address] Phone Care Team Providers Care Fleet Salesperson Name Role Phone Ruth Cade MD Unavailable [phone] Aimee Hung NP Unavailable [phone] Lidia Treadwell DO Primary Care Provider [phone] Lidia Treadwell DO Unavailable [phone] Pcp, Unknown Primary Care Provider UnavailJanine Samuels Primary Care Provider [phone] Encounter Details Date Type Department Care Team (Late st Contact Info) Description 10/19/2019 Procedure Pass [facility] Endoscopy Admitting Dept Virtual Department [address] [place] [address] Social History Tobacco Use Types Packs/Day Years [...] End Date 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 phedema 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 Not on file Not on file 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 phedema 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 Not on file Not on file documented as of this encounter Plan of Treatment Upcoming Encounters Date Type Department Care Team (Late st Contact Info) Description 08/13/2025 5:30 PM EDT Appointment [facility], Bone [facility] [address] [place] [address] Janine Gomez PA [address] [place] [address] documented as of this encounter Visit Diagnoses Not on filedocumented in this encounter Additional Health Concerns Infection Onset Date Last Indicated Resolved Time CoV-Exposed Comment:Recent close contact documented in the Travel/Symptom Screening Form 07/12/2023 07/14/2023 1:22 AM E DT CoV-Risk 05/18/2020 05/18/2020 06/01/2020 1:23 AM EDT Assessment Noted Time PHQ-2 Depression Total Score: 0 08/28/20 19 9:08 PM EST documented as of this encounter Care Teams Fleet Salesperson Relationship Specialty Start Date End Date Lidia Treadwell DO [address] [place] [address] [email or web address] PCP - General Family Medicine 09/04/19 02/20/21 Pcp, Unknown PCP - General 01/13/23 01/13/24 Janine Gomez PA [address] [place] [address] PCP - General Physician Squeegeer And Former 01/14/24 Ruth Cade MD [address] [place] [address] Historical LMR Provider 08/02/17 Aimee Hung NP [address] [place] [phone] Historical LMR Provider 08/02/17 2 Lidia Treadwell DO [address] [place] [address] [email or web address] Insurance Assigned Provider 11/17/19 05/24/21 documented as of this encounter Additional Source Comments The information contained in this document represents components of the legal health record. It is not the complete legal health record.[facility]
--- OUTSIDE RECORDS SUMMARY | 2025-07-09 11:28 | XMS_ITS | Encounter Summary ---
Author Organization [facility] Address [address] [place] [address] [place] [address] Phone Care Team Providers Care Plunger Shovel Operator Name Role Phone Pcp, Unknown Primary Care Provider Janine Lema Primary Care Provider [phone] Encounter Details Date Type Department Care Team (Late st Contact Info) Description 07/12/2023 Procedure Pass [facility], Ct Scan - [address] [address] Social History Tobacco Use Types Packs/Day Years [...] End Date 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 phedema case fitter Not on file Not on file Not on file 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 phedema case fitter Not on file Not on file Not on file documented as of this encounter Functional Status * Calculated C-SSRS Risk Score (Lifetime/Recent) Answer Date of Assessment Author No Risk Indicated 07/12/2023 8:40 PM EDT Shira Gonzales RN * [place] Suicide Severity Rating Scale (Screener/Recent Self-Report) Question Answer Date of Assessment Author 1. Wish to be (Past 1 Month) No 023 8:40 PM EDT Shira Gonzales RN 2. Non-Specific Active Suici kings Thoughts (Past 1 Month) No 07/12/2023 8:40 PM EDT Anahy Gonzales RN 6. Suicidal Behavior (Lifetime) No 8:40 PM EDT Shira Gonzales RN documented as of this encounter Plan of Treatment Upcoming Encounters Date Type Department Care Team (Late st Contact Info) Description 08/13/2025 5:30 PM EDT Appointment [facility], [address] [address] Janine Gomez PA [address] [place] [address] [place] [address] documented as of this encounter Visit Diagnoses Not on filedocumented in this encounter Additional Health Concerns Infection Onset Date Last Indicated Resolved Time CoV-Exposed Comment:Recent close contact documented in the Travel/Symptom Screening Form 07/12/2023 07/14/2023 1:22 AM E DT Assessment Noted Time PHQ-2 Depression Total Score: 0 11/28/19 21 6:11 PM EST documented as of this encounter Care Teams Plunger Shovel Operator Relationship Specialty Start Date End Date Pcp, Unknown PCP - General 01/13/23 01/13/24 Janine Gomez PA [address] [place] [address] PCP - General Physician Carpenter 01/14/24 documented as of this encounter Additional Source Comments The information contained in this document represents components of the legal health record. It is not the complete legal health record.[facility]
== END 2025-07-09 10:42 | disposition home or self-care (01) ==
LOC: HO.HOS 09:40
PROVIDERS: PCP Physician Assistant Medical
DX: M65.4 Radial styloid tenosynovitis [de Quervain] (principal); G56.02 Carpal tunnel syndrome, left upper limb
CPT/HCPCS: 99024

== ENCOUNTER 2025-07-10 06:11 | Outpatient (REF) | payer OTHER, MEDICARE, SELFPAY ==
--- OUTSIDE RECORDS SUMMARY | 2020-06-27 13:41 | XMS_ITS | Encounter Summary ---
Author Organization [facility] Address [address] [place] [address] [place] [address] Phone Care Team Providers Care Product Safety Lead Name Role Phone Ruth Cade MD Unavailable [phone] Aimee Hung NP Unavailable Lidia Treadwell DO Primary Care Provider [phone] Lidia Treadwell DO Unavailable Encounter Details Date Type Department Care Team (Late st Contact Info) Description 06/27/2020 1:41 PM EDT Hospital Encounter [facility] Urgent Care [address] [place] [address] Esha Anne CNP [address] [place] [address] [phone] Social History Tobacco Use Types Packs/Day Years [...] End Date 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 Not on file Not on file 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 Not on file Not on file documented as of this encounter Functional Status * Calculated C-SSRS Risk Score (Lifetime/Recent) Answer Date of Assessment Author No Risk Indicated 10/10/2024 6:08 PM Ute Chacon RN * [place] Suicide Severity Rating Scale (Screener/Recent Self-Report) Question [...] Team (Late st Contact Info) Description 08/13/2025 5:30 PM EDT Appointment [facility] Density - [facility] [address] [place] [address] Janine Gomez PA [address] [place] [phone] documented as of this encounter Procedures Procedure [...] hemipelvis appear to reflect phleboliths POS - [id number] Narrative 06/27/2020 2:10 PM EDT COMPARISON: 08/20/2019 [...] left hemipelvis appear to reflectphleboliths POS - [id number] us Esha Anne WATER PUMP ASSEMBLER IMG XR ABDOMEN Final Resul t documented in this encounter Visit Diagnoses Not on filedocumented in this encounter Additional Health Concerns Infection Onset Date Last Indicated Resolved Time CoV-Exposed Comment:Recent close contact documented in the Travel/Symptom Screening Form 07/12/2023 07/14/2023 1:22 AM E DT Assessment Noted Time PHQ-2 Depression Total Score: 0 08/28/20 9:08 PM EST documented as of this encounter Care Teams Product Safety Lead Relationship Specialty Start Date End Date Lidia Treadwell DO [address] [place] [address] [email or web address] PCP - General Family Medicine 09/04/19 02/20/21 Ruth Cade MD [address] [place] [address] Historical LMR Provider 08/02/17 Aimee Hung NP [address] [place] [phone] Historical LMR Provider 08/02/17 2 Lidia Treadwell DO [address] [place] [address] [email or web address] Insurance Assigned Provider 11/17/19 05/24/21 documented as of this encounter Additional Source Comments The information contained in this document represents components of the legal health record. It is not the complete legal health record.[facility]
--- OUTSIDE RECORDS SUMMARY | 2025-07-10 06:13 | XMS_ITS | Encounter Summary ---
Author Organization [facility] Address [address] [place] [address] Phone Care Team Providers Care Shoe Parts Caser Name Role Phone Pcp, Unknown Primary Care Provider Janine Lema Primary Care Provider [phone] Reason for Referral * MRI/CAT Scan - Closed Specialty Diagnoses / Procedures Referred By Luci tapia Referred To Contact Radiology Diagnoses Localized swelling, mass and lump, unspecified Procedures MRI Foot (Left) CHG MRI, LOWER EXTR, W/O CONTRAST F/U BY CONTRAST Carlos Rose DPM [address] [place] [address] Phone: tel: fax: [email or web address] Referral ID Status Reason Start Date Expiration Date Visits Re quested Visits Authorized [id number] Closed 12/08/2023 02/06/2024 1 1 Encounter Details Date Type Department Care Team (Latest Contact Info) Description 12/08/2023 Transcribe Orders Virtual Department [address] [place] [address] Carlos Rose DPM [address] [place] [address] [email or web address] Localized [...] End Date 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 phedema prefitter Not on file Not on file Not on file 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 phedema prefitter Not on file Not on file Not on file documented as of this encounter Plan of Treatment Upcoming Encounters Date Type Department Care Team (Late st Contact Info) Description 08/13/2025 5:30 PM EDT Appointment [facility], Bone Density [address] [address] Janine Gomez PA [address] [place] [address] [place] [phone] documented as of this encounter Results [...] documented as of this encounter Care Teams Shoe Parts Caser Relationship Specialty Start Date End Date Pcp, Unknown PCP - General 01/13/23 01/13/24 Janine Gomez PA [address] [place] [address] PCP - General Physician Overage Shortage And Damage Clerk 01/14/24 documented as of this encounter Additional Source Comments The information contained in this document represents components of the legal health record. It is not the complete legal health record.[facility]
--- OUTSIDE RECORDS SUMMARY | 2025-07-10 06:13 | XMS_ITS | Encounter Summary ---
Author Organization [facility] Address [address] [place] [address] Phone Care Team Providers Care Manager Pmo Name Role Phone Ruth Cade MD Unavailable [phone] Aimee Hung NP Unavailable [phone] Alayna Gagnon MD Primary Care Prov ider Janine Gomez Primary Care Provider [phone] Alayna Gagnon MD Primary Care Prov ider Pcp, Unknown Primary Care Provider UnavailLidia Mcmanus DO Primary Care Provider [phone] Lidia Treadwell DO Unavailable [phone] Pcp, Unknown Primary Care Provider UnavailJanine Samuels Primary Care Provider + [phone] Encounter Details Date Type Department Care Team (Late st Contact Info) Description 01/26/2019 Procedure Pass [place] Admitting Dept - Virtual Department [address] [place], [place] [phone] Social History Tobacco Use Types Packs/Day Years [...] Info) Description 08/13/2025 5:30 PM EDT Appointment [facility], [facility] [address] [place] [address] Janine Gomez PA [address] [address] documented as of this encounter Visit Diagnoses Not on filedocumented in this encounter Additional Health Concerns Infection Onset Date Last Indicated Resolved Time CoV-Exposed Comment:Recent close contact documented in the Travel/Symptom Screening Form 07/12/2023 07/14/2023 1:22 AM E DT CoV-Risk 05/18/2020 05/18/2020 06/01/2020 1:23 AM EDT documented as of this encounter Care Teams Manager Pmo Relationship Specialty Start Date End Date Alayna Gagnon MD [address] [place] [phone] [email or web address] PCP - General Family Medicine 01/26/19 03/22/19 Janine Gomez PA [address] [place] [address] [place] [address] PCP - General Jet Mechanic 03/23/19 07/03/19 Alayna Gagnon MD [address] [place] [phone] [email or web address] PCP - General Family Medicine 07/04/19 08/19/19 Pcp, Unknown PCP - General 08/20/19 09/03/19 Lidia Treadwell DO [address] [place] [address] [email or web address] PCP - General Family Medicine 09/04/19 02/20/21 Pcp, Unknown PCP - General 01/13/23 01/13/24 Janine Gomez PA [address] [place] [address] PCP - General Physician Nail Making Machine Tender 01/14/24 Ruth Cade MD [address] [place] [address] Historical LMR Provider 08/02/17 Aimee Hung NP [address] [place] [phone] Historical LMR Provider 08/02/17 2 Lidia Treadwell DO [address] [place] [address] [email or web address] Insurance Assigned Provider 11/17/19 05/24/21 documented as of this encounter Additional Source Comments The information contained in this document represents components of the legal health record. It is not the complete legal health record.[facility]
--- OUTSIDE RECORDS SUMMARY | 2025-07-10 06:13 | XMS_ITS | Encounter Summary ---
Author Organization [facility] Address [address] [place] [address] Phone Care Team Providers Care Manager Of Construction Name Role Phone Ruth Cade MD Unavailable [phone] Aimee Hung NP Unavailable [phone] Alayna Gagnon MD Primary Care Prov ider Janine Gomez Primary Care Provider [phone] Alayna Gagnon MD Primary Care Prov ider Pcp, Unknown Primary Care Provider UnavailLidia Mcmanus DO Primary Care Provider + [phone] Lidia Treadwell DO Unavailable [phone] Pcp, Unknown Primary Care Provider UnavailJanine Samuels Primary Care Provider + [phone] Encounter Details Date Type Department Care Team (Late st Contact Info) Description 02/27/2019 Procedure Pass OR Admitting Dept - Virtual Department [address] [place], [place] [id number] Social History Tobacco Use Types Packs/Day Years [...] Info) Description 08/13/2025 5:30 PM EDT Appointment [facility], [facility] [address] [place] [address] Janine Gomez PA [address] [place] [address] documented as of this encounter Visit Diagnoses Not on filedocumented in this encounter Additional Health Concerns Infection Onset Date Last Indicated Resolved Time CoV-Exposed Comment:Recent close contact documented in the Travel/Symptom Screening Form 07/12/2023 07/14/2023 1:22 AM E DT CoV-Risk 05/18/2020 05/18/2020 06/01/2020 1:23 AM EDT documented as of this encounter Care Teams Manager Of Construction Relationship Specialty Start Date End Date Alayna Gagnon MD [address] [place] [phone] [email or web address] PCP - General Family Medicine 01/26/19 03/22/19 Janine Gomez PA [address] [place] [address] [place] [address] PCP - General Elevator Attendant 03/23/19 07/03/19 Alayna Gagnon MD [address] [place] [phone] [email or web address] PCP - General Family Medicine 07/04/19 08/19/19 Pcp, Unknown PCP - General 08/20/19 09/03/19 Lidia Treadwell DO [address] [place] [address] [email or web address] PCP - General Family Medicine 09/04/19 02/20/21 Pcp, Unknown PCP - General 01/13/23 01/13/24 Janine Gomez PA [address] [place] [address] PCP - General Physician Russian Language Professor 01/14/24 Ruth Cade MD [address] [place] [address] Historical LMR Provider 08/02/17 Aimee Hung NP [address] [place] [phone] Historical LMR Provider 08/02/17 2 Lidia Treadwell DO [address] [place] [address] [email or web address] Insurance Assigned Provider 11/17/19 05/24/21 documented as of this encounter Additional Source Comments The information contained in this document represents components of the legal health record. It is not the complete legal health record.[facility]
--- OUTSIDE RECORDS SUMMARY | 2025-07-10 06:13 | XMS_ITS | Encounter Summary ---
Author Organization [facility] Address [address] [place] [address] [place] [address] Phone Care Team Providers Care Boat Laborer Name Role Phone Ruth Cade MD Unavailable [phone] Aimee Hung NP Unavailable [phone] Alayna Gagnon MD Primary Care Prov ider Janine Gomez Primary Care Provider [phone] Alayna Gagnon MD Primary Care Prov ider Pcp, Unknown Primary Care Provider UnavailLidia Mcmanus DO Primary Care Provider Lidia Treadwell DO Unavailable [phone] Pcp, Unknown Primary Care Provider UnavailJanine Samuels Primary Care Provider Encounter Details Date Type Department Care Team (Latest Contact Info) Description 03/16/2019 Transcribe Orders Virtual Department 30 [place] [address] Bernard Guerrero MD [address] [facility], [address] [place] [address] [email or web address] Calculus of kidney (Primary Dx) Social History [...] Info) Description 08/13/2025 5:30 PM EDT Appointment [facility], [address] [address] Janine Gomez PA [address] [place] [address] documented as of this encounter Visit Diagnoses Diagnosis Calculus of kidney- Primary documented in this encounter Additional Health Concerns Infection Onset Date Last Indicated Resolved Time CoV-Exposed Comment:Recent close contact documented in the Travel/Symptom Screening Form 07/12/2023 07/14/2023 1:22 AM E DT CoV-Risk 05/18/2020 05/18/2020 06/01/2020 1:23 AM EDT documented as of this encounter Care Teams Boat Laborer Relationship Specialty Start Date End Date Alayna Gagnon MD [address] [place] [phone] [email or web address] PCP - General Family Medicine 01/26/19 03/22/19 [place] [phone] PCP - General Wastewater Treatment Plant Operator 03/23/19 07/03/19 Alayna Gagnon MD [address] [place] [phone] [email or web address] PCP - General Family Medicine 07/04/19 08/19/19 Pcp, Unknown PCP - General 08/20/19 09/03/19 Lidia Treadwell DO [address] [place] [address] [email or web address] PCP - General Family Medicine 09/04/19 02/20/21 Pcp, Unknown PCP - General 01/13/23 01/13/24 Janine Gomez PA [address] [place] [address] PCP - General Physician Supplier Quality Manager 01/14/24 Ruth Cade MD [address] [place] [address] Historical LMR Provider 08/02/17 Aimee Hung NP [address] [place] [phone] Historical LMR Provider 08/02/17 2 Lidia Treadwell DO [address] [place] [address] [email or web address] Insurance Assigned Provider 11/17/19 05/24/21 documented as of this encounter Additional Source Comments The information contained in this document represents components of the legal health record. It is not the complete legal health record.[facility]
--- OUTSIDE RECORDS SUMMARY | 2025-07-10 06:13 | XMS_ITS | Encounter Summary ---
Author Organization [facility] Address [address] [place] [address] [place] [address] Phone Care Team Providers Care Net Developer Name Role Phone Janine Gomez Primary Care Provider [phone] Encounter Details Date Type Department Care Team (Late st Contact Info) Description 01/21/2024 Procedure Pass OR Admitting Dept - Virtual Department 30 [place] [address] Social History Tobacco Use Types Packs/Day Years [...] Info) Description 08/13/2025 5:30 PM EDT Appointment [facility], Bone Density [facility] [address] [place] [address] Janine Gomez PA [address] [place] [address] documented as of this encounter Visit Diagnoses Not on filedocumented in this encounter Additional Health Concerns Assessment Noted Time PHQ-2 Depression Total Score: 0 11/28/19 21 6:11 PM EST documented as of this encounter Care Teams Net Developer Relationship Specialty Start Date End Date Janine Gomez PA [address] [place] [address] PCP - General Physician Trapper Animal 01/14/24 documented as of this encounter Additional Source Comments The information contained in this document represents components of the legal health record. It is not the complete legal health record.[facility]
--- OUTSIDE RECORDS SUMMARY | 2025-07-10 06:13 | XMS_ITS | Encounter Summary ---
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 Not on file Not on file Not on file 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 phedema garment parts cutter hand Not on file Not on file Not on file documented as of this encounter Plan of Treatment Upcoming Encounters Date Type Department Care Team (Late st Contact Info) Description 08/13/2025 5:30 PM EDT Appointment [facility], Bone Density - [address] [address] Janine Gomez PA [address] [place] [address] [place] [address] Scheduled Orders Name Type Priority Associated Diagnoses Orde r Schedule DXA Screening Imaging Routine Asymptomatic menopausal state Expected: 04/19/2025, Expires: 03/20/2026 documented as of this encounter Visit Diagnoses Diagnosis Asymptomatic menopausal state- Primary documented in this encounter Additional Health Concerns Assessment Noted Time PHQ-2 Depression Total Score: 0 11/28/19 21 6:11 PM EST documented as of this encounter Care Teams Brand Manager Relationship Specialty Start Date End Date Janine Gomez PA [address] [place] [address] PCP - General Physician Editor Managing Director 01/14/24 documented as of this encounter Additional Source Comments The information contained in this document represents components of the legal health record. It is not the complete legal health record.[facility]
--- OUTSIDE RECORDS SUMMARY | 2025-07-10 06:13 | XMS_ITS | Encounter Summary ---
Author Organization [facility] Address [address] [place] [address] [place] [address] Phone Care Team Providers Care Concrete Smoother Name Role Phone Pcp, Unknown Primary Care Provider Janine Lema Primary Care Provider [phone] Encounter Details Date Type Department Care Team (Late st Contact Info) Description 12/08/2023 Procedure Pass [facility], [address] [address] Social History Tobacco Use Types Packs/Day Years [...] End Date 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 phedema doors prefitter Not on file Not on file Not on file 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 phedema doors prefitter Not on file Not on file Not on file documented as of this encounter Plan of Treatment Upcoming Encounters Date Type Department Care Team (Late st Contact Info) Description 08/13/2025 5:30 PM EDT Appointment [facility], Bone Density [facility] [address] [place] [address] Janine Gomez PA [address] [place] [phone] documented as of this encounter Visit Diagnoses Not on filedocumented in this encounter Additional Health Concerns Assessment Noted Time PHQ-2 Depression Total Score: 0 11/28/19 21 6:11 PM EST documented as of this encounter Care Teams Concrete Smoother Relationship Specialty Start Date End Date Pcp, Unknown PCP - General 01/13/23 01/13/24 Janine Gomez PA [address] [place] [address] PCP - General Physician Test Rack Operator 01/14/24 documented as of this encounter Additional Source Comments The information contained in this document represents components of the legal health record. It is not the complete legal health record.[facility]
--- OUTSIDE RECORDS SUMMARY | 2025-07-10 06:13 | XMS_ITS | Encounter Summary ---
Author Organization [facility] Address [address] [place] [address] [place] [address] Phone Care Team Providers Care Psychologist Private Practice Name Role Phone Ruth Cade MD Unavailable [phone] Aimee Hung NP Unavailable [phone] Alayna Gagnon MD Primary Care Prov ider Janine Gomez Primary Care Provider [phone] Alayna Gagnon MD Primary Care Prov ider Pcp, Unknown Primary Care Provider UnavailLidia Mcmanus DO Primary Care Provider + [phone] Lidia Treadwell DO Unavailable [phone] Pcp, Unknown Primary Care Provider UnavailJanine Samuels Primary Care Provider + [phone] Encounter Details Date Type Department Care Team (Late st Contact Info) Description 02/09/2019 Procedure Pass [facility], [address] [address] Social History Tobacco Use Types Packs/Day Years [...] Info) Description 08/13/2025 5:30 PM EDT Appointment [facility], [address] [address] Janine Gomez PA [address] [place] [address] documented as of this encounter Visit Diagnoses Not on filedocumented in this encounter Additional Health Concerns Infection Onset Date Last Indicated Resolved Time CoV-Exposed Comment:Recent close contact documented in the Travel/Symptom Screening Form 07/12/2023 07/14/2023 1:22 AM E DT CoV-Risk 05/18/2020 05/18/2020 06/01/2020 1:23 AM EDT documented as of this encounter Care Teams Psychologist Private Practice Relationship Specialty Start Date End Date Alayna Gagnon MD [address] [place] [phone] [email or web address] PCP - General Family Medicine 01/26/19 03/22/19 Janine Gomez PA [address] [place] [phone] PCP - General Postal Carrier 03/23/19 07/03/19 Alayna Gagnon MD [address] [place] [phone] [email or web address] PCP - General Family Medicine 07/04/19 08/19/19 Pcp, Unknown PCP - General 08/20/19 09/03/19 Lidia Treadwell DO [address] [place] [address] [email or web address] PCP - General Family Medicine 09/04/19 02/20/21 Pcp, Unknown PCP - General 01/13/23 01/13/24 Janine Gomez PA [address] [place] [address] PCP - General Physician Operations Processor 01/14/24 Ruth Cade MD [address] [place] [address] Historical LMR Provider 08/02/17 Aimee Hung NP [address] [place] [phone] Historical LMR Provider 08/02/17 2 Lidia Treadwell DO [address] [place] [address] [email or web address] Insurance Assigned Provider 11/17/19 05/24/21 documented as of this encounter Additional Source Comments The information contained in this document represents components of the legal health record. It is not the complete legal health record.[facility]
--- OUTSIDE RECORDS SUMMARY | 2025-07-10 06:13 | XMS_ITS | Encounter Summary ---
Author Organization [facility] Address [address] [place] [address] [place] [address] Phone Care Team Providers Care Sheriffs Officer Name Role Phone Janine Gomez Primary Care Provider [phone] Encounter Details Date Type Department Care Team (Late st Contact Info) Description 05/12/2024 Transcribe Orders Virtual Department 30 [place] [address] Kelly Greenberg, URIEL [address] [place], [place] [phone] [email or web address] Right shoulder pain, unspecified chronicity (Primary Dx) [...] End Date 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 phedema windscreen fitter Not on file Not on file Not on file 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 phedema windscreen fitter Not on file Not on file Not on file documented as of this encounter Plan of Treatment Upcoming Encounters Date Type Department Care Team (Late st Contact Info) Description 08/13/2025 5:30 PM EDT Appointment [facility], [address] [address] Janine Gomez PA [address] [place] [address] documented as of this encounter Visit Diagnoses Diagnosis Right shoulder pain, unspecified chronicity- Primary documented in this encounter Additional Health Concerns Assessment Noted Time PHQ-2 Depression Total Score: 0 11/28/19 21 6:11 PM EST documented as of this encounter Care Teams Sheriffs Officer Relationship Specialty Start Date End Date Janine Gomez PA [address] [place] [address] PCP - General Physician Horticultural Farmworker 01/14/24 documented as of this encounter Additional Source Comments The information contained in this document represents components of the legal health record. It is not the complete legal health record.[facility]
--- OUTSIDE RECORDS SUMMARY | 2025-07-10 06:13 | XMS_ITS | Encounter Summary ---
Author Organization [facility] Address [address] [place] [address] [place] [address] Phone Care Team Providers Care Marzipan Maker Name Role Phone Janine Gomez Primary Care Provider [phone]- [phone] Encounter Details Date Type Department Care Team (Late st Contact Info) Description 08/27/2024 Procedure Pass [facility], Ct Scan - [address] [address] Social History Tobacco Use Types Packs/Day Years [...] 08/27/2024 5:44 PM Xi Drew RN * [place] Suicide Severity Rating Scale (Screener/Recent Self-Report) Question [...] Info) Description 08/13/2025 5:30 PM EDT Appointment [facility], [facility] [address] [place] [address] Janine Gomez PA [address] [place] [address] documented as of this encounter Visit Diagnoses Not on filedocumented in this encounter Additional Health Concerns Assessment Noted Time PHQ-2 Depression Total Score: 0 11/28/19 21 6:11 PM EST documented as of this encounter Care Teams Marzipan Maker Relationship Specialty Start Date End Date Janine Gomez PA [address] [place] [address] PCP - General Physician Knowledge Analyst 01/14/24 documented as of this encounter Additional Source Comments The information contained in this document represents components of the legal health record. It is not the complete legal health record.[facility]
--- OUTSIDE RECORDS SUMMARY | 2025-07-10 06:14 | XMS_ITS | Encounter Summary ---
Author Organization [facility] Address [address] [place] [address] [place] [address] Phone Care Team Providers Care Hybrid Derivatives Trader Name Role Phone Ruth Cade MD Unavailable [phone] Aimee Hung NP Unavailable [phone] Lidia Treadwell DO Primary Care Provider [phone]- [phone] Lidia Treadwell DO Unavailable [phone] Pcp, Unknown Primary Care Provider UnavailJanine Samuels Primary Care Provider +[phone]- [phone] Encounter Details Date Type Department Care Team (Late st Contact Info) Description 10/19/2019 Procedure Pass [facility] Admitting Dept Virtual Department [address] [place] [address] Social History Tobacco Use Types Packs/Day Years [...] End Date 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 phedema assembler surgical garment Not on file Not on file Not on file 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 phedema assembler surgical garment Not on file Not on file Not on file documented as of this encounter Plan of Treatment Upcoming Encounters Date Type Department Care Team (Late st Contact Info) Description 08/13/2025 5:30 PM EDT Appointment [facility], Bone [facility] [address] [place] [address] Janine Gomez PA [address] [place] [address] documented as of this encounter Visit Diagnoses [...] documented as of this encounter Care Teams Hybrid Derivatives Trader Relationship Specialty Start Date End Date Lidia Treadwell DO [address] [place] [address] [email or web address] PCP - General Family Medicine 09/04/19 02/20/21 Pcp, Unknown PCP - General 01/13/23 01/13/24 Janine Gomez PA [address] [place] [address] PCP - General Physician Physical Scientist 01/14/24 Ruth Cade MD [address] [place] [address] Historical LMR Provider 08/02/17 Aimee Hung NP [address] [place] [phone] Historical LMR Provider 08/02/17 2 Lidia Treadwell DO [address] [place] [address] [email or web address] Insurance Assigned Provider 11/17/19 05/24/21 documented as of this encounter Additional Source Comments The information contained in this document represents components of the legal health record. It is not the complete legal health record.[facility]
--- OUTSIDE RECORDS SUMMARY | 2025-07-10 06:14 | XMS_ITS | Clinical Summary ---
Author Organization [facility] Address [address] [place] [address] Phone Care Team Providers Care Instrumentation And Controls Technician Name Role Phone Janine Gomez Primary Care Provider [phone]- [phone] Allergies Active Allergy Reactions Criticality Noted Date Comments Atorvastatin Myalgia Medium 01/18/2024 Chlorthalidone High 10/10/2024 Other Reaction(s): Not available Fenofibrate 10/10/2024 Other Reaction(s): cough Nitrofurantoin Rash Medium 12/28/2018 Hydrocodone Hcl Rash Medium 01/24/2019 Losartan 10/10/2024 Other Reaction(s): cough Raloxifene 10/10/2024 Other Reaction(s): Not available Gfaxaqj-Vpo-Cfc Reductase Inhibitors Cough,Myalgia Medium 01/18/2024 Sulfa (Sulfonamide [...] Continue with low-dose insulin sign scale with etxob-cl-owdo testing Assessment & Plan (02/08/2019 11:46 AM [...] End Date 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 phedema pressfitter Not on file Not on file Not on file 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 phedema pressfitter Not on file Not on file Not [...] Info) Description 08/13/2025 5:30 PM EDT Appointment [facility], Bone Density - [facility] [address] [place] [address] Janine Gomez PA [address] [place] [phone] Health Maintenance Due Date Last Done Comments [...] this topic Medical Devices Implanted Type Area Car Icer Device Identifier Shelf Expiration Date Model / Serial / Lot Clip Clip Right: Breast Nodata NODATA Spine Cervical Description:Spine surgery Stent Ureteral 6fr 22 To 30cm Stretch Coated Antelmo - [id number] Implanted:Qty : 1 on 01/26/2019 by Bernard Guerrero MD at [facility] Explanted:12/2018 (Quantity not on file) Left: Ureter [employer] 09/14/2021 [id number] / / [id number] Stent Ureteral 6fr 22 To 30cm Stretch Coated Antelmo - [id number] Implanted:Qty : 1 on 02/27/2019 by Bernard Guerrero MD at [facility] Explanted:12/2018 (Quantity not on file) Left: Ureter [employer] 10/02/2021 [id number] / / Description:Stent with strin gs [...] (08/28/2024 7:58 AM EST) HDL 47 mg/dL [facility] Comment: Interpretation <40 mg/dL: Low HDL cholesterol (major risk factor for CHD) Greater than or equal to 60 mg/dL: High HDL cholesterol ( negative risk factor for CHD) HDL - cholesterol is affected by a number of factors, e.g. smoking, excerise, hormones, sex and age. CHOLESTEROL 163 0 - 240 mg/dL [facility] TRIGLYCERIDES 185(H) 30 - 160 mg/dL [facility] LDL 79 50 - 129 mg/dL [facility] Comment: LDL levels in terms of risk for coronary heart disease: <100 mg/dL: Optimal 100-129 mg/dL: Near or above optimal 130-159 mg/dL: Borderline high 160-189 mg/dL: High >190 mg/dL: Very High CARDIAC RISK RATIO 3.5 3.3 - 4.4 C [facility] [place] 08/28/2024 7:58 AM EST 08/28/2024 8:11 AM EST us Angel Howard MD LAB BLOOD ORDERABLES Final Resu lt [address] [address] * Hepatitis C antibody, qualitative (05/10/2020 5:02 PM EDT) HCV NON-REACTIV E NON-REACTI VE [facility] [place] 05/10/2020 5:02 PM EDT 05/10/2020 5:10 PM EDT us Erlin Christianson MD LAB BLOOD ORDERABLES Final Result Performing Organization Address City/[facility]/ZIP Co de Phone Number [address] [address] * (ABNORMAL) Hemoglobin A1c (05/10/2020 5:02 PM EDT) HEMOGLOBIN A1C 6.2(H) 4.3 - 5.8 % [facility] [place] 05/10/2020 5:02 PM EDT 05/10/2020 5:10 PM EDT Erlin Christianson MD LAB BLOOD ORDERABLES Final Result [address] [address] * HM MAMMOGRAPHY FOR RESULT ENTRY ONLY (11/08/2019) us Historical Provider HEALTH MAINTENANCE Edited Result - Final * ENDOSCOPY, COLON (10/19/2019 1:24 PM EST) Narrative Transcriptions Adam Hassan MD - 10/19/2019 1:24 PM EST Patient Name: Kelly sIaacs Attending MD:: ADAM HASSAN MD Procedure Date: 10/19/2019 1:24 PM Date of : 1960 Age: 59 Admit Type: Outpatient Gender: Female Room: [place] [address] Referring MD: Lidia Treadwell Exam Type: Colonoscopy [...] monitored continuously. The Olympus adult variable colonoscope [id number] #[id number] was introduced through the anus and [...] 1:24 PM Procedure Code(s): --- Professional --- 22658, Colonoscopy, flexible; with removal of tumor(s), polyp(s), or other lesion(s) by snare technique --- Technical --- 52947, Colonoscopy, flexible; with removal of tumor(s), polyp(s), [...] congenital malformations of intestine CPT copyright 2018 [employer]. All rights reserved. The codes documented in this report are preliminary and upon cpc coder reviewmay be revised to meet current compliance requirements. [address] [place] [address] Lidia Treadwell DO GI PROCEDURE ORDERABLES Fi nal Result from Last 3 Months or Most Recently Relevant to Health Maintenance Insurance [employer] REPLACEMENT [employer] REPLACEMENT MEDICARE HMO REPLACEMENT MEDICARE HMO REPLACEMENT MEDICARE HMO REPLACEMENT [employer] [place] REPLACEMENT Advance Directives For more information, please contact: [phone] (9AM - 5PM [place], Wednesday-Wednesday) * Full [...] Code Status Confirmed With: PatientFamily Care Teams Instrumentation And Controls Technician Relationship Specialty Start Date End Date Janine Gomez PA [address] [place] [address] PCP - General Physician Liner Machine Operator Helper 01/14/24 Additional Source Comments The information contained in this document represents components of the legal health record. It is not the complete legal health record.[facility]
--- OUTSIDE RECORDS SUMMARY | 2025-07-10 06:14 | XMS_ITS | Encounter Summary ---
Author Organization [facility] Address [address] [place] [address] [place] [address] Phone Care Team Providers Care Tar Heater Name Role Phone Ruth Cade MD Unavailable [phone] Aimee Hung NP Unavailable [phone] Janine Gomez Primary Care Provider [phone]- [phone] Alayna Gagnon MD Primary Care Prov ider Pcp, Unknown Primary Care Provider UnavailLidia Mcmanus DO Primary Care Provider [phone]- [phone] Lidia Treadwell DO Unavailable Pcp, Unknown Primary Care Provider UnavailJanine Samuels Primary Care Provider [phone]- [phone] Encounter Details Date Type Department Care Team (Latest Contact Info) Description 06/16/2019 Transcribe Orders Virtual Department [address] [place] [address] Bernard Guerrero MD [address] [facility], [address] [place] [address] [email or web address] Calculus of kidney (Primary Dx) Social History [...] Info) Description 08/13/2025 5:30 PM EDT Appointment [facility], [address] [address] Janine Gomez PA [address] [place] [address] [place] [phone] documented as of this encounter Results * US Kidneys (07/04/2019 7:46 AM EDT) Anatomical Region Laterality Modality Abdomen, Kidney Ultrasound 07/04/2019 9:20 AM EDT Impressions 07/04/2019 9:31 AM EDT No ultrasound evidence of nephrolithiasis. POS - [id number] Narrative 07/04/2019 9:31 AM EDT EXAM: US [...] is within normal limits for size and uehylxwc36.9 cm in sagittal dimension. Parenchyma is within normal limits.Cortical thickness and echogenicity are within normal limits. Nohydronephrosis, focal lesions, or shadowing stones. IMPRESSION: No ultrasound evidence of nephrolithiasis. POS - [id number] us Bernard Guerrero MD [facility] RENAL Final Result documented in this encounter Visit Diagnoses Diagnosis Calculus of kidney- Primary Calculus of kidney documented in this encounter Additional Health Concerns Infection Onset Date Last Indicated Resolved Time CoV-Exposed Comment:Recent close contact documented in the Travel/Symptom Screening Form 07/12/2023 07/14/2023 1:22 AM E DT CoV-Risk 05/18/2020 05/18/2020 06/01/2020 1:23 AM EDT documented as of this encounter Care Teams Tar Heater Relationship Specialty Start Date End Date Janine Gomez PA [address] [place] [phone] PCP - General Harvest Contractor 03/23/19 07/03/19 Alayna Gagnon MD [address] [place] [address] [email or web address] PCP - General Family Medicine 07/04/19 08/19/19 Pcp, Unknown PCP - General 08/20/19 09/03/19 Lidia Treadwell DO [address] [place] [address] [email or web address] PCP - General Family Medicine 09/04/19 02/20/21 Pcp, Unknown PCP - General 01/13/23 01/13/24 Janine Gomez PA [address] [place] [address] PCP - General Physician Speech And Hearing Clinic Director 01/14/24 Ruth Cade MD [address] [place] [address] Historical LMR Provider 08/02/17 Aimee Hung NP [address] [place] [phone] Historical LMR Provider 08/02/17 2 Lidia Treadwell DO [address] [place] [address] [email or web address] Assigned Provider 11/17/19 05/24/21 documented as of this encounter Additional Source Comments The information contained in this document represents components of the legal health record. It is not the complete legal health record.[facility]
--- OUTSIDE RECORDS SUMMARY | 2025-07-10 06:14 | XMS_ITS | Encounter Summary ---
Author Organization [facility] Address [address] [place] [address] [place] [address] Phone Care Team Providers Care Brand Attendant Name Role Phone Pcp, Unknown Primary Care Provider Janine Lema Primary Care Provider [phone]- [phone] Encounter Details Date Type Department Care Team (Late st Contact Info) Description 07/12/2023 Procedure Pass [facility], Ct Scan - [address] [address] Social History Tobacco Use Types Packs/Day Years [...] End Date 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 phedema fitter and turner Not on file Not on file Not on file 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 phedema fitter and turner Not on file Not on file Not on file documented as of this encounter Functional Status * Calculated C-SSRS Risk Score (Lifetime/Recent) Answer Date of Assessment Author No Risk Indicated 07/12/2023 8:40 PM EDT Shira Gonzales RN * [place] Suicide Severity Rating Scale (Screener/Recent Self-Report) Question [...] Info) Description 08/13/2025 5:30 PM EDT Appointment [facility], [address] [address] Janine Gomez PA [address] [place] [address] [place] [address] documented as of this encounter Visit Diagnoses Not on filedocumented in this encounter Additional Health Concerns Infection Onset Date Last Indicated Resolved Time CoV-Exposed Comment:Recent close contact documented in the Travel/Symptom Screening Form 07/12/2023 07/14/2023 1:22 AM E DT Assessment Noted Time PHQ-2 Depression Total Score: 0 11/28/19 21 6:11 PM EST documented as of this encounter Care Teams Brand Attendant Relationship Specialty Start Date End Date Pcp, Unknown PCP - General 01/13/23 01/13/24 Janine Gomez PA [address] [place] [address] PCP - General Physician Living Advisor 01/14/24 documented as of this encounter Additional Source Comments The information contained in this document represents components of the legal health record. It is not the complete legal health record.[facility]
--- OUTSIDE RECORDS SUMMARY | 2025-07-10 06:14 | XMS_ITS | Encounter Summary ---
Author Organization [facility] Address [address] [place] [address] [place] [address] Phone Care Team Providers Care Proposal Specialist Name Role Phone Pcp, Unknown Primary Care Provider Janine Lema Primary Care Provider [phone] Encounter Details Date Type Department Care Team (Late st Contact Info) Description 01/13/2023 Procedure Pass [facility], Ct Scan - [address] [address] Social History Tobacco Use Types Packs/Day Years [...] Date 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 phedema pipefitter welder Not on file Not on file Not on file 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 phedema pipefitter welder Not on file Not on file Not on file documented as of this encounter Functional Status * Calculated C-SSRS Risk Score (Lifetime/Recent) Answer Date of Assessment Author No Risk Indicated 01/13/2023 5:44 PM EDT Ute Schuler RN * Armstrong Suicide Severity Rating Scale (Screener/Recent Self-Report) Question Answer Date of Assessment Author 1. Wish to be (Past 1 Month) No 023 5:44 PM EDT Katherine Schuler, CHEO 2. Non-Specific Active Suici kings Thoughts (Past 1 Month) No 01/13/2023 5:44 PM EDT Katherine Schuler , CHEO 6. Suicidal Behavior (Lifetime) No 5:44 PM EDT Katherine Schuler, CHEO documented as of this encounter Plan of Treatment Upcoming Encounters Date Type Department Care Team (Late st Contact Info) Description 08/13/2025 5:30 PM EDT Appointment [facility], [address] [address] Janine Gomez PA [address] [place] [address] [place] [phone] documented as of this encounter Visit Diagnoses Not on filedocumented in this encounter Additional Health Concerns Infection Onset Date Last Indicated Resolved Time CoV-Exposed Comment:Recent close contact documented in the Travel/Symptom Screening Form 07/12/2023 07/14/2023 1:22 AM E DT Assessment Noted Time PHQ-2 Depression Total Score: 0 11/28/19 21 6:11 PM EST documented as of this encounter Care Teams Proposal Specialist Relationship Specialty Start Date End Date Pcp, Unknown PCP - General 01/13/23 01/13/24 Janine Gomez PA [address] [place] [address] PCP - General Physician Associate Professor Of Art History 01/14/24 documented as of this encounter Additional Source Comments The information contained in this document represents components of the legal health record. It is not the complete legal health record.[facility]
== END 2025-07-10 06:12 | disposition home or self-care (01) ==
LOC: CF 06:11
PROVIDERS: Visit Provider Anesthesiology
DX: M16.12 Unilateral primary osteoarthritis, left hip (principal); M54.16 Radiculopathy, lumbar region
CPT/HCPCS: 99212

== ENCOUNTER 2025-07-10 08:59 | Outpatient (AMB) | payer OTHER, SELFPAY ==
--- NOTE | 2025-07-10 09:10 | A.OFFVIS_ITS ---
Vital Signs 07/10/25 09:11 Weight 178 lb BP 121/57 L Blood Pressure Location Lt brachial Position Sitting Respiration 18 Pulse 68 Pulse Source Pulse Oximeter Pulse Oximetry (%) 100 Oxygen Delivery Method Room Air Intake Visit Reasons: LEFT L2, L3 PARASAGITTAL INTERLAMINAR NILTON Turbine Attendant Required: No Allergies hydrocodone Allergy (Verified 07/09/25 10:00) Rash Sulfa (Sulfonamide Antibiotics) Allergy (Verified 07/09/25 10:00) Rash Dzjwzxd-AQZ-AkP Reductase Inhibitor Adverse Reaction (Verified 07/09/25 10:00) Muscle Pain tamoxifen Adverse Reaction (Verified 07/09/25 10:00) hot flashes HPI Comments Details: Sima Del Real is very pleasant 64 years old female who presents in my office today with complains on the pain in the left groin. She reports increased pain with mobility as well as increased pain with flexion of the hip joint on the left. She reports that she is unable to sit into the car on the passenger side lifting her hip in the hip joint. She admits that discomfort radiates down to the left lower extremity but only to the level of the mid thigh. She also admits that pain radiates to the back in the area of the sacral bone and she denies radiation of the pain to the upper lumbar spine. I discussed situation with the patient. Her nurse practitioner send her for L2-L3 parasagittal left epidural steroid injection on the base of MRI changes, the full MRI report dictated as below. At the same time based on physical exam and history of trauma posttraumatic osteoarthritis of the left hip can not be excluded. Sacroiliac joint injection bilateral resulted in no pain improvement. I offered the patient to have the procedure today however I told her that I can not exclude left hip joint pathology as the source of her pain. I told her that I will send her to the left hip joint x-ray after the procedure however the patient stated that she wants to do x-ray and she did not want to go for epidural steroid injection today. 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 Review of Systems Const All systems reviewed & are unremarkable except as noted in HPI and below ENT Reports Normal hearing present Neuro Reports Normal hearing present, Denies Abnormal speech present, Denies confusion and Denies Sensory deficit (Neuro) Psych Denies confusion Physical Exam Vital Signs: Last Vital Signs Pulse 68 07/10/25 09:11 Resp 18 07/10/25 09:11 BP 121/57 L 07/10/25 09:11 Pulse Ox 100 07/10/25 09:11 Oxygen Delivery Method Room Air 07/10/25 09:11 Const General: no acute distress; No confusion Nutritional Appearance: obese Orientation/consciousness: patient oriented x3 and No confusion Neck Neck: Yes full ROM Chest Chest palpation & inspection: normal inspection of the chest Resp Effort & Inspection: normal respiratory effort, able to speak in complete sentences, normal respiratory pattern, no audible wheezes and no cough Cardio Jugular venous distension: no JVD GI Inspection: Yes normal to inspection Neuro General: patient oriented x3, gait normal and No confusion Cranial nerves: Yes CN's II-XII intact bilaterally, Yes Normal hearing present and Yes Ability to bilaterally elevate shoulders present Speech: No Abnormal speech present Gait exam (Neuro): Normal gait present Motor exam (neuro): 5/5 motor strength present throughout Sensory Exam: No Sensory deficit (Neuro) Extrem Other: Neither lateral nor medial rotation of the hip joint aggravate her pain however flexion of the hip joint makes her pain very severe on the left. General: No pedal edema Psych Speech and movement: Normal speech and movement present Affect: normal affect Attitude: cooperative Thought process: Normal thought process present Thought content: Normal thought content present Insight: Good insight present (Psych) Judgement: Good judgement present (Psych) Results Reviewed Results Reviewed: [address] [address] XRay Report Signed Patient: Kelly Isaacs MR#: [id number] : 1960 EXAMINATION: XR HIP, LEFT CLINICAL INFORMATION: M16.12 - Unilateral primary osteoarthritis, left hip COMPARISON: November 20, 2024 TECHNIQUE: AP and oblique views. of the left hip. FINDINGS: Mild sclerosis along the articular surface of the acetabulum with minimal subchondral cyst formation. No acute cortical disruption or malalignment. No lytic or blastic lesions. Sclerosis and the left sacroiliac joint. Sclerosis along the articular surface of the symphysis pubis. XR/XR hip LT min 2V IMPRESSION: Mild osteoarthrosis/osteoarthritis, left coxofemoral joint. Assessment & Plan Assessment & Plan (1) Osteoarthritis of left hip: Code(s): M16.12 - Unilateral primary osteoarthritis, left hip Category: Medical Plan After the discussion as above the patient was sent for the left hip x-ray which demonstrated as it is described above in the results reviewed section osteoarthritis of the left hip joint. The patient can be scheduled for intra- articular left hip steroid injection. Orders: Orders XR hip LT min 2V Today Enzo Jain MD M16.12 - Unilateral primary osteoarthritis, left hip FL guidance in treatment room Today Ashanti White APRN, CARPENTER SUPERVISOR M54.16 - Radiculopathy, lumbar region Patient Instructions: I here by testify that I spent 30 minutes in conversation with this patient as well as planning her care evaluating diagnostic images and diagnostic records and organizing this note Coding Level of Care Code Est Pt Level 4 (71371) Diagnoses Osteoarthritis of left hip M16.12
[2025-07-10 09:11] VITALS: BP 121/57; PULSE 68; RESP 18; O2SAT 100
== END 2025-07-10 09:20 | disposition home or self-care (01) ==
LOC: HO.PMCPRC 08:59
PROVIDERS: PCP Physician Assistant Medical; Visit Provider Anesthesiology
DX: M16.12 Unilateral primary osteoarthritis, left hip (principal)
CPT/HCPCS: 99214

== ENCOUNTER 2025-07-10 09:23 | Outpatient (REF) | payer OTHER, MEDICARE, SELFPAY ==
--- NOTE | ~2025-07-10 | XR_ITS ---
EXAMINATION: XR HIP, LEFT CLINICAL INFORMATION: M16.12 - Unilateral primary osteoarthritis, left hip COMPARISON: November 20, 2024 TECHNIQUE: AP and oblique views. of the left hip. FINDINGS: Mild sclerosis along the articular surface of the acetabulum with minimal subchondral cyst formation. No acute cortical disruption or malalignment. No lytic or blastic lesions. Sclerosis and the left sacroiliac joint. Sclerosis along the articular surface of the symphysis pubis. XR/XR hip LT min 2V IMPRESSION: Mild osteoarthrosis/osteoarthritis, left coxofemoral joint. Electronically signed by: Marco Shah MD 07/10/2025 10:01 AM EDT
== END 2025-07-10 09:24 | disposition home or self-care (01) ==
LOC: HO.XRAY 09:23
PROVIDERS: PCP Physician Assistant Medical; Visit Provider Anesthesiology
DX: M16.12 Unilateral primary osteoarthritis, left hip (principal)
CPT/HCPCS: 73502

== ENCOUNTER → 2025-07-10 09:26 | Outpatient (BNV) | payer OTHER, SELFPAY | PROVIDERS: PCP Physician Assistant Medical; Visit Provider Radiology Diagnostic Radiology | DX: M16.12 Unilateral primary osteoarthritis, left hip (principal) | CPT/HCPCS: 73502 ==

== ENCOUNTER → 2025-07-23 07:42 | Outpatient (BNVA) | payer OTHER, SELFPAY | PROVIDERS: PCP Physician Assistant Medical; Visit Provider Physician Assistant Medical | DX: S60.212D Contusion of left wrist, subsequent encounter (principal); M65.4 Radial styloid tenosynovitis [de Quervain]; G56.02 Carpal tunnel syndrome, left upper limb; M53.3 Sacrococcygeal disorders, not elsewhere classified; S70.02XD Contusion of left hip, subsequent encounter; S76.012D Strain of muscle, fascia and tendon of left hip, subsequent encounter; W00.0XXD Fall on same level due to ice and snow, subsequent encounter | CPT/HCPCS: 99213 ==

== ENCOUNTER 2025-07-29 10:57 | Outpatient (REF) | payer OTHER, SELFPAY ==
--- OUTSIDE RECORDS SUMMARY | 2020-06-27 13:41 | XMS_ITS | Encounter Summary ---
Author Organization [facility] Address [address] [place] [address] [place] [address] Phone Care Team Providers Care Hypo Splasher Name Role Phone Ruth Cade MD Unavailable [phone] Aimee Hung NP Unavailable Lidia Treadwell DO Primary Care Provider [phone] Lidia Treadwell DO Unavailable Encounter Details Date Type Department Care Team (Late st Contact Info) Description 06/27/2020 1:41 PM EDT Hospital Encounter [facility] Ur[facility] [address] [place] [address] Esha Anne CNP [address] [place] [address] [phone] Social History Tobacco Use Types Packs/Day Years [...] End Date 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 Not on file Not on file 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 Not on file Not on file documented as of this encounter Functional Status * Calculated C-SSRS Risk Score (Lifetime/Recent) Answer Date of Assessment Author No Risk Indicated 10/10/2024 6:08 PM Ute Chacon RN * [place] Suicide Severity Rating Scale (Screener/Recent Self-Report) Question [...] Care Team (Late st Contact Info) Description 08/13/2025 11:30 AM EDT Office Visit [facility] Gastroenterology Clinic 10 [facility] [place] [address] Unknown, Unknown, Gloria Jordan, RETAIL TIRE SALES MANAGER 10 [facility] 2 [place] [address] [email or web address] 08/13/2025 5:30 PM EDT Appointment [facility], [facility] Density - [facility] [address] [place] [address] Janine Gomez PA [address] [place] [phone] documented as of this encounter Procedures Procedure [...] hemipelvis appear to reflect phleboliths POS - [id number] Narrative 06/27/2020 2:10 PM EDT COMPARISON: 08/20/2019 [...] left hemipelvis appear to reflectphleboliths POS - [id number] Esha Anne RETAIL TIRE SALES MANAGER IMG XR ABDOMEN Final Resul t documented in this encounter Visit Diagnoses Not on filedocumented in this encounter Additional Health Concerns Infection Onset Date Last Indicated Resolved Time CoV-Exposed Comment:Recent close contact documented in the Travel/Symptom Screening Form 07/12/2023 07/14/2023 1:22 AM E DT Assessment Noted Time PHQ-2 Depression Total Score: 0 08/28/20 19 9:08 PM EST documented as of this encounter Care Teams Hypo Splasher Relationship Specialty Start Date End Date Lidia Treadwell DO [address] [place] [address] [email or web address] PCP - General Family Medicine 09/04/19 02/20/21 Ruth Cade MD [address] [place] [address] Historical LMR Provider 08/02/17 Aimee Hung NP [address] [place] [phone] Historical LMR Provider 08/02/17 2 Lidia Treadwell DO [address] [place] [email or web address] Insurance Assigned Provider 11/17/19 05/24/21 documented as of this encounter Additional Source Comments The information contained in this document represents components of the legal health record. It is not the complete legal health record.[facility]
--- OUTSIDE RECORDS SUMMARY | 2025-07-29 11:06 | XMS_ITS | Encounter Summary ---
Author Organization [facility] Address [address] [place] [address] Phone Care Team Providers Care Coding Coordinator Name Role Phone Pcp, Unknown Primary Care Provider Janine Lema Primary Care Provider [phone]- [phone] Reason for Referral * MRI/CAT Scan - Closed Specialty Diagnoses / Procedures Referred By Luci tapia Referred To Contact Radiology Diagnoses Localized swelling, mass and lump, unspecified Procedures MRI Foot (Left) CHG MRI, LOWER EXTR, W/O CONTRAST F/U BY CONTRAST Carlos Rose DPM [address] [place] [address] Phone: tel: fax: [email or web address] Referral ID Status Reason Start Date Expiration Date Visits Re quested Visits Authorized [id number] Closed 12/08/2023 02/06/2024 1 1 Encounter Details Date Type Department Care Team (Latest Contact Info) Description 12/08/2023 Transcribe Orders Virtual Department [address] [place] [address] Carlos Rose DPM [address] [place] [address] [email or web address] Localized swelling, mass and lump, unspecified (Primary [...] End Date 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 phedema shop fitter Not on file Not on file Not on file 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 phedema shop fitter Not on file Not on file Not on file documented as of this encounter Plan of Treatment Upcoming Encounters Date Type Department Care Team (Late st Contact Info) Description 08/13/2025 11:30 AM EDT Office Visit [facility] [address] [place] [address] Unknown, Unknown, Gloria Jordan, CHECK EMBOSSER [address] [address] [email or web address] 08/13/2025 5:30 PM EDT Appointment [facility], Bone Density - [address] [address] Janine Gomez PA [address] [place] [phone] documented as of this encounter Results * [...] documented as of this encounter Care Teams Coding Coordinator Relationship Specialty Start Date End Date Pcp, Unknown PCP - General 01/13/23 01/13/24 Janine Gomez PA [address] [place] [address] PCP - General Physician Supervisor [employer] 01/14/24 documented as of this encounter Additional Source Comments The information contained in this document represents components of the legal health record. It is not the complete legal health record.[facility]
--- OUTSIDE RECORDS SUMMARY | 2025-07-29 11:06 | XMS_ITS | Encounter Summary ---
Author Organization [facility] Address [address] [place] [address] Phone Care Team Providers Care Kit Assembler Name Role Phone Ruth Cade MD Unavailable [phone] Aimee Hung NP Unavailable [phone] Alayna Gagnon MD Primary Care Prov ider Janine Gomez Primary Care Provider [phone]- [phone] Alayna Gagnon MD Primary Care Prov ider Pcp, Unknown Primary Care Provider UnavailLidia Mcmanus DO Primary Care Provider + [phone] Lidia Treadwell DO Unavailable [phone] Pcp, Unknown Primary Care Provider UnavailJanine Samuels Primary Care Provider + [phone] Encounter Details Date Type Department Care Team (Late st Contact Info) Description 01/26/2019 Procedure Pass OR Admitting Dept - Virtual Department 30 [place], [place] [id number] Social History Tobacco Use Types Packs/Day Years [...] Description 08/13/2025 11:30 AM EDT Office Visit [facility]ology [facility] 10 [place] [address] Unknown, Unknown, Gloria Jordan, TELEVISION CAMERAMAN [address] [address] [email or web address] 08/13/2025 5:30 PM EDT Appointment [facility], Bone Density - [address] [address] Janine Gomez PA [address] [place] [phone] documented as of this encounter Visit Diagnoses Not on filedocumented in this encounter Additional Health Concerns Infection Onset Date Last Indicated Resolved Time CoV-Exposed Comment:Recent close contact documented in the Travel/Symptom Screening Form 07/12/2023 07/14/2023 1:22 AM E DT CoV-Risk 05/18/2020 05/18/2020 06/01/2020 1:23 AM EDT documented as of this encounter Care Teams Kit Assembler Relationship Specialty Start Date End Date Alayna Gagnon MD [address] [place] [phone] [email or web address] PCP - General Family Medicine 01/26/19 03/22/19 Janine Gomez PA [address] [place] [phone] PCP - General Senior Training Specialist 03/23/19 07/03/19 Alayna Gagnon MD [address] [place] [phone] [email or web address] PCP - General Family Medicine 07/04/19 08/19/19 Pcp, Unknown PCP - General 08/20/19 09/03/19 Lidia Treadwell DO [address] [place] [id number] [email or web address] PCP - General Family Medicine 09/04/19 02/20/21 Pcp, Unknown PCP - General 01/13/23 01/13/24 Janine Gomez PA [address] [place] [address] PCP - General Physician Airborne Electronics Analyst 01/14/24 Ruth Cade MD [address] [place] [address] Historical LMR Provider 08/02/17 Aimee Hung NP [address] [place] [phone] Historical LMR Provider 08/02/17 2 Lidia Treadwell DO [address] [place] [address] [email or web address] Insurance Assigned Provider 11/17/19 05/24/21 documented as of this encounter Additional Source Comments The information contained in this document represents components of the legal health record. It is not the complete legal health record.[facility]
--- OUTSIDE RECORDS SUMMARY | 2025-07-29 11:06 | XMS_ITS | Encounter Summary ---
Author Organization [facility] Address [address] [facility] [address] [place] [address] Phone Care Team Providers Care Ordnance Equipment Worker Name Role Phone Janine Gomez Primary Care Provider [phone]- [phone] Encounter Details Date Type Department Care Team (Latest Contact Info) Description 03/20/2025 Transcribe Orders Virtual Department 30 [place] [address] Janine Gomez PA [address] [place] [phone] Asymptomatic menopausal state (Primary Dx) Social History [...] End Date 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 phedema track fitter Not on file Not on file Not on file 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 phedema track fitter Not on file Not on file Not on file documented as of this encounter Plan of Treatment Upcoming Encounters Date Type Department Care Team (Late st Contact Info) Description 08/13/2025 11:30 AM EDT Office Visit [facility] [address] [place] [address] Unknown, Unknown, Gloria Jordan, TEST DEVELOPER [address] [place] [address] [email or web address] 08/13/2025 5:30 PM EDT Appointment [facility], Bone Density - [address] [address] Janine Gomez PA [address] [place] [phone] Scheduled Orders Name Type Priority Associated Diagnoses Orde r Schedule DXA Screening Imaging Routine Asymptomatic menopausal state Expected: 04/19/2025, Expires: 03/20/2026 documented as of this encounter Visit Diagnoses Diagnosis Asymptomatic menopausal state- Primary documented in this encounter Additional Health Concerns Assessment Noted Time PHQ-2 Depression Total Score: 0 11/28/19 21 6:11 PM EST documented as of this encounter Care Teams Ordnance Equipment Worker Relationship Specialty Start Date End Date Janine Gomez PA [address] [place] [address] PCP - General Physician Home Improvement Advisor 01/14/24 documented as of this encounter Additional Source Comments The information contained in this document represents components of the legal health record. It is not the complete legal health record.[facility]
--- OUTSIDE RECORDS SUMMARY | 2025-07-29 11:06 | XMS_ITS | Encounter Summary ---
Author Organization [facility] Address [address] [place] [address] [place] [address] Phone Care Team Providers Care Heading And Priming Operator Name Role Phone Ruth Cade MD Unavailable [phone] Aimee Hung NP Unavailable [phone] Alayna Gagnon MD Primary Care Prov ider Janine Gomez Primary Care Provider [phone]- [phone] Alayna Gagnon MD Primary Care Prov ider Pcp, Unknown Primary Care Provider UnavailLidia Mcmanus DO Primary Care Provider + [phone] Lidia Treadwell DO Unavailable [phone] Pcp, Unknown Primary Care Provider UnavailJanine Samuels Primary Care Provider + [phone] Encounter Details Date Type Department Care Team (Late st Contact Info) Description 02/09/2019 Procedure Pass [facility], [address] [address] Social History Tobacco Use Types Packs/Day Years [...] Description 08/13/2025 11:30 AM EDT Office Visit [facility] Gastroenterology Clinic [address] [place] [address] Unknown, Unknown, Gloria Jordan, DIAL POLISHER [address] [place] [address] [email or web address] 08/13/2025 5:30 PM EDT Appointment [facility], Bone [address] [address] Janine Gomez PA [address] [place] [address] documented as of this encounter Visit Diagnoses Not on filedocumented in this encounter Additional Health Concerns Infection Onset Date Last Indicated Resolved Time CoV-Exposed Comment:Recent close contact documented in the Travel/Symptom Screening Form 07/12/2023 07/14/2023 1:22 AM E DT CoV-Risk 05/18/2020 05/18/2020 06/01/2020 1:23 AM EDT documented as of this encounter Care Teams Heading And Priming Operator Relationship Specialty Start Date End Date Alayna Gagnon MD [address] [place] [phone] [email or web address] PCP - General Family Medicine 01/26/19 03/22/19 Janine Gomez PA [address] [place] [address] [place] [address] PCP - General Mobile Security Specialist 03/23/19 07/03/19 Alayna Gagnon MD [address] [place] [phone] [email or web address] PCP - General Family Medicine 07/04/19 08/19/19 Pcp, Unknown PCP - General 08/20/19 09/03/19 Lidia Treadwell DO [address] [place] [address] [email or web address] PCP - General Family Medicine 09/04/19 02/20/21 Pcp, Unknown PCP - General 01/13/23 01/13/24 Janine Gomez PA [address] [place] [address] PCP - General Physician Product Picker 01/14/24 Ruth Cade MD [address] [place] [address] Historical LMR Provider 08/02/17 Aimee Hung NP [address] [place] [phone] Historical LMR Provider 08/02/17 2 Lidia Treadwell DO [address] [place] [address] [email or web address] Insurance Assigned Provider 11/17/19 05/24/21 documented as of this encounter Additional Source Comments The information contained in this document represents components of the legal health record. It is not the complete legal health record.[facility]
--- OUTSIDE RECORDS SUMMARY | 2025-07-29 11:06 | XMS_ITS | Clinical Summary ---
Author Organization [facility] Address [address] [place] [address] Phone Care Team Providers Care Medical Affairs Specialist Name Role Phone Janine Gomez Primary Care Provider [phone] Allergies Active Allergy Reactions Criticality Noted Date Comments Atorvastatin Myalgia Medium 01/18/2024 Chlorthalidone High 10/10/2024 Other Reaction(s): Not available Fenofibrate 10/10/2024 Other Reaction(s): cough Nitrofurantoin Rash Medium 12/28/2018 Hydrocodone Hcl Rash Medium 01/24/2019 Losartan 10/10/2024 Other Reaction(s): cough Raloxifene 10/10/2024 Other Reaction(s): Not available Jyiqvni-Fjq-Dmw Reductase Inhibitors Cough,Myalgia Medium 01/18/2024 Sulfa (Sulfonamide [...] Continue with low-dose insulin sign scale with ryfua-bg-mkqh testing Assessment & Plan (02/08/2019 11:46 AM [...] Description 08/13/2025 11:30 AM EDT Office Visit [facility] Gastroenterology Clinic 10 [place] [address] Unknown, Unknown, Gloria Jordan, LAND SURVEYOR [address] [address] [email or web address] 08/13/2025 5:30 PM EDT Appointment [facility], Bone Density - [address] [address] Janine Gomez PA [address] [place] [phone] Health Maintenance Due Date Last Done Comments [...] INITIAL (ONE-TIME) 2023 INFLUENZA VACCINE (#1) 2025 3, 08/04/2022, 08/15/2021, Additional history exists COVID-19 VACCINE [...] this topic Medical Devices Implanted Type Area Roll Threader Operator Device Identifier Shelf Expiration Date Model / Serial / Lot Clip Clip Right: Breast Nodata NODATA Spine Cervical Description:Spine surgery Stent Ureteral 6fr 22 To 30cm Stretch Coated Antel[employer] - [id number] Implanted:Qty : 1 on 01/26/2019 by Bernard Guerrero MD at [facility] Explanted:12/2018 (Quantity not on file) Left: Ureter [employer] 09/14/2021 [id number] / / [id number] Stent Ureteral 6fr 22 To 30cm Stretch Coated Antelmo - [id number] Implanted:Qty : 1 on 02/27/2019 by Bernard Guerrero MD at [facility] Explanted:12/2018 (Quantity not on file) Left: Ureter [employer] 10/02/2021 [id number] 60 / / Description:Stent with strin gs [...] (08/28/2024 7:58 AM EST) HDL 47 mg/dL [facility] Comment: Interpretation <40 mg/dL: Low HDL cholesterol (major risk factor for CHD) Greater than or equal to 60 mg/dL: High HDL cholesterol ( negative risk factor for CHD) HDL - cholesterol is affected by a number of factors, e.g. smoking, excerise, hormones, sex and age. CHOLESTEROL 163 0 - 240 mg/dL [facility] TRIGLYCERIDES 185(H) 30 - 160 mg/dL [facility] LDL 79 50 - 129 mg/dL [facility] Comment: LDL levels in terms of risk for coronary heart disease: <100 mg/dL: Optimal 100-129 mg/dL: Near or above optimal 130-159 mg/dL: Borderline high 160-189 mg/dL: High >190 mg/dL: Very High CARDIAC RISK RATIO 3.5 3.3 - 4.4 [facility] Blood 08/28/2024 7:58 AM EST 08/28/2024 8:11 AM EST us Angel Howard MD LAB BLOOD ORDERABLES Final Resu lt [address] [address] * Hepatitis C antibody, qualitative (05/10/2020 5:02 PM EDT) HCV NON-REACTIV E NON-REACTI VE [facility] Blood 05/10/2020 5:02 PM EDT 05/10/2020 5:10 PM EDT us Erlin Christianson MD LAB BLOOD ORDERABLES Final Result [address] [address] * (ABNORMAL) Hemoglobin A1c (05/10/2020 5:02 PM EDT) HEMOGLOBIN A1C 6.2(H) 4.3 - 5.8 % [facility] Blood 05/10/2020 5:02 PM EDT 05/10/2020 5:10 PM EDT us Erlin Christianson MD LAB BLOOD ORDERABLES Final Result Performing Organization Address City/[facility]/ZIP Co de Phone Number [address] [address] * HM MAMMOGRAPHY FOR RESULT ENTRY ONLY (11/08/2019) us Historical Provider HEALTH MAINTENANCE Edited Result - Final * ENDOSCOPY, COLON (10/19/2019 1:24 PM EST) Narrative Transcriptions Adam Hassan MD - 10/19/2019 1:24 PM EST Patient Name: Kelly Isaacs Attending MD:: ADAM HASSAN MD Procedure Date: 10/19/2019 1:24 PM Date of : 1960 Age: 59 Admit Type: Outpatient Gender: Female Room: [place] [address] Referring MD: Lidia Treadwell Exam Type: Colonoscopy [...] monitored continuously. The Olympus adult variable colonoscope [id number] #[id number] was introduced through the anus and [...] 1:24 PM Procedure Code(s): --- Professional --- 17765, Colonoscopy, flexible; with removal of tumor(s), polyp(s), or other lesion(s) by snare technique --- Technical --- 88369, Colonoscopy, flexible; with removal of tumor(s), polyp(s), [...] congenital malformations of intestine CPT copyright 2018 [employer]. All rights reserved. The codes documented in this report are preliminary and upon in store marketer reviewmay be revised to meet current compliance requirements. [address] [place] [address] Lidia Treadwell DO GI PROCEDURE ORDERABLES Fi nal Result from Last 3 Months or Most Recently Relevant to Health Maintenance Insurance [employer] [place]ACEMENT [employer] [place]EMENT [employer] [place] [employer] MEDICARE HMO REPLACEMENT [employer] [place] [employer] [place] [employer] Advance Directives For more information, please contact: [phone] (9AM - 5PM [place], Wednesday-Wednesday) * Full [...] Code Status Confirmed With: PatientFamily Care Teams Medical Affairs Specialist Relationship Specialty Start Date End Date Janine Gomez PA [address] [place] [address] PCP - General Physician Senior Software Analyst 01/14/24 Additional Source Comments The information contained in this document represents components of the legal health record. It is not the complete legal health record.[facility]
--- OUTSIDE RECORDS SUMMARY | 2025-07-29 11:06 | XMS_ITS | Encounter Summary ---
Author Organization [facility] Address [address] [place] [address] [place] [address] Phone Care Team Providers Care Pocketed Spring Machine Operator Name Role Phone Janine Gomez Primary Care Provider [phone]- [phone] Encounter Details Date Type Department Care Team (Late st Contact Info) Description 05/12/2024 Transcribe Orders Virtual Department 30 [place] [address] Kelly Greenberg, URIEL [address] [place], [place] [phone] [email or web address] Right shoulder pain, unspecified chronicity (Primary Dx) [...] End Date 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 phedema steamfitter Not on file Not on file Not on file 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 phedema steamfitter Not on file Not on file Not on file documented as of this encounter Plan of Treatment Upcoming Encounters Date Type Department Care Team (Late st Contact Info) Description 08/13/2025 11:30 AM EDT Office Visit [facility] Gastroenterology Clinic 10 [place] [address] Unknown, Unknown, Gloria Jordan, DRESS DESIGNER [address] [address] [email or web address] 08/13/2025 5:30 PM EDT Appointment [facility], Bone Density - [address] [address] Janine Gomez PA [address] [place] [address] [place] [address] documented as of this encounter Visit Diagnoses Diagnosis Right shoulder pain, unspecified chronicity- Primary documented in this encounter Additional Health Concerns Assessment Noted Time PHQ-2 Depression Total Score: 0 11/28/19 21 6:11 PM EST documented as of this encounter Care Teams Pocketed Spring Machine Operator Relationship Specialty Start Date End Date Janine Gomez PA [address] [place] [address] PCP - General Physician Dish Cloth Inspector 01/14/24 documented as of this encounter Additional Source Comments The information contained in this document represents components of the legal health record. It is not the complete legal health record.[facility]
--- OUTSIDE RECORDS SUMMARY | 2025-07-29 11:06 | XMS_ITS | Encounter Summary ---
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 Not on file Not on file 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 phedema 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 Not on file Not on file Not on file documented as of this encounter Plan of Treatment Upcoming Encounters Date Type Department Care Team (Late st Contact Info) Description 08/13/2025 11:30 AM EDT Office Visit [facility]astroenterology Clinic 10 [place] [address] Unknown, Unknown, MD Lucia, Gloria Foote, PADDLE DYEING MACHINE OPERATOR [address] [address] [email or web address] 08/13/2025 5:30 PM EDT Appointment [facility], Bone Density [address] [address] Janine Gomez PA [address] [place] [address] documented as of this encounter Visit Diagnoses Not on filedocumented in this encounter Additional Health Concerns Assessment Noted Time PHQ-2 Depression Total Score: 0 11/28/19 21 6:11 PM EST documented as of this encounter Care Teams Commercial Real Estate Lender Relationship Specialty Start Date End Date Janine Gomez PA [address] [place] [address] PCP - General Physician Dna Analyst 01/14/24 documented as of this encounter Additional Source Comments The information contained in this document represents components of the legal health record. It is not the complete legal health record.[facility]
--- OUTSIDE RECORDS SUMMARY | 2025-07-29 11:06 | XMS_ITS | Encounter Summary ---
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 Not on file Not on file 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 phedema 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 Not on file Not on file Not on file documented as of this encounter Functional Status * Calculated C-SSRS Risk Score (Lifetime/Recent) Answer Date of Assessment Author No Risk Indicated 08/27/2024 5:44 PM Xi Drew RN * [place] Suicide Severity Rating Scale (Screener/Recent Self-Report) Question [...] Office Visit [facility] Gastroenterology Clinic [address] [place] [address] Unknown, Unknown, Gloria Jordan, HOSIERY OPERATOR [address] [place] [address] [email or web address] 08/13/2025 5:30 PM EDT Appointment , Bone Density - [facility] 30 [place] [address] Janine Gomez PA [address] [place] [phone] documented as of this encounter Visit Diagnoses Not on filedocumented in this encounter Additional Health Concerns Assessment Noted Time PHQ-2 Depression Total Score: 0 11/28/19 21 6:11 PM EST documented as of this encounter Care Teams Door And Arrival Attendant Relationship Specialty Start Date End Date Janine Gomez PA [address] [place] [address] PCP - General Physician Auto Seat Cover Installer 01/14/24 documented as of this encounter Additional Source Comments The information contained in this document represents components of the legal health record. It is not the complete legal health record.[facility]
--- OUTSIDE RECORDS SUMMARY | 2025-07-29 11:06 | XMS_ITS | Encounter Summary ---
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 Not on file Not on file 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 phedema 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 Not on file Not on file Not on file documented as of this encounter Plan of Treatment Upcoming Encounters Date Type Department Care Team (Late st Contact Info) Description 08/13/2025 11:30 AM EDT Office Visit [facility] Gastroenterology Clinic 10 [place] [address] Unknown, Unknown, Gloria Jordan, CONE CLASSIFIER TENDER [address] [address] [email or web address] 08/13/2025 5:30 PM EDT Appointment [facility], Bone Density - [facility] 30 [place] [address] Janine Gomez PA [address] [place] [address] documented as of this encounter Visit Diagnoses Not on filedocumented in this encounter Additional Health Concerns Assessment Noted Time PHQ-2 Depression Total Score: 0 11/28/19 21 6:11 PM EST documented as of this encounter Care Teams Power Switchboard Operator Relationship Specialty Start Date End Date Pcp, Unknown PCP - General 01/13/23 01/13/24 Janine Gomez PA [address] [place] [address] PCP - General Physician Forestry Tree Pruner 01/14/24 documented as of this encounter Additional Source Comments The information contained in this document represents components of the legal health record. It is not the complete legal health record.[facility]
--- OUTSIDE RECORDS SUMMARY | 2025-07-29 11:06 | XMS_ITS | Encounter Summary ---
Author Organization [facility] Address [address] [place] [address] [place] [address] Phone Care Team Providers Care Fluorescent Lamp Replacer Name Role Phone Ruth Cade MD Unavailable [phone] Aimee Hung NP Unavailable Alayna Gagnon MD Primary Care Prov ider Janine Gomez Primary Care Provider [phone] Alayna Gagnon MD Primary Care Prov ider Pcp, Unknown Primary Care Provider UnavailLidia Mcmanus DO Primary Care Provider Lidia Treadwell DO Unavailable [phone] Pcp, Unknown Primary Care Provider UnavailJanine Samuels Primary Care Provider Encounter Details Date Type Department Care Team (Latest Contact Info) Description 03/16/2019 Transcribe Orders Virtual Department 30 [place] [address] Bernard Guerrero MD [facility], [address] [place] [address] [email or web address] Calculus of kidney (Primary Dx) Social [...] 08/13/2025 11:30 AM EDT Office Visit [facility] Gastroenterology Clinic 10 [place] [address] Unknown, Unknown, Gloria Jordan, TOUCHER UP [address] [address] [email or web address] 08/13/2025 5:30 PM EDT Appointment [facility], Bone Density [address] [address] Janine Gomez PA [address] [place] [address] [place] [address] documented as of this encounter Visit Diagnoses Diagnosis Calculus of kidney- Primary documented in this encounter Additional Health Concerns Infection Onset Date Last Indicated Resolved Time CoV-Exposed Comment:Recent close contact documented in the Travel/Symptom Screening Form 07/12/2023 07/14/2023 1:22 AM E DT CoV-Risk 05/18/2020 05/18/2020 06/01/2020 1:23 AM EDT documented as of this encounter Care Teams Fluorescent Lamp Replacer Relationship Specialty Start Date End Date Alayna Gagnon MD [address] [place] [phone] [email or web address] PCP - General Family Medicine 01/26/19 03/22/19 Janine Gomez PA [address] [place] [address] [place] [address] PCP - General Fitness Technician 03/23/19 07/03/19 Alayna Gagnon MD [address] [place] [phone] [email or web address] PCP - General Family Medicine 07/04/19 08/19/19 Pcp, Unknown PCP - General 08/20/19 09/03/19 Lidia Treadwell DO [address] [place] [address] [email or web address] PCP - General Family Medicine 09/04/19 02/20/21 Pcp, Unknown PCP - General 01/13/23 01/13/24 Janine Gomez PA [address] [place] [address] PCP - General Physician Copper Tapper 01/14/24 Ruth Cade MD [address] [place] [address] Historical LMR Provider 08/02/17 Aimee Hung NP [address] [place] [phone] Historical LMR Provider 08/02/17 2 Lidia Treadwell DO [address] [place] [address] [email or web address] Insurance Assigned Provider 11/17/19 05/24/21 documented as of this encounter Additional Source Comments The information contained in this document represents components of the legal health record. It is not the complete legal health record.[facility]
--- OUTSIDE RECORDS SUMMARY | 2025-07-29 11:06 | XMS_ITS | Encounter Summary ---
Author Organization [facility] Address [address] [place] [address] [place] [address] Phone Care Team Providers Care Rolling Machine Operator Automatic Name Role Phone Ruth Cade MD Unavailable [phone] Aimee Hung NP Unavailable [phone] Alayna Gagnon MD Primary Care Prov ider Janine Gomez Primary Care Provider [phone] Alayna Gagnon MD Primary Care Prov ider Pcp, Unknown Primary Care Provider UnavailLidia Mcmanus DO Primary Care Provider + [phone] Lidia Treadwell DO Unavailable [phone] Pcp, Unknown Primary Care Provider UnavailJanine Samuels Primary Care Provider + [phone] Encounter Details Date Type Department Care Team (Late st Contact Info) Description 02/27/2019 Procedure Pass OR Admitting Dept - Virtual Department 30 [place], [place] [phone] Social History Tobacco Use Types Packs/Day Years [...] Description 08/13/2025 11:30 AM EDT Office Visit [facility] Gastroenterology Clinic 10 [place] [address] Unknown, Unknown, Gloria Jordan, TURN OUT [address] [address] [email or web address] 08/13/2025 5:30 PM EDT Appointment [facility], Bone Density - [address] [address] Janine Gomez PA [address] [place] [phone] documented as of this encounter Visit Diagnoses Not on filedocumented in this encounter Additional Health Concerns Infection Onset Date Last Indicated Resolved Time CoV-Exposed Comment:Recent close contact documented in the Travel/Symptom Screening Form 07/12/2023 07/14/2023 1:22 AM E DT CoV-Risk 05/18/2020 05/18/2020 06/01/2020 1:23 AM EDT documented as of this encounter Care Teams Rolling Machine Operator Automatic Relationship Specialty Start Date End Date Alayna Gagnon MD [address] [place] [phone] [email or web address] PCP - General Family Medicine 01/26/19 03/22/19 Janine Gomez PA [address] [place] [phone] PCP - General Machine Puller Over 03/23/19 07/03/19 Alayna Gagnon MD [address] [place] [phone] [email or web address] PCP - General Family Medicine 07/04/19 08/19/19 Pcp, Unknown PCP - General 08/20/19 09/03/19 Lidia Treadwell DO [address] [place] [address] [email or web address] PCP - General Family Medicine 09/04/19 02/20/21 Pcp, Unknown PCP - General 01/13/23 01/13/24 Janine Gomez PA [address] [place] [address] PCP - General Physician Community Assistant 01/14/24 Ruth Cade MD [address] [place] [address] Historical LMR Provider 08/02/17 Aimee Hung NP [address] [place] [phone] Historical LMR Provider 08/02/17 2 Lidia Treadwell DO [address] [place] [address] [email or web address] Insurance Assigned Provider 11/17/19 05/24/21 documented as of this encounter Additional Source Comments The information contained in this document represents components of the legal health record. It is not the complete legal health record.[facility]
--- OUTSIDE RECORDS SUMMARY | 2025-07-29 11:07 | XMS_ITS | Encounter Summary ---
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 Suicide Severity Rating Scale (Screener/Recent Self-Report) Question [...] Description 08/13/2025 11:30 AM EDT Office Visit [facility] Gastroenterology Clinic [address] [place] [address] Unknown, Unknown, Gloria Jordan, WAREHOUSING TECHNICIAN [address] [place] [address] [email or web address] 08/13/2025 5:30 PM EDT Appointment [facility], Bone [address] [address] Janine Gomez PA [address] [place] [address] [place] [address] documented as of this encounter Visit Diagnoses Not on filedocumented in this encounter Additional Health Concerns Infection Onset Date Last Indicated Resolved Time CoV-Exposed Comment:Recent close contact documented in the Travel/Symptom Screening Form 07/12/2023 07/14/2023 1:22 AM E DT Assessment Noted Time PHQ-2 Depression Total Score: 0 11/28/19 21 6:11 PM EST documented as of this encounter Care Teams Transplant Nurse Relationship Specialty Start Date End Date Pcp, Unknown PCP - General 01/13/23 01/13/24 Janine Gomez PA [address] [place] [address] PCP - General Physician Yarn Worker 01/14/24 documented as of this encounter Additional Source Comments The information contained in this document represents components of the legal health record. It is not the complete legal health record.[facility]
--- OUTSIDE RECORDS SUMMARY | 2025-07-29 11:07 | XMS_ITS | Encounter Summary ---
Author Organization [facility] Address [address] [place] [address] [place] [address] Phone Care Team Providers Care Letter Of Credit Clerk Name Role Phone Ruth Cade MD Unavailable [phone] Aimee Hung NP Unavailable [phone] Janine Gomez Primary Care Provider [phone] Alayna Gagnon MD Primary Care Prov ider Pcp, Unknown Primary Care Provider UnavailLidia Mcmanus DO Primary Care Provider [phone] Lidia Treadwell DO Unavailable [phone] Pcp, Unknown Primary Care Provider UnavailJanine Samuels Primary Care Provider [phone] Encounter Details Date Type Department Care Team (Latest Contact Info) Description 06/16/2019 Transcribe Orders Virtual Department 30 [place] [address] Bernard Guerrero MD [address] [facility], [address] [place] [address] [email or web address] Calculus of kidney (Primary Dx) Social History [...] Description 08/13/2025 11:30 AM EDT Office Visit [facility] Gastroenterology Clinic [address] [place] [address] Unknown, Unknown, Gloria Jordan, AWNING HANGER [address] [place] [address] [email or web address] 08/13/2025 5:30 PM EDT Appointment [facility], Bone Density - [address] [address] Janine Gomez PA [address] [place] [address] documented as of this encounter Results * US Kidneys (07/04/2019 7:46 AM EDT) Anatomical Region Laterality Modality Abdomen, Kidney Ultrasound 07/04/2019 9:20 AM EDT Impressions 07/04/2019 9:31 AM EDT No ultrasound evidence of nephrolithiasis. POS - [id number] Narrative 07/04/2019 9:31 AM EDT EXAM: US [...] is within normal limits for size and wjzaavtd02.9 cm in sagittal dimension. Parenchyma is within normal limits.Cortical thickness and echogenicity are within normal limits. Nohydronephrosis, focal lesions, or shadowing stones. IMPRESSION: No ultrasound evidence of nephrolithiasis. POS - [id number] Bernard Guerrero MD [facility] RE[facility] Final Result documented in this encounter Visit Diagnoses Diagnosis Calculus of kidney- Primary Calculus of kidney documented in this encounter Additional Health Concerns Infection Onset Date Last Indicated Resolved Time CoV-Exposed Comment:Recent close contact documented in the Travel/Symptom Screening Form 07/12/2023 07/14/2023 1:22 AM E DT CoV-Risk 05/18/2020 05/18/2020 06/01/2020 1:23 AM EDT documented as of this encounter Care Teams Letter Of Credit Clerk Relationship Specialty Start Date End Date Janine Gomez PA [address] [place] [address] [place] [phone] PCP - General Senior It Recruiter 03/23/19 07/03/19 Alayna Gagnon MD [address] [place] [address] [place] [address] [email or web address] PCP - General Family Medicine 07/04/19 08/19/19 Pcp, Unknown PCP - General 08/20/19 09/03/19 Lidia Treadwell DO [address] [place] [address] [email or web address] PCP - General Family Medicine 09/04/19 02/20/21 Pcp, Unknown PCP - General 01/13/23 01/13/24 Janine Gomez PA [address] [place] [address] PCP - General Physician Small Kick Press Operator 01/14/24 Ruth Cade MD [address] [place] [address] Historical LMR Provider 08/02/17 Aimee Hung NP [address] [place] [phone] Historical LMR Provider 08/02/17 2 Lidia Treadwell DO [address] [place] [address] [email or web address] Insurance Assigned Provider 11/17/19 05/24/21 documented as of this encounter Additional Source Comments The information contained in this document represents components of the legal health record. It is not the complete legal health record.[facility]
--- OUTSIDE RECORDS SUMMARY | 2025-07-29 11:07 | XMS_ITS | Encounter Summary ---
Author Organization [facility] Address [address] [place] [address] [place] [address] Phone Care Team Providers Care Waistline Joiner Lockstitch Name Role Phone Ruth Cade MD Unavailable [phone] Aimee Hung NP Unavailable [phone] Lidia Treadwell DO Primary Care Provider [phone] Lidia Treadwell DO Unavailable [phone] Pcp, Unknown Primary Care Provider UnavailJanine Samuels Primary Care Provider [phone] Encounter Details Date Type Department Care Team (Late st Contact Info) Description 10/19/2019 Procedure Pass [facility] Endoscopy Admitting Dept Virtual Department [address] [place] [address] Social History Tobacco Use Types Packs/Day Years [...] Description 08/13/2025 11:30 AM EDT Office Visit [facility] Gastroenterology Clinic 10 [place] [address] Unknown, Unknown, Gloria Jordan, DIRECTOR OF CASINO MARKETING [address] [address] [email or web address] 08/13/2025 5:30 PM EDT Appointment [facility], Bone [address] [address] Janine Gomez PA [address] [place] [address] documented as of this encounter Visit Diagnoses [...] documented as of this encounter Care Teams Waistline Joiner Lockstitch Relationship Specialty Start Date End Date Lidia Treadwell DO [address] [place] [address] [email or web address] PCP - General Family Medicine 09/04/19 02/20/21 Pcp, Unknown PCP - General 01/13/23 01/13/24 Janine Gomez PA [address] [place] [address] PCP - General Physician Route Relief Driver 01/14/24 Ruth Cade MD [address] [place] [address] Historical LMR Provider 08/02/17 Aimee Hung NP [address] [place] [phone] Historical LMR Provider 08/02/17 2 Lidia Treadwell DO [address] [place] [address] [email or web address] Insurance Assigned Provider 11/17/19 05/24/21 documented as of this encounter Additional Source Comments The information contained in this document represents components of the legal health record. It is not the complete legal health record.[facility]
== END 2025-07-29 10:58 | disposition home or self-care (01) ==
LOC: HO.MRI 10:57
PROVIDERS: PCP Physician Assistant Medical; Visit Provider Internal Medicine
DX: S70.02XD Contusion of left hip, subsequent encounter (principal)
CPT/HCPCS: 73721

== ENCOUNTER → 2025-07-29 11:15 | Outpatient (BNV) | payer OTHER, SELFPAY | PROVIDERS: PCP Physician Assistant Medical; Visit Provider Radiology Diagnostic Radiology | DX: M16.12 Unilateral primary osteoarthritis, left hip (principal); M76.02 Gluteal tendinitis, left hip | CPT/HCPCS: 73721 ==

== ENCOUNTER 2025-07-31 06:14 | Outpatient (REF) | payer OTHER, SELFPAY ==
--- OUTSIDE RECORDS SUMMARY | 2020-06-27 13:41 | XMS_ITS | Encounter Summary ---
Author Organization [facility] Address [address] [place] [address] [place] [address] Phone Care Team Providers Care System Development Manager Name Role Phone Ruth Cade MD Unavailable [phone] Aimee Hung NP Unavailable Lidia Treadwell DO Primary Care Provider [phone] Lidia Treadwell DO Unavailable Encounter Details Date Type Department Care Team (Late st Contact Info) Description 06/27/2020 1:41 PM EDT Hospital Encounter [facility] Urgent Care [address] [place] [address] Esha Anne CNP [address] [place] [address] [phone] Social History Tobacco Use Types Packs/Day Years [...] End Date 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 Not on file Not on file 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 Not on file Not on file documented as of this encounter Functional Status * Calculated C-SSRS Risk Score (Lifetime/Recent) Answer Date of Assessment Author No Risk Indicated 10/10/2024 6:08 PM Ute Chacon RN * [place] Suicide Severity Rating Scale (Screener/Recent Self-Report) Question [...] Description 08/13/2025 11:30 AM EDT Office Visit [facility] Gastroenterology Clinic 10 [place] [address] Unknown, Unknown, Gloria Jordan, MACHINE I TRIMMER 10 [facility] 2 [place] [address] [email or web address] 08/13/2025 5:30 PM EDT Appointment [facility], Bone Density - [facility] 30 [place] [address] Janine Gomez PA [address] [place] [phone] documented as of this encounter Procedures Procedure [...] hemipelvis appear to reflect phleboliths POS - [id number] Narrative 06/27/2020 2:10 PM EDT COMPARISON: 08/20/2019 [...] left hemipelvis appear to reflectphleboliths POS - [id number] Esha Anne MACHINE I TRIMMER IMG XR ABDOMEN Final Resul t documented [...] documented as of this encounter Care Teams System Development Manager Relationship Specialty Start Date End Date Lidia Treadwell DO [address] [place] [address] [email or web address] PCP - General Family Medicine 09/04/19 02/20/21 Ruth Cade MD [address] [place] [address] Historical LMR Provider 08/02/17 Aimee Hung NP [address] [place] [phone] Historical LMR Provider 08/02/17 2 Lidia Treadwell DO [address] [place] [address] [email or web address] Insurance Assigned Provider 11/17/19 05/24/21 documented as of this encounter Additional Source Comments The information contained in this document represents components of the legal health record. It is not the complete legal health record.[facility]
--- NOTE | ~2025-07-31 | FL_ITS ---
EXAMINATION: FL GUIDANCE ONLY HISTORY: M16.12 - Unilateral primary osteoarthritis, left hip COMPARISON: None available. TECHNIQUE: Fluoroscopy time: 18.2 seconds. Cumulative Dose: 8.2945 mGy. DAP: 3.6080 Gycm2 Images: 3. FINDINGS: Fluoroscopic spot films of the left hip demonstrate a needle in place and contrast material in the joint space. FL/FL guidance in treatment room IMPRESSION: Fluoroscopy during procedure. Please see procedure report for additional information. Electronically signed by: Nilay Orlando MD 07/31/2025 03:40 PM EDT
--- OUTSIDE RECORDS SUMMARY | 2025-07-31 06:16 | XMS_ITS | Encounter Summary ---
Author Organization 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 Gastroenterology Clinic 10 [place] [address] Unknown, Unknown, MD Lucia, Gloria Foote, SLIDE FASTENERS INSPECTOR [address] [place] [address] [address] [email or web address] 08/13/2025 5:30 PM EDT Appointment [facility], Bone Density [address] [address] Janine Gomez PA [address] [place] [address] documented as of this encounter Visit Diagnoses Not on filedocumented in this encounter Additional Health Concerns Assessment Noted Time PHQ-2 Depression Total Score: 0 11/28/19 21 6:11 PM EST documented as of this encounter Care Teams Adviser Sales Relationship Specialty Start Date End Date Janine Gomez PA [address] [place] [address] PCP - General Physician Sheep Boner 01/14/24 documented as of this encounter Additional Source Comments The information contained in this document represents components of the legal health record. It is not the complete legal health record.[facility]
--- OUTSIDE RECORDS SUMMARY | 2025-07-31 06:16 | XMS_ITS | Encounter Summary ---
Author Organization 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 Gastroenterology Clinic 10 [place] [address] Unknown, Unknown, Gloria Jordan, HOSPICE CASE MANAGER [address] [address] [email or web address] 08/13/2025 5:30 PM EDT Appointment [facility], Bone Density - [facility] 30 [place] [address] Janine Gomez PA [address] [place] [address] documented as of this encounter Visit Diagnoses Not on filedocumented in this encounter Additional Health Concerns Assessment Noted Time PHQ-2 Depression Total Score: 0 11/28/19 21 6:11 PM EST documented as of this encounter Care Teams Dictating Transcribing Machine Servicer Relationship Specialty Start Date End Date Pcp, Unknown PCP - General 01/13/23 01/13/24 Janine Gomez PA [address] [place] [address] PCP - General Physician Mangle Tender Cloth 01/14/24 documented as of this encounter Additional Source Comments The information contained in this document represents components of the legal health record. It is not the complete legal health record.[facility]
--- OUTSIDE RECORDS SUMMARY | 2025-07-31 06:17 | XMS_ITS | Encounter Summary ---
Author Organization [facility] Address [address] [place] [address] [place] [address] Phone Care Team Providers Care Wine Blender Name Role Phone Ruth Cade MD Unavailable [phone] Aimee Hung NP Unavailable [phone] Lidia Treadwell DO Primary Care Provider [phone] Lidia Treadwell DO Unavailable [phone] Pcp, Unknown Primary Care Provider UnavailJanine Samuels Primary Care Provider [phone] Encounter Details Date Type Department Care Team (Late st Contact Info) Description 10/19/2019 Procedure Pass [facility] Endoscopy Admitting Dept Virtual Department [address] [place] [address] Social History Tobacco Use Types Packs/Day Years [...] Description 08/13/2025 11:30 AM EDT Office Visit [facility] Gastroenterology Clinic 10 [place] [address] Unknown, Unknown, Gloria Jordan, GAS METER INSTALLER [address] [address] [email or web address] 08/13/2025 5:30 PM EDT Appointment [facility], Bone [address] [address] Janine Gomez PA [address] [place] [address] documented as of this encounter Visit Diagnoses [...] documented as of this encounter Care Teams Wine Blender Relationship Specialty Start Date End Date Lidia Treadwell DO [address] [place] [address] [email or web address] PCP - General Family Medicine 09/04/19 02/20/21 Pcp, Unknown PCP - General 01/13/23 01/13/24 Janine Gomez PA [address] [place] [address] PCP - General Physician Bus Monitor 01/14/24 Ruth Cade MD [address] [place] [address] Historical LMR Provider 08/02/17 Aimee Hung NP [address] [place] [phone] Historical LMR Provider 08/02/17 2 Lidia Treadwell DO [address] [place] [address] [email or web address] Insurance Assigned Provider 11/17/19 05/24/21 documented as of this encounter Additional Source Comments The information contained in this document represents components of the legal health record. It is not the complete legal health record.[facility]
--- OUTSIDE RECORDS SUMMARY | 2025-07-31 06:17 | XMS_ITS | Encounter Summary ---
Author Organization [facility] Address [address] [place] [address] [place] [address] Phone Care Team Providers Care Manager Games Name Role Phone Ruth Cade MD Unavailable [phone] Aimee Hung NP Unavailable [phone] Alayna Gagnon MD Primary Care Prov ider Janine Gomez Primary Care Provider [phone] Alayna Gagnon MD Primary Care Prov ider Pcp, Unknown Primary Care Provider UnavailLidia Mcmanus DO Primary Care Provider + [phone] Lidia Treadwell DO Unavailable [phone] Pcp, Unknown Primary Care Provider UnavailJanine Samuels Primary Care Provider + [phone] Encounter Details Date Type Department Care Team (Late st Contact Info) Description 02/09/2019 Procedure Pass [facility], [address] [address] Social History Tobacco Use Types Packs/Day Years [...] Description 08/13/2025 11:30 AM EDT Office Visit [facility] [address] [place] [address] Unknown, Unknown, Gloria Jordan, FINANCE CLERK [address] [place] [address] [email or web address] 08/13/2025 5:30 PM EDT Appointment [facility], Bone [address] [address] Janine Gomez PA [address] [place] [address] documented as of this encounter Visit Diagnoses Not on filedocumented in this encounter Additional Health Concerns Infection Onset Date Last Indicated Resolved Time CoV-Exposed Comment:Recent close contact documented in the Travel/Symptom Screening Form 07/12/2023 07/14/2023 1:22 AM E DT CoV-Risk 05/18/2020 05/18/2020 06/01/2020 1:23 AM EDT documented as of this encounter Care Teams Manager Games Relationship Specialty Start Date End Date Alayna Gagnon MD [address] [place] [phone] [email or web address] PCP - General Family Medicine 01/26/19 03/22/19 Janine Gomez PA [address] [place] [address] [place] [address] PCP - General Business Intelligence Director 03/23/19 07/03/19 Alayna Gagnon MD [address] [place] [phone] [email or web address] PCP - General Family Medicine 07/04/19 08/19/19 Pcp, Unknown PCP - General 08/20/19 09/03/19 Lidia Treadwell DO [address] [place] [address] [email or web address] PCP - General Family Medicine 09/04/19 02/20/21 Pcp, Unknown PCP - General 01/13/23 01/13/24 Janine Gomez PA [address] [place] [address] PCP - General Physician Manager Casino 01/14/24 Ruth Cade MD [address] [place] [address] Historical LMR Provider 08/02/17 Aimee Hung NP [address] [place] [phone] Historical LMR Provider 08/02/17 2 Lidia Treadwell DO [address] [place] [address] [email or web address] Insurance Assigned Provider 11/17/19 05/24/21 documented as of this encounter Additional Source Comments The information contained in this document represents components of the legal health record. It is not the complete legal health record.[facility]
--- OUTSIDE RECORDS SUMMARY | 2025-07-31 06:17 | XMS_ITS | Encounter Summary ---
Author Organization [facility] Address [address] [place] [address] Phone Care Team Providers Care Straightener Gun Parts Name Role Phone Ruth Cade MD Unavailable [phone] Aimee Hung NP Unavailable [phone] Alayna Gagnon MD Primary Care Prov ider Janine Gomez Primary Care Provider [phone] lAayna Gagnon MD Primary Care Prov ider Pcp, Unknown Primary Care Provider UnavailLidia Mcmanus DO Primary Care Provider + [phone] Lidia Treadwell DO Unavailable [phone] Pcp, Unknown Primary Care Provider UnavailJanine Samuels Primary Care Provider + [phone] Encounter Details Date Type Department Care Team (Late st Contact Info) Description 01/26/2019 Procedure Pass [place] Admitting Dept - Virtual Department 30 [place], [place] [id number] Social History Tobacco Use Types Packs/Day Years [...] Description 08/13/2025 11:30 AM EDT Office Visit [facility]ology [facility] [address] [place] [address] Unknown, Unknown, Gloria Jordan, ARBORICULTURE INSTRUCTOR [address] [address] [email or web address] 08/13/2025 5:30 PM EDT Appointment [facility], Bone Density - [address] [address] Janine Gomez PA [address] [place] [id number] documented as of this encounter Visit Diagnoses Not on filedocumented in this encounter Additional Health Concerns Infection Onset Date Last Indicated Resolved Time CoV-Exposed Comment:Recent close contact documented in the Travel/Symptom Screening Form 07/12/2023 07/14/2023 1:22 AM E DT CoV-Risk 05/18/2020 05/18/2020 06/01/2020 1:23 AM EDT documented as of this encounter Care Teams Straightener Gun Parts Relationship Specialty Start Date End Date Alayna Gagnon MD [address] [place] [phone] [email or web address] PCP - General Family Medicine 01/26/19 03/22/19 Janine Gomez PA [address] [place] [phone] PCP - General Dressmaker Garment Fitter 03/23/19 07/03/19 Alayna Gagnon MD [address] [place] [phone] [email or web address] PCP - General Family Medicine 07/04/19 08/19/19 Pcp, Unknown PCP - General 08/20/19 09/03/19 Lidia Treadwell DO [address] [place] [address] [email or web address] PCP - General Family Medicine 09/04/19 02/20/21 Pcp, Unknown PCP - General 01/13/23 01/13/24 Janine Gomez PA [address] [place] [address] PCP - General Physician Timing Adjuster 01/14/24 Ruth Cade MD [address] [place] [address] Historical LMR Provider 08/02/17 Aimee Hung NP [address] [place] [phone] Historical LMR Provider 08/02/17 2 Lidia Treadwell DO [address] [place] [address] [email or web address] Insurance Assigned Provider 11/17/19 05/24/21 documented as of this encounter Additional Source Comments The information contained in this document represents components of the legal health record. It is not the complete legal health record.[facility]
--- OUTSIDE RECORDS SUMMARY | 2025-07-31 06:17 | XMS_ITS | Encounter Summary ---
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 Not on file Not on file Not on file 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 phedema gun fitter Not on file Not on file Not on file documented as of this encounter Functional Status * Calculated C-SSRS Risk Score (Lifetime/Recent) Answer Date of Assessment Author No Risk Indicated 08/27/2024 5:44 PM Xi Drew RN * [place] Suicide Severity Rating Scale (Screener/Recent Self-Report) Question [...] Description 08/13/2025 11:30 AM EDT Office Visit [facility] Gastroenterology Clinic [address] [place] [address] Unknown, Unknown, Gloria Jordan, SPRING TACKER [address] [place] [address] [email or web address] 08/13/2025 5:30 PM EDT Appointment [facility], Bone Density - [facility] [address] [place] [address] Janine Gomez PA [address] [place] [phone] documented as of this encounter Visit Diagnoses Not on filedocumented in this encounter Additional Health Concerns Assessment Noted Time PHQ-2 Depression Total Score: 0 11/28/19 21 6:11 PM EST documented as of this encounter Care Teams Waistband Setter Relationship Specialty Start Date End Date Janine Gomez PA [address] [place] [address] PCP - General Physician Rod Mill Operator 01/14/24 documented as of this encounter Additional Source Comments The information contained in this document represents components of the legal health record. It is not the complete legal health record.[facility]
--- OUTSIDE RECORDS SUMMARY | 2025-07-31 06:17 | XMS_ITS | Encounter Summary ---
Author Organization [facility] Address [address] [place] [address] [place] [address] Phone Care Team Providers Care Supercharger Mechanic Name Role Phone Pcp, Unknown Primary Care Provider Janine Lema Primary Care Provider [phone] Encounter Details Date Type Department Care Team (Late st Contact Info) Description 07/12/2023 Procedure Pass [facility], Ct Scan - [address] [address] Social History Tobacco Use Types Packs/Day Years [...] End Date 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 phedema tuyere fitter Not on file Not on file Not on file 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 phedema tuyere fitter Not on file Not on file Not on file documented as of this encounter Functional Status * Calculated C-SSRS Risk Score (Lifetime/Recent) Answer Date of Assessment Author No Risk Indicated 07/12/2023 8:40 PM EDT Shira Gonzales RN * [place] Suicide Severity Rating Scale (Screener/Recent Self-Report) Question [...] Description 08/13/2025 11:30 AM EDT Office Visit [facility] Gastroenterology Clinic [address] [place] [address] Unknown, Unknown, Gloria Jordan, RETANNED LEATHER ROLLER [address] [place] [address] [email or web address] 08/13/2025 5:30 PM EDT Appointment [facility], Bone Density [facility] [address] [place] [address] Janine Gomez PA [address] [place] [phone] documented as of this encounter Visit Diagnoses Not on filedocumented in this encounter Additional Health Concerns Infection Onset Date Last Indicated Resolved Time CoV-Exposed Comment:Recent close contact documented in the Travel/Symptom Screening Form 07/12/2023 07/14/2023 1:22 AM E DT Assessment Noted Time PHQ-2 Depression Total Score: 0 11/28/19 21 6:11 PM EST documented as of this encounter Care Teams Supercharger Mechanic Relationship Specialty Start Date End Date Pcp, Unknown PCP - General 01/13/23 01/13/24 Janine Gomez PA [address] [place] [address] PCP - General Physician Automobile Or Truck Rental Dispatcher 01/14/24 documented as of this encounter Additional Source Comments The information contained in this document represents components of the legal health record. It is not the complete legal health record.[facility]
--- OUTSIDE RECORDS SUMMARY | 2025-07-31 06:17 | XMS_ITS | Encounter Summary ---
Author Organization [facility] Address [address] [place] [address] Phone Care Team Providers Care Patrol Conductor Name Role Phone Ruth Cade MD Unavailable [phone] Aimee Hung NP Unavailable [phone] Alayna Gagnon MD Primary Care Prov ider Janine Gomez Primary Care Provider [phone] Alayna Gagnon MD Primary Care Prov ider Pcp, Unknown Primary Care Provider UnavailLidia Mcmanus DO Primary Care Provider + [phone] Lidia Treadwell DO Unavailable [phone] Pcp, Unknown Primary Care Provider UnavailJanine Samuels Primary Care Provider + [phone] Encounter Details Date Type Department Care Team (Late st Contact Info) Description 02/27/2019 Procedure Pass [place] Admitting Dept - Virtual Department 30 [place], [place] [phone] Social History Tobacco Use Types Packs/Day Years [...] AM EDT Office Visit [facility] [address] [place] [address] Unknown, Unknown, Gloria Jordan, DELIVERY TRUCK DRIVER HEAVY [address] [address] [email or web address] 08/13/2025 5:30 PM EDT Appointment [facility], Bone Density - [address] [address] Janine Gomez PA [address] [place] [phone] documented as of this encounter Visit Diagnoses Not on filedocumented in this encounter Additional Health Concerns Infection Onset Date Last Indicated Resolved Time CoV-Exposed Comment:Recent close contact documented in the Travel/Symptom Screening Form 07/12/2023 07/14/2023 1:22 AM E DT CoV-Risk 05/18/2020 05/18/2020 06/01/2020 1:23 AM EDT documented as of this encounter Care Teams Patrol Conductor Relationship Specialty Start Date End Date Alayna Gagnon MD [address] [place] [phone] [email or web address] PCP - General Family Medicine 01/26/19 03/22/19 Janine Gomez PA [address] [place] [phone] PCP - General Gas Plant Dispatcher 03/23/19 07/03/19 Alayna Gagnon MD [address] [place] [phone] [email or web address] PCP - General Family Medicine 07/04/19 08/19/19 Pcp, Unknown PCP - General 08/20/19 09/03/19 Lidia Treadwell DO [address] [place] [address] [email or web address] PCP - General Family Medicine 09/04/19 02/20/21 Pcp, Unknown PCP - General 01/13/23 01/13/24 Janine Gomez PA [address] [place] [address] PCP - General Physician Interlocking Installer 01/14/24 Ruth Cade MD [address] [place] [address] Historical LMR Provider 08/02/17 Aimee Hung NP [address] [place] [phone] Historical LMR Provider 08/02/17 2 Lidia Treadwell DO [address] [place] [address] [email or web address] Insurance Assigned Provider 11/17/19 05/24/21 documented as of this encounter Additional Source Comments The information contained in this document represents components of the legal health record. It is not the complete legal health record.[facility]
--- OUTSIDE RECORDS SUMMARY | 2025-07-31 06:17 | XMS_ITS | Encounter Summary ---
Author Organization [facility] Address [address] [place] [address] [place] [address] Phone Care Team Providers Care Shredder/Granulator Operator Name Role Phone Pcp, Unknown Primary Care Provider Janine Lema Primary Care Provider [phone] Encounter Details Date Type Department Care Team (Late st Contact Info) Description 01/13/2023 Procedure Pass [facility], Ct Scan - [address] [address] Social History Tobacco Use Types Packs/Day Years [...] End Date 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 phedema die fitter Not on file Not on file Not on file 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 phedema die fitter Not on file Not on file Not on file documented as of this encounter Functional Status * Calculated C-SSRS Risk Score (Lifetime/Recent) Answer Date of Assessment Author No Risk Indicated 01/13/2023 5:44 PM EDT Ute Schuler RN * [place] Suicide Severity Rating Scale (Screener/Recent Self-Report) Question [...] Description 08/13/2025 11:30 AM EDT Office Visit [facility]astro[facility]ology Clinic [address] [place] [address] Unknown, Unknown, Gloria Jordan, OFFENSIVE COORDINATOR [address] [place] [address] [email or web address] 08/13/2025 5:30 PM EDT Appointment [facility], Bone [address] [address] Janine Gomez PA [address] [place] [address] [place] [address] documented as of this encounter Visit Diagnoses Not on filedocumented in this encounter Additional Health Concerns Infection Onset Date Last Indicated Resolved Time CoV-Exposed Comment:Recent close contact documented in the Travel/Symptom Screening Form 07/12/2023 07/14/2023 1:22 AM E DT Assessment Noted Time PHQ-2 Depression Total Score: 0 11/28/19 21 6:11 PM EST documented as of this encounter Care Teams Shredder/Granulator Operator Relationship Specialty Start Date End Date Pcp, Unknown PCP - General 01/13/23 01/13/24 Janine Gomez PA [address] [place] [address] PCP - General Physician State Appellate Clerk 01/14/24 documented as of this encounter Additional Source Comments The information contained in this document represents components of the legal health record. It is not the complete legal health record.[facility]
--- OUTSIDE RECORDS SUMMARY | 2025-07-31 06:17 | XMS_ITS | Encounter Summary ---
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 Not on file Not on file Not on file 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 phedema shipfitter helper Not on file Not on file Not on file documented as of this encounter Plan of Treatment Upcoming Encounters Date Type Department Care Team (Late st Contact Info) Description 08/13/2025 11:30 AM EDT Office Visit [facility] Gastro[facility]ology Clinic [address] [place] [address] Unknown, Unknown, Gloria Jordan, ELECTRICAL AND RADIO MOCK UP MECHANIC [address] [place] [address] [email or web address] 08/13/2025 5:30 PM EDT Appointment [facility], Bone Density - [address] [address] Janine Gomez PA [address] [place] [phone] Scheduled Orders Name Type Priority Associated Diagnoses Orde r Schedule DXA Screening Imaging Routine Asymptomatic menopausal state Expected: 04/19/2025, Expires: 03/20/2026 documented as of this encounter Visit Diagnoses Diagnosis Asymptomatic menopausal state- Primary documented in this encounter Additional Health Concerns Assessment Noted Time PHQ-2 Depression Total Score: 0 11/28/19 21 6:11 PM EST documented as of this encounter Care Teams Commercial Loan Officer Relationship Specialty Start Date End Date Janine Gomez PA [address] [place] [address] PCP - General Physician Joiner 01/14/24 documented as of this encounter Additional Source Comments The information contained in this document represents components of the legal health record. It is not the complete legal health record.[facility]
--- OUTSIDE RECORDS SUMMARY | 2025-07-31 06:17 | XMS_ITS | Encounter Summary ---
Author Organization [facility] Address [address] [place] [address] [place] [address] Phone Care Team Providers Care Group Exercise Instructor Name Role Phone Janine Gomez Primary Care Provider [phone]- [phone] Encounter Details Date Type Department Care Team (Late st Contact Info) Description 05/12/2024 Transcribe Orders Virtual Department 30 [place] [address] Kelly Greenberg, URIEL [address] [place], [place] [phone] [email or web address] Right shoulder pain, unspecified chronicity (Primary Dx) [...] 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 phedema pipe fitter helper Not on file Not on file Not on file 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 phedema pipe fitter helper Not on file Not on file Not on file documented as of this encounter Plan of Treatment Upcoming Encounters Date Type Department Care Team (Late st Contact Info) Description 08/13/2025 11:30 AM EDT Office Visit [facility]astro[facility]ology Clinic 10 [place] [address] Unknown, Unknown, Gloria Jordan, REDRYING MACHINE OPERATOR [address] [address] [email or web address] 08/13/2025 5:30 PM EDT Appointment [facility], Bone Density - [address] [address] Janine Gomez PA [address] [place] [address] [place] [address] documented as of this encounter Visit Diagnoses Diagnosis Right shoulder pain, unspecified chronicity- Primary documented in this encounter Additional Health Concerns Assessment Noted Time PHQ-2 Depression Total Score: 0 11/28/19 21 6:11 PM EST documented as of this encounter Care Teams Group Exercise Instructor Relationship Specialty Start Date End Date Janine Gomez PA [address] [place] [address] PCP - General Physician Document Specialist 01/14/24 documented as of this encounter Additional Source Comments The information contained in this document represents components of the legal health record. It is not the complete legal health record.[facility]
--- OUTSIDE RECORDS SUMMARY | 2025-07-31 06:17 | XMS_ITS | Clinical Summary ---
Author Organization [facility] Address [address] [place] [address] Phone Care Team Providers Care Slurry Worker Name Role Phone Janine Gomez Primary Care Provider [phone] Allergies Active Allergy Reactions Criticality Noted Date Comments Atorvastatin Myalgia Medium 01/18/2024 Chlorthalidone High 10/10/2024 Other Reaction(s): Not available Fenofibrate 10/10/2024 Other Reaction(s): cough Nitrofurantoin Rash Medium 12/28/2018 Hydrocodone Hcl Rash Medium 01/24/2019 Losartan 10/10/2024 Other Reaction(s): cough Raloxifene 10/10/2024 Other Reaction(s): Not available Dpdpwuq-Uov-Cyw Reductase Inhibitors Cough,Myalgia Medium 01/18/2024 Sulfa (Sulfonamide [...] Continue with low-dose insulin sign scale with iumdw-kk-udwr testing Assessment & Plan (02/08/2019 11:46 AM [...] End Date 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 phedema 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 Not on file Not on file Not on file 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 phedema 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 Not on file Not on file [...] Description 08/13/2025 11:30 AM EDT Office Visit [facility] [address] [place] [address] Unknown, Unknown, Gloria Jordan, WATER GAS OPERATOR [address] [address] [email or web address] 08/13/2025 5:30 PM EDT Appointment [facility], Bone Density - [address] [address] Janine Gomez PA [address] [place] [phone] Health Maintenance Due Date Last Done Comments [...] this topic Medical Devices Implanted Type Area Courtesy Car Driver Device Identifier Shelf Expiration Date Model / Serial / Lot Clip Clip Right: Breast Nodata NODATA Spine Cervical Description:Spine surgery Stent Ureteral 6fr 22 To 30cm Stretch Coated [employer]lemo - [id number] Implanted:Qty : 1 on 01/26/2019 by Bernard Guerrero MD at [facility] Explanted:12/2018 (Quantity not on file) Left: Ureter [employer] 09/14/2021 [id number] / / [id number] Stent Ureteral 6fr 22 To 30cm Stretch Coated Antelmo - [id number] Implanted:Qty : 1 on 02/27/2019 by Bernard Guerrero MD at [facility] Explanted:12/2018 (Quantity not on file) Left: Ureter [employer] 10/02/2021 [id number] 60 / / Description:Stent with strin gs [...] (08/28/2024 7:58 AM EST) HDL 47 mg/dL [facility] Comment: Interpretation <40 mg/dL: Low HDL cholesterol (major risk factor for CHD) Greater than or equal to 60 mg/dL: High HDL cholesterol ( negative risk factor for CHD) HDL - cholesterol is affected by a number of factors, e.g. smoking, excerise, hormones, sex and age. CHOLESTEROL 163 0 - 240 mg/dL [facility] TRIGLYCERIDES 185(H) 30 - 160 mg/dL [facility] LDL 79 50 - 129 mg/dL [facility] Comment: LDL levels in terms of risk for coronary heart disease: <100 mg/dL: Optimal 100-129 mg/dL: Near or above optimal 130-159 mg/dL: Borderline high 160-189 mg/dL: High >190 mg/dL: Very High CARDIAC RISK RATIO 3.5 3.3 - 4.4 C [facility] [place] 08/28/2024 7:58 AM EST 08/28/2024 8:11 AM EST us Angel Howard MD LAB BLOOD ORDERABLES Final Resu lt [address] [address] * Hepatitis C antibody, qualitative (05/10/2020 5:02 PM EDT) HCV NON-REACTIV E NON-REACTI VE [facility] [place] 05/10/2020 5:02 PM EDT 05/10/2020 5:10 PM EDT us Erlin Christianson MD LAB BLOOD ORDERABLES Final Result [address] [address] * (ABNORMAL) Hemoglobin A1c (05/10/2020 5:02 PM EDT) HEMOGLOBIN A1C 6.2(H) 4.3 - 5.8 % [facility] [place] 05/10/2020 5:02 PM EDT 05/10/2020 5:10 PM EDT us Erlin Christianson MD LAB BLOOD ORDERABLES Final Result Performing Organization Address City/[facility]/ZIP Co de Phone Number [address] [address] * HM MAMMOGRAPHY FOR RESULT ENTRY ONLY (11/08/2019) us Historical Provider HEALTH MAINTENANCE Edited Result - Final * ENDOSCOPY, COLON (10/19/2019 1:24 PM EST) Narrative Transcriptions Adam Hassan MD - 10/19/2019 1:24 PM EST Patient Name: Kelly Isaacs Attending MD:: ADAM HASSAN MD Procedure Date: 10/19/2019 1:24 PM Date of : 1960 Age: 59 Admit Type: Outpatient Gender: Female Room: [place] [address] Referring MD: Lidia Treadwell Exam Type: Colonoscopy [...] monitored continuously. The Olympus adult variable colonoscope [id number] #[id number] was introduced through the anus and [...] 1:24 PM Procedure Code(s): --- Professional --- 97594, Colonoscopy, flexible; with removal of tumor(s), polyp(s), or other lesion(s) by snare technique --- Technical --- 51794, Colonoscopy, flexible; with removal of tumor(s), polyp(s), [...] congenital malformations of intestine CPT copyright 2018 [employer]. All rights reserved. The codes documented in this report are preliminary and upon chief station engineer reviewmay be revised to meet current compliance requirements. [address] [place] [address] Lidia Treadwell DO GI PROCEDURE ORDERABLES Fi nal Result from Last 3 Months or Most Recently Relevant to Health Maintenance Insurance [employer] [place] MEDICARE HMO REPLACEMENT [employer] [place] [employer] [place] Advance Directives For more information, please contact: [phone] (9AM - 5PM [place], Wednesday-Wednesday) * Full [...] Code Status Confirmed With: PatientFamily Care Teams Slurry Worker Relationship Specialty Start Date End Date Janine Gomez PA [address] [place] [address] PCP - General Physician Patent Attorney 01/14/24 Additional Source Comments The information contained in this document represents components of the legal health record. It is not the complete legal health record.[facility]
--- OUTSIDE RECORDS SUMMARY | 2025-07-31 06:17 | XMS_ITS | Encounter Summary ---
Author Organization [facility] Address [address] [place] [address] Phone Care Team Providers Care Undraped Artist Model Name Role Phone Ruth Cade MD Unavailable [phone] Aimee Hung NP Unavailable [phone] Janine Gomez Primary Care Provider [phone] Alayna Gagnon MD Primary Care Prov ider Pcp, Unknown Primary Care Provider UnavailLidia Mcmanus DO Primary Care Provider [phone] Lidia Treadwell DO Unavailable [phone] Pcp, Unknown Primary Care Provider UnavailJanine Samuels Primary Care Provider [phone] Encounter Details Date Type Department Care Team (Latest Contact Info) Description 06/16/2019 Transcribe Orders Virtual Department [address] [place] [address] Bernard Guerrero MD [address] [facility], [address] [place] [address] 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 Not on file Not on file Not on file documented as of this encounter Plan of Treatment Upcoming Encounters Date Type Department Care Team (Late st Contact Info) Description 08/13/2025 11:30 AM EDT Office Visit [facility] [address] [place] [address] Unknown, Unknown, Gloria Jordan, INTERNET WEBMASTER [address] [place] [address] [email or web address] 08/13/2025 5:30 PM EDT Appointment [facility], Bone Density - [address] [address] Janine Gomez PA [address] [place] [address] documented as of this encounter Results * US Kidneys (07/04/2019 7:46 AM EDT) Anatomical Region Laterality Modality Abdomen, Kidney Ultrasound 07/04/2019 9:20 AM EDT Impressions 07/04/2019 9:31 AM EDT No ultrasound evidence of nephrolithiasis. POS - [id number] Narrative 07/04/2019 9:31 AM EDT EXAM: US [...] is within normal limits for size and rizxbmir14.9 cm in sagittal dimension. Parenchyma is within normal limits.Cortical thickness and echogenicity are within normal limits. Nohydronephrosis, focal lesions, or shadowing stones. IMPRESSION: No ultrasound evidence of nephrolithiasis. POS - [id number] Bernard Guerrero MD [facility] Final Result documented in this encounter Visit Diagnoses Diagnosis Calculus of kidney- Primary Calculus of kidney documented in this encounter Additional Health Concerns Infection Onset Date Last Indicated Resolved Time CoV-Exposed Comment:Recent close contact documented in the Travel/Symptom Screening Form 07/12/2023 07/14/2023 1:22 AM E DT CoV-Risk 05/18/2020 05/18/2020 06/01/2020 1:23 AM EDT documented as of this encounter Care Teams Undraped Artist Model Relationship Specialty Start Date End Date Janine Gomez PA [address] [place] [address] [place] [phone] PCP - General Propeller Engineer 03/23/19 07/03/19 Alayna aGgnon MD [address] [place] [address] [place] [address] [email or web address] PCP - General Family Medicine 07/04/19 08/19/19 Pcp, Unknown PCP - General 08/20/19 09/03/19 Lidia Treadwell DO [address] [place] [address] [email or web address] [email or web address] PCP - General Family Medicine 09/04/19 02/20/21 Pcp, Unknown PCP - General 01/13/23 01/13/24 Janine Gomez PA [address] [place] [address] PCP - General Physician Vp Digital Marketing Social Media And Crm 01/14/24 Ruth Cade MD [address] [place] [address] Historical LMR Provider 08/02/17 Aimee Hung NP [address] [place] [phone] Historical LMR Provider 08/02/17 2 Lidia Treadwell DO [address] [place] [address] [email or web address] Insurance Assigned Provider 11/17/19 05/24/21 documented as of this encounter Additional Source Comments The information contained in this document represents components of the legal health record. It is not the complete legal health record.[facility]
--- OUTSIDE RECORDS SUMMARY | 2025-07-31 06:17 | XMS_ITS | Encounter Summary ---
Author Organization [facility] Address [address] [place] [address] Phone Care Team Providers Care Venue Attendant Name Role Phone Ruth Cade MD Unavailable [phone] Aimee Hung NP Unavailable [phone] Alayna Gagnon MD Primary Care Prov ider Janine Gomez Primary Care Provider [phone] Alayna Gagnon MD Primary Care Prov ider Pcp, Unknown Primary Care Provider UnavailLidia Mcmanus DO Primary Care Provider Lidia Treadwell DO Unavailable [phone] Pcp, Unknown Primary Care Provider UnavailJanine Samuels Primary Care Provider Encounter Details Date Type Department Care Team (Latest Contact Info) Description 03/16/2019 Transcribe Orders Virtual Department [address] [place] [address] Bernard Guerrero MD [facility], [address] [place] [address] [email or web address] Calculus of kidney (Primary Dx) Social History [...] [facility] 10 [place] [address] Unknown, Unknown, Gloria Jordan, BARBER TOOL SHARPENER [address] [address] [email or web address] 08/13/2025 5:30 PM EDT Appointment [facility], Bone Density [address] [address] Janine Gomez PA [address] [place] [address] [place] [address] documented as of this encounter Visit Diagnoses Diagnosis Calculus of kidney- Primary documented in this encounter Additional Health Concerns Infection Onset Date Last Indicated Resolved Time CoV-Exposed Comment:Recent close contact documented in the Travel/Symptom Screening Form 07/12/2023 07/14/2023 1:22 AM E DT CoV-Risk 05/18/2020 05/18/2020 06/01/2020 1:23 AM EDT documented as of this encounter Care Teams Venue Attendant Relationship Specialty Start Date End Date Alayna Gagnon MD [address] [place] [phone] [email or web address] PCP - General Family Medicine 01/26/19 03/22/19 Janine Gomez PA [address] [place] [address] [place] [address] PCP - General Product Support Representative 03/23/19 07/03/19 Alayna Gagnon MD [address] [place] [phone] [email or web address] PCP - General Family Medicine 07/04/19 08/19/19 Pcp, Unknown PCP - General 08/20/19 09/03/19 Lidia Treadwell DO [address] [place] [address] [email or web address] PCP - General Family Medicine 09/04/19 02/20/21 Pcp, Unknown PCP - General 01/13/23 01/13/24 Janine Gomez PA [address] [place] [address] PCP - General Physician Pattern Gater 01/14/24 Ruth Cade MD [address] [place] [address] Historical LMR Provider 08/02/17 Aimee Hung NP [address] [place] [phone] Historical LMR Provider 08/02/17 2 Lidia Treadwell DO [address] [place] [address] [email or web address] Assigned Provider 11/17/19 05/24/21 documented as of this encounter Additional Source Comments The information contained in this document represents components of the legal health record. It is not the complete legal health record.[facility]
--- OUTSIDE RECORDS SUMMARY | 2025-07-31 06:17 | XMS_ITS | Encounter Summary ---
Author Organization [facility] Address [address] [place] [address] Phone Care Team Providers Care Fish Cleaner Name Role Phone Pcp, Unknown Primary Care Provider Janine Lema Primary Care Provider [phone] Reason for Referral * MRI/CAT Scan - Closed Specialty Diagnoses / Procedures Referred By Luci tapia Referred To Contact Radiology Diagnoses Localized swelling, mass and lump, unspecified Procedures MRI Foot (Left) CHG MRI, LOWER EXTR, W/O CONTRAST F/U BY CONTRAST Carlos Rose DPM [address] [place] [address] Phone: tel: fax: [email or web address] Referral ID Status Reason Start Date Expiration Date Visits Re quested Visits Authorized [id number] Closed 12/08/2023 02/06/2024 1 1 Encounter Details Date Type Department Care Team (Latest Contact Info) Description 12/08/2023 Transcribe Orders Virtual Department [address] [place] [address] Carlos Rose DPM [address] [place] [address] [email or web address] Localized swelling, mass and lump, unspecified (Primary [...] 08/13/2025 11:30 AM EDT Office Visit [facility] 10 [place] [address] Unknown, Unknown, Gloria Jordan, SUPPLY CHAIN ENGINEER [address] [address] [email or web address] 08/13/2025 5:30 PM EDT Appointment [facility], Bone Density - [address] [address] Janine Gomez PA [address] [place] [address] documented as of this encounter Results * [...] documented as of this encounter Care Teams Fish Cleaner Relationship Specialty Start Date End Date Pcp, Unknown PCP - General 01/13/23 01/13/24 Janine Gomez PA [address] [place] [address] PCP - General Physician Lead Vulcanizing Operator 01/14/24 documented as of this encounter Additional Source Comments The information contained in this document represents components of the legal health record. It is not the complete legal health record.[facility]
== END 2025-07-31 06:15 | disposition home or self-care (01) ==
LOC: CF 06:14
PROVIDERS: Visit Provider Anesthesiology
DX: M16.12 Unilateral primary osteoarthritis, left hip (principal)
CPT/HCPCS: 20610; J2003; J2795; J3301; Q9967

== ENCOUNTER 2025-07-31 08:39 | Outpatient (AMB) | payer OTHER, SELFPAY ==
[2025-07-31 08:46] VITALS: BP 132/54; PULSE 75; RESP 16; O2SAT 97
--- NOTE | 2025-07-31 08:46 | A.OFFVIS_ITS ---
Vital Signs 07/31/25 08:46 07/31/25 09:24 Height 52 ft Weight 178 lb BMI 0.3 BP 132/54 L 139/58 L Blood Pressure Location Lt brachial Lt brachial Position Sitting Sitting Respiration 16 16 Pulse 75 78 Pulse Source Pulse Oximeter Pulse Oximeter Pulse Oximetry (%) 97 97 Oxygen Delivery Method Room Air Room Air Intake Visit Reasons: Left hip intra-articular steroid injection Allergies hydrocodone Allergy (Verified 07/09/25 10:00) Rash Sulfa (Sulfonamide Antibiotics) Allergy (Verified 07/09/25 10:00) Rash Mdwnbdf-MOK-GlB Reductase Inhibitor Adverse Reaction (Verified 07/09/25 10:00) Muscle Pain tamoxifen Adverse Reaction (Verified 07/09/25 10:00) hot flashes 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 Informed consent was explained to the patient. All questions were explained and? answered. ? The patient was taken inside the operating room where she was positioned left lateral decubitus on the operating table.? Time-out was performed delineating correct site, side, the nature of the procedure, patient's allergy, preoperative antibiotic if needed.? All operating room staff was participating in OR time-out procedure.? The patient stated his name. Non dependent left hip was prepped with ChloraPrep and draped with sterile towels.? The C-arm was brought over the operating field and the picture of bilateral hip joints were obtained on the screen.? The smaller image of the left hip joint was chosen as the target for the injection.? The trochanter position was noted on the screen.? The projection of the trochanter to the skin was noted, the direction of the femoral neck was noted.? The skin was anesthetized using 2% lidocaine at the trochanter area.? 22 gauge 5 inch needle was inserted through the skin and advanced to the hip joint silhouette on under intermittent lateral and anterior posterior views.? When the needle entered silhouette of the joint injection of the contrast was performed demonstrating arthrogram. After that the injection of the contrast was performed demonstrating intra- articular spread of the contrast.? After that 6 cc of ropivacaine 0.5% mixed with Kenalog 40 mg was injected into the joint.? The needle was removed sterile dressing was applied. The patient tolerated procedure well. Orders: Orders FL guidance in treatment room Today M16.12 - Unilateral primary osteoarthritis, left hip Coding Level of Care Code Procedure Only Diagnoses Osteoarthritis of left hip M16.12 Left hip pain M25.552
[2025-07-31 09:24] VITALS: BP 139/58; PULSE 78; RESP 16; O2SAT 97
== END 2025-07-31 09:23 | disposition home or self-care (01) ==
LOC: HO.PMCPRC 08:39
PROVIDERS: PCP Physician Assistant Medical; Visit Provider Anesthesiology
DX: M16.12 Unilateral primary osteoarthritis, left hip (principal); M25.552 Pain in left hip
CPT/HCPCS: 20610; 77002

== ENCOUNTER 2025-08-01 23:04 | Emergency (ER) | payer OTHER, SELFPAY ==
--- OUTSIDE RECORDS SUMMARY | 2020-06-27 13:41 | XMS_ITS | Encounter Summary ---
Author Organization [facility] Address [address] [place] [address] [place] [address] Phone Care Team Providers Care Child Welfare Specialist Name Role Phone Ruth Cade MD Unavailable [phone] Amiee Hung NP Unavailable [phone] Lidia Treadwell DO Primary Care Provider [phone] Lidia Treadwell DO Unavailable Encounter Details Date Type Department Care Team (Late st Contact Info) Description 06/27/2020 1:41 PM EDT Hospital Encounter [facility] Urgent Care [address] [place] [address] Esha Anne CNP [address] [place] [address] [phone] Social History Tobacco Use Types Packs/Day Years [...] End Date 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 Not on file Not on file 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 Not on file Not on file documented as of this encounter Functional Status * Calculated C-SSRS Risk Score (Lifetime/Recent) Answer Date of Assessment Author No Risk Indicated 10/10/2024 6:08 PM Ute Chacon RN * [place] Suicide Severity Rating Scale (Screener/Recent Self-Report) Question [...] [facility] G[facility]ology Clinic 10 [facility] [place] [address] Unknown, Unknown, Gloria Jordan, DIRECT CUSTOMER SERVICE REPRESENTATIVE 10 [facility] 2 [place] [address] [email or web address] 08/13/2025 5:30 PM EDT Appointment [facility], Bone Density - [facility] 30 [place] [address] Janine Gomez PA [address] [place] [phone] documented as of this encounter Procedures Procedure [...] hemipelvis appear to reflect phleboliths POS - [id number] Narrative 06/27/2020 2:10 PM EDT COMPARISON: 08/20/2019 [...] left hemipelvis appear to reflectphleboliths POS - [id number] Esha Anne DIRECT CUSTOMER SERVICE REPRESENTATIVE IMG XR ABDOMEN Final Resul t documented [...] documented as of this encounter Care Teams Child Welfare Specialist Relationship Specialty Start Date End Date Lidia Treadwell DO [address] [place] [address] [email or web address] PCP - General Family Medicine 09/04/19 02/20/21 Ruth Cade MD [address] [place] [address] Historical LMR Provider 08/02/17 Aimee Hung NP [address] [place] [phone] Historical LMR Provider 08/02/17 2 Lidia Treadwell DO [address] [place] [address] [email or web address] Insurance Assigned Provider 11/17/19 05/24/21 documented as of this encounter Additional Source Comments The information contained in this document represents components of the legal health record. It is not the complete legal health record.[facility]
[2025-08-01 23:14] VITALS: BP 128/60; PULSE 78; RESP 16; TEMP 36.2; O2SAT 95; BMI 32.3
[2025-08-02 00:06] LABS: MANUAL DIFF FLAG NO
[2025-08-02 00:08] LABS: Hematocrit 45.5 % (37.0-47.0); Hemoglobin 14.4 g/dl (12.0-16.0); Imm Gran Abs Auto 0.09 X10*3/uL (0.00-0.03); Imm Gran Pct Auto 0.5 % (0.0-0.4); Lymphocytes Absolute Auto 2.5 X10*3/uL (1.2-4.9); Mean Corpuscular HGB Conc 31.6 g/dl (31.0-35.0); Mean Corpuscular Hemoglobin 30.4 pg (27.0-33.0); Mean Corpuscular Volume 96.0 fL (80.0-98.0); NRBC Abs Auto 0.000 X10*3/uL (0.0-0.012); NRBC Pct Auto 0.0 /100WBC (0.0-0.2); Platelet Count 340 X10*3/uL (160-400); Red Blood Count 4.74 X10*6/uL (4.20-5.50); White Blood Count 18.0 X10*3/uL (4.8-10.8)
--- NOTE | 2025-08-02 01:23 | ED.GENADULT ---
HPI - General Adult General Chief complaint: General Medical Stated complaint: not feeling well after cortisone shot to the hip Time Seen by Provider: 08/02/25 01:23 Source: patient Mode of arrival: ambulatory Limitations: no limitations History of Present Illness ED Provider: HPI narrative: 65-year-old woman presenting with generalized malaise after receiving a steroid shot to her left hip at 09:00 in the morning, she states that she was concerned that her sugar was elevated, blood pressure elevated, she has a headache and felt like she is dizzy she takes Trulicity, denies chest pain fevers or chills no cough no nausea no vomiting. No rashes reported. Related Data Home Medications ?Medication ?Instructions ?Recorded ?Confirmed alirocumab 75 mg/mL subcutaneous mg subcut 01/11/25 02/27/25 pen injector (Praluent Pen) clopidogrel 75 mg tablet mg PO DAILY 01/11/25 02/27/25 dulaglutide 0.75 mg/0.5 mL mg subcut 01/11/25 02/27/25 subcutaneous pen injector (Trulicity) metoprolol tartrate 25 mg tablet mg PO 01/11/25 02/27/25 metoprolol tartrate 50 mg tablet mg PO 01/11/25 02/27/25 Previous Rx's ?Medication ?Instructions ?Recorded sacroiliac belt #1 ea 01/12/25 lorazepam 1 mg tablet (Ativan) 1 mg PO ONCE anxiety #1 tab 02/22/25 naloxone 4 mg/actuation nasal 4 mg intranasal Q2M PRN opioid 03/27/25 spray (Narcan) overdose #2 ea tramadol 50 mg tablet 50 mg PO BID PRN pain (scale score 03/27/25 7-10) 15 days #30 tabs lorazepam 1 mg tablet (Ativan) 1 mg PO ONCE anxiety #1 tab 05/03/25 lidocaine 5 % topical patch 1 patch topical .COMPLEX pain #30 05/15/25 ea ciprofloxacin HCl 500 mg tablet 500 mg PO ONCE #3 tabs 05/28/25 Allergies Allergy/AdvReac Type Severity Reaction Status Date / Time hydrocodone Allergy Rash Verified 08/01/25 23:19 Sulfa (Sulfonamide Allergy Rash Verified 08/01/25 23:19 Antibiotics) Urbxfyy-DAZ-DeQ Reductase AdvReac Muscle Pain Verified 08/01/25 23:19 Inhibitor tamoxifen AdvReac hot flashes Verified 08/01/25 23:19 Review of Systems Constitutional: Constitutional: Reports as per [facility] Past Medical History Medical History Pancreatitis Diabetes Kidney stones HTN (hypertension) CVA (cerebral vascular accident) Surgical History Fusion of spine, cervical region History of hysterectomy History of splenectomy Hx of appendectomy Social History Social History Patient Tobacco Use Status: Former Tobacco user Tobacco use type: Cigarette Advance Directives: No Advance Directives Information Provided: Yes Do you have a plan to hurt others: No Plan Current occupational status: employed Current occupation: [employer], rt handed Physical Exam ED Vital Signs: Vital Signs - 24 hr 08/01/25 23:14 Temperature 97.2 F Pulse Rate 78 Respiratory Rate 16 Blood Pressure 128/60 Pulse Oximetry 95 Oxygen Delivery Method Room Air BMI result Body Mass Index 32.3 Const Other: General: ?Appears of stated age ? ?CV: RRR, no obvious murmurs appreciated ? ?Resp: ?No wheezing rales rhonchi no stridor moving air well ? Abd: ?Bowel sounds are present, no tenderness no rebound no rigidity ? ?MSK: FROM, strength 5/5 all extremities ? Skin: Warm, dry, intact, ? ?Neuro: ?Alert and oriented x3, moving upper and lower extremities symmetrically, no obvious facial asymmetry noted, cranial nerves 2-12 intact, no dysmetria upper extremities, no nystagmus horizontal vertical or rotary Medications Administered Discontinued Medications Generic Name Dose Route Start Last Admin Trade Name Freq PRN Reason Stop Dose Admin Diazepam 2 mg 08/02/25 01:43 08/02/25 02:03 Diazepam 2 Mg Tablet PO 08/02/25 01:44 2 mg ONCE ONE Administration Medical Decision Making Medical Decision Making MDM Narrative: 1:39 AM 08/02/2025 (Dr. Chiki Corcoran): Overall well-appearing patient, was feeling well until the cortisone shot to left hip and then had an expected reaction which would be somewhat elevated blood pressure without hypotensive emergency, and slightly elevated glucose, she is taking Trulicity, she does have leukocytosis which is a side effect of the steroid due to white cell do emergently elevation, and she has had no other symptoms of other respiratory abdominal or skin to suspect underlying infectious etiology Differential Diagnosis Differential Diagnoses: The differential diagnosis associated with the presentation includes (Vertigo, dehydration, ACS, electrolyte derangements, steroid side effect, DKA) Admission/Observation Consideration of admission/observation: Escalation of care including admission/observation considered Lab Data MDM Lab Attestation statement: I reviewed the patient's lab results. 08/01/25 23:57 08/01/25 23:57 Labs: Lab Results 08/01/25 Range/Units 23:57 WBC 18.0 H (4.8-10.8) X10*3/uL RBC 4.74 (4.20-5.50) X10*6/uL Hgb 14.4 (12.0-16.0) g/dl Hct 45.5 (37.0-47.0) % MCV 96.0 (80.0-98.0) fL MCH 30.4 (27.0-33.0) pg MCHC 31.6 (31.0-35.0) g/dl RDW 13.2 (11.0-16.0) % Plt Count 340 (160-400) X10*3/uL MPV 10.4 (9.4-12.3) fL Immature Gran % (Auto) 0.5 H (0.0-0.4) % Neut % (Auto) 79.3 H (45-73) % Lymph % (Auto) 13.7 L (20-40) % [place] % (Auto) 6.1 (2-11) % Eos % (Auto) 0.1 (0-4) % Baso % (Auto) 0.3 (0-2) % Lymph # (Auto) 2.5 (1.2-4.9) X10*3/uL [place] # (Auto) 1.1 (0.1-1.2) X10*3/uL Eos # (Auto) 0.0 (0.0-0.4) X10*3/uL Baso # (Auto) 0.1 (0.0-0.2) X10*3/uL Abs Immat Gran (auto) 0.09 H (0.00-0.03) X10*3/uL Absolute Neuts (auto) 14.3 H (2.0-8.3) x10*3/uL Absolute Nucleated RBC 0.000 (0.0-0.012) X10*3/uL Nucleated RBC % (auto) 0.0 (0.0-0.2) /100WBC Independent Interpretation I performed an independent interpretation of an: EKG (78 bpm, otherwise normal ECG without dysrhythmia, AV celena blocks or ST-T changes to suspect underlying ACS, my independent interpretation) Discharge Plan Discharge Clinical Impression: Medication reaction Qualifiers: Encounter type: initial encounter Qualified Code(s): T50.905A - Adverse effect of unspecified drugs, medicaments and biological substances, initial encounter Patient Disposition: Home, Self-Care Additional Instructions: It is not uncommon for people to experience what your experiencing with a steroids, whether taken orally or due to injection, my experiences that the symptoms we will chanel in the next 24-48 hours, steroids can affect your blood pressure control, your glucose control, typically again that is short lived, even without treatment blood pressure it 11:00 was 128/60, I would not worry too much about your blood pressure just continue taking all your medications that your prescribed regular basis, continue Trulicity, and try to get rest which may also be difficult as steroids ramp up our sympathetic system and can cause sleeplessness, nervousness, anxiety Your EKG and blood work otherwise reassuring, you do have elevated white count which is again 1 of the expected findings with steroid, should you have any other issues or concerns come back to the ER otherwise follow up with the PCP. I did provide you with a 2 mg of Valium in the emergency department to help you with these symptoms and I am hoping that it will help you sleep today Prescriptions: No Action lorazepam [Ativan] 1 mg tablet 1 mg PO ONCE Qty: 1 0RF Rx Instructions: Take 30 minutes prior to arrival to procedure (DME) sacroiliac belt Kit See Rx Instructions .Route Qty: 1 0RF Rx Instructions: As directed lorazepam [Ativan] 1 mg tablet 1 mg PO ONCE Qty: 1 0RF Rx Instructions: Take 30 minutes prior to arrival to procedure metoprolol tartrate 50 mg tablet PO metoprolol tartrate 25 mg tablet PO Trulicity 0.75 mg/0.5 mL pen injector subcut clopidogrel 75 mg tablet PO DAILY Praluent Pen 75 mg/mL pen injector subcut tramadol 50 mg tablet 50 mg PO BID PRN (Reason: pain (scale score 7-10)) 15 Days Qty: 30 0RF naloxone [Narcan] 4 mg/actuation spray,non-aerosol 4 mg intranasal Q2M PRN (Reason: opioid overdose) Qty: 2 0RF Rx Instructions: spray 1 dose into ONE nostril; alternate nostrils w each dose until help arrives lidocaine 5 % adhesive patch,medicated 1 patch topical .COMPLEX Qty: 30 1RF Rx Instructions: 1 patch topically 1 patch daily q 12 hours; leave on most painful area for up to 12 hrs ciprofloxacin HCl 500 mg tablet 500 mg PO ONCE Qty: 3 0RF Print Language: Omani
--- NOTE | 2025-08-02 01:31 | ECG_ITS ---
Test Reason : dizziness Blood Pressure : */* mmHG Vent. Rate : 78 BPM Atrial Rate : 78 BPM P-R Int : 166 ms QRS Dur : 74 ms QT Int : 378 ms P-R-T Axes : 44 19 29 degrees QTcB Int : 430 ms Normal sinus rhythm with sinus arrhythmia Normal ECG No previous ECGs available Referred By: Chiki Corcoran Electronically Signed By: Esteban Gaitan
--- OUTSIDE RECORDS SUMMARY | 2025-08-02 01:47 | XMS_ITS | Encounter Summary ---
Author Organization [facility] Address [address] [place] [address] [place] [address] Phone Care Team Providers Care Senior Web Engineer Name Role Phone Ruth Cade MD Unavailable [phone] Aimee Hung NP Unavailable [phone] Lidia Treadwell DO Primary Care Provider [phone] Lidia Treadwell DO Unavailable [phone] Pcp, Unknown Primary Care Provider UnavailJanine Samuels Primary Care Provider [phone] Encounter Details Date Type Department Care Team (Late st Contact Info) Description 10/19/2019 Procedure Pass [facility]oscopy Admitting Dept Virtual Department [address] [place] [address] Social History Tobacco Use Types Packs/Day Years [...] End Date 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 phedema damper fitter Not on file Not on file Not on file 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 phedema damper fitter Not on file Not on file Not on file documented as of this encounter Plan of Treatment Upcoming Encounters Date Type Department Care Team (Late st Contact Info) Description 08/13/2025 11:30 AM EDT Office Visit [facility] [address] [place] [address] Unknown, Unknown, Gloria Jordan, FASHION MODEL [address] [address] [email or web address] 08/13/2025 5:30 PM EDT Appointment [facility], Bone [address] [address] Janine Gomez PA [address] [place] [phone] documented as of this encounter Visit Diagnoses [...] documented as of this encounter Care Teams Senior Web Engineer Relationship Specialty Start Date End Date Lidia Treadwell DO [address] [place] [address] [email or web address] PCP - General Family Medicine 09/04/19 02/20/21 Pcp, Unknown PCP - General 01/13/23 01/13/24 Janine Gomez PA [address] [place] [address] PCP - General Physician Corporate Compliance Director 01/14/24 Ruth Cade MD [address] [place] [address] Historical LMR Provider 08/02/17 Aimee Hung NP [address] [place] [phone] Historical LMR Provider 08/02/17 2 Lidia Treadwell DO [address] [place] [address] [email or web address] Insurance Assigned Provider 11/17/19 05/24/21 documented as of this encounter Additional Source Comments The information contained in this document represents components of the legal health record. It is not the complete legal health record.[facility]
--- OUTSIDE RECORDS SUMMARY | 2025-08-02 01:47 | XMS_ITS | Encounter Summary ---
Author Organization [facility] Address [address] [place] [address] [place] [address] Phone Care Team Providers Care Intermodal Customer Service Name Role Phone Pcp, Unknown Primary Care Provider Janine Lema Primary Care Provider [phone] Encounter Details Date Type Department Care Team (Late st Contact Info) Description 01/13/2023 Procedure Pass [facility], Ct Scan - [address] [address] Social History Tobacco Use Types Packs/Day Years [...] 5:44 PM EDT Ute Schuler RN * [place] Suicide Severity Rating Scale (Screener/Recent Self-Report) Question [...] Description 08/13/2025 11:30 AM EDT Office Visit [facility] [address] [place] [address] Unknown, Unknown, Gloria Jordan, BOOK OR SCRIPT EDITOR [address] [place] [address] [email or web address] 08/13/2025 5:30 PM EDT Appointment [facility], Bone [address] [address] Janine Gomez PA [address] [place] [address] [place] [address] documented as of this encounter Visit Diagnoses Not on filedocumented in this encounter Additional Health Concerns Infection Onset Date Last Indicated Resolved Time CoV-Exposed Comment:Recent close contact documented in the Travel/Symptom Screening Form 07/12/2023 07/14/2023 1:22 AM E DT Assessment Noted Time PHQ-2 Depression Total Score: 0 11/28/19 21 6:11 PM EST documented as of this encounter Care Teams Intermodal Customer Service Relationship Specialty Start Date End Date Pcp, Unknown PCP - General 01/13/23 01/13/24 Janine Gomez PA [address] [place] [address] PCP - General Physician Breaker Unit Assembler 01/14/24 documented as of this encounter Additional Source Comments The information contained in this document represents components of the legal health record. It is not the complete legal health record.[facility]
--- OUTSIDE RECORDS SUMMARY | 2025-08-02 01:47 | XMS_ITS | Encounter Summary ---
Author Organization [facility] Address [address] [place] [address] Phone Care Team Providers Care Auto Polisher Name Role Phone Ruth Cade MD Unavailable [phone] Aimee Hung NP Unavailable [phone] Alayna Gagnon MD Primary Care Prov ider Janine Gomez Primary Care Provider [phone] Alayna Gagnon MD Primary Care Prov ider Pcp, Unknown Primary Care Provider UnavailLidia Mcmanus DO Primary Care Provider + [phone] Lidia Treadwell DO Unavailable [phone] Pcp, Unknown Primary Care Provider UnavailJanine Samuels Primary Care Provider + [phone] Encounter Details Date Type Department Care Team (Late st Contact Info) Description 01/26/2019 Procedure Pass [place] Admitting Dept - Virtual Department [address] [place], [place] [id number] Social History Tobacco Use Types Packs/Day Years [...] Visit [facility] [address] [place] [address] Unknown, Unknown, Gloria Jordan, ORTHO TECH [address] [address] [email or web address] 08/13/2025 5:30 PM EDT Appointment [facility], Bone Density - [address] [address] Janine Gomez PA [address] [place] [phone] documented as of this encounter Visit Diagnoses Not on filedocumented in this encounter Additional Health Concerns Infection Onset Date Last Indicated Resolved Time CoV-Exposed Comment:Recent close contact documented in the Travel/Symptom Screening Form 07/12/2023 07/14/2023 1:22 AM E DT CoV-Risk 05/18/2020 05/18/2020 06/01/2020 1:23 AM EDT documented as of this encounter Care Teams Auto Polisher Relationship Specialty Start Date End Date Alayna Gagnon MD [address] [place] [phone] [email or web address] PCP - General Family Medicine 01/26/19 03/22/19 Janine Gomez PA [address] [place] [phone] PCP - General Finance Controller 03/23/19 07/03/19 Alayna Gagnon MD [address] [place] [phone] [email or web address] PCP - General Family Medicine 07/04/19 08/19/19 Pcp, Unknown PCP - General 08/20/19 09/03/19 Lidia Treadwell DO [address] [place] [address] [email or web address] PCP - General Family Medicine 09/04/19 02/20/21 Pcp, Unknown PCP - General 01/13/23 01/13/24 Janine Gomez PA [address] [place] [address] PCP - General Physician Retina Subspecialist 01/14/24 Ruth Cade MD [address] [place] [address] Historical LMR Provider 08/02/17 Aimee Hung NP [address] [place] [phone] Historical LMR Provider 08/02/17 2 Lidia Treadwell DO [address] [place] [address] [email or web address] Insurance Assigned Provider 11/17/19 05/24/21 documented as of this encounter Additional Source Comments The information contained in this document represents components of the legal health record. It is not the complete legal health record.[facility]
--- OUTSIDE RECORDS SUMMARY | 2025-08-02 01:47 | XMS_ITS | Encounter Summary ---
Author Organization [facility] Address [address] [place] [address] [place] [address] Phone Care Team Providers Care Foam Gun Operator Name Role Phone Ruth Cade MD Unavailable [phone] Aimee Hung NP Unavailable [phone] Alayna Gagnon MD Primary Care Prov ider Janine Gomez Primary Care Provider [phone] Alayna Gagnon MD Primary Care Prov ider Pcp, Unknown Primary Care Provider UnavailLidia Mcmanus DO Primary Care Provider + [phone] Lidia Treadwell DO Unavailable [phone] Pcp, Unknown Primary Care Provider UnavailJanine Samuels Primary Care Provider + [phone] Encounter Details Date Type Department Care Team (Late st Contact Info) Description 02/09/2019 Procedure Pass [facility], [address] [address] Social History Tobacco Use Types Packs/Day Years [...] 08/13/2025 11:30 AM EDT Office Visit [facility] [address] [place] [address] Unknown, Unknown, Gloria Jordan, MECHANICAL DETAILER [address] [place] [address] [email or web address] 08/13/2025 5:30 PM EDT Appointment [facility], Bone [address] [address] Janine Gomez PA [address] [place] [address] documented as of this encounter Visit Diagnoses Not on filedocumented in this encounter Additional Health Concerns Infection Onset Date Last Indicated Resolved Time CoV-Exposed Comment:Recent close contact documented in the Travel/Symptom Screening Form 07/12/2023 07/14/2023 1:22 AM E DT CoV-Risk 05/18/2020 05/18/2020 06/01/2020 1:23 AM EDT documented as of this encounter Care Teams Foam Gun Operator Relationship Specialty Start Date End Date Alayna Gagnon MD [address] [place] [phone] [email or web address] PCP - General Family Medicine 01/26/19 03/22/19 Janine Gomez PA [address] [place] [address] [place] [address] PCP - General Processing Specialist 03/23/19 07/03/19 Alayna Gagnon MD [address] [place] [phone] [email or web address] PCP - General Family Medicine 07/04/19 08/19/19 Pcp, Unknown PCP - General 08/20/19 09/03/19 Lidia Treadwell DO [address] [place] [address] [email or web address] PCP - General Family Medicine 09/04/19 02/20/21 Pcp, Unknown PCP - General 01/13/23 01/13/24 Janine Gomez PA [address] [place] [address] PCP - General Physician Red Cap 01/14/24 Ruth Cade MD [address] [place] [address] Historical LMR Provider 08/02/17 Aimee Hung NP [address] [place] [phone] Historical LMR Provider 08/02/17 2 Lidia Treadwell DO [address] [place] [address] [email or web address] Insurance Assigned Provider 11/17/19 05/24/21 documented as of this encounter Additional Source Comments The information contained in this document represents components of the legal health record. It is not the complete legal health record.[facility]
--- OUTSIDE RECORDS SUMMARY | 2025-08-02 01:47 | XMS_ITS | Encounter Summary ---
Author Organization [facility] Address [address] [place] [address] Phone Care Team Providers Care Motor Rebuilder Name Role Phone Ruth Cade MD Unavailable [phone] Aimee Hung NP Unavailable [phone] Alayna Gagnon MD Primary Care Prov ider Janine Gomez Primary Care Provider [phone] Alayna Gagnon MD Primary Care Prov ider Pcp, Unknown Primary Care Provider UnavailLidia Mcmanus DO Primary Care Provider + [phone] Lidia Treadwell DO Unavailable [phone] Pcp, Unknown Primary Care Provider UnavailJanine Samuels Primary Care Provider + [phone] Encounter Details Date Type Department Care Team (Late st Contact Info) Description 02/27/2019 Procedure Pass [place] Admitting Dept - Virtual Department [address] [place], [place] [phone] Social History Tobacco Use Types Packs/Day Years [...] Description 08/13/2025 11:30 AM EDT Office Visit [facility] [address] [place] [address] Unknown, Unknown, Gloria Jordan, CHARGE AIDE [address] [address] [email or web address] 08/13/2025 5:30 PM EDT Appointment [facility], Bone Density - [address] [address] Janine Gomez PA [address] [place] [phone] documented as of this encounter Visit Diagnoses Not on filedocumented in this encounter Additional Health Concerns Infection Onset Date Last Indicated Resolved Time CoV-Exposed Comment:Recent close contact documented in the Travel/Symptom Screening Form 07/12/2023 07/14/2023 1:22 AM E DT CoV-Risk 05/18/2020 05/18/2020 06/01/2020 1:23 AM EDT documented as of this encounter Care Teams Motor Rebuilder Relationship Specialty Start Date End Date Alayna Gagnon MD [address] [place] [phone] [email or web address] PCP - General Family Medicine 01/26/19 03/22/19 Janine Gomez PA [address] [place] [phone] PCP - General Disc Inspector 03/23/19 07/03/19 Alayna Gagnon MD [address] [place] [phone] [email or web address] PCP - General Family Medicine 07/04/19 08/19/19 Pcp, Unknown PCP - General 08/20/19 09/03/19 Lidia Treadwell DO [address] [place] [address] [email or web address] PCP - General Family Medicine 09/04/19 02/20/21 Pcp, Unknown PCP - General 01/13/23 01/13/24 Janine Gomez PA [address] [place] [address] PCP - General Physician Field Supervisor Seed Production 01/14/24 Ruth Cade MD [address] [place] [address] Historical LMR Provider 08/02/17 Aimee Hung NP [address] [place] [phone] Historical LMR Provider 08/02/17 2 Lidia Treadwell DO [address] [place] [address] [email or web address] Insurance Assigned Provider 11/17/19 05/24/21 documented as of this encounter Additional Source Comments The information contained in this document represents components of the legal health record. It is not the complete legal health record.[facility]
--- OUTSIDE RECORDS SUMMARY | 2025-08-02 01:47 | XMS_ITS | Encounter Summary ---
Author Organization [facility] Address [address] [place] [address] Phone Care Team Providers Care Cushion Installer Name Role Phone Ruth Cade MD Unavailable [phone] Aimee Hung NP Unavailable [phone] Janine Gomez Primary Care Provider [phone] Alayna Gagnon MD Primary Care Prov ider Pcp, Unknown Primary Care Provider UnavailLidia Mcmanus DO Primary Care Provider [phone]- [phone] Lidia Treadwell DO Unavailable Pcp, Unknown Primary Care Provider UnavailJanine Samuels Primary Care Provider [phone]- [phone] Encounter Details Date Type Department Care Team (Latest Contact Info) Description 06/16/2019 Transcribe Orders Virtual Department 30 [place] [address] Bernard Guerrero MD [address] [facility], [address] [place] [address] [email or web address] Calculus of kidney (Primary [...] End Date 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 phedema machine fitter Not on file Not on file Not on file 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 phedema machine fitter Not on file Not on file Not on file documented as of this encounter Plan of Treatment Upcoming Encounters Date Type Department Care Team (Late st Contact Info) Description 08/13/2025 11:30 AM EDT Office Visit [facility] [address] [place] [address] Unknown, Unknown, Gloria Jordan, ROAD HOGGER OPERATOR [address] [place] [address] [email or web address] 08/13/2025 5:30 PM EDT Appointment [facility], Bone Density - [address] [address] Janine Gomez PA [address] [place] [address] documented as of this encounter Results * US Kidneys (07/04/2019 7:46 AM EDT) Anatomical Region Laterality Modality Abdomen, Kidney Ultrasound 07/04/2019 9:20 AM EDT Impressions 07/04/2019 9:31 AM EDT No ultrasound evidence of nephrolithiasis. POS - [id number] Narrative 07/04/2019 9:31 AM EDT EXAM: US [...] is within normal limits for size and udydpkxd71.9 cm in sagittal dimension. Parenchyma is within normal limits.Cortical thickness and echogenicity are within normal limits. Nohydronephrosis, focal lesions, or shadowing stones. IMPRESSION: No ultrasound evidence of nephrolithiasis. POS - [id number] Bernard Guerrero MD [facility] RENAL Final Result documented in this encounter Visit Diagnoses Diagnosis Calculus of kidney- Primary Calculus of kidney documented in this encounter Additional Health Concerns Infection Onset Date Last Indicated Resolved Time CoV-Exposed Comment:Recent close contact documented in the Travel/Symptom Screening Form 07/12/2023 07/14/2023 1:22 AM E DT CoV-Risk 05/18/2020 05/18/2020 06/01/2020 1:23 AM EDT documented as of this encounter Care Teams Cushion Installer Relationship Specialty Start Date End Date Janine Gomez PA [address] [place] [address] [place] [address] PCP - General Youth Program Director 03/23/19 07/03/19 Alayna Gagnon MD [address] [place] [address] [place] [address] [email or web address] PCP - General Family Medicine 07/04/19 08/19/19 Pcp, Unknown PCP - General 08/20/19 09/03/19 Lidia Treadwell DO [address] [place] [address] [email or web address] PCP - General Family Medicine 09/04/19 02/20/21 Pcp, Unknown PCP - General 01/13/23 01/13/24 Janine Gomez PA [address] [place] [address] PCP - General Physician Asset Protection Manager 01/14/24 Ruth Cade MD [address] [place] [address] Historical LMR Provider 08/02/17 Aimee Hung NP [address] [place] [phone] Historical LMR Provider 08/02/17 2 Lidia Treadwell DO [address] [place] [address] [email or web address] Insurance Assigned Provider 11/17/19 05/24/21 documented as of this encounter Additional Source Comments The information contained in this document represents components of the legal health record. It is not the complete legal health record.[facility]
--- OUTSIDE RECORDS SUMMARY | 2025-08-02 01:47 | XMS_ITS | Encounter Summary ---
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 Not on file Not on file Not on file 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 phedema 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 Not on file Not on file Not on file documented as of this encounter Plan of Treatment Upcoming Encounters Date Type Department Care Team (Late st Contact Info) Description 08/13/2025 11:30 AM EDT Office Visit [facility] 10 [place] [address] Unknown, Unknown, Gloria Jordan, TURBINE INSPECTOR [address] [address] [email or web address] 08/13/2025 5:30 PM EDT Appointment [facility], Bone Density - [facility] 30 [place] [address] Janine Gomez PA [address] [place] [address] documented as of this encounter Visit Diagnoses Not on filedocumented in this encounter Additional Health Concerns Assessment Noted Time PHQ-2 Depression Total Score: 0 11/28/19 21 6:11 PM EST documented as of this encounter Care Teams Circular Shear Operator Relationship Specialty Start Date End Date Pcp, Unknown PCP - General 01/13/23 01/13/24 Janine Gomez PA [address] [place] [address] PCP - General Physician Tax Preparer 01/14/24 documented as of this encounter Additional Source Comments The information contained in this document represents components of the legal health record. It is not the complete legal health record.[facility]
--- OUTSIDE RECORDS SUMMARY | 2025-08-02 01:47 | XMS_ITS | Encounter Summary ---
Author Organization [facility] Address [address] [place] [address] Phone Care Team Providers Care Linen Worker Name Role Phone Pcp, Unknown Primary Care Provider Janine Lema Primary Care Provider [phone] Reason for Referral * MRI/CAT Scan - Closed Specialty Diagnoses / Procedures Referred By Luci tapia Referred To Contact Radiology Diagnoses Localized swelling, mass and lump, unspecified Procedures MRI Foot (Left) CHG MRI, LOWER EXTR, W/O CONTRAST F/U BY CONTRAST Carlos Rose DPM [address] [place] [address] Phone: tel: fax: [email or web address] Referral ID Status Reason Start Date Expiration Date Visits Re quested Visits Authorized [id number] Closed 12/08/2023 02/06/2024 1 1 Encounter Details Date Type Department Care Team (Latest Contact Info) Description 12/08/2023 Transcribe Orders Virtual Department [address] [place] [address] Carlos Rose DPM [address] [place] [address] [email or web address] Localized [...] End Date 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 phedema instrumentation fitter Not on file Not on file Not on file 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 phedema instrumentation fitter Not on file Not on file Not on file documented as of this encounter Plan of Treatment Upcoming Encounters Date Type Department Care Team (Late st Contact Info) Description 08/13/2025 11:30 AM EDT Office Visit [facility] 10 [place] [address] Unknown, Unknown, Gloria Jordan, FUNERAL ASSISTANT [address] [address] [email or web address] 08/13/2025 5:30 PM EDT Appointment [facility], Bone Density - [address] [address] Janine Gomez PA [address] [place] [address] documented as of this encounter Results * [...] documented as of this encounter Care Teams Linen Worker Relationship Specialty Start Date End Date Pcp, Unknown PCP - General 01/13/23 01/13/24 Janine Gomez PA [address] [place] [address] PCP - General Physician Agronomy Advisor 01/14/24 documented as of this encounter Additional Source Comments The information contained in this document represents components of the legal health record. It is not the complete legal health record.[facility]
--- OUTSIDE RECORDS SUMMARY | 2025-08-02 01:47 | XMS_ITS | Encounter Summary ---
Author Organization [facility] Address [address] [place] [address] [place] [address] Phone Care Team Providers Care Clinical Resource Director Name Role Phone Pcp, Unknown Primary Care Provider Janine Lema Primary Care Provider [phone]- [phone] Encounter Details Date Type Department Care Team (Late st Contact Info) Description 07/12/2023 Procedure Pass [facility], Ct Scan - [address] [address] Social History Tobacco Use Types Packs/Day Years [...] Date 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 phedema fitter up Not on file Not on file Not on file 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 phedema fitter up Not on file Not on file Not on file documented as of this encounter Functional Status * Calculated C-SSRS Risk Score (Lifetime/Recent) Answer Date of Assessment Author No Risk Indicated 07/12/2023 8:40 PM EDT Shira Gonzales RN * Enterprise Suicide Severity Rating Scale (Screener/Recent Self-Report) Question [...] Description 08/13/2025 11:30 AM EDT Office Visit [facility] [address] [place] [address] Unknown, Unknown, Gloria Jordan, EVENT SPECIALIST [address] [place] [address] [email or web address] 08/13/2025 5:30 PM EDT Appointment [facility], Bone Density [facility] 30 [place] [address] Janine Gomez PA [address] [place] [phone] documented as of this encounter Visit Diagnoses Not on filedocumented in this encounter Additional Health Concerns Infection Onset Date Last Indicated Resolved Time CoV-Exposed Comment:Recent close contact documented in the Travel/Symptom Screening Form 07/12/2023 07/14/2023 1:22 AM E DT Assessment Noted Time PHQ-2 Depression Total Score: 0 11/28/19 21 6:11 PM EST documented as of this encounter Care Teams Clinical Resource Director Relationship Specialty Start Date End Date Pcp, Unknown PCP - General 01/13/23 01/13/24 Janine Gomez PA [address] [place] [address] PCP - General Physician Insolvency Consultant 01/14/24 documented as of this encounter Additional Source Comments The information contained in this document represents components of the legal health record. It is not the complete legal health record.[facility]
--- OUTSIDE RECORDS SUMMARY | 2025-08-02 01:47 | XMS_ITS | Clinical Summary ---
Author Organization [facility] Address [address] [place] [address] Phone Care Team Providers Care Project Developer Name Role Phone Janine Gomez Primary Care Provider [phone]- [phone] Allergies Active Allergy Reactions Criticality Noted Date Comments Atorvastatin Myalgia Medium 01/18/2024 Chlorthalidone High 10/10/2024 Other Reaction(s): Not available Fenofibrate 10/10/2024 Other Reaction(s): cough Nitrofurantoin Rash Medium 12/28/2018 Hydrocodone Hcl Rash Medium 01/24/2019 Losartan 10/10/2024 Other Reaction(s): cough Raloxifene 10/10/2024 Other Reaction(s): Not available Mkcxymm-Gik-Mzr Reductase Inhibitors Cough,Myalgia Medium 01/18/2024 Sulfa (Sulfonamide [...] Continue with low-dose insulin sign scale with vnfuw-mn-cadk testing Assessment & Plan (02/08/2019 11:46 AM [...] Date 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 phedema 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 and hardware 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 Not on file Not on file Not on file 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 phedema wood and hardware outfitter Not on file Not on file Not [...] AM EDT Office Visit [facility] 10 [place] [address] Unknown, Unknown, Gloria Jordan, HOME CONNECT LPN [address] [address] [email or web address] 08/13/2025 5:30 PM EDT Appointment [facility], Bone Density - [address] [address] Janine Gomez PA [address] [place] [phone] Health Maintenance Due Date Last Done Comments [...] this topic Medical Devices Implanted Type Area Mail List Librarian Device Identifier Shelf Expiration Date Model / Serial / Lot Clip Clip Right: Breast Nodata NODATA Spine Cervical Description:Spine surgery Stent Ureteral 6fr 22 To 30cm Stretch Coated Antelmo - [id number] Implanted:Qty : 1 on 01/26/2019 by Bernard Guerrero MD at [facility] Explanted:12/2018 (Quantity not on file) Left: Ureter [employer] 09/14/2021 [id number] 60 / / [id number] Stent Ureteral 6fr 22 To 30cm Stretch Coated Antelmo - [id number] Implanted:Qty : 1 on 02/27/2019 by Bernard Guerrero MD at [facility] Explanted:12/2018 (Quantity not on file) Left: Ureter [employer] 10/02/2021 [id number] 60 / / Description:Stent with strin gs [...] (08/28/2024 7:58 AM EST) HDL 47 mg/dL [facility] Comment: Interpretation <40 mg/dL: Low HDL cholesterol (major risk factor for CHD) Greater than or equal to 60 mg/dL: High HDL cholesterol ( negative risk factor for CHD) HDL - cholesterol is affected by a number of factors, e.g. smoking, excerise, hormones, sex and age. CHOLESTEROL 163 0 - 240 mg/dL [facility] TRIGLYCERIDES 185(H) 30 - 160 mg/dL [facility] LDL 79 50 - 129 mg/dL [facility] Comment: LDL levels in terms of risk for coronary heart disease: <100 mg/dL: Optimal 100-129 mg/dL: Near or above optimal 130-159 mg/dL: Borderline high 160-189 mg/dL: High >190 mg/dL: Very High CARDIAC RISK RATIO 3.5 3.3 - 4.4 C [facility] Blood 08/28/2024 7:58 AM EST 08/28/2024 8:11 AM EST us Angel Howard MD LAB BLOOD ORDERABLES Final Resu lt [address] [address] * Hepatitis C antibody, qualitative (05/10/2020 5:02 PM EDT) HCV NON-REACTIV E NON-REACTI VE [facility] Blood 05/10/2020 5:02 PM EDT 05/10/2020 5:10 PM EDT us Erlin Christianson MD LAB BLOOD ORDERABLES Final Result [address] [address] * (ABNORMAL) Hemoglobin A1c (05/10/2020 5:02 PM EDT) HEMOGLOBIN A1C 6.2(H) 4.3 - 5.8 % [facility] Blood 05/10/2020 5:02 PM EDT 05/10/2020 5:10 PM EDT us Erlin Christianson MD LAB BLOOD ORDERABLES Final Result Performing Organization Address City/[facility]/ZIP Co de Phone Number [address] [address] * HM MAMMOGRAPHY FOR RESULT ENTRY ONLY (11/08/2019) us Historical Provider HEALTH MAINTENANCE Edited Result - Final * ENDOSCOPY, COLON (10/19/2019 1:24 PM EST) Narrative Transcriptions Adam Hassan MD - 10/19/2019 1:24 PM EST Patient Name: Kelly Isaacs Attending MD:: ADAM HASSAN MD Procedure Date: 10/19/2019 1:24 PM Date of : 1960 Age: 59 Admit Type: Outpatient Gender: Female Room: [place] [address] Referring MD: Lidia Treadwell Exam Type: Colonoscopy [...] monitored continuously. The Olympus adult variable colonoscope [id number] #[id number] was introduced through the anus and [...] 1:24 PM Procedure Code(s): --- Professional --- 48424, Colonoscopy, flexible; with removal of tumor(s), polyp(s), or other lesion(s) by snare technique --- Technical --- 62657, Colonoscopy, flexible; with removal of tumor(s), polyp(s), [...] congenital malformations of intestine CPT copyright 2018 [employer] [employer]. All rights reserved. The codes documented in this report are preliminary and upon core manager reviewmay be revised to meet current compliance requirements. [address] [place] [address] Lidia Treadwell DO GI PROCEDURE ORDERABLES Fi nal Result from Last 3 Months or Most Recently Relevant to Health Maintenance Insurance [employer] [employer]ACEMENT [employer] [place] [employer] [place] [employer] MEDICARE HMO REPLACEMENT [employer] [place] [employer]AC[employer] [place] [employer] Advance Directives For more information, please contact: [phone] (9AM - 5PM [place], Wednesday-Wednesday) * Full [...] Code Status Confirmed With: PatientFamily Care Teams Project Developer Relationship Specialty Start Date End Date Janine Gomez PA [address] [place] [address] PCP - General Physician Automobile And Property Underwriter 01/14/24 Additional Source Comments The information contained in this document represents components of the legal health record. It is not the complete legal health record.[facility]
--- OUTSIDE RECORDS SUMMARY | 2025-08-02 01:47 | XMS_ITS | Encounter Summary ---
Author Organization [facility] Address [address] [place] [address] Phone Care Team Providers Care Feed Miller Name Role Phone Ruth Cade MD Unavailable [phone] Aimee Hung NP Unavailable [phone] Alayna Gagnon MD Primary Care Prov ider Janine Gomez Primary Care Provider [phone]- [phone] Alayna Gagnon MD Primary Care Prov ider Pcp, Unknown Primary Care Provider UnavailiLdia Mcmanus DO Primary Care Provider Lidia Treadwell DO Unavailable [phone] Pcp, Unknown Primary Care Provider UnavailJanine Samuels Primary Care Provider Encounter Details Date Type Department Care Team (Latest Contact Info) Description 03/16/2019 Transcribe Orders Virtual Department 30 [place] [address] Bernard Guerrero MD [facility], [address] [place] [address] [email or web address] Calculus of kidney (Primary Dx) Social History [...] Description 08/13/2025 11:30 AM EDT Office Visit [facility] 10 [place] [address] Unknown, Unknown, Gloria Jordan, REPLENISHER [address] [address] [email or web address] 08/13/2025 5:30 PM EDT Appointment [facility], Bone Density [address] [address] Janine Gomez PA [address] [place] [address] [place] [address] documented as of this encounter Visit Diagnoses Diagnosis Calculus of kidney- Primary documented in this encounter Additional Health Concerns Infection Onset Date Last Indicated Resolved Time CoV-Exposed Comment:Recent close contact documented in the Travel/Symptom Screening Form 07/12/2023 07/14/2023 1:22 AM E DT CoV-Risk 05/18/2020 05/18/2020 06/01/2020 1:23 AM EDT documented as of this encounter Care Teams Feed Miller Relationship Specialty Start Date End Date Alayna Gagnon MD [address] [place] [phone] [email or web address] PCP - General Family Medicine 01/26/19 03/22/19 Janine Gomez PA [address] [place] [address] [place] [address] PCP - General Employee Relations Assistant 03/23/19 07/03/19 Alayna Gagnon MD [address] [place] [phone] [email or web address] PCP - General Family Medicine 07/04/19 08/19/19 Pcp, Unknown PCP - General 08/20/19 09/03/19 Lidia Treadwell DO [address] [place] [address] [email or web address] PCP - General Family Medicine 09/04/19 02/20/21 Pcp, Unknown PCP - General 01/13/23 01/13/24 Janine Gomez PA [address] [place] [address] PCP - General Physician Eradicator 01/14/24 Ruth Cade MD [address] [place] [address] Historical LMR Provider 08/02/17 Aimee Hung NP [address] [place] [phone] Historical LMR Provider 08/02/17 2 Lidia Treadwell DO [address] [place] [address] [email or web address] Insurance Assigned Provider 11/17/19 05/24/21 documented as of this encounter Additional Source Comments The information contained in this document represents components of the legal health record. It is not the complete legal health record.[facility]
--- OUTSIDE RECORDS SUMMARY | 2025-08-02 01:47 | XMS_ITS | Encounter Summary ---
Author Organization [facility] Address [address] [employer] [facility] [address] [place] [address] Phone Care Team Providers Care Acting Manager Name Role Phone Janine Gomez Primary Care Provider [phone] Encounter Details Date Type Department Care Team (Latest Contact Info) Description 03/20/2025 Transcribe Orders Virtual Department 30 [place] [address] Janine Gomez PA [address] [place] [phone] Asymptomatic menopausal state (Primary Dx) Social History [...] End Date 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 phedema coat fitter Not on file Not on file Not on file 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 phedema coat fitter Not on file Not on file Not on file documented as of this encounter Plan of Treatment Upcoming Encounters Date Type Department Care Team (Late st Contact Info) Description 08/13/2025 11:30 AM EDT Office Visit [facility] Gastroenterology Clinic [address] [place] [address] Unknown, Unknown, Gloria Jordan, CELLULAR PHONE REPAIRER [address] [place] [address] [email or web address] 08/13/2025 5:30 PM EDT Appointment [facility], Bone Density - [address] [address] Janine Gomez PA [address] [place] [phone] Scheduled Orders Name Type Priority Associated Diagnoses Orde r Schedule DXA Screening Imaging Routine Asymptomatic menopausal state Expected: 04/19/2025, Expires: 03/20/2026 documented as of this encounter Visit Diagnoses Diagnosis Asymptomatic menopausal state- Primary documented in this encounter Additional Health Concerns Assessment Noted Time PHQ-2 Depression Total Score: 0 11/28/19 21 6:11 PM EST documented as of this encounter Care Teams Acting Manager Relationship Specialty Start Date End Date Janine Gomez PA [address] [place] [address] PCP - General Physician Passport Application Examiner 01/14/24 documented as of this encounter Additional Source Comments The information contained in this document represents components of the legal health record. It is not the complete legal health record.[facility]
--- OUTSIDE RECORDS SUMMARY | 2025-08-02 01:47 | XMS_ITS | Encounter Summary ---
Author Organization [facility] Address [address] [place] [address] [place] [address] Phone Care Team Providers Care Associate Product Integrity Engineer Name Role Phone Janine Gomez Primary Care Provider [phone] Encounter Details Date Type Department Care Team (Late st Contact Info) Description 01/21/2024 Procedure Pass [place] Admitting Dept - Virtual Department 30 [place] [address] Social History Tobacco Use Types Packs/Day Years [...] Description 08/13/2025 11:30 AM EDT Office Visit [facility] 10 [place] [address] Unknown, Unknown, MD Lucia, Gloria Foote, CODING TEAM LEAD [address] [address] [email or web address] 08/13/2025 5:30 PM EDT Appointment [facility], Bone Density [address] [address] Janine Gomez PA [address] [place] [address] documented as of this encounter Visit Diagnoses Not on filedocumented in this encounter Additional Health Concerns Assessment Noted Time PHQ-2 Depression Total Score: 0 11/28/19 21 6:11 PM EST documented as of this encounter Care Teams Associate Product Integrity Engineer Relationship Specialty Start Date End Date Janine Gomez PA [address] [place] [address] PCP - General Physician Cash Application Representative 01/14/24 documented as of this encounter Additional Source Comments The information contained in this document represents components of the legal health record. It is not the complete legal health record.[facility]
--- OUTSIDE RECORDS SUMMARY | 2025-08-02 01:47 | XMS_ITS | Encounter Summary ---
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 Not on file Not on file Not on file 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 phedema 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 Not on file Not on file Not on file documented as of this encounter Plan of Treatment Upcoming Encounters Date Type Department Care Team (Late st Contact Info) Description 08/13/2025 11:30 AM EDT Office Visit [facility] 10 [place] [address] Unknown, Unknown, Gloria Jordan, PAINT BOOTH OPERATOR [address] [address] [email or web address] 08/13/2025 5:30 PM EDT Appointment [facility], [facility]ensity - [address] [address] Janine Gomez PA [address] [place] [address] [place] [address] documented as of this encounter Visit Diagnoses Diagnosis Right shoulder pain, unspecified chronicity- Primary documented in this encounter Additional Health Concerns Assessment Noted Time PHQ-2 Depression Total Score: 0 11/28/19 21 6:11 PM EST documented as of this encounter Care Teams Title Assistant Relationship Specialty Start Date End Date Janine Gomez PA [address] [place] [address] PCP - General Physician Oil Rigger 01/14/24 documented as of this encounter Additional Source Comments The information contained in this document represents components of the legal health record. It is not the complete legal health record.[facility]
--- NOTE | 2025-08-02 02:25 | MHC.EDTECH ---
redraw for labs not needed per provider.
[2025-08-02 02:32] VITALS: BP 139/65; PULSE 94; RESP 16; TEMP 36.6; O2SAT 94
== END 2025-08-02 02:33 | disposition home or self-care (01) ==
PROVIDERS: Emergency Provider Emergency Medicine; PCP Physician Assistant Medical
DX: R42 Dizziness and giddiness (principal); R53.81 Other malaise; E11.9 Type 2 diabetes mellitus without complications; I49.8 Other specified cardiac arrhythmias; Z79.85 Long-term (current) use of injectable non-insulin antidiabetic drugs; Z79.899 Other long term (current) drug therapy; Z87.891 Personal history of nicotine dependence
CPT/HCPCS: 36415; 85025; 93005; 99283

== ENCOUNTER → 2025-08-02 01:31 | Outpatient (BNV) | payer OTHER, SELFPAY | PROVIDERS: Emergency Provider Emergency Medicine; PCP Physician Assistant Medical; Visit Provider Internal Medicine Cardiovascular Disease | DX: R42 Dizziness and giddiness (principal) | CPT/HCPCS: 93010 ==

== ENCOUNTER → 2025-08-13 07:37 | Outpatient (BNVA) | payer OTHER, SELFPAY | PROVIDERS: PCP Physician Assistant Medical; Visit Provider Physician Assistant Medical | DX: S60.212D Contusion of left wrist, subsequent encounter (principal); M65.4 Radial styloid tenosynovitis [de Quervain]; G56.02 Carpal tunnel syndrome, left upper limb; S39.012D Strain of muscle, fascia and tendon of lower back, subsequent encounter; S70.02XD Contusion of left hip, subsequent encounter; W00.0XXD Fall on same level due to ice and snow, subsequent encounter | CPT/HCPCS: 99213 ==

== ENCOUNTER 2025-08-29 12:37 | Outpatient (AMB) | payer OTHER, SELFPAY ==
--- OUTSIDE RECORDS SUMMARY | 2020-06-27 12:41 | XMS_ITS | Encounter Summary ---
Author Organization [facility] Address [address] [place] [address] [place] [address] Phone Care Team Providers Care Datastage Architect Name Role Phone Ruth Cade MD Unavailable [phone] Aimee Hung NP Unavailable [phone] Lidia Treadwell DO Primary Care Provider [phone] Lidia Treadwell DO Unavailable Encounter Details Date Type Department Care Team (Late st Contact Info) Description 06/27/2020 1:41 PM EDT Hospital Encounter [facility] Urgent Care [address] [place] [address] Esha Anne CNP [address] [place] [address] [phone] Social History Tobacco Use Types Packs/Day Years Used Date Smoking Tobacco: Former Cigarettes 0.5 23.3 0 03/18/1975 - 1998 Smokeless Tobacco: Never Alcohol Use Standard Drinks/Week Comments Never 0 (1 standard drink = 0.6 oz pur e alcohol) Education Answer Date Recorded Are you interested in more education? Not on christine e 02/12/2023 Are you concerned about learning? Not on file 02/12/2023 No 02/12/2023 No 02/12/2023 Digital Access Answer Date Recorded No 03/13/2023 No 03/13/2023 Reliable internet access at home? Not on file 03/13/2023 Device with a working camera? Not on file Intimate Partner Violence Answer Date R ecorded Are you denied basic needs s uch as food, clothing, or medical care? No 10/10/2024 In the past 12 months have y ou been in a relationship with a person who hurts, threatens, or tries to control you? No 10/10/2024 Are you denied basic needs s uch as food, clothing, or medical care? No 10/10/2024 In the past 12 months have y ou been in a relationship with a person who hurts, threatens, or tries to control you? No 10/10/2024 Education Answer Date Recorded What is the highest level of school you have completed or the highest degree you have received? 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 Wish to be (Past 1 Month) No 024 6:08 PM Katherine Chacon, RN 2. Non-Specific Active Suici kings Thoughts (Past 1 Month) No 10/10/2024 6:08 PM Katherine Chacon , RN 6. Suicidal Behavior (Lifetime) No 6:08 PM Katherine Chacon, RN documented as of this encounter Plan of Treatment Upcoming Encounters Date Type Department Care Team (Late st Contact Info) Description 12/24/2025 10:15 AM EDT Office Visit [facility] [address] [place] [address] Gloria Lucia, OCCUPATIONAL SAFETY AND HEALTH MANAGER [address] [address] [email or web address] Scheduled Procedures Name Priority Associated Diagnoses Date/Ti me COLONOSCOPY Hx of adenomatous colonic polyps Substernal chest pain ESOPHAGOGASTRODUODENOSCOPY Hx of adenomatous colonic polyps Substernal chest pain documented as of this encounter Procedures Procedure Name Priority Date/Time Associated Diagnosis Comments XR ABDOMEN 1 VIEW Urgent/patient waiting 06/27/2020 1:51 PM EDT Flank pain documented in this encounter Results * XR ABDOMEN 1 VIEW (06/27/2020 1:51 PM EDT) Anatomical Region Laterality Modality Abdomen Radiographic Juliana ging 06/27/2020 2:08 PM EDT Impressions 06/27/2020 2:10 PM EDT No opaque intrarenal or proximal or mid ureteral calculi demonstrated. Chronic calcifications in the left hemipelvis appear to reflect phleboliths POS - [id number] Narrative 06/27/2020 2:10 PM EDT COMPARISON: 08/20/2019 CT FINDINGS: AP supine views were obtained. There appears be a tiny vascular calcification in the upper pole of the left kidney. No opaque intrarenal or proximal or mid ureteral calculi demonstrated. There are multiple small left hemipelvic calcifications, the majority of which appear to be present on the CT, suggesting phleboliths. No distended bowel loops or acute bony abnormalities identified. Procedure Note Jad Mojica MD - 06/27/2020 COMPARISON: 08/20/2019 CT FINDINGS: AP supine views were obtained. There appears be a tiny vascularcalcification in the upper pole of the left kidney. No opaque intrarenalor proximal or mid ureteral calculi demonstrated. There are multiple smallleft hemipelvic calcifications, the majority of which appear to be presenton the CT, suggesting phleboliths. No distended bowel loops or acute bonyabnormalities identified. IMPRESSION: No opaque intrarenal or proximal or mid ureteral calculi demonstrated.Chronic calcifications in the left hemipelvis appear to reflectphleboliths POS - [id number] Esha Anne OCCUPATIONAL SAFETY AND HEALTH MANAGER IMG XR ABDOMEN Final Resul t documented in this encounter Visit Diagnoses Not on filedocumented in this encounter Additional Health Concerns Infection Onset Date Last Indicated Resolved Time CoV-Exposed Comment:Recent close contact documented in the Travel/Symptom Screening Form 07/12/2023 07/14/2023 1:22 AM E DT Assessment Noted Time PHQ-2 Depression Total Score: 0 08/28/20 9:08 PM EST documented as of this encounter Care Teams Datastage Architect Relationship Specialty Start Date End Date Lidia Treadwell DO [address] [place] [address] [email or web address] PCP - General Family Medicine 09/04/19 02/20/21 Ruth Cade MD [address] [place] [address] Historical LMR Provider 08/02/17 Aimee Hung NP [address] [place] [phone] Historical LMR Provider 08/02/17 2 Lidia Treadwell DO [address] [place] [address] [email or web address] Insurance Assigned Provider 11/17/19 05/24/21 documented as of this encounter Additional Source Comments The information contained in this document represents components of the legal health record. It is not the complete legal health record.[facility]
--- NOTE | 2025-08-29 12:57 | A.OFFVIS_ITS ---
Vital Signs 08/29/25 12:58 Height 5 ft 2 in Weight 175 lb BMI 32.0 BP 126/60 Blood Pressure Location Lt brachial Position Sitting Respiration 16 Pulse 75 Pulse Source Pulse Oximeter Pulse Oximetry (%) 95 Oxygen Delivery Method Room Air Intake Visit Reasons: S/P Left hip intra-articular steroid injection Workforce Development Assistant Required: No Accompanied by: Self / Same As Patient Allergies hydrocodone Allergy (Verified 08/29/25 13:00) Rash Sulfa (Sulfonamide Antibiotics) Allergy (Verified 08/29/25 13:00) Rash Zfmwqxz-EPM-DbS Reductase Inhibitor Adverse Reaction (Verified 08/29/25 13:00) Muscle Pain tamoxifen Adverse Reaction (Verified 08/29/25 13:00) hot flashes HPI Comments Details: Sima Del Real is very pleasant 64 years old female who presents in my office today with complains on the pain in the left groin. She reports increased pain with mobility as well as increased pain with flexion of the hip joint on the left. She reports that she is unable to sit into the car on the passenger side lifting her hip in the hip joint. She admits that discomfort radiates down to the left lower extremity but only to the level of the mid thigh. She also admits that pain radiates to the back in the area of the sacral bone and she denies radiation of the pain to the upper lumbar spine. I discussed situation with the patient. Her nurse practitioner send her for L2-L3 parasagittal left epidural steroid injection on the base of MRI changes, the full MRI report dictated as below. At the same time based on physical exam and history of trauma posttraumatic osteoarthritis of the left hip can not be excluded. Sacroiliac joint injection bilateral resulted in no pain improvement. I performed intra-articular left hip steroid injection which did not result in any good pain improvement. I will refer this patient to Orthopedic surgery in the order to consider this patient for total hip replacement. If there is no indication for total hip replacement she is recommended to go back we will consider neuromodulation to help her pain. 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 Review of Systems Const All systems reviewed & are unremarkable except as noted in HPI and below ENT Reports Normal hearing present Neuro Reports Normal hearing present, Denies Abnormal speech present, Denies confusion and Denies Sensory deficit (Neuro) Psych Denies confusion Physical Exam Vital Signs: Last Vital Signs Pulse 75 08/29/25 12:58 Resp 16 08/29/25 12:58 BP 126/60 08/29/25 12:58 Pulse Ox 95 08/29/25 12:58 Oxygen Delivery Method Room Air 08/29/25 12:58 BMI result Body Mass Index 32.0 Const General: no acute distress; No confusion Nutritional Appearance: obese Orientation/consciousness: patient oriented x3 and No confusion Neck Neck: Yes full ROM Chest Chest palpation & inspection: normal inspection of the chest Resp Effort & Inspection: normal respiratory effort, able to speak in complete sentences, normal respiratory pattern, no audible wheezes and no cough Cardio Jugular venous distension: no JVD GI Inspection: Yes normal to inspection Neuro General: patient oriented x3, gait normal and No confusion Cranial nerves: Yes CN's II-XII intact bilaterally, Yes Normal hearing present and Yes Ability to bilaterally elevate shoulders present Speech: No Abnormal speech present Gait exam (Neuro): Normal gait present Motor exam (neuro): 5/5 motor strength present throughout Sensory Exam: No Sensory deficit (Neuro) Extrem Other: Neither lateral nor medial rotation of the hip joint aggravate her pain however flexion of the hip joint makes her pain very severe on the left. General: No pedal edema Psych Speech and movement: Normal speech and movement present Affect: normal affect Attitude: cooperative Thought process: Normal thought process present Thought content: Normal thought content present Insight: Good insight present (Psych) Judgement: Good judgement present (Psych) Results Reviewed Results Reviewed: [address] [address] XRay Report Signed Patient: Kelly Isaacs MR#: [id number] : 1960 EXAMINATION: XR HIP, LEFT CLINICAL INFORMATION: M16.12 - Unilateral primary osteoarthritis, left hip COMPARISON: November 20, 2024 TECHNIQUE: AP and oblique views. of the left hip. FINDINGS: Mild sclerosis along the articular surface of the acetabulum with minimal subchondral cyst formation. No acute cortical disruption or malalignment. No lytic or blastic lesions. Sclerosis and the left sacroiliac joint. Sclerosis along the articular surface of the symphysis pubis. XR/XR hip LT min 2V IMPRESSION: Mild osteoarthrosis/osteoarthritis, left coxofemoral joint. Assessment & Plan Assessment & Plan (1) Osteoarthritis of left hip: Code(s): M16.12 - Unilateral primary osteoarthritis, left hip Category: Medical (2) Sacroiliac joint pain: Code(s): M53.3 - Sacrococcygeal disorders, not elsewhere classified Category: Medical (3) Low back pain: Code(s): M54.50 - Low back pain, unspecified Category: Medical (4) Left hip pain: Code(s): M25.552 - Pain in left hip Category: Medical Plan The origin of the pain of this patient remains mystery for me. Initially her nurse practitioners suspected her pain as a source of foraminal stenosis L2-L3. However epidural steroid injection did not help. After that I performed sacroiliac joint injection diagnostic and patient denied any improvement. Few weeks ago I did intra-articular hip steroid injection and patient reported no pain improvement. Her hip x-rays positive for advanced arthritis. I will send her for consult with the orthopedic surgeon. If orthopedic surgery intervention is not indicated for the patient she should come back, we will consider medial branch block on the left, if this will not help the patient I will consider modulation for the patient. Orders: Referrals Orthopedics Referral M16.12 - Unilateral primary osteoarthritis, left hip, M25.552 - Pain in left hip Coding Level of Care Code Est Pt Level 3 (85315) Diagnoses Osteoarthritis of left hip M16.12 Sacroiliac joint pain M53.3 Low back pain M54.50 Left hip pain M25.552
[2025-08-29 12:58] VITALS: BP 126/60; PULSE 75; RESP 16; O2SAT 95; BMI 32.0
--- OUTSIDE RECORDS SUMMARY | 2025-08-29 15:14 | XMS_ITS | Encounter Summary ---
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 Not on file Not on file Not on file documented as of this encounter Plan of Treatment Upcoming Encounters Date Type Department Care Team (Late st Contact Info) Description 12/24/2025 10:15 AM EDT Office Visit [facility] 10 [place] [address] Gloria Lucia, GAL [address] [address] [email or web address] Scheduled Procedures Name Priority Associated Diagnoses Date/Ti me COLONOSCOPY Hx of adenomatous colonic polyps Substernal chest pain ESOPHAGOGASTRODUODENOSCOPY Hx of adenomatous colonic polyps Substernal chest pain documented as of this encounter Visit Diagnoses Not on filedocumented in this encounter Additional Health Concerns Assessment Noted Time PHQ-2 Depression Total Score: 0 11/28/19 21 6:11 PM EST documented as of this encounter Care Teams Visual Merchandising Manager Relationship Specialty Start Date End Date Janine Gomez PA [address] [place] [address] PCP - General Physician Press Writer 01/14/24 documented as of this encounter Additional Source Comments The information contained in this document represents components of the legal health record. It is not the complete legal health record.[facility]
--- OUTSIDE RECORDS SUMMARY | 2025-08-29 15:14 | XMS_ITS | Encounter Summary ---
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 Not on file Not on file Not on file 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 phedema 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 garment 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 Not on file Not on file Not on file documented as of this encounter Plan of Treatment Upcoming Encounters Date Type Department Care Team (Late st Contact Info) Description 12/24/2025 10:15 AM EDT Office Visit [facility] Gastroenterology Clinic 10 [place] [address] Gloria Lucia, SOIL TECHNOLOGIST [address] [address] [email or web address] Scheduled Procedures Name Priority Associated Diagnoses Date/Ti me COLONOSCOPY Hx of adenomatous colonic polyps Substernal chest pain ESOPHAGOGASTRODUODENOSCOPY Hx of adenomatous colonic polyps Substernal chest pain documented as of this encounter Visit Diagnoses Not on filedocumented in this encounter Additional Health Concerns Assessment Noted Time PHQ-2 Depression Total Score: 0 11/28/19 21 6:11 PM EST documented as of this encounter Care Teams Oil Seal Assembler Relationship Specialty Start Date End Date Pcp, Unknown PCP - General 01/13/23 01/13/24 Janine Gomez PA [address] [place] [address] PCP - General Physician Remelt Sugar Boiler 01/14/24 documented as of this encounter Additional Source Comments The information contained in this document represents components of the legal health record. It is not the complete legal health record.[facility]
--- OUTSIDE RECORDS SUMMARY | 2025-08-29 15:16 | XMS_ITS | Encounter Summary ---
Author Organization [facility] Address [address] [place] [address] Phone Care Team Providers Care Digital Design Engineer Name Role Phone Pcp, Unknown Primary Care Provider Janine Lema Primary Care Provider [phone]- [phone] Reason for Referral * MRI/CAT Scan - Closed Specialty Diagnoses / Procedures Referred By Luci tapia Referred To Contact Radiology Diagnoses Localized swelling, mass and lump, unspecified Procedures MRI Foot (Left) CHG MRI, LOWER EXTR, W/O CONTRAST F/U BY CONTRAST Carlos Rose DPM [address] [place] [address] Phone: tel: fax: [email or web address] Referral ID Status Reason Start Date Expiration Date Visits Re quested Visits Authorized [id number] Closed 12/08/2023 02/06/2024 1 1 Encounter Details Date Type Department Care Team (Latest Contact Info) Description 12/08/2023 Transcribe Orders Virtual Department [address] [place] [address] Carlos Rose DPM [address] [place] [address] [email or web address] Localized swelling, mass and lump, unspecified (Primary [...] End Date 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 Not on file Not on file Not on file 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 Not on file Not on file Not on file documented as of this encounter Plan of Treatment Upcoming Encounters Date Type Department Care Team (Late st Contact Info) Description 12/24/2025 10:15 AM EDT Office Visit [facility] [address] [place] [address] Gloria Lucia, RN LAB [address] [address] [email or web address] Scheduled Procedures Name Priority Associated Diagnoses Date/Ti il COLONOSCOPY Hx of adenomatous colonic polyps Substernal chest pain ESOPHAGOGASTRODUODENOSCOPY Hx of adenomatous colonic polyps Substernal chest pain documented as of this encounter Results * [...] clinician's provided indication for this examination in [facility]: Outside Radiology Order; mass of soft tissue [...] clinician's provided indication for this examination in [facility]:Outside Radiology Order; mass of soft tissue Additional [...] documented as of this encounter Care Teams Digital Design Engineer Relationship Specialty Start Date End Date Pcp, Unknown PCP - General 01/13/23 01/13/24 Janine Gomez PA [address] [place] [address] PCP - General Physician Spring Manufacturing Set Up Technician 01/14/24 documented as of this encounter Additional Source Comments The information contained in this document represents components of the legal health record. It is not the complete legal health record.[facility]
--- OUTSIDE RECORDS SUMMARY | 2025-08-29 15:17 | XMS_ITS | Encounter Summary ---
Author Organization [facility] Address [address] [place] [address] [place] [address] Phone Care Team Providers Care Environmental Associate Name Role Phone Ruth Cade MD Unavailable [phone] Aimee Hung NP Unavailable [phone] Alayna Gagnon MD Primary Care Prov ider Janine Gomez Primary Care Provider [phone]- [phone] Alayna Gagnon MD Primary Care Prov ider Pcp, Unknown Primary Care Provider UnavailLidia Mcmanus DO Primary Care Provider + [phone] Lidia Treadwell DO Unavailable [phone] Pcp, Unknown Primary Care Provider UnavailJanine Samuels Primary Care Provider + [phone] Encounter Details Date Type Department Care Team (Late st Contact Info) Description 01/26/2019 Procedure Pass OR Admitting Dept - Virtual Department 30 [place], [place] [id number] Social History Tobacco Use Types Packs/Day Years [...] Description 12/24/2025 10:15 AM EDT Office Visit [facility] 10 [place] [address] Gloria Lucia, PAPER GOODS MACHINE SET UP OPERATOR [address] [address] [email or web address] Scheduled Procedures Name Priority Associated Diagnoses Date/Ti [...] documented as of this encounter Care Teams Environmental Associate Relationship Specialty Start Date End Date Alayna Gagnon MD [address] [place] [address] [email or web address] PCP - General Family Medicine 01/26/19 03/22/19 Janine Gomez PA [address] [place] [address] [place] [address] PCP - General Stringed Instrument Tuner 03/23/19 07/03/19 Alayna Gagnon MD [address] [place] [address] [email or web address] PCP - General Family Medicine 07/04/19 08/19/19 Pcp, Unknown PCP - General 08/20/19 09/03/19 Lidia Treadwell DO [address] [place] [address] [email or web address] PCP - General Family Medicine 09/04/19 02/20/21 Pcp, Unknown PCP - General 01/13/23 01/13/24 Janine Gomez PA [address] [place] [address] PCP - General Physician Engineer Sergeant 01/14/24 Ruth Cade MD [address] [place] [address] Historical LMR Provider 08/02/17 Aimee Hung NP [address] [place] [phone] Historical LMR Provider 08/02/17 2 Lidia Treadwell DO [address] [place] [address] [email or web address] Insurance Assigned Provider 11/17/19 05/24/21 documented as of this encounter Additional Source Comments The information contained in this document represents components of the legal health record. It is not the complete legal health record.[facility]
--- OUTSIDE RECORDS SUMMARY | 2025-08-29 15:17 | XMS_ITS | Encounter Summary ---
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 Not on file Not on file Not on file 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 phedema 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 binding 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 and 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 Not on file Not on file Not on file documented as of this encounter Plan of Treatment Upcoming Encounters Date Type Department Care Team (Late st Contact Info) Description 12/24/2025 10:15 AM EDT Office Visit [facility] Gastro[facility] 10 [place] [address] Gloria Lucia, GAL [address] [address] [email or web address] Scheduled Procedures Name Priority Associated Diagnoses [...] documented as of this encounter Care Teams Mold Holder Relationship Specialty Start Date End Date Janine Gomez PA [address] [place] [address] PCP - General Physician Timing Machine Operator 01/14/24 documented as of this encounter Additional Source Comments The information contained in this document represents components of the legal health record. It is not the complete legal health record.[facility]
--- OUTSIDE RECORDS SUMMARY | 2025-08-29 15:17 | XMS_ITS | Encounter Summary ---
Author Organization [facility] Address [address] [place] [address] [place] [address] Phone Care Team Providers Care Recyclable Materials Collector Name Role Phone Ruth Cade MD Unavailable [phone] Aimee Hung NP Unavailable [phone] Alayna Gagnon MD Primary Care Prov ider Janine Gomez Primary Care Provider [phone]- [phone] Alayna Gagnon MD Primary Care Prov ider Pcp, Unknown Primary Care Provider UnavailLidia Mcmanus DO Primary Care Provider + [phone] Lidia Treadwell DO Unavailable [phone] Pcp, Unknown Primary Care Provider UnavailJanine Samuels Primary Care Provider + [phone] Encounter Details Date Type Department Care Team (Late st Contact Info) Description 02/09/2019 Procedure Pass [facility], [address] [address] Social History Tobacco Use Types Packs/Day Years [...] Description 12/24/2025 10:15 AM EDT Office Visit [facility] 10 [place] [address] Gloria Lucia, GAL [address] [place] [address] [email or web address] Scheduled Procedures Name Priority Associated Diagnoses [...] documented as of this encounter Care Teams Recyclable Materials Collector Relationship Specialty Start Date End Date Alayna Gagnon MD [address] [place] [phone] [email or web address] PCP - General Family Medicine 01/26/19 03/22/19 Janine Gomez PA [address] [place] [address] [place] [address] PCP - General Liquor Tester 03/23/19 07/03/19 Alayna Gagnon MD [address] [place] [phone] [email or web address] PCP - General Family Medicine 07/04/19 08/19/19 Pcp, Unknown PCP - General 08/20/19 09/03/19 Lidia Treadwell DO [address] [place] [address] [email or web address] PCP - General Family Medicine 09/04/19 02/20/21 Pcp, Unknown PCP - General 01/13/23 01/13/24 Janine Gomez PA [address] [place] [address] PCP - General Physician Bridge/Structure Inspection Team Leader 01/14/24 Ruth Cade MD [address] [place] [address] Historical LMR Provider 08/02/17 Aimee Hung NP [address] [place] [phone] Historical LMR Provider 08/02/17 2 Lidia Treadwell DO [address] [place] [address] [email or web address] Insurance Assigned Provider 11/17/19 05/24/21 documented as of this encounter Additional Source Comments The information contained in this document represents components of the legal health record. It is not the complete legal health record.[facility]
--- OUTSIDE RECORDS SUMMARY | 2025-08-29 15:17 | XMS_ITS | Encounter Summary ---
Author Organization [facility] Address [address] [facility] [address] [place] [address] Phone Care Team Providers Care [employer] Professor Name Role Phone Janine Carias Primary Care Provider [phone]- [phone] Encounter Details Date Type Department Care Team (Latest Contact Info) Description 03/20/2025 Transcribe Orders Virtual Department [address] [place] [address] Janine Carias PA [address] [place] [phone] Asymptomatic menopausal state (Primary Dx) Social History [...] Description 12/24/2025 10:15 AM EDT Office Visit [facility] [address] [place] [address] Gloria Lucia, GAL [address] [place] [address] [email or web address] Scheduled Procedures Name Priority Associated Diagnoses Date/Ti me COLONOSCOPY Hx of adenomatous colonic polyps Substernal chest pain ESOPHAGOGASTRODUODENOSCOPY Hx of adenomatous colonic polyps Substernal chest pain documented as of this encounter Results * BD DXA AXIAL (SPINE) WITH HIP (08/13/2025 5:14 PM EDT) Anatomical Region Laterality Modality Bone Density Bone Density 08/13/2025 5:05 PM EDT Impressions 08/14/2025 3:45 PM EDT Interpretation: Normal bone mineral density. Narrative 08/14/2025 3:45 PM EDT Referred By: JANINE CARIAS Indications: Postmenopausal Scanner: Bit [employer] A with serial# of [id number] located at [facility] Bone Density Scan (DXA) 08/13/25 Details of prior DXA scans are available by clicking View Full Report BMD T- Z- Skeletal Site gm/cm2 score score BMD Change Since Prior Scan ------ ----- ----- PA Spine (L1 L4) 1.123 0.80 2.70 N/A Total Hip (Left) 1.019 0.60 2.00 N/A Femoral Neck (Left) 0.816 -0.30 1.30 N/A Total Hip (Right) 1.024 0.70 2.00 N/A Femoral Neck (Right) 0.817 -0.30 1.30 N/A ------ ----- ----- * Denotes significant change when >= 0.022 g/cm2 for the spine, 0.027 g/cm2 for the total hip, 0.029 g/cm2 for the femoral neck. Interpretation: Normal bone mineral density. Technical Quality: Imaging of all sites was of adequate quality.Because only two vertebrae are measurable, interpret PA spine results with caution; serial changes may be more variable than usual. FRAX: A FRAX(r) score is not provided because the patient has normal bone density. Reviewed By: Justine Hopkins MD on 08/14/2025 15:45:46 Additional Information: -World Health Organization criteria classify adults based on lowest T-score at PA spine, hip or forearm: Normal (T-score >= -1.0), Osteopenia (T-score between -1 and -2.5), or Osteoporosis (T-score <= -2.5). At [facility], T-scores are compared to peak bone density of a young white gender matched reference population. - For premenopausal women and men under the age of 50, Z-scores (comparison to age, gender, and ethnicity matched reference population) are used: Above expected range for age (Z-score >= 2.0), Within expected range of age (Z-score 1.9 to -1.9), or Below expected range for age (Z-score <= -2.0). - The Bone Health and Osteoporosis Foundation recommends that treatment be considered in men aged more than 50 years and in postmenopausal women with ANY of the following: Prior hip or vertebral fractures; T-score of <= -2.5 at the PA spine or hip; or 10 year fracture probability by FRAX of >= 3% for the hip or >= 20% for major osteoporotic fracture. - The FRAX algorithm (https://www.raya.ac.uk/FRAX/tool.aspx) is designed to predict 10-year fracture risk in treatment-naive adults between the ages of 40 and 90. It is not intended to be used in those receiving pharmacologic osteoporosis treatment. - The TBS is derived from the texture of the DXA spine image and has been shown to be related to bone microarchitecture and fracture risk. This data provides information independent of BMD value. It adds to fracture risk assessment with a FRAX adjusted for TBS score. If your patient had a TBS and qualified for a FRAX score, the reported FRAX score has been adjusted for TBS. TBS Score Interpretation 1.350 and greater Normal bone microarchitecture 1.200 to 1.350 Partially degraded bone microarchitecture 1.200 and less Degraded bone microarchitecture - Including race/ethnicity in the generation of T- or Z-scores or in the FRAX calculation is complicated, and currently undergoing active review to ensure that we can give patients the best information on their risk of fracture. - Some prior studies may not be compatible with our comparison software. - Click on View Full Report to see subsequent pages with images and prior bone density results. Procedure Note Justine Hopkins MD - 08/14/2025 Referred By: JANINE CARIAS Indications: Postmenopausal Scanner: Bit [employer] A with serial# of [id number] located at [facility] Bone Density Scan (DXA) 08/13/25 Details of prior DXA scans are available by clicking View Full Report BMD T- Z- Skeletal Site gm/cm2 score score BMD Change Since Prior Scan ------ ----- PA Spine (L1 L4) 1.123 0.80 2.70 N/A Total Hip (Left) 1.019 0.60 2.00 N/A Femoral Neck (Left) 0.816 -0.30 1.30 N/A Total Hip (Right) 1.024 0.70 2.00 N/A Femoral Neck (Right) 0.817 -0.30 1.30 N/A ------ ----- * Denotes significant change when >= 0.022 g/cm2 for the spine, 0.027g/cm2 for the total hip, 0.029 g/cm2 for the femoral neck. Interpretation: Normal bone mineral density. Technical Quality: Imaging of all sites was of adequate quality.Becauseonly two vertebrae are measurable, interpret PA spine results with caution; serial changes may be more variable than usual. FRAX: A FRAX(r) score is not provided because the patient has normal bone density. Reviewed By: Justine Hopkins MD on 08/14/2025 15:45:46 Additional Information: -World Health Organization criteria classify adults based on lowestT-score at PA spine, hip or forearm: Normal (T-score >= -1.0), Osteopenia (T-score between -1 and -2.5), or Osteoporosis (T-score <= -2.5). At [facility], T-scores are compared to peak bone density of a young white gender matched reference population. - For premenopausal women and men under the age of 50, Z-scores(comparison to age, gender, and ethnicity matched reference population) are used:Above expected range for age (Z-score >= 2.0), Within expected range of age (Z-score 1.9 to -1.9), or Below expected range for age (Z-score <= -2.0). - The Bone Health and Osteoporosis Foundation recommends that treatment be considered in men aged more than 50 years and in postmenopausal women with ANY of the following: Prior hip or vertebral fractures; T-score of <= -2.5 at the PA spine or hip; or 10 year fracture probability by FRAX of >= 3%for the hip or >= 20% for major osteoporotic fracture. - The FRAX algorithm (https://www.raya.ac.uk/FRAX/tool.aspx) is designed to predict 10-year fracture risk in treatment-naive adultsbetween the ages of 40 and 90. It is not intended to be used in those receiving pharmacologic osteoporosis treatment. - The TBS is derived from the texture of the DXA spine image and has been shown to be related to bone microarchitecture and fracture risk. This data provides information independent of BMD value. It adds to fracture risk assessment with a FRAX adjusted for TBS score. If your patient had a TBSand qualified for a FRAX score, the reported FRAX score has been adjusted for TBS. TBS Score Interpretation 1.350 and greater Normal bone microarchitecture 1.200 to 1.350 Partially degraded bone microarchitecture 1.200 and less Degraded bone microarchitecture - Including race/ethnicity in the generation of T- or Z-scores or in the FRAX calculation is complicated, and currently undergoing active review to ensure that we can give patients the best information on their risk of fracture. - Some prior studies may not be compatible with our comparison software. - Click on View Full Report to see subsequent pages with images andprior bone density results. IMPRESSION: Interpretation: Normal bone mineral density. us Janine HART IMG BD BONE DENSITY DEXA F inal Result documented in this encounter Visit Diagnoses Diagnosis Asymptomatic menopausal state- Primary Asymptomatic menopausal state documented in this encounter Additional Health Concerns Assessment Noted Time PHQ-2 Depression Total Score: 0 11/28/19 21 6:11 PM EST documented as of this encounter Care Teams [employer] Professor Relationship Specialty Start Date End Date Janine Carias PA [address] [place] [address] PCP - General Physician Defense Travel Administrator 01/14/24 documented as of this encounter Additional Source Comments The information contained in this document represents components of the legal health record. It is not the complete legal health record.[facility]
--- OUTSIDE RECORDS SUMMARY | 2025-08-29 15:18 | XMS_ITS | Clinical Summary ---
Author Organization [facility] Address [address] [place] [address] Phone Care Team Providers Care Machine Operator Helper Name Role Phone Richard Carias Primary Care Provider [phone]- [phone] Allergies Active Allergy Reactions Criticality Noted Date Comments Atorvastatin Myalgia Medium 01/18/2024 Chlorthalidone High 10/10/2024 Other Reaction(s): Not available Fenofibrate 10/10/2024 Other Reaction(s): cough Nitrofurantoin Rash Medium 12/28/2018 Hydrocodone Hcl Rash Medium 01/24/2019 Losartan 10/10/2024 Other Reaction(s): cough Raloxifene 10/10/2024 Other Reaction(s): Not available Watkyiw-Eyd-Mnx Reductase Inhibitors Cough,Myalgia Medium 01/18/2024 Sulfa (Sulfonamide [...] Continue with low-dose insulin sign scale with [id number]-[id number] testing Assessment & Plan (02/08/2019 11:46 AM [...] as well. We will continue IV fluids. Encounters Date Type Department Care Team Description 08/29/2025 Telephone [facility] [address] [place] [address] Adam Sibley MD 08/13/2025 4:52 PM EDT - 08/13/2025 11:59 PM EDT Hospital Encounter [facility], Bone Density - [address] [address] Richard Carias PA Discharge Disposition: Home or Self Care 08/13/2025 11:30 AM EDT Office Visit [facility] [address] [place] [address] Unknown, Unknown, Gloria Jordan, GAL Hx of adenomatous colonic polyps (Primary Dx); Substernal chest pain from Last 3 Months Immunizations Immunization Administration Dates Next Due COVID-19 [...] 0 03/18/1975 - 1998 Smokeless Tobacco: Never Tobacco Cessation:Counseling Given: Not Answered Alcohol Use Standard Drinks/Week Comments Never 0 [...] Sign Reading Time Taken Comments Blood Pressure 110/71 08/13/2025 11:15 AM EDT Pulse 62 08/13/2025 11:15 AM EDT Temperature 37.1 C (98.8 F) 10/10/2024 6:06 PM EST Respiratory Rate 18 10/10/2024 6:06 PM EST Oxygen Saturation 98% 10/10/2024 6:06 PM EST Inhaled Oxygen Concentration - - Weight 78 kg (172 lb) 08/13/2025 11:15 AM EDT Height 157.5 cm (5' 2 ) 10/10/2024 6:06 PM EST Body Mass Index 31.46 10/10/2024 6:06 PM EST Plan of Treatment Upcoming Encounters Date Type Department Care Team (Late st Contact Info) Description 12/24/2025 10:15 AM EDT Office Visit [facility] [address] [place] [address] Gloria Lucia, PANTRY CHEF [address] [place] [address] [email or web address] [email or web address] Procedures Name Priority Associated Diagnoses Date/Ti me COLONOSCOPY Hx of adenomatous colonic polyps Substernal chest pain ESOPHAGOGASTRODUODENOSCOPY Hx of adenomatous colonic polyps Substernal chest pain Health Maintenance Due Date Last Done Comments COLOGUARD 2003 FIT TEST 2003 FOBT 2003 SIGMOIDOSCOPY 2003 VIRTUAL COLONOSCOPY 2003 PNEUMOCOCCAL VACCINES (50+ years) (2 of 2 - PCV) 04/09/2016 04/09/2015 DIABETIC EYE EXAM 01/26/2019 HEMOGLOBIN A1C 11/10/2020 05/10/2020, 04/18, 01/27/2019 MAMMOGRAM 11/08/2021 11/08/2019 URINE MICROALBUMIN/CREATININE RATIO 11/20/2021 11/20/2020 DEPRESSION SCREENING 11/28/2021 11/28/2020 INFLUENZA VACCINE (#1) 2025 , 08/04/2022, 08/15/2021, Additional history exists COVID-19 VACCINE ( season) 2025 08/08/2023, 08/08/2023, 08/04/2022, Additional history exists LIPID PANEL 08/28/2025 08/28/2024 BLOOD PRESSURE 02/11/2026 08/13/2025 COLONOSCOPY 10/19/2029 10/19/2019 COLORECTAL CANCER SCREENING 10/19/2029 Adult Td,Tdap Booster 04/13/2033 04/13/2023, 011 HEPATITIS A VACCINES Aged Out 10/08/2014, 04/16/20 14 No longer eligible based on patient's age to complete this topic HEPATITIS C SCREENING Completed 05/10/2020, 020 RSV VACCINE Completed 08/08/2023 ZOSTER VACCINES Completed 10/04/2023, 08/08/2023 OSTEOPOROSIS SCREENING INITIAL (ONE-TIME) Completed 08/13/2025 SMOKING STATUS SCREENING (Once After 26 Yrs) Completed 08/13/2025 HIB VACCINES Aged Out No longer eligi ble based on patient's age to complete this topic IPV VACCINES Aged Out No longer eligi ble based on patient's age to complete this topic MENINGOCOCCAL VACCINES (ACWY) Aged Out No longer eligible based on patient's age to complete this topic MENINGOCOCCAL VACCINES (B) Aged Out N o longer eligible based on patient's age to complete this topic Medical Devices Implanted Type Area Real Estate Officer Device Identifier Shelf Expiration Date Model / Serial / Lot Clip Clip Right: Breast Nodata NODATA Spine Cervical Description:Spine surgery Stent Ureteral 6fr 22 To 30cm Stretch Coated Antelmo - [id number] Implanted:Qty : 1 on 01/26/2019 by Bernard Guerrero MD at [facility] Explanted:12/2018 (Quantity not on file) Left: Ureter Badge FANNY 09/14/2021 [id number] / / [id number] Stent Ureteral 6fr 22 To 30cm Stretch Coated Antelmo - [id number] Implanted:Qty : 1 on 02/27/2019 by Bernard Guerrero MD at [facility] Explanted:12/2018 (Quantity not on file) Left: Ureter [email or web address] 10/02/2021 [id number] 60 / / Description:Stent with strin gs taped to perineum with mastisol And steri strips Procedures Procedure Name Priority Date/Time Associated Diagnosis Comments BD DXA AXIAL (SPINE) WITH HIP Routine 08/13/2025 5:14 PM EDT Asymptomatic menopausal state LIPID PANEL Routine 08/28/2024 7:58 AM EST HEMOGLOBIN A1C Routine 05/10/2020 5:02 PM EDT Type 2 diabetes mellitus without complication, without long-term current use of insulin HEPATITIS C ANTIBODY, QUALITATIVE Routine 05/10/2020 5:02 PM EDT Polyarthralgia HM MAMMOGRAPHY Routine 11/08/2019 ENDOSCOPY, COLON 10/19/2019 1:24 PM EST from Last 3 Months or Most Recently Relevant to Health Maintenance Results * BD DXA AXIAL (SPINE) WITH HIP (08/13/2025 5:14 PM EDT) Anatomical Region Laterality Modality Bone Density Bone Density 08/13/2025 5:05 PM EDT Impressions 08/14/2025 3:45 PM EDT Interpretation: Normal bone mineral density. Narrative 08/14/2025 3:45 PM EDT Referred By: RICHARD CARIAS Indications: Postmenopausal Scanner: [employer] A with serial# of [id number] located at [facility] Bone Density Scan (DXA) 08/13/25 Details of [...] -2.5), or Osteoporosis (T-score <= -2.5). At [facility], T-scores are compared to peak bone density [...] Justine Hopkins MD - 08/14/2025 Referred By: RICHARD CARIAS Indications: Postmenopausal Scanner: [employer] A with serial# of [id number] located at [facility] Bone Density Scan (DXA) 08/13/25 Details [...] -2.5), or Osteoporosis (T-score <= -2.5). At [facility], T-scores are compared to peak bone density [...] results. IMPRESSION: Interpretation: Normal bone mineral density. Richard HART IMG BD BONE DENSITY DEXA F inal Result * (ABNORMAL) Lipid panel (08/28/2024 7:58 AM EST) [facility] HDL 47 mg/dL [facility] Comment: Interpretation <40 mg/dL: Low HDL cholesterol (major risk factor for CHD) Greater than or equal to 60 mg/dL: High HDL cholesterol ( negative risk factor for CHD) HDL - cholesterol is affected by a number of factors, e.g. smoking, excerise, hormones, sex and age. CHOLESTEROL 163 0 - 240 mg/dL [facility] TRIGLYCERIDES 185(H) 30 - 160 mg/dL [facility] LDL 79 50 - 129 mg/dL [facility] Comment: LDL levels in terms of risk for coronary heart disease: <100 mg/dL: Optimal 100-129 mg/dL: Near or above optimal 130-159 mg/dL: Borderline high 160-189 mg/dL: High >190 mg/dL: Very High CARDIAC RISK RATIO 3.5 3.3 - 4.4 C [facility] Blood 08/28/2024 7:58 AM EST 08/28/2024 8:11 AM EST us Angel Howard MD LAB BLOOD BKR ORDERABLES Final Result Performing Organization Address [facility] Co de Phone Number [address] [address] * Hepatitis C antibody, qualitative (05/10/2020 5:02 PM EDT) HCV NON-REACTIV E NON-REACTI VE [facility] Blood 05/10/2020 5:02 PM EDT 05/10/2020 5:10 PM EDT Erlin Christianson MD LAB BLOOD BKR ORDERABLES F inal Result Performing Organization Address City/[facility]/ZIP Co de Phone Number [address] [address] * (ABNORMAL) Hemoglobin A1c (05/10/2020 5:02 PM EDT) HEMOGLOBIN A1C 6.2(H) 4.3 - 5.8 % [facility] Blood 05/10/2020 5:02 PM EDT 05/10/2020 5:10 PM EDT Erlin Christianson MD LAB BLOOD BKR ORDERABLES F inal Result [facility] [address] [place] [address] * MAMMOGRAPHY FOR RESULT ENTRY ONLY (11/08/2019) us Historical Provider HEALTH MAINTENANCE Edited Result - Final * ENDOSCOPY, COLON (10/19/2019 1:24 PM EST) Narrative Transcriptions Adam Sibley MD - 10/19/2019 1:24 PM EST Patient Name: Kelly Isaacs Attending MD:: ADAM SIBLEY MD Procedure Date: 10/19/2019 1:24 PM Date of : 1960 Age: 59 Admit Type: Outpatient Gender: Female Room: [place] [address] Referring MD: Lidia Treadwell Exam Type: Colonoscopy [...] monitored continuously. The Olympus adult variable colonoscope [id number] #[id number] was introduced through the anus and [...] colonoscopy in 5 years for surveillance. ADAM SIBLEY MD 10/19/2019 2:11:23 PM This report has been signed electronically. Number of Addenda: 0 Note Initiated On: 10/19/2019 1:24 PM Procedure Code(s): --- Professional --- 93060, Colonoscopy, flexible; with removal of tumor(s), polyp(s), or other lesion(s) by snare technique --- Technical --- 89493, Colonoscopy, flexible; with removal of tumor(s), polyp(s), [...] congenital malformations of intestine CPT copyright 2018 [employer]. All rights reserved. The codes documented in this report are preliminary and upon director of product development reviewmay be revised to meet current compliance requirements. [address] [place] [address] Lidia Treadwell DO GI PROCEDURE ORDERABLES Fi nal Result from Last 3 Months or Most Recently Relevant to Health Maintenance Insurance [employer]ACEMENT [employer] MEDICARE HMO REPLACEMENT [employer] MEDICARE HMO REPLACEMENT [employer]AC[employer] Advance Directives For more information, please contact: [phone] (9AM - 5PM [facility], Wednesday-Wednesday) * Full Code (Latest Code Status [...] Code Status Confirmed With: PatientFamily Care Teams Machine Operator Helper Relationship Specialty Start Date End Date Richard Carias PA [address] [place] [id number] PCP - General Physician Mannequin Mold Maker 01/14/24 Additional Source Comments The information contained in this document represents components of the legal health record. It is not the complete legal health record.[facility]
--- OUTSIDE RECORDS SUMMARY | 2025-08-29 15:18 | XMS_ITS | Encounter Summary ---
Author Organization [facility] Address [address] [place] [address] [place] [address] Phone Care Team Providers Care Cable Mechanic Name Role Phone Ruth Cade MD Unavailable [phone] Aimee Hung NP Unavailable Alayna Gagnon MD Primary Care Prov ider Janine Gomez Primary Care Provider [phone] Alayna Gagnon MD Primary Care Prov ider Pcp, Unknown Primary Care Provider UnavailLidia Mcmanus DO Primary Care Provider Lidia Treadwell DO Unavailable [phone] Pcp, Unknown Primary Care Provider UnavailJanine Samuels Primary Care Provider Encounter Details Date Type Department Care Team (Latest Contact Info) Description 03/16/2019 Transcribe Orders Virtual Department [address] [place] [address] Bernard Guerrero MD [facility], [address] [place] [address] [email or web address] Calculus of kidney (Primary Dx) Social History [...] Description 12/24/2025 10:15 AM EDT Office Visit [facility] [address] [place] [address] Gloria Lucia, GAL [address] [address] [email or web address] Scheduled Procedures Name Priority Associated Diagnoses [...] documented as of this encounter Care Teams Cable Mechanic Relationship Specialty Start Date End Date Alayna Gagnon MD [address] [place] [phone] [email or web address] PCP - General Family Medicine 01/26/19 03/22/19 Janine Gomez PA [address] [place] [address] [place] [address] PCP - General Resource Recovery Specialist 03/23/19 07/03/19 Alayna Gagnon MD [address] [place] [phone] [email or web address] PCP - General Family Medicine 07/04/19 08/19/19 Pcp, Unknown PCP - General 08/20/19 09/03/19 Lidia Treadwell DO [address] [place] [id number] [email or web address]) [email or web address] PCP - General Family Medicine 09/04/19 02/20/21 Pcp, Unknown PCP - General 01/13/23 01/13/24 Janine Gomez PA [address] [place] [address] PCP - General Physician Ghost Writer 01/14/24 Ruth Cade MD [address] [place] [address] Historical LMR Provider 08/02/17 Aimee Hung NP [address] [place] [phone] Historical LMR Provider 08/02/17 2 Lidia Treadwell DO [address] [place] [address] [email or web address] [email or web address].[email or web address] Insurance Assigned Provider 11/17/19 05/24/21 documented as of this encounter Additional Source Comments The information contained in this document represents components of the legal health record. It is not the complete legal health record.[facility]
--- OUTSIDE RECORDS SUMMARY | 2025-08-29 15:18 | XMS_ITS | Encounter Summary ---
Author Organization [facility] Address [address] [place] [address] [place] [address] Phone Care Team Providers Care Horticultural Manager Name Role Phone Ruth Cade MD Unavailable [phone] Aimee Hung NP Unavailable [phone] Janine Gomez Primary Care Provider [phone] Alayna Gagnon MD Primary Care Prov ider Pcp, Unknown Primary Care Provider UnavailLidia Mcmanus DO Primary Care Provider [phone] Lidia Treadwell DO Unavailable [phone] Pcp, Unknown Primary Care Provider UnavailJanine Samuels Primary Care Provider [phone] Encounter Details Date Type Department Care Team (Latest Contact Info) Description 06/16/2019 Transcribe Orders Virtual Department [address] [place] [address] Bernard Guerrero MD [address] [facility], [address] [place] [address] [email or web address] Calculus of kidney (Primary Dx) Social History [...] Description 12/24/2025 10:15 AM EDT Office Visit [facility] [address] [place] [address] Gloria Lucia, VIDEO PHOTOGRAPHER [address] [place] [address] [email or web address] Scheduled Procedures Name Priority Associated Diagnoses Date/Ti me COLONOSCOPY Hx of adenomatous colonic polyps Substernal chest pain ESOPHAGOGASTRODUODENOSCOPY Hx of adenomatous colonic polyps Substernal chest pain documented as of this encounter Results * US Kidneys (07/04/2019 7:46 AM EDT) Anatomical Region Laterality Modality Abdomen, Kidney Ultrasound 07/04/2019 9:20 AM EDT Impressions 07/04/2019 9:31 AM EDT No ultrasound evidence of nephrolithiasis. POS - [id number] Narrative 07/04/2019 9:31 AM EDT EXAM: US [...] is within normal limits for size and xemtvila90.9 cm in sagittal dimension. Parenchyma is within normal limits.Cortical thickness and echogenicity are within normal limits. Nohydronephrosis, focal lesions, or shadowing stones. IMPRESSION: No ultrasound evidence of nephrolithiasis. POS - [id number] Bernard Guerrero MD [facility] RE[facility] Final Result documented in this encounter Visit Diagnoses Diagnosis Calculus of kidney- Primary Calculus of kidney documented in this encounter Additional Health Concerns Infection Onset Date Last Indicated Resolved Time CoV-Exposed Comment:Recent close contact documented in the Travel/Symptom Screening Form 07/12/2023 07/14/2023 1:22 AM E DT CoV-Risk 05/18/2020 05/18/2020 06/01/2020 1:23 AM EDT documented as of this encounter Care Teams Horticultural Manager Relationship Specialty Start Date End Date Janine Gomez PA [address] [place] [address] [place] [phone] PCP - General Foxing Closer 03/23/19 07/03/19 Alayna Gagnon MD [address] [place] [phone] [email or web address] PCP - General Family Medicine 07/04/19 08/19/19 Pcp, Unknown PCP - General 08/20/19 09/03/19 Lidia Treadwell DO [address] [place] [address] [email or web address] PCP - General Family Medicine 09/04/19 02/20/21 Pcp, Unknown PCP - General 01/13/23 01/13/24 Janine Gomez PA [address] [place] [address] PCP - General Physician Crop Research Scientist 01/14/24 Ruth Cade MD [address] [place] [address] Historical LMR Provider 08/02/17 Aimee Hung NP [address] [place] [phone] Historical LMR Provider 08/02/17 2 Lidia Treadwell DO [address] [place] [address] [email or web address] Insurance Assigned Provider 11/17/19 05/24/21 documented as of this encounter Additional Source Comments The information contained in this document represents components of the legal health record. It is not the complete legal health record.[facility]
--- OUTSIDE RECORDS SUMMARY | 2025-08-29 15:18 | XMS_ITS | Encounter Summary ---
Author Organization [facility] Address [address] [place] [address] [place] [address] Phone Care Team Providers Care Science Liaison Name Role Phone Ruth Cade MD Unavailable [phone] Aimee Hung NP Unavailable [phone] Lidia Treadwell DO Primary Care Provider [phone] Lidia Treadwell DO Unavailable [phone] Pcp, Unknown Primary Care Provider UnavailJanine Samuels Primary Care Provider [phone] Encounter Details Date Type Department Care Team (Late st Contact Info) Description 10/19/2019 Procedure Pass [facility] Endoscopy Admitting Dept Virtual Department [address] [place] [address] Social History Tobacco Use Types Packs/Day Years [...] Date 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 [address] [place] [address] Gloria Lucia, GAL [address] [address] [email or web address] Scheduled Procedures Name Priority Associated Diagnoses [...] documented as of this encounter Care Teams Science Liaison Relationship Specialty Start Date End Date Lidia Treadwell DO [address] [place] [address] [email or web address] PCP - General Family Medicine 09/04/19 02/20/21 Pcp, Unknown PCP - General 01/13/23 01/13/24 Janine Gomez PA [address] [place] [address] PCP - General Physician Rocket Assembly Operator 01/14/24 Ruth Cade MD [address] [place] [address] Historical LMR Provider 08/02/17 Aimee Hung NP [address] [place] [phone] Historical LMR Provider 08/02/17 2 Lidia Treadwell DO [address] [place] [address] [email or web address] Insurance Assigned Provider 11/17/19 05/24/21 documented as of this encounter Additional Source Comments The information contained in this document represents components of the legal health record. It is not the complete legal health record.[facility]
--- OUTSIDE RECORDS SUMMARY | 2025-08-29 15:18 | XMS_ITS | Encounter Summary ---
Author Organization [facility] Address [address] [place] [address] [place] [address] Phone Care Team Providers Care Front Attendant Name Role Phone Janine Gomez Primary Care Provider [phone] Encounter Details Date Type Department Care Team (Late st Contact Info) Description 08/27/2024 Procedure Pass [facility], Ct Scan - [address] [address] Social History Tobacco Use Types Packs/Day Years [...] End Date 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 phedema plastic outfitter Not on file Not on file Not on file 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 phedema plastic outfitter Not on file Not on file Not on file documented as of this encounter Functional Status * Calculated C-SSRS Risk Score (Lifetime/Recent) Answer Date of Assessment Author No Risk Indicated 08/27/2024 5:44 PM Xi Drew RN * [place] Suicide Severity Rating Scale (Screener/Recent Self-Report) Question [...] Description 12/24/2025 10:15 AM EDT Office Visit [facility] [address] [place] [address] Gloria Lucia, GAL [address] [address] [email or web address] Scheduled Procedures Name Priority Associated [...] documented as of this encounter Care Teams Front Attendant Relationship Specialty Start Date End Date Janine Gomez PA [address] [place] [address] PCP - General Physician Story Reader 01/14/24 documented as of this encounter Additional Source Comments The information contained in this document represents components of the legal health record. It is not the complete legal health record.[facility]
--- OUTSIDE RECORDS SUMMARY | 2025-08-29 15:18 | XMS_ITS | Encounter Summary ---
Author Organization [facility] Address [address] [place] [address] [place] [address] Phone Care Team Providers Care Hide Buyer Name Role Phone Ruth Cade MD Unavailable [phone] Aimee Hung NP Unavailable [phone] Alayna Gagnon MD Primary Care Prov ider Janine Gomez Primary Care Provider [phone] Alayna Gagnon MD Primary Care Prov ider Pcp, Unknown Primary Care Provider UnavailLidia Mcmanus DO Primary Care Provider + [phone] Lidia Treadwell DO Unavailable [phone] Pcp, Unknown Primary Care Provider UnavailJanine Samuels Primary Care Provider + [phone] Encounter Details Date Type Department Care Team (Late st Contact Info) Description 02/27/2019 Procedure Pass [place] Admitting Dept - Virtual Department [address] [place], [place] [phone] Social History Tobacco Use Types Packs/Day Years [...] Description 12/24/2025 10:15 AM EDT Office Visit [facility] [address] [place] [address] Gloria Lucia, APPLICATIONS ENGINEER [address] [address] [email or web address] Scheduled Procedures Name Priority Associated Diagnoses Date/Ti [...] documented as of this encounter Care Teams Hide Buyer Relationship Specialty Start Date End Date Alayna Gagnon MD [address] [place] [address] [email or web address] PCP - General Family Medicine 01/26/19 03/22/19 Janine Gomez PA [address] [place] [address] [place] [address] PCP - General Clinical Nursing Intern 03/23/19 07/03/19 Alayna Gagnon MD [address] [place] [address] [email or web address] PCP - General Family Medicine 07/04/19 08/19/19 Pcp, Unknown PCP - General 08/20/19 09/03/19 Lidia Treadwell DO [address] [place] [address] [email or web address] PCP - General Family Medicine 09/04/19 02/20/21 Pcp, Unknown PCP - General 01/13/23 01/13/24 Janine Gomez PA [address] [place] [address] PCP - General Physician Microsoft Solutions Architect 01/14/24 Ruth Cade MD [address] [place] [address] Historical LMR Provider 08/02/17 Aimee Hung NP [address] [place] [phone] Historical LMR Provider 08/02/17 2 Lidia Treadwell DO [address] [place] [address] [email or web address] Insurance Assigned Provider 11/17/19 05/24/21 documented as of this encounter Additional Source Comments The information contained in this document represents components of the legal health record. It is not the complete legal health record.[facility]
--- OUTSIDE RECORDS SUMMARY | 2025-08-29 15:18 | XMS_ITS | Encounter Summary ---
Author Organization [facility] Address [address] [place] [address] [place] [address] Phone Care Team Providers Care Manager Search Name Role Phone Pcp, Unknown Primary Care Provider Janine Lema Primary Care Provider [phone] Encounter Details Date Type Department Care Team (Late st Contact Info) Description 07/12/2023 Procedure Pass [facility], Ct Scan - [address] [address] Social History Tobacco Use Types Packs/Day Years [...] 8:40 PM EDT Shira Gonzales RN * [place] Suicide Severity Rating Scale (Screener/Recent Self-Report) Question [...] Description 12/24/2025 10:15 AM EDT Office Visit [facility] [address] [place] [address] Gloria Lucia, GAL [address] [place] [address] [email or web address] Scheduled Procedures Name Priority Associated Diagnoses Date/Ti vt COLONOSCOPY Hx of adenomatous colonic polyps Substernal [...] as of this encounter Care Teams Manager Search Relationship Specialty Start Date End Date Pcp, Unknown PCP - General 01/13/23 01/13/24 Janine Gomez PA [address] [place] [address] PCP - General Physician Carpet Journeyman 01/14/24 documented as of this encounter Additional Source Comments The information contained in this document represents components of the legal health record. It is not the complete legal health record.[facility]
--- OUTSIDE RECORDS SUMMARY | 2025-08-29 15:18 | XMS_ITS | Encounter Summary ---
Author Organization [facility] Address [address] [place] [address] [place] [address] Phone Care Team Providers Care Drafter Construction Name Role Phone Pcp, Unknown Primary Care Provider Janine Lema Primary Care Provider [phone] Encounter Details Date Type Department Care Team (Late st Contact Info) Description 01/13/2023 Procedure Pass [facility], Ct Scan - [address] [address] Social History Tobacco Use Types Packs/Day Years [...] End Date 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 phedema heel seat 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 Not on file Not on file Not on file 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 phedema heel seat 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 Not on file Not on file Not on file documented as of this encounter Functional Status * Calculated C-SSRS Risk Score (Lifetime/Recent) Answer Date of Assessment Author No Risk Indicated 01/13/2023 5:44 PM EDT Ute Schuler RN * [place] Suicide Severity Rating Scale (Screener/Recent Self-Report) Question [...] Description 12/24/2025 10:15 AM EDT Office Visit [facility] [address] [place] [address] Gloria Lucia, GAL [address] [place] [address] [email or web address] Scheduled Procedures Name Priority Associated Diagnoses [...] documented as of this encounter Care Teams Drafter Construction Relationship Specialty Start Date End Date Pcp, Unknown PCP - General 01/13/23 01/13/24 Janine Gomez PA [address] [place] [address] PCP - General Physician Joinery Patternmaker 01/14/24 documented as of this encounter Additional Source Comments The information contained in this document represents components of the legal health record. It is not the complete legal health record.[facility]
== END 2025-08-29 13:13 | disposition home or self-care (01) ==
LOC: HO.PMC 12:38
PROVIDERS: PCP Physician Assistant Medical; Visit Provider Anesthesiology
DX: M16.12 Unilateral primary osteoarthritis, left hip (principal); M53.3 Sacrococcygeal disorders, not elsewhere classified; M54.50 Low back pain, unspecified; M25.552 Pain in left hip
CPT/HCPCS: 99213

== ENCOUNTER → 2025-08-29 12:37 | Outpatient (BNVA) | payer OTHER, SELFPAY | PROVIDERS: PCP Physician Assistant Medical; Visit Provider Anesthesiology | DX: M16.12 Unilateral primary osteoarthritis, left hip (principal); M53.3 Sacrococcygeal disorders, not elsewhere classified; M54.50 Low back pain, unspecified; M25.552 Pain in left hip | CPT/HCPCS: 99212 ==

== ENCOUNTER → 2025-09-10 07:42 | Outpatient (BNVA) | payer OTHER, SELFPAY | PROVIDERS: PCP Physician Assistant Medical; Visit Provider Physician Assistant Medical | DX: S60.212D Contusion of left wrist, subsequent encounter (principal); M65.4 Radial styloid tenosynovitis [de Quervain]; G56.02 Carpal tunnel syndrome, left upper limb; M54.50 Low back pain, unspecified; M53.3 Sacrococcygeal disorders, not elsewhere classified; S70.02XD Contusion of left hip, subsequent encounter; W00.0XXD Fall on same level due to ice and snow, subsequent encounter | CPT/HCPCS: 99213 ==